=== PATIENT | female | born 2000 | race Caucasian/White ===

== ENCOUNTER 2019-09-17 02:17 | Emergency (ER) | payer MEDICAID, SELFPAY ==
[2019-09-17 02:18] VITALS: BP 135/78; PULSE 108; RESP 16; TEMP 37.2; O2SAT 100; BMI 28.0
[2019-09-17 02:23] VITALS: RESP 16
--- NOTE | 2019-09-17 02:37 | ED.DCSUM_ITS ---
History of Present Illness Chief Complaint: Other, Pain/Inj Narrative: Patient is a 18-year-old female who presents with pelvic pain. She has been having dyspareunia. She saw her prosthetist 2 days ago and was diagnosed with bacterial vaginosis and yeast vaginitis. She had prescriptions called in but has not yet started these. She was told that if her symptoms did not improve with this treatment and she continued to have dyspareunia they would get an outpatient pelvic ultrasound. Tonight during intercourse she had severe pelvic pain which is now improving but not resolved. She complains of pain all the way across the pelvis worse on the left side. She currently rates her pain as 5 out of 10. Past Medical History - Allergies and Home Meds Allergies/Adverse Reactions: Allergies No Known Allergies Allergy (Verified 09/17/19 02:24) Past Medical History: None Smoking Status: Current every day smoker Review of Systems All systems negative except as indicated General: Denies: Fever Gastrointestinal: Denies: Nausea, Vomiting Genitourinary: Reports: - - Pelvic pain, dyspareunia Physical Exam Vital Signs/Narrative: Vital Signs Temp Pulse Resp BP Pulse Ox 09/17/19 02:23 16 09/17/19 02:18 99 F 108 H 16 135/78 H 100 Inital Vital Signs reviewed: Yes General: Well nourished Head: Normocephalic Eyes: EOMI ENT: Moist mucous membranes Neck: Supple Cardiovascular: Regular rhythm, Tachycardia Respiratory: No distress, CTA bilaterally Abdomen: Soft, Nondistended, - - Suprapubic and pelvic abdominal tenderness worse on the left side no guarding or rebound Skin: Normal color Neurological: Alert Psychological: Normal affect Diagnostic/Tx/Re-eval - Medical Decision Making Urinalysis, , gonorrhea and chlamydia as well as a pelvic ultrasound were all ordered. 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 ED Disposition - Plan for ED Patient: Diagnosis: Pelvic pain
[2019-09-17] MEDS: Naproxen 500 MG Tablet PO (02:43)
--- NOTE | 2019-09-17 02:59 | ED.RN ---
nurse called into the room. 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 Nurse left to inform doctor and patient walked out the room. US made aware
== END 2019-09-17 03:00 | disposition home or self-care (01) ==
LOC: ED 02:49
PROVIDERS: Emergency Provider Emergency Medicine
DX: R10.2 Pelvic and perineal pain (principal); N94.10 Unspecified dyspareunia; Z53.29 Procedure and treatment not carried out because of patient's decision for other reasons; N76.0 Acute vaginitis; B37.3 Candidiasis of vulva and vagina; F17.200 Nicotine dependence, unspecified, uncomplicated
CPT/HCPCS: 99283; A4216

== ENCOUNTER 2021-08-21 17:35 | Emergency (ER) | payer MEDICAID, SELFPAY ==
[2021-08-21 17:37] VITALS: BP 114/70; PULSE 123; RESP 18; TEMP 37.2; O2SAT 100; BMI 25.6
--- NOTE | 2021-08-21 17:50 | ED.VIS.DENTA ---
HPI History of Present Illness Chief Complaint: Dental Narrative Narrative: 20-year-old female presenting with dental pain. She states that she had a root canal on the left maxillary teeth on as well as wisdom tooth removal. She has pain over the left wisdom tooth removal site. She states that there were sutures in there which she believes has ripped. She also has pain where her root canal was. She states that ibuprofen was controlling the pain but she only has 1 pill left of ibuprofen currently. She is already done a course of amoxicillin. She does admit to a foul taste coming from what she believes is upper aspect of her mouth. She does not have any facial swelling. No difficulty swallowing or breathing. No fevers. She did call her dentist and they said they could get her in on . PFSH PFS Medical History Smoker Home Medications NK 09/17/19 [History Last Taken Unknown] amoxicillin-pot clavulanate [Augmentin] 1 tab PO BID #20 tab 08/21/21 [Rx Last Taken Unknown] ibuprofen 600 mg PO Q6H PRN PRN #30 tablet 08/21/21 [Rx Last Taken Unknown] Allergy/AdvReac Type Severity Reaction Status Date / Time No Known Allergies Allergy Verified 08/21/21 17:36 Social History Smoking Status: Current every day smoker tobacco type: cigarettes ROS ROS ED Constitutional Constitutional ED: Denies chills or fever(s) Eyes Eyes: Denies blurry vision or change in vision ENT ENT ED: Reports other Details: Dental pain ; Denies rhinorrhea or sore throat Cardiovascular Cardiovascular: Denies chest pain or palpitations Respiratory/Chest Respiratory/Chest: Denies cough or dyspnea Gastrointestinal Gastrointestinal: Denies abdominal pain, nausea or vomiting Genitourinary Genitourinary ED: Denies dysuria or hematuria Musculoskeletal Musculoskeletal: Denies arthralgias or myalgias Integumentary Denies abscess or rash Neurologic Neurologic: Denies headache(s) or paresthesias EXAM Physical Exam Const Vital Signs: 08/21/21 17:37 Temperature 98.9 F Temperature Source Temporal Pulse Rate 123 H Respiratory Rate 18 Blood Pressure 114/70 Blood Pressure Mean 84 Pulse Ox 100 Oxygen Delivery Method Room Air Positive well nourished and well developed General Appearance ED: well developed and NAD HEENT HEENT Narrative: There is erythema and slight swelling at the lateral aspect of the upper maxillary. There is no focal areas of drainage or fluctuance. The left wisdom tooth has been removed and there appears to be sutures in place all wall 1 is loose. He does not actually broken. There is no drainage from this site. There is minimal tenderness to this area. No sublingual edema. Tongue is not swollen. Airway space without stridor. Patient tolerating her own secretions. Negative for trauma Eyes PERRL and EOMs intact bilaterally Neck no lymphadenopathy and supple Extremity normal to inspection Neuro oriented x3 Sensorium / Orientation: alert Psych mental status grossly normal MDM MDM MDM Narrative Medical decision making narrative: Patient has some inflammation and swelling at the left upper maxillary teeth at the site of her root canal. She is finished with her amoxicillin. I cannot determine what this looks like prior however given this swelling and pain which is increased over the course of the day as well as recent instrumentation I think it is reasonable to give her Augmentin. I will provide first dose of this in the ER. The site where the wisdom tooth was removed does have sutures in place although one appears to be loose. There is no drainage from this site. She has follow-up for both in 2 days. She states that if she had a refill for ibuprofen this would help her pain. She states this was controlling her symptoms. Patient will be provided this as well. Patient is stable for discharge at this time. Impression: 1. Dental pain status post root canal 2. Dental abscess Discharge Plan Triage Chief Complaint: Dental ED Provider: Efren Claudio Dx/Rx/DC Orders Instructions: ED Dental Pain Prescriptions: New ibuprofen 600 mg tablet 600 mg PO Q6H PRN PRN (Reason: pain) Qty: 30 RF: 0 amoxicillin-pot clavulanate [Augmentin] 875-125 mg tablet 1 tab PO BID Qty: 20 RF: 0 No Action NK RF: 0 Primary Care Provider: Care Physician,No Primary Referrals: Care Physician,No Primary [Primary Care Provider] - Disposition Disposition: Home, Self Care
[2021-08-21] MEDS: Ibuprofen 600 MG Tablet PO (17:54)
[2021-08-21] MEDS: Amox/Clavulanate 875 MG Tablet PO (17:55)
[2021-08-21 18:02] VITALS: PULSE 88; RESP 16; O2SAT 98
== END 2021-08-21 18:02 | disposition home or self-care (01) ==
LOC: ED 18:01
PROVIDERS: Emergency Provider Student in an Organized Health Care Education/Training Program
DX: T81.41XA Infection following a procedure, superficial incisional surgical site, initial encounter (principal); K04.7 Periapical abscess without sinus; F17.210 Nicotine dependence, cigarettes, uncomplicated
CPT/HCPCS: 99282

== ENCOUNTER 2022-05-01 13:44 | Emergency (ER) | payer MEDICAID, SELFPAY ==
[2022-05-01 13:45] VITALS: BP 137/82; PULSE 119; RESP 16; TEMP 36.6; O2SAT 100; BMI 25.8
== END 2022-05-01 15:45 | disposition left against medical advice (07) ==
LOC: ED 15:44
DX: Z53.21 Procedure and treatment not carried out due to patient leaving prior to being seen by health care provider (principal)

== ENCOUNTER → 2022-12-02 | Outpatient (CLI) | payer MEDICAID, SELFPAY ==
--- NOTE | 2022-12-02 10:34 | US_ITS ---
STUDY: ULTRASOUND BREAST - LEFT REASON FOR EXAM: Female, 21 years old. Left breast lump. TECHNIQUE: Axial and longitudinal images of the LEFT breast were performed with a high resolution ultrasound transducer. # OF IMAGES: 39 COMPARISON: None. FINDINGS: LEFT Breast: The inferior aspect of the breast was examined with ultrasound. No sonographic abnormality is seen. US/Breast Limited Unilateral IMPRESSION: No sonographic abnormality is seen. ASSESSMENT CATEGORY: BIRADS Category 1: Negative. A letter regarding these results will be sent to the patient by the facility within 30 days. Electronically Signed: Perfecto Malik MD at 13:52 EST ,
== END | disposition home or self-care (01) ==
LOC: OPBI 10:32
PROVIDERS: Visit Provider Obstetrics & Gynecology
DX: N63.20 Unspecified lump in the left breast, unspecified quadrant (principal)
CPT/HCPCS: 76642

== ENCOUNTER → 2023-04-08 | Outpatient (CLI) | payer MEDICAID, SELFPAY ==
[2023-04-08 12:37] LABS: Absolute Lymphocyte Count 1.34 X10^3/uL (0.83-4.51); Absolute Neutrophil Count 5.8 X10^3/uL (2.0-7.7); Basophil# 0.02 X10^3/uL; Basophil% 0.3 % (0-1); Eosinophil# 0.07 X10^3/uL; Eosinophils% 0.9 % (0-5); Hematocrit 39.5 % (37-47); Hemoglobin 13.4 g/dL (12.0-15.0); Lymphocyte # 1.34 X10^3/ul (0.83-4.51); Lymphocyte % 17.4 % (19-41); Mean Corp Hgb Conc 33.9 g/dL (32-36); Mean Corpuscular Hgb 30.5 pg (27.0-32.0); Mean Platelet Vol. 10.3 fl (6.2-12.0); Monocyte# 0.45 X10^3/uL; Monocyte% 5.9 % (0-10); NRBC Flagged by Analyzer 0 % (0-5); Neutrophil # 5.77 X10^3/uL (2.7-7.7); Neutrophil % 75.1 % (47-70); Platelet Count 189 K/mm3 (150-450); RBC Distribution Width CV 14.1 % (11.6-14.6); RBC Distribution Width SD 46.2 fl (35.1-43.9); Red Blood Count 4.39 M/mm3 (4.2-5.4); White Blood Count 7.7 K/mm3 (4.4-11.0)
[2023-04-08 13:48] LABS: HIV - WCH Non-Reactive (Nonreactive); Hepatitis B Surface Antigen Non-Reactive (Nonreactive); Hepatitis C Antibody Non-Reactive (Nonreactive); Rubella IgG Reactive (Nonreactive); Syphilis Antibodies Non-reactive
[2023-04-09 05:07] LABS: V-Zoster IgG (Immunity) 2388 index (Immune >165)
[2023-04-17 22:07] LABS: HPV APTIMA, High Risk Positive (Negative)
[2023-04-19 11:10] LABS: HPV Reflexed? YES, CHARGE PATIENT
== END | disposition home or self-care (01) ==
PROVIDERS: Visit Provider Obstetrics & Gynecology
DX: Z34.81 Encounter for supervision of other normal pregnancy, first trimester (principal); Z12.4 Encounter for screening for malignant neoplasm of cervix
CPT/HCPCS: 36415; 85025; 86703; 86762; 86780; 86787; 86803; 87086; 87088; 87340; 87624; 88175; G0145

== ENCOUNTER → 2023-07-25 | Outpatient (CLI) | payer MEDICAID, SELFPAY ==
[2023-07-25 11:03] LABS: Hematocrit 38.2 % (37-47); Hemoglobin 12.5 g/dL (12.0-15.0); Mean Corp Hgb Conc 32.7 g/dL (32-36); Mean Corpuscular Hgb 30.7 pg (27.0-32.0); Mean Corpuscular Volume 93.9 fL (81-99); Mean Platelet Vol. 9.7 fl (6.2-12.0); Platelet Count 166 K/mm3 (150-450); RBC Distribution Width CV 13.1 % (11.6-14.6); RBC Distribution Width SD 44.9 fl (35.1-43.9); Red Blood Count 4.07 M/mm3 (4.2-5.4); White Blood Count 9.7 K/mm3 (4.4-11.0)
[2023-07-25 11:33] LABS: Glucose Challenge Gest 1H 50g 88 mg/dL (70-140)
[2023-07-25 11:48] LABS: Syphilis Antibodies Non-reactive
== END | disposition home or self-care (01) ==
PROVIDERS: Referring Provider Obstetrics & Gynecology; Visit Provider Obstetrics & Gynecology
DX: Z01.89 Encounter for other specified special examinations (principal); Z13.1 Encounter for screening for diabetes mellitus; R76.8 Other specified abnormal immunological findings in serum
CPT/HCPCS: 36415; 82950; 85027; 86780

== ENCOUNTER 2023-11-05 17:30 | Inpatient (IN) | payer MEDICAID, SELFPAY ==
[2023-11-05] VITALS (55 sets, daily range): BP systolic 94–149; BP diastolic 46–83; PULSE 76–113; TEMP 36.3–37.1; O2SAT 93–100; BMI 33.0
--- NOTE | 2023-11-05 17:31 | PCM.HP.OB ---
HPI - General HPI Narrative GUERDA CARDONA, is a 22 F at 38.5 weeks gestation who presents in spontaneous labor. Started having contractions yesterday that have continued to increase in frequency and intensity. Denies any loss of fluid or vaginal bleeding. GBS positive. Maternal Data Information IAN Calculator Estimated Delivery Date Method Current WG Current Estimate 11/14/23 Manual 38w 5d PFSH PFSH Medical History Smoker Home Medications vit no.95-ferrous fumarate 28 mg-folic acid 800 mcg tablet () 1 tab PO DAILY 11/05/23 [History Last Taken 11/04/23 07:00 1 TAB] Allergy/AdvReac Type Severity Reaction Status Date / Time No Known Allergies Allergy Verified 11/05/23 15:17 Social History Smoking Status: Current every day smoker tobacco type: cigarettes ROS Eyes Eyes: Denies blurry vision, change in vision or spots in vision ENT HEENT: Denies dizziness or headache(s) Cardiovascular Cardiovascular: Denies abdominal pain, chest pain or dyspnea Respiratory/Chest Respiratory/Chest: Denies cough, dyspnea, shortness of breath at rest or shortness of breath with exertion Gastrointestinal Gastrointestinal: Denies abdominal pain, diarrhea or vomiting Genitourinary Genitourinary: Denies change in urinary stream, difficulty urinating or dysuria Musculoskeletal Musculoskeletal: Reports none Integumentary Integumentary: Denies rash Neurologic Neurologic: Denies dizziness, headache(s), memory loss or weakness Psychiatric Psychiatric: Reports none Vital Signs Vital Signs Vital Signs: 11/05/23 14:56 11/05/23 14:56 11/05/23 14:56 Temperature Temperature Source Temporal Pulse Rate 99 Blood Pressure 133/83 H BP Systolic 133 BP Diastolic 83 11/05/23 14:56 Temperature 97.8 F Temperature Source Pulse Rate Blood Pressure BP Systolic BP Diastolic Weight Weight: 217 lb 6.012 oz Body Mass Index (BMI) 33.0 Physical Exam Const alert, oriented x3 and no apparent distress General Appearance: cooperative Orientation / Consciousness: awake Exam Limitations: no limitations HEENT normocephalic Head and Scalp: normal to inspection Eyes General Eye: normal appearance of both eyes Neck full ROM and no lymphadenopathy Lymph Lymphatic: no lymphadenopathy noted Chest inspection of chest normal Resp normal respiratory effort, normal air movement and clear to auscultation bilaterally Effort and Inspection: able to speak in complete sentences and symmetric chest movement Cardio regular rate and regular rhythm GI normal to inspection, nondistended, normoactive bowel sounds Back/Spine normal ROM Extremity full ROM and no calf tenderness Skin no rashes or lesions noted General Skin Exam: no breakdown Neuro oriented x3 and CN's II-XII intact bilaterally Psych mental status grossly normal and thought process normal Labs Labs Labs: Blood Type O POSITIVE Hct 38.2 % (37-47) Hgb 12.5 g/dL (12.0-15.0) Syphilis Total Ab Non-reactive VZV IgG Antibody 2388 index (Immune >165) Rubella IgG Antibody Reactive (Nonreactive) Hep Bs Antigen Non-Reactive (Nonreactive) Hepatitis C Antibody Non-Reactive (Nonreactive) HIV 1&2 Antibody Non-Reactive (Nonreactive) Glucose 1 Hr 50 gm 88 mg/dL (70-140) GBS positive Assessment & Plan (1) 38 weeks gestation of : (2) Spontaneous onset of labor: (3) Positive GBS test: (4) History of asthma: (5) PTSD (post-traumatic stress disorder): (6) Genital herpes: (7) History of depression: (8) History of anxiety: PLAN: Plan CE /-1 bulging bag of water Admit to labor and delivery Routine labs Start IV and run fluids per orders GBS positive- Start PCN protocol Epidural when indicated Anticipate Dr. Gomez notified of above plan and admission and is collaborating physician
[2023-11-05] MEDS: Lactated Ringers 1,000 ML 50 ML IV (17:55)
[2023-11-05] MEDS: LACTATED RINGERS 500 ML 999 ML IV (18:00)
[2023-11-05 18:11] LABS: Absolute Lymphocyte Count 1.22 X10^3/uL (0.83-4.51); Absolute Neutrophil Count 11.9 X10^3/uL (2.0-7.7); Basophil# 0.04 X10^3/uL; Basophil% 0.3 % (0-1); Eosinophil# 0.02 X10^3/uL; Eosinophils% 0.1 % (0-5); Hematocrit 40.3 % (37-47); Lymphocyte # 1.22 X10^3/ul (0.83-4.51); Lymphocyte % 8.8 % (19-41); Mean Corp Hgb Conc 32.3 g/dL (32-36); Mean Corpuscular Hgb 29.1 pg (27.0-32.0); Mean Corpuscular Volume 90.2 fL (81-99); Mean Platelet Vol. 9.9 fl (6.2-12.0); Monocyte# 0.59 X10^3/uL; Monocyte% 4.3 % (0-10); NRBC Flagged by Analyzer 0 % (0-5); Neutrophil # 11.86 X10^3/uL (2.7-7.7); Neutrophil % 85.6 % (47-70); Platelet Count 151 K/mm3 (150-450); RBC Distribution Width CV 12.9 % (11.6-14.6); Red Blood Count 4.47 M/mm3 (4.2-5.4); White Blood Count 13.9 K/mm3 (4.4-11.0)
[2023-11-05] MEDS: Penicillin G Pot 5,000,000 UNITS in 0.9% Normal Saline (100mL MB+) 100 ML 150 UNITS IV (18:21)
[2023-11-05 18:49] LABS: Syphilis Antibodies Non-reactive
[2023-11-05] MEDS: fentaNYL-bupivacaine (epidural) 100 ML BAG EPIDURAL (19:24)
[2023-11-05] MEDS: Oxytocin 15 Units/NS 250ml 15 UNITS/250 ML IV.SOLN 83 UNITS IV (20:18)
[2023-11-05] MEDS: Oxytocin 10 UNITS/ML Vial IM (20:18)
[2023-11-05] MEDS: Methylergonovine 0.2 MG/ML Ampul 0.200000000000000011 MG IM (20:32)
--- NOTE | 2023-11-05 20:33 | EX.PCM.OBRPT ---
Assessment & Plan (1) History of anxiety: (2) (spontaneous vaginal delivery): (3) Positive GBS test: (4) History of depression: Maternal Data Information IAN Calculator Estimated Delivery Date Method Current WG Current Estimate 11/14/23 Manual 38w 5d Vaginal Delivery Maternal Presentation Maternal Presentation: 38.5 weeks gestation that presented in spontaneous onset of labor. Operative Information Date of Procedure: 11/05/23 Pre-Operative Diagnosis: Term gestation, Spontaneous onset of labor Post-Operative Diagnosis: , live male infant Surgery / Procedure Performed: Spontaneous Vaginal Delivery Type of Anesthesia: Epidural Estimated Blood Loss: 200 Time of Delivery: 20:14 Findings Description of Procedure: Patient quickly progressed in labor. Feeling rectal pressure. AROM for clear fluid and patient bearing down with contractions. With minimal maternal effort, head delivered over intact perineum followed immediately by anterior shoulder and remainder of infant body. Vigorous male placed on maternal abdomen and was attended to by nursing staff. Pitocin IM and IV started for active management of the third stage of labor. 3 vessel cord clamped and cut by FOB after delay. Cord blood collected and sent. Placenta delivered spontaneously and intact. Uterus initially boggy but firmed with massage. Fundus firm 2 below U. Vagina and perineum intact. EBL 200 cc. APGARS 8/9. Patient and bonding well at this time. Dr. Gomez notified of delivery. Presentation: Vertex Amniotic Membrane Rupture Type: Artificial Time of Membrane Rupture: 2003 Amniotic Fluid Description: Clear Placental Delivery Description: Spontaneous Placenta Disposition: [facility] Cord Vessel Description: 3 Vessels Cord Entanglement: None A Gender: Male (1 minute): 8 (5 minute): 9 Delayed Cord Clamping: Yes Post Vaginal Delivery Medications Given After Delivery: IV Pitocin and IM Pitocin Episiotomy Description: None Laceration: None Complication Complications: None
[2023-11-05] MEDS: 0.9% Saline Lock 10 ML Syringe IV (23:17)
[2023-11-06 02:45] VITALS: BP 112/66; PULSE 93; RESP 18; TEMP 36.1
--- NOTE | 2023-11-06 07:11 | PCM.PN.BLA ---
Progress Note Patient seen at bedside. Denies any pain. Ambulating and voiding without difficulty. Lochia decreasing. with support. Desires discharge home tomorrow. Physical Exam Const alert and no apparent distress General Appearance: cooperative and comfortable Exam Limitations: no limitations HEENT normocephalic Eyes General Eye: normal appearance of both eyes Neck full ROM General: normal visual inspection Chest Chest: symmetrical chest wall rise Resp normal respiratory effort and normal air movement Effort and Inspection: symmetric chest movement Auscultation: clear to auscultation bilaterally Cardio regular rate and regular rhythm GI normal to inspection, nondistended, normoactive bowel sounds Back/Spine normal ROM Extremity full ROM and no calf tenderness General Extremity: normal exam except as noted Skin no rashes or lesions noted Neuro CN's II-XII intact bilaterally Psych mental status grossly normal Assessment & Plan Assessment/Plan (1) (spontaneous vaginal delivery): (2) History of anxiety: (3) History of depression: (4) Positive GBS test: (5) Care and examination of lactating mother: PLAN: Plan GBS positive- not adequately treated due to quick progession- will need to stay 36 hours pp Routine care support Pain control Anticipate discharge home tomorrow
[2023-11-06 07:42] VITALS: BP 110/72; PULSE 81; RESP 16; TEMP 36.3
[2023-11-06] MEDS: Acetaminophen 500 MG Tablet 1000 MG PO ×2 (07:48→20:31)
[2023-11-06 13:04] VITALS: BP 106/63; PULSE 78; RESP 16; TEMP 36.3
[2023-11-06 17:19] VITALS: BP 115/67; PULSE 79; RESP 16; TEMP 35.9
[2023-11-06 20:00] VITALS: BP 110/61; PULSE 93; RESP 17; TEMP 36.6; O2SAT 99
[2023-11-07] MEDS: Acetaminophen 500 MG Tablet 1000 MG PO (03:18)
[2023-11-07 03:20] VITALS: BP 125/78; PULSE 110; RESP 15; TEMP 37.1; O2SAT 97
--- NOTE | 2023-11-07 07:25 | PCM.PN.OB ---
Subjective Subjective The patient is doing well and she offers no complaints. She is ambulating and voiding without difficulty. Tolerating regular diet without nausea or vomiting. She denies chest pain, shortness of breath, leg pain. Lochia is normal. She is breast-feeding. She desires to go home today. No pain. Objective Data Objective Data Vital Signs: Vital Signs Temp Pulse Resp BP Pulse Ox O2 Del Method 98.8 F 110 H 15 125/78 H 97 Room Air 11/07/23 03:20 11/07/23 03:20 11/07/23 03:20 11/07/23 03:20 11/07/23 03:20 11/07/23 03:20 Oxygen Delivery Method Room Air Weight: 217 lb 6.012 oz Body Mass Index (BMI) 33.0 Intake & Output: Intake and Output for Last 24 Hours 11/05/23 11/06/23 11/07/23 23:59 23:59 23:59 Intake Total 1019.84 / 1019.84 Output Total 1000 / 1000 1000 / 1000 Balance 19.84 / 19.84 -1000 / -1000 Lab / Micro Data 11/05/23 17:50 Physical Exam Const alert and no apparent distress Constitutional Narrative: Holding General Appearance: comfortable Assessment & Plan (1) (spontaneous vaginal delivery): PLAN: Patient is day 2 from a vaginal delivery. Desires discharge today and meeting milestones. Discharge instructions reviewed to follow-up in the office.
--- NOTE | 2023-11-07 08:22 | DCINST_ITS ---
Discharge Instructions Diet Discharge Diet: No restrictions Activity Discharge Activity: May Drive and May Shower May resume sexual activity in: 6 weeks (nothing in vagina and no soaking in water for 6 weeks) Weight Bearing Status: Weight bearing as tolerated Lifting Restrictions: nothing heavier than baby Dressing / Incision Call your doctor if you observe: Fever of 101 or Higher, Coldness, Increased Pain, Numbness or Tingling, Change in Color, Inability to urinate, Inability to have a bowel movement, Using more than 1 pad per hour, Shortness of breath, Dizziness, Fainting spells, Swelling in the ankles, Chest pain, Increased palpitations (irregular heartbeat), Calf discomfort and Uncontrolled pain Follow Up Care Please Follow Up With: Aislinn Bowman CNM When: 1-2 weeks early 6 week exam Test Results: Test results from this visit will be discussed in further detail at your follow- up appointment, if applicable. Discharge Plan Admission Admit Date/Time: 11/05/23 17:30 Primary Reason for Your Visit: delivery Attending Provider: Aislinn Bowman Primary Care Provider: Care Physician,Luz Marina Primary Instructions Patient Instructions: After a Vaginal Discharge Orders/Prescriptions Prescriptions: No Action PNV cmb#95-ferrous fumarate-FA [] 28 mg iron- 800 mcg tablet 1 tab PO DAILY Referrals / Follow Up: Care Physician,Luz Marina Primary [Primary Care Provider] - Disposition Disposition (needs filled in before D/C Order can be placed): Home, Self Care
[2023-11-07 08:58] VITALS: BP 102/52; PULSE 69; RESP 16; TEMP 36.4; O2SAT 97
[2023-11-07 11:33] VITALS: BP 102/52; PULSE 69; RESP 16; TEMP 36.4; O2SAT 97
--- NOTE | 2023-11-11 11:08 | NURSING ---
Follow up phone call performed. Pt. reports to be doing well. Denies any complications with vaginal bleeding, no s+s reported. Infant has been feeding well. Denies questions or concerns at this time.
== END 2023-11-07 11:55 | disposition home or self-care (01) | DRG 560 ==
LOC: WPOUT 17:32 → WP 17:32
PROVIDERS: Admitting Provider Advanced Practice Midwife; Referring Provider Advanced Practice Midwife; Visit Provider Advanced Practice Midwife
DX: O98.32 Other infections with a predominantly sexual mode of transmission complicating childbirth (principal); Z37.0 Single live birth; O99.344 Other mental disorders complicating childbirth; A60.09 Herpesviral infection of other urogenital tract; F17.210 Nicotine dependence, cigarettes, uncomplicated; F41.9 Anxiety disorder, unspecified; F43.10 Post-traumatic stress disorder, unspecified; O99.824 Streptococcus B carrier state complicating childbirth; O99.334 Smoking (tobacco) complicating childbirth; Z3A.38 38 weeks gestation of pregnancy; B95.1 Streptococcus, group B, as the cause of diseases classified elsewhere; Z87.09 Personal history of other diseases of the respiratory system
CPT/HCPCS: 59025; 59050; 85025; 86780; 86850; 86900; 86901; 99221; J7120; A4216; G0378

== ENCOUNTER 2025-05-11 10:17 | Inpatient (IN) | payer MEDICAID, SELFPAY ==
[2025-05-11] VITALS (31 sets, daily range): BP systolic 93–144; BP diastolic 55–80; PULSE 69–106; RESP 15–16; TEMP 36.4–36.9; O2SAT 97–99; BMI 30.8
[2025-05-11] MEDS: Lactated Ringers 1,000 ML 999 ML IV (10:36)
[2025-05-11 10:42] LABS: Hematocrit 39.2 % (37-47); Hemoglobin 13.1 g/dL (12.0-15.0); Immature Granulocytes Count 0.080 X10^3/uL (0.0-0.0); Mean Corp Hgb Conc 33.4 g/dL (32-36); Mean Corpuscular Volume 85.2 fL (81-99); Mean Platelet Vol. 9.3 fl (6.2-12.0); NRBC Flagged by Analyzer 0 % (0-5); Platelet Count 172 K/mm3 (150-450); RBC Distribution Width CV 14.0 % (11.6-14.6); RBC Distribution Width SD 43.3 fl (35.1-43.9); Red Blood Count 4.60 M/mm3 (4.2-5.4); White Blood Count 14.3 K/mm3 (4.4-11.0)
[2025-05-11] MEDS: fentaNYL-bupivacaine (epidural) 100 ML BAG EPIDURAL (11:06)
--- NOTE | 2025-05-11 11:15 | PCM.HP.OB ---
HPI - General General Date of Admission: 05/11/25 HPI Narrative GUERDA CARDONA, is a 24 F who presents in spotaneous labor. Maternal Data Information IAN Calculator Estimated Delivery Date Method Current WG Current Estimate 05/08/25 Manual 40w 3d PFSH PFSH Medical History Infected dental caries (spontaneous vaginal delivery) HPV (human papilloma virus) infection Asthma Depression Anxiety History of anxiety History of depression Genital herpes PTSD (post-traumatic stress disorder) History of asthma Smoker Home Medications ?Medication ?Instructions ?Recorded ?Last Taken ?Type methylprednisolone 4 mg tablets in See Rx Instructions PO PER PKG DIR 12/06/24 Unknown Rx a dose pack (Medrol (Kishor)) #21 tabs Allergy/AdvReac Type Severity Reaction Status Date / Time albuterol Allergy Mild Rash Verified 05/11/25 10:24 Surgical History History of surgery Social History Smoking Status: Former smoker History Elective abortions Hx Para 2 Spontaneous abortions Hx # Term Pregnancies Ectopic pregnancies Hx # Pregnancies Multiple births # of living children NST FHR Rate Baby A Baseline: 140 Variability:: Moderate Accelerations:: 15 x 15 Decelerations:: None NST Reactive:: Yes FHR Category:: Category I ROS Eyes Eyes: Denies blurry vision, change in vision or spots in vision ENT HEENT: Denies dizziness or headache(s) Cardiovascular Cardiovascular: Denies abdominal pain, chest pain or dyspnea Respiratory/Chest Respiratory/Chest: Denies cough, dyspnea, shortness of breath at rest or shortness of breath with exertion Gastrointestinal Gastrointestinal: Denies abdominal pain, diarrhea or vomiting Genitourinary Genitourinary: Denies change in urinary stream, difficulty urinating or dysuria Musculoskeletal Musculoskeletal: Reports none Integumentary Integumentary: Denies rash Neurologic Neurologic: Denies dizziness, headache(s), memory loss or weakness Psychiatric Psychiatric: Reports none Vital Signs Vital Signs Vital Signs: 05/11/25 09:07 05/11/25 09:07 05/11/25 09:15 Temperature 98.1 F Pulse Rate Respiratory Rate 16 Blood Pressure 118/77 BP Systolic 118 BP Diastolic 77 Pulse Ox 05/11/25 09:15 05/11/25 11:01 05/11/25 11:01 Temperature Pulse Rate 91 83 Respiratory Rate Blood Pressure BP Systolic BP Diastolic Pulse Ox 97 05/11/25 11:02 05/11/25 11:02 05/11/25 11:06 Temperature Pulse Rate 94 93 Respiratory Rate Blood Pressure 130/80 H BP Systolic 130 BP Diastolic 80 Pulse Ox 05/11/25 11:06 05/11/25 11:07 05/11/25 11:07 Temperature Pulse Rate 88 Respiratory Rate Blood Pressure 119/70 BP Systolic 119 BP Diastolic 70 Pulse Ox 98 05/11/25 11:13 05/11/25 11:13 Temperature Pulse Rate 81 Respiratory Rate Blood Pressure BP Systolic BP Diastolic Pulse Ox 99 Weight Weight: 202 lb 13.204 oz Body Mass Index (BMI) 30.8 Physical Exam Const alert, oriented x3 and no apparent distress General Appearance: cooperative Orientation / Consciousness: awake Exam Limitations: no limitations HEENT normocephalic Head and Scalp: normal to inspection Eyes General Eye: normal appearance of both eyes Neck full ROM and no lymphadenopathy Lymph Lymphatic: no lymphadenopathy noted Chest inspection of chest normal Resp normal respiratory effort, normal air movement and clear to auscultation bilaterally Effort and Inspection: able to speak in complete sentences and symmetric chest movement Cardio regular rate and regular rhythm GI normal to inspection, nondistended, normoactive bowel sounds Manual OB Exam: presentation cephalic Back/Spine normal ROM Extremity full ROM and no calf tenderness Skin no rashes or lesions noted General Skin Exam: no breakdown Neuro oriented x3 and CN's II-XII intact bilaterally Psych mental status grossly normal and thought process normal Labs Labs Labs: Blood Type O POSITIVE Antibody Screen NEGATIVE Hct 39.2 % (37-47) Hgb 13.1 g/dL (12.0-15.0) Syphilis Total Ab Non-reactive VZV IgG Antibody 2388 index (Immune >165) Rubella IgG Antibody Reactive (Nonreactive) Hep Bs Antigen Non-Reactive (Nonreactive) Hepatitis C Antibody Non-Reactive (Nonreactive) HIV 1&2 Antibody Non-Reactive (Nonreactive) Glucose 1 Hr 50 gm 88 mg/dL (70-140) Assessment & Plan (1) 40 weeks gestation of : (2) Gestational thrombocytopenia: (3) HSV-2 infection complicating : (4) Asthma: PLAN: Plan CE 5cm Spontaneous rupture of membranes while being admitted Start IV and routine labs GBS negative Epidural SANTO Anticipate Dr. Michelle notified and is collaborating physician
[2025-05-11 11:22] LABS: Syphilis Antibodies Nonreactive (Nonreactive)
[2025-05-11] MEDS: Lactated Ringers 1,000 ML 200 ML IV (12:15)
[2025-05-11] MEDS: Oxytocin 15 Units/NS 250ml 15 UNITS/250 ML IV.SOLN 83 UNITS IV (13:02)
--- NOTE | 2025-05-11 13:08 | EX.PCM.OBVAG ---
Assessment & Plan (1) History of depression: (2) History of asthma: (3) History of anxiety: (4) Spontaneous rupture of amniotic membranes: (5) (spontaneous vaginal delivery): (6) Asthma: Maternal Data Information IAN Calculator Estimated Delivery Date Method Current WG Current Estimate 05/08/25 Manual 40w 3d Doctor Who Attended Delivery: Aislinn Bowman Vaginal Delivery Maternal Presentation Maternal Presentation: Active Labor Maternal Presentation: that arrived in spontaneous labor. Vaginal Delivery Information Procedure Performed: Spontaneous Vaginal Delivery Date of Procedure: 05/11/25 Pre-Procedure Diagnosis: Term gestation, spontaneous onset of labor, spontaneous rupture of membranes Post-Procedure Diagnosis: , Live female infant Type of anesthesia: Epidural Estimated Blood Loss: 100 Findings Description of procedure: Patient quickly progressed to complete dilation. With good maternal effort, head delivered followed by anterior shoulder and remainder of infant body without any force, delay, or traction. Nuchal cord x2 loose and easily reduced. Vigorous female was delivered atraumatically and placed on maternal abdomen. Pitocin IV started for active management of the third stage of labor. 3 vessel cord clamped and cut after delay and placed immediately skin to skin with patient. Placenta delivered spontaneously and intact. After inspection, vagina and perineum are intact. Vaginal sweep performed. Fundus is firm 2 below U and bleeding is hemostatic. Sponge and sharps counts correct. Patient and infant bonding well at this time. Dr. Michelle notified of delivery. Routine post orders placed. 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
[2025-05-11 17:27] LABS: Barbiturate Urine NEGATIVE (< 200 ng/mL); Benzodiazepine Urine NEGATIVE (< 200 ng/mL); PCP Urine NEGATIVE (< 25 ng/mL); THC Urine PRESUMPTIVE POSITIVE (< 50 ng/mL)
--- OUTSIDE RECORDS SUMMARY | 2025-05-11 21:39 | XMS RPT_ITS | CCD ---
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 [facility] Care Team Providers [facility] Director Name Role Phone Reese Tellez MD Primary Care Provider Unavailable Primary Care Provider Unavailabl e Unavailable Primary Care Provider UnavailReese Degroot MD Primary Care Provider [phone] Marcelo France Attending Unavailable Care Physician, No Primary Referring Unava ilable Care Physician, No Primary Primary Care Unava ilable Care Physician, No Primary Primary Care Unava ilable Marcelo France Attending Unavailable Care Physician, No Primary Referring Unava ilable AISLINN BOWMAN Referring Unavailable AISLINN BOWMAN Attending Unavailable LARY HERNANDEZ Attending Unavailable LISETTE TEJEDA Attending Unavailable HUAN CAMPO Referring Unavailable LARY HERNANDEZ Attending Unavailable TRISTA MACKEY Attending Unavailable ESTEFANÍA CLARK Attending Unavailable SALLIE WISE Attending Unavail able HUAN CAMPO Attending Unavailable ESTEFANÍA CLARK Referring Unavailable TRISTA MACKEY Attending Unavailable TRISTA MACKEY Attending Unavailable HUAN CAMPO Referring Unavailable TRISTA MACKEY Attending Unavailable HUAN CAMPO Referring Unavailable HAURY, HUAN Referring Unavailable HAURY, HUAN Referring Unavailable DEO VELIZ Attending Unavailable AISLINN BOWMAN Attending Unavailable ESTEFANÍA CLARK Attending Unavailable Allergies Allergy Classification Reported Allergen(s) Allergy Type Date of Onset Reaction(s) Facility (20 sources) Albuterol; Translations: [ALBUTEROL SULFATE] Drug Allergy 09-26-2023 [facility] Work Phone: (1 source) Albuterol Drug Allergy 11-05-2023 [facility] (1 source) Albuterol Drug Allergy 12-06-2024 [facility] Repository Medications Current Medications Medication Drug Class(es) Dates Sig (Normalized) Sig (Original) Acetaminophen (20 sources) acetaminophen (T YLENOL ORAL) Take by mouth. Active acetaminophen (T YLENOL ORAL) Take by mouth. 0 Active Comment on above: Take by mouth. Crayne (Nk) (2 sources) Start: 9 Crayne (Nk) Active September 17, 2019 1:00am Pnv Cmb#95-Ferrous Fumarate-Fa () 28 mg iron- 800 mcg tablet (1 source) Start: 3 take 1 tablet by mouth once daily Pnv Cmb#95-Ferrous Fumarate-Fa () 28 mg iron- 800 mcg tablet Active 1 TABLET PO DAILY November 05, 2023 12:00am Evmfchju-Hc-Csl-Fe-FA tab (20 sources) Start: 4 take 1 tablet by mouth once daily Qgxchfhc-Su-Nbd-Fe-F A tab Take 1 tablet by mouth once daily. 30 tablet 12 10/29/2024 Active valACYclovir 500 mg oral tablet (12 sources) Herpesvirus Nucleoside Analog DNA Polymerase Inhibitor, Herpes Simplex Virus Nucleoside Analog DNA Polymerase Inhibitor, Herpes Zoster Virus Nucleoside Analog DNA Polymerase Inhibitor Start: 5 End: 5 take 1 tablet by mouth twice daily valACYclovir (VALTREX) 500 mg tablet Take 1 tablet by mouth two times a day. 60 tablet 2 04/05/2025 07/04/2025 Active Start: 07-13-2017 End: 12-25-2023 take 1 tablet by mouth twice daily valACYclovir (VALTREX) 500 mg tablet Take 1 tablet by mouth two times a day. 60 tablet 2 09/26/2023 12/25/2023 Active Comment on above: Take 1 tablet by julio césar th two times a day. Take 1 g by mouth. Completed/Discontinued Medications Medication Drug Class(es) Dates Sig (Normalized) Sig (Original) [id number] 200 actuat albuterol 0.09 mg/actuat metered dose inhaler (1 source) beta2-Adrenergic Agonist Start: 12-27-2014 End: 05-01-2022 albuterol sulfate HFA 108 (90 BASE) MCG/ACT inhaler Inhale 2 puffs into the lungs 0 12/27/2014 05/01/2022 Discontinued (LIST CLEANUP) amoxicillin 875 mg / clavulanate 125 mg oral tablet (3 sources) Penicillin-class Antibacterial Start: 08-21-2021 End: 11-05-2023 take 1 tablet by mouth twice daily Amoxicillin-Pot Clavulanate (Augmentin) 875-125 mg tablet Discontinued 1 TABLET PO TWICE A DAY August 20, 2021 11:00pm November 05, 2023 3:18pm aspirin 81 mg delayed release oral tablet (7 sources) Platelet Aggregation Inhibitor, Nonsteroidal Anti-inflammatory Drug Start: 09-13-2024 End: 11-23-2024 take 1 tablet by mouth once daily aspirin, enteric coated (ECOTRIN LOW STRENGTH) 81 mg EC tablet Indications: with uncertain dates in first trimester Take 1 tablet by mouth once daily. 90 tablet 3 09/13/2024 11/23/2024 Discontinued doxylamine succinate 25 mg oral tablet (5 sources) Start: 01-10-2025 End: 02-09-2025 take 1 tablet by mouth once daily at bedtime doxylamine 25 mg tab Take 1 tablet by mouth daily at bedtime. 30 tablet 4 01/10/2025 02/09/2025 120 actuat fluticasone propionate 0.11 mg/actuat metered dose inhaler (1 source) Corticosteroid Start: 12-27-2014 End: 05-01-2022 fluticasone (FLOVENT HFA) 110 MCG/ACT inhaler Inhale 1 puff into the lungs 0 12/27/2014 05/01/2022 Discontinued (LIST CLEANUP) ibuprofen 600 mg oral tablet (4 sources) Nonsteroidal Anti-inflammatory Drug Start: 03-18-2019 End: 11-05-2023 take 600 mg by mouth every six hours as needed Ibuprofen Discontinued 600 MG PO EVERY 6 HOURS NEEDED August 20, 2021 11:00pm November 05, 2023 3:18pm PNV no.95/ferrous fum/folic ac ( ORAL) (10 sources) End: 10-29-2024 PNV no.95/ferrous fum/folic ac ( ORAL) Take by mouth. 10/29/2024 Discontinued PNV no.95/ferrou s fum/folic ac ( ORAL) Take by mouth. Active PNV no.95/ferrou s fum/folic ac ( ORAL) Take by mouth. 0 Active Comment on above: Take by mouth. Vit-Fe Fumarate-FA ( VITAMIN) 27-0.8 MG TABS (1 source) Start: 07-11-2018 End: 05-01-2022 take 1 tablet by mouth once daily Vit-Fe Fumarate-FA ( VITAMIN) 27-0.8 MG TABS Take 1 tablet by mouth daily 30 tablet 0 07/11/2018 05/01/2022 Discontinued (LIST CLEANUP) Problems Active Problems Problem Classification Problem Date Documented Date Episodic/Chronic Abdominal pain (3 sources) Pain in pelvis; Translations: [Pelvic and perineal pain] 09-18-2019 Episodic Adjustment disorders (20 sources) Adjustment disorder with anxious mood; Translations: [Adjustment disorder with anxiety] Onset: 11-15-2008 09-26-2023 Chronic Anxiety disorders (20 sources) Posttraumatic stress disorder; Translations: [Post-traumatic stress disorder, unspecified] Onset: 11-15-2016 09-26-2023 Chronic Asthma (20 sources) Intermittent asthma; Translations: [Mild intermittent asthma, uncomplicated] Onset: 10-06-2012 09-26-2023 Chronic Coagulation and hemorrhagic disorders (2 sources) Thrombocytopenia, unspecified; Translations: [Benign gestational thrombocytopenia in third trimester (HCC)] Onset: 03-07-2025 Chronic Genitourinary symptoms and ill-defined conditions (2 sources) Foul smelling urine; Translations: [Unspecified abnormal findings in urine] Onset: 03-21-2025 03-21-2025 Episodic Immunizations and screening for infectious disease (3 sources) Vaccination needed; Translations: [Encounter for immunization] Onset: 03-07-2025 09-26-2023 Episodic Other complications of (19 sources) High risk ; Translations: [Supervision of high risk , unspecified, first trimester] Onset: 09-13-2024 09-13-2024 Episodic Other complications of (20 sources) Complication occurring during ; Translations: [Supervision of other high risk pregnancies, first trimester] Onset: 09-13-2024 09-13-2024 Episodic Other complications of (20 sources) Benign gestational thrombocytopenia; Translations: [Other diseases of the blood and blood-forming organs and certain disorders involving the immune mechanism complicating , third trimester] Onset: 02-10-2025 02-21-2025 Episodic Other complications of (1 source) Thrombocytopenic disorder; Translations: [Other diseases of the blood and blood-forming organs and certain disorders involving the immune mechanism complicating , unspecified trimester] 02-21-2025 Episodic Other complications of (2 sources) Herpes in ; Translations: [Other viral diseases complicating , third trimester] 04-05-2025 Episodic Other complications of (1 source) Supervision of high risk , unspecified, third trimester; Translations: [Supervision of high risk in third trimester (HCC)] Onset: 05-09-2025 Episodic Other complications of (1 source) Other viral diseases complicating , third trimester; Translations: [HSV-2 infection complicating , third trimester (HCC)] Onset: 04-05-2025 Episodic Other complications of (1 source) Other diseases of the blood and blood-forming organs and certain disorders involving the immune mechanism complicating , third trimester; Translations: [Benign gestational thrombocytopenia in third trimester (HCC)] Onset: 03-09-2025 Episodic Other complications of (1 source) Other diseases of the blood and blood-forming organs and certain disorders involving the immune mechanism complicating , unspecified trimester; Translations: [Thrombocytopenia affecting (HCC)] Onset: 03-07-2025 Episodic Other connective tissue disease (1 source) Pain of bilateral upper limbs; Translations: [Pain in right arm] Episodic Other infections; including parasitic (20 sources) History of sexually transmitted disease; Translations: [Personal history of other infectious and parasitic diseases] Onset: 09-13-2024 09-13-2024 Episodic Other lower respiratory disease (1 source) H/O: asthma; Translations: [Personal history of other diseases of the respiratory system] 11-05-2023 Episodic Other lower respiratory disease (1 source) Personal history of other diseases of the respiratory system; Translations: [Personal history of other diseases of respiratory system] 11-07-2023 Episodic Other upper respiratory disease (5 sources) Allergic rhinitis; Translations: [Allergic rhinitis, unspecified] Onset: 04-19-2009 09-26-2023 Chronic Residual codes; unclassified (7 sources) Gestation period, 33 weeks; Translations: [33 weeks gestation of ] Onset: 09-26-2023 3 Episodic Residual codes; unclassified (2 sources) Gestation period, 35 weeks; Translations: [35 weeks gestation of ] 10-13-2023 Episodic Residual codes; unclassified (2 sources) Gestation period, 38 weeks; Translations: [38 weeks gestation of ] 11-05-2023 Episodic Residual codes; unclassified (2 sources) 38 weeks gestation of ; Translations: [ state, incidental] Onset: 04-25-2025 11-07-2023 Episodic Residual codes; unclassified (1 source) Gestation period, 6 weeks; Translations: [Less than 8 weeks gestation of ] 09-13-2024 Episodic Residual codes; unclassified (1 source) Gestation period, 10 weeks; Translations: [10 weeks gestation of ] 10-12-2024 Episodic Residual codes; unclassified (2 sources) Gestation period, 12 weeks; Translations: [12 weeks gestation of ] 10-29-2024 Episodic Residual codes; unclassified (1 source) Gestation period, 16 weeks; Translations: [16 weeks gestation of ] 11-23-2024 Episodic Residual codes; unclassified (2 sources) Gestation period, 23 weeks; Translations: [23 weeks gestation of ] 01-10-2025 Episodic Residual codes; unclassified (1 source) Gestation period, 27 weeks; Translations: [27 weeks gestation of ] 02-07-2025 Episodic Residual codes; unclassified (1 source) Gestation period, 29 weeks; Translations: [29 weeks gestation of ] 02-21-2025 Episodic Residual codes; unclassified (1 source) Gestation period, 37 weeks; Translations: [37 weeks gestation of ] 04-18-2025 Episodic Residual codes; unclassified (1 source) Gestation period, 39 weeks; Translations: [39 weeks gestation of ] 05-02-2025 Episodic Residual codes; unclassified (1 source) 40 weeks gestation of ; Translations: [40 weeks gestation of (HCC)] Onset: 05-09-2025 Episodic Residual codes; unclassified (1 source) 39 weeks gestation of ; Translations: [39 weeks gestation of (HCC)] Onset: 05-02-2025 Episodic Residual codes; unclassified (1 source) 37 weeks gestation of ; Translations: [37 weeks gestation of (HCC)] Onset: 04-18-2025 Episodic Residual codes; unclassified (1 source) 35 weeks gestation of ; Translations: [35 weeks gestation of ([facility])] Onset: 04-05-2025 Episodic Residual codes; unclassified (1 source) 33 weeks gestation of ; Translations: [33 weeks gestation of ([facility])] Onset: 03-21-2025 Episodic Residual codes; unclassified (1 source) 30 weeks gestation of ; Translations: [30 weeks gestation of ([facility])] Onset: 03-07-2025 Episodic Residual codes; unclassified (1 source) Gestation period, 40 weeks; Translations: [40 weeks gestation of ] 05-09-2025 Episodic Screening and history of mental health and substance abuse codes (4 sources) H/O: anxiety state; Translations: [Personal history of other mental and behavioral disorders] 11-05-2023 Episodic Substance-related disorders (20 sources) Marijuana user; Translations: [Drug use complicating , unspecified trimester] Onset: 09-13-2024 09-13-2024 Episodic Superficial injury; contusion (1 source) Contusion of right foot; Translations: [Contusion of right foot, initial encounter] Episodic Unclassified (2 sources) Spontaneous onset of labor; Translations: [Spontaneous onset of labor] 11-05-2023 Unclassified (20 sources) [facility] Education - COMMON Onset: 09-13-2024 09-13-2024 Unclassified (20 sources) Education - [place] Onset: 09-13-2024 09-13-2024 Viral infection (2 sources) Genital herpes simplex; Translations: [Herpesviral infection of urogenital system, unspecified] 11-05-2023 Chronic Viral infection (1 source) Herpesviral infection, unspecified; Translations: [HSV-2 infection complicating , third trimester ([facility])] Onset: 04-05-2025 Episodic Past or Other Problems Problem Classification Problem Date Documented Da te Episodic/Chronic Bacterial infection; unspecified site (20 sources) Bacteria present; Translations: [Streptococcus, group B, as the cause of diseases classified elsewhere] Onset: 10-22-2023 Resolved: 09-13-2024 11-05-2023 Episodic Blindness and vision defects (20 sources) Diplopia; Translations: [Diplopia] Onset: 10-09-2017 Resolved: 09-13-2024 09-26-2023 Episodic Cancer of cervix (20 sources) Atypical squamous cells of undetermined significance on cervical Papanicolaou smear; Translations: [Atypical squamous cells of undetermined significance on cytologic smear of cervix (ASC-US)] Onset: 09-26-2023 09-26-2023 Episodic Disorders of teeth and jaw (20 sources) Infection of tooth; Translations: [Periapical abscess without sinus] Onset: 09-13-2024 09-13-2024 Episodic Nonmalignant breast conditions (20 sources) Lump in left breast; Translations: [Unspecified lump in the left breast, unspecified quadrant] Onset: 08-27-2023 Resolved: 09-13-2024 08-27-2023 Episodic Other complications of (6 sources) Herpes simplex type 2 infection; Translations: [Other viral diseases complicating , unspecified trimester] Onset: 09-26-2023 09-26-2023 Episodic Other complications of (20 sources) Vomiting of , unspecified; Translations: [Unspecified vomiting of , unspecified as to episode of care or not applicable] Onset: 09-13-2024 Resolved: 10-12-2024 09-13-2024 Episodic Other complications of (2 sources) Supervision of other high risk pregnancies, first trimester; Translations: [Short interval between pregnancies affecting in first trimester, antepartum (HCC)] Onset: 09-13-2024 Episodic Other complications of (1 source) Supervision of high risk , unspecified, second trimester; Translations: [Supervision of high risk in second trimester (HCC)] Onset: 02-07-2025 Episodic Other complications of (1 source) Supervision of high risk , unspecified, first trimester; Translations: [Encounter for supervision of high risk in first trimester, antepartum] Onset: 09-13-2024 Episodic Other eye disorders (20 sources) Alternating exotropia with V pattern; 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] Onset: 09-25-2016 Resolved: 09-13-2024 09-26-2023 Episodic Other eye disorders (20 sources) Consecutive esotropia; Translations: [Unspecified esotropia] Onset: 01-08-2017 Resolved: 09-13-2024 09-26-2023 Episodic Other infections; including parasitic (1 source) Personal history of other infectious and parasitic diseases; Translations: [History of herpes genitalis] Onset: 09-13-2024 Episodic Other and delivery including normal (20 sources) Term ; Translations: [Encounter for supervision of normal , unspecified, unspecified trimester] Onset: 03-15-2019 03-15-2019 Episodic Other screening for suspected conditions (not mental disorders or infectious disease) (6 sources) Patient encounter status; Translations: [Encounter for other specified screening] Onset: 02-07-2025 10-13-2023 Episodic Residual codes; unclassified (20 sources) Other specified health status; Translations: [Other specified conditions influencing health status] Onset: 09-26-2023 09-26-2023 Episodic Residual codes; unclassified (20 sources) Nicotine-filled electronic cigarette user; Translations: [Tobacco use] Onset: 09-13-2024 Resolved: 02-21-2025 09-13-2024 Episodic Residual codes; unclassified (1 source) Tobacco use; Translations: [Current every day nicotine vaping] Onset: 09-13-2024 Episodic Residual codes; unclassified (1 source) 23 weeks gestation of ; Translations: [23 weeks gestation of (HCC)] Onset: 02-07-2025 Episodic Residual codes; unclassified (1 source) Less than 8 weeks gestation of ; Translations: [6 weeks gestation of ] Onset: 10-29-2024 Episodic Residual codes; unclassified (1 source) 10 weeks gestation of ; Translations: [10 weeks gestation of ] Onset: 10-29-2024 Episodic Results Test Name Value Interpretation Reference Range Facil ity URINE OB DIP B/Oon 5 Glucose Ql (U) Negative Neg mg/dL [facility] Interpretation and review of laboratory results Normal [facility] Protein.monoclonal (U) [Mass/Vol] Negative Neg mg/dL [facility] URINE OB DIP B/Oon 5 Glucose Ql (U) Negative Neg mg/dL [facility] Interpretation and review of laboratory results Normal [facility] Protein.monoclonal (U) [Mass/Vol] Negative Neg mg/dL [facility] URINE OB DIP B/Oon 5 Glucose Ql (U) Negative Neg mg/dL [facility] Interpretation and review of laboratory results Normal [facility] Protein.monoclonal (U) [Mass/Vol] Negative Neg mg/dL [facility] CBC W Auto Differential pane l (Bld)on 04-18-2025 Basophils (Bld) [#/Vol] 10*3/uL Normal <0.[address] [facility] Comment on above: Order Comment: Speci men Type: BLOOD SPECIMEN Ordering Facility: [facility] Address: [address] [place] [address] Performed By: #### 7 3752-8 #### [facility] CLIA [id number] [address] [place] [address] [place] Basophils/100 WBC (Bld) 0.2 % Normal [facility] Comment on above: Order Comment: Speci men Type: BLOOD SPECIMEN Ordering Facility: [facility] Address: [address] [place] [address] Performed By: #### 7 3752-8 #### [facility] CLIA [id number] [address] [place] [address] [place] Differential cell count method Nom (Bld) Auto Normal [facility] Comment on above: Order Comment: Speci men Type: BLOOD SPECIMEN Ordering Facility: [facility] Address: [address] [place] [address] Performed By: #### 7 3752-8 #### [facility] CLIA [id number] [address] [place] [address] [place] Eosinophils (Bld) [#/Vol] 0.10 10*3/uL Normal <0.[address] [facility] Comment on above: Order Comment: Speci men Type: BLOOD SPECIMEN Ordering Facility: [facility] Address: [address] [place] [address] Performed By: #### 7 3752-8 #### [facility] CLIA [id number] [address] [place] [address] [place] Eosinophils/100 WBC (Bld) 0.8 % Normal [facility] Comment on above: Order Comment: Speci men Type: BLOOD SPECIMEN Ordering Facility: [facility] Address: [address] [place] [address] Performed By: #### 7 3752-8 #### [facility] CLIA [id number] [address] [place] [address] [place] Erythrocyte distribution width (RBC) [Ratio] 13.4 % Normal 11.5-15.[address] [facility] Comment on above: Order Comment: Speci men Type: BLOOD SPECIMEN Ordering Facility: [facility] Address: [address] [place] [address] Performed By: #### 7 3752-8 #### [facility] CLIA [id number] [address] [place] [address] [place] Hematocrit (Bld) [Volume fraction] 35.8 % Low 36.0-46.[address] [facility] Comment on above: Order Comment: Speci men Type: BLOOD SPECIMEN Ordering Facility: [facility] Address: [address] [place] [address] Performed By: #### 7 3752-8 #### [facility] CLIA [id number] [address] [place] [address] [place] Hemoglobin (Bld) [Mass/Vol] 11.9 g/dL Normal 11.5-15.[address] [facility] Comment on above: Order Comment: Speci men Type: BLOOD SPECIMEN Ordering Facility: [facility] Address: [address] [place] [address] Performed By: #### 7 3752-8 #### [facility] CLIA [id number] [address] [place] [address] [place] Immature granulocytes (Bld) [#/Vol] 0.11 10*3/uL High <0.[address] [facility] Comment on above: Order Comment: Speci men Type: BLOOD SPECIMEN Ordering Facility: [facility] Address: [address] [place] [address] Performed By: #### 7 3752-8 #### [facility] CLIA [id number] [address] [place] [address] [place] Immature granulocytes/100 WBC (Bld) 0.9 % Normal [facility] Comment on above: Order Comment: Speci men Type: BLOOD SPECIMEN Ordering Facility: [facility] Address: [address] [place] [address] Performed By: #### 7 3752-8 #### [facility] CLIA [id number] [address] [place] [address] [place] Lymphocytes (Bld) [#/Vol] 1.98 10*3/uL Normal 1.00-4.[address] [facility] Comment on above: Order Comment: Speci men Type: BLOOD SPECIMEN Ordering Facility: [facility] Address: [address] [place] [address] Performed By: #### 7 3752-8 #### [facility] CLIA [id number] [address] [place] [address] [place] Lymphocytes/100 WBC (Bld) 15.5 % Normal [facility] Comment on above: Order Comment: Speci men Type: BLOOD SPECIMEN Ordering Facility: [facility] Address: [address] [place] [address] Performed By: #### 7 3752-8 #### [facility] CLIA [id number] [address] [place] [address] [place] MCH (RBC) [Entitic mass] 29.0 pg Normal 26.0-34.[address] [facility] Comment on above: Order Comment: Speci men Type: BLOOD SPECIMEN Ordering Facility: [facility] Address: [address] [place] [address] Performed By: #### 7 3752-8 #### [facility] CLIA [id number] [address] [id number] [address] [place] MCHC (RBC) [Mass/Vol] 33.2 g/dL Normal 30.5-36.0 [facility] Comment on above: Order Comment: Speci men Type: BLOOD SPECIMEN Ordering Facility: [facility] Address: [address] [place] [address] Performed By: #### 7 3752-8 #### [facility] CLIA [id number] [address] [place] [address] [place] MCV (RBC) [Entitic vol] 87.1 fL Normal 80.0-100.[address] [facility] Comment on above: Order Comment: Speci men Type: BLOOD SPECIMEN Ordering Facility: [facility] Address: [address] [place] [address] Performed By: #### 7 3752-8 #### [facility] CLIA [id number] [address] [place] [address] [place] Monocytes (Bld) [#/Vol] 0.76 10*3/uL Normal <0.[address] [facility] Comment on above: Order Comment: Speci men Type: BLOOD SPECIMEN Ordering Facility: [facility] Address: [address] [place] [address] Performed By: #### 7 3752-8 #### [facility] CLIA [id number] [address] [place] [address] [place] Monocytes/100 WBC (Bld) 6.0 % Normal [facility] Comment on above: Order Comment: Speci men Type: BLOOD SPECIMEN Ordering Facility: [facility] Address: [address] [place] [address] Performed By: #### 7 3752-8 #### [facility] CLIA [id number] [address] [place] [address] [place] Neutrophils (Bld) [#/Vol] 9.78 10*3/uL High 1.45-7.[address] [facility] Comment on above: Order Comment: Speci men Type: BLOOD SPECIMEN Ordering Facility: [facility] Address: [address] [place] [address] Performed By: #### 7 3752-8 #### [facility] CLIA [id number] [address] [place] [address] [place] Neutrophils/100 WBC (Bld) 76.6 % Normal [facility] Comment on above: Order Comment: Speci men Type: BLOOD SPECIMEN Ordering Facility: [facility] Address: [address] [place] [address] Performed By: #### 7 3752-8 #### [facility] CLIA [id number] [address] [place] [address] [place] Nucleated RBC (Bld) [#/Vol] 10*3/uL Normal <0.[address] [facility] Comment on above: Order Comment: Speci men Type: BLOOD SPECIMEN Ordering Facility: [facility] Address: [address] [place] [address] Performed By: #### 7 3752-8 #### [facility] CLIA [id number] [address] [place] [address] [place] Nucleated RBC/100 WBC (Bld) [Ratio] 0.0 /[address] [facility] Comment on above: Order Comment: Speci men Type: BLOOD SPECIMEN Ordering Facility: [facility] Address: [address] [place] [address] Performed By: #### 7 3752-8 #### [facility] CLIA [id number] [address] [place] [address] [place] Platelet mean volume (Bld) [Entitic vol] 9.2 fL Normal 9.0-12.[address] [facility] Comment on above: Order Comment: Speci men Type: BLOOD SPECIMEN Ordering Facility: [facility] Address: [address] [place] [address] Performed By: #### 7 3752-8 #### [facility] CLIA [id number] [address] [place] [address] [place] Platelets (Bld) [#/Vol] 181 10*3/uL Normal 150-[address] [facility] Comment on above: Order Comment: Speci men Type: BLOOD SPECIMEN Ordering Facility: [facility] Address: [address] [place] [address] Performed By: #### 7 3752-8 #### [facility] CLIA [id number] [address] [place] [address] [place] RBC (Bld) [#/Vol] 4.11 10*6/uL Normal 3.90-5.20 [facility] Comment on above: Order Comment: Speci men Type: BLOOD SPECIMEN Ordering Facility: [facility] Address: [address] [place] [address] Performed By: #### 7 3752-8 #### [facility] CLIA [id number] [address] [place] [address] [place] WBC (Bld) [#/Vol] 12.75 10*3/uL High 3.70-11.00 [facility] Comment on above: Order Comment: Speci men Type: BLOOD SPECIMEN Ordering Facility: [facility] Address: [address] [place] [address] Performed By: #### 7 3752-8 #### [facility] CLIA [id number] [address] [place] [address] [place] ROUTINE, GROUP B ST REPTOCOCCUS BY PCRon 04-18-2025 ROUTINE, GROUP B STREPTOCOCCUS BY PCR Not detected Normal [facility] Comment on above: Performed By: #### 3 6902-5, TRVAMP #### [facility] CLIA [id number] [address] [place] [address] [place] URINE OB DIP B/Oon Glucose Ql (U) Negative Neg mg/dL [facility] Protein.monoclonal (U) [Mass/Vol] Negative Neg mg/dL [facility] URINE OB DIP B/Oon Glucose Ql (U) Negative Neg mg/dL [facility] Protein.monoclonal (U) [Mass/Vol] Negative Neg mg/dL [facility] UA DIP, URINE (POC)on 2024 BILIRUBIN UA (POCT) Negative Negative [facility] CLARITY UA (POCT) Clear [facility] COLOR UA (POCT) Other [facility] GLUCOSE UA (POCT) Negative Negative mg/dL [facility] Hemoglobin Ql (U) Negative Negative [facility] KETONE UA (POCT) Negative Negative mg/dL [facility] LEUKOCYTES UA (POCT) Negative Negative [facility] NITRITE UA (POCT) Negative Negative [facility] PH UA (POCT) 6.5 4.5 - 8.0 [facility] Protein Ql (U) Negative Negative mg/dL [facility] SPECIFIC GRAVITY UA (POCT) >=1.030 1.005 - 1.030 [facility] UROBILINOGEN UA (POCT) 0.2 Normal E.U./dL [facility] Location:[facility], [address] [place], [address] [facility] POINT OF CARE [facility] CBC panel Auto (Bld)on 03-07 Erythrocyte distribution width (RBC) [Ratio] 13.2 % Normal 11.5-15.[address] [facility] Comment on above: Order Comment: Speci men Type: SWAB Ordering Facility: [facility] Address: [address] [place] [address] Performed By: #### 3 6902-5, TRVAMP #### [facility] CLIA [id number] [address] [place] [address] [place] Hematocrit (Bld) [Volume fraction] 35.1 % Low 36.0-46.[address] [facility] Comment on above: Order Comment: Speci men Type: SWAB Ordering Facility: [facility] Address: [address] [place] [address] Performed By: #### 3 6902-5, TRVAMP #### [facility] CLIA [id number] [address] [place] [address] [place] Hemoglobin (Bld) [Mass/Vol] 11.8 g/dL Normal 11.5-15.[address] [facility] Comment on above: Order Comment: Speci men Type: SWAB Ordering Facility: [facility] Address: [address] [place] [address] Performed By: #### 3 6902-5, TRVAMP #### [facility] CLIA [id number] [address] [place] [address] [place] MCH (RBC) [Entitic mass] 29.7 pg Normal 26.0-34.[address] [facility] Comment on above: Order Comment: Speci men Type: SWAB Ordering Facility: [facility] Address: [address] [place] [address] Performed By: #### 3 6902-5, TRVAMP #### [facility] CLIA [id number] [address] [place] [address] [place] MCHC (RBC) [Mass/Vol] 33.6 g/dL Normal 30.5-36.0 [facility] Comment on above: Order Comment: Speci men Type: SWAB Ordering Facility: [facility] Address: [address] [place] [address] Performed By: #### 3 6902-5, TRVAMP #### [facility] CLIA [id number] [address] [place] [address] [place] MCV (RBC) [Entitic vol] 88.4 fL Normal 80.0-100.[address] [facility] Comment on above: Order Comment: Speci men Type: SWAB Ordering Facility: [facility] Address: [address] [place] [address] Performed By: #### 3 6902-5, TRVAMP #### [facility] CLIA [id number] [address] [place] [address] [place] Nucleated RBC (Bld) [#/Vol] 10*3/uL Normal <0.[address] [facility] Comment on above: Order Comment: Speci men Type: SWAB Ordering Facility: [facility] Address: [address] [place] [address] Performed By: #### 3 6902-5, TRVAMP #### [facility] CLIA [id number] [address] [place] [address] [place] Platelet mean volume (Bld) [Entitic vol] 9.1 fL Normal 9.0-12.[address] [facility] Comment on above: Order Comment: Speci men Type: SWAB Ordering Facility: [facility] Address: [address] [place] [address] Performed By: #### 3 6902-5, TRVAMP #### [facility] CLIA [id number] [address] [place] [address] [place] Platelets (Bld) [#/Vol] 150 10*3/uL Normal 150-[address] [facility] Comment on above: Order Comment: Speci men Type: SWAB Ordering Facility: [facility] Address: [address] [place] [address] Performed By: #### 3 6902-5, TRVAMP #### [facility] CLIA [id number] [address] [place] [address] [place] RBC (Bld) [#/Vol] 3.97 10*6/uL Normal 3.90-5.20 [facility] Comment on above: Order Comment: Speci men Type: SWAB Ordering Facility: [facility] Address: [address] [place] [address] Performed By: #### 3 6902-5, TRVAMP #### [facility] CLIA [id number] [address] [place] [address] [place] WBC (Bld) [#/Vol] 10.64 10*3/uL Normal 3.70-11.00 [facility] Comment on above: Order Comment: Speci men Type: SWAB Ordering Facility: [facility] Address: [address] [place] [address] Performed By: #### 3 6902-5, DOMENICA #### [facility] CLIA [id number] [address] [place] [address] [id number] OF [facility] Laura 02-22-2025 CNPN Telephone ([id number]) GUERDA CARDONA ([id number]) 89 F Date Time Provider Department 02/22/25 ESTEFANÍA BRADSHAW [id number] During your visit today, we recorded the following information about you: Estefanía Bradshaw RN 02/22/2025 9:31 AM Signed 3rd risk assessment form submitted 02/22/2025. 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 - acetaminophen (TYLENOL ORAL) Take by mouth. 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 09/13/2024 Diagnosed: 09/26/2023 Diplopia [H53.2] 10/09/2017 09/13/2024 Diagnosed: 09/26/2023 Posttraumatic stress disorder [F43.10] 11/15/2016 Diagnosed: 09/26/2023 Atypical squamous cells of undetermined signifi*09/26/2023 History of homeless [Z78.9] 09/26/2023 Group beta Strep positive [B95.1] 10/22/2023 09/13/2024 History of herpes genitalis [Z86.19] 09/13/2024 Current every day nicotine vaping [Z72.0] 09/13/2024 02/21/2025 Short interval between pregnancies affecting pr*09/13/2024 Marijuana use during [O99.320, F12.90]09/13/2024 Nausea and vomiting during [O21.9] 09/13/2024 10/12/2024 Unplanned [Z34.90] 09/13/2024 Tooth infection [K04.7] 09/13/2024 Gestational thrombocytopenia (HCC) [O99.119, D6*02/10/2025 Encounter Status:Closed by ESTEFANÍA BRADSHAW on 02/22/[address] [facility] CBC W Auto Differential pane l (Bld)on 02-07-2025 Basophils (Bld) [#/Vol] 10*3/uL Normal <0.[address] [facility] Comment on above: Order Comment: Speci men Type: BLOOD SPECIMEN Ordering Facility: [facility] Address: [address] [place] [address] Performed By: #### 5 7021-8 #### [facility] CLIA [id number] [address] [place] [address] [place] Basophils/100 WBC (Bld) 0.2 % Normal [facility] Comment on above: Order Comment: Speci men Type: BLOOD SPECIMEN Ordering Facility: [facility] Address: [address] [place] [address] Performed By: #### 5 7021-8 #### [facility] CLIA [id number] [address] [place] [address] [place] Differential cell count method Nom (Bld) Auto Normal [facility] Comment on above: Order Comment: Speci men Type: BLOOD SPECIMEN Ordering Facility: [facility] Address: [address] [place] [address] Performed By: #### 5 7021-8 #### [facility] CLIA [id number] [address] [place] [address] [place] Eosinophils (Bld) [#/Vol] 0.12 10*3/uL Normal <0.[address] [facility] Comment on above: Order Comment: Speci men Type: BLOOD SPECIMEN Ordering Facility: [facility] Address: [address] [place] [address] Performed By: #### 5 7021-8 #### [facility] CLIA [id number] [address] [place] [address] [place] Eosinophils/100 WBC (Bld) 1.4 % Normal [facility] Comment on above: Order Comment: Speci men Type: BLOOD SPECIMEN Ordering Facility: [facility] Address: [address] [place] [address] Performed By: #### 5 7021-8 #### [facility] CLIA [id number] [address] [place] [address] [place] Erythrocyte distribution width (RBC) [Ratio] 13.2 % Normal 11.5-15.[address] [facility] Comment on above: Order Comment: Speci men Type: BLOOD SPECIMEN Ordering Facility: [facility] Address: [address] [place] [address] Performed By: #### 5 7021-8 #### [facility] CLIA [id number] [address] [place] [address] [place] Hematocrit (Bld) [Volume fraction] 34.6 % Low 36.0-46.[address] [facility] Comment on above: Order Comment: Speci men Type: BLOOD SPECIMEN Ordering Facility: [facility] Address: [address] [place] [address] Performed By: #### 5 7021-8 #### [facility] CLIA [id number] [address] [place] [address] [place] Hemoglobin (Bld) [Mass/Vol] 11.6 g/dL Normal 11.5-15.[address] [facility] Comment on above: Order Comment: Speci men Type: BLOOD SPECIMEN Ordering Facility: [facility] Address: [address] [place] [address] Performed By: #### 5 7021-8 #### [id number] [address] [place] [address] [place] Immature granulocytes (Bld) [#/Vol] 0.04 10*3/uL Normal <0.[address] [facility] Comment on above: Order Comment: Speci men Type: BLOOD SPECIMEN Ordering Facility: [facility] Address: [address] [place] [address] Performed By: #### 5 7021-8 #### [facility] CLIA [id number] [address] [place] [address] [place] Immature granulocytes/100 WBC (Bld) 0.5 % Normal [facility] Comment on above: Order Comment: Speci men Type: BLOOD SPECIMEN Ordering Facility: [facility] Address: [address] [place] [address] Performed By: #### 5 7021-8 #### [facility] CLIA [id number] [address] [place] [address] [place] Lymphocytes (Bld) [#/Vol] 1.50 10*3/uL Normal 1.00-4.[address] [facility] Comment on above: Order Comment: Speci men Type: BLOOD SPECIMEN Ordering Facility: [facility] Address: [address] [place] [address] Performed By: #### 5 7021-8 #### [facility] CLIA [id number] [address] [place] [address] STATES [facility] Lymphocytes/100 WBC (Bld) 17.2 % Normal [facility] Comment on above: Order Comment: Speci men Type: BLOOD SPECIMEN Ordering Facility: [facility] Address: [address] [place] [address] Performed By: #### 5 7021-8 #### [facility] CLIA [id number] [address] [place] [address] [place] MCH (RBC) [Entitic mass] 29.8 pg Normal 26.0-34.[address] [facility] Comment on above: Order Comment: Speci men Type: BLOOD SPECIMEN Ordering Facility: [facility] Address: [address] [place] [address] Performed By: #### 5 7021-8 #### [facility] CLIA [id number] [address] [place] [address] [place] MCHC (RBC) [Mass/Vol] 33.5 g/dL Normal 30.5-36.0 [facility] Comment on above: Order Comment: Speci men Type: BLOOD SPECIMEN Ordering Facility: [facility] Address: [address] [place] [address] Performed By: #### 5 7021-8 #### [facility] CLIA [id number] [address] [place] [address] [place] MCV (RBC) [Entitic vol] 88.9 fL Normal 80.0-100.[address] [facility] Comment on above: Order Comment: Speci men Type: BLOOD SPECIMEN Ordering Facility: [facility] Address: [address] [place] [address] Performed By: #### 5 7021-8 #### [facility] CLIA [id number] [address] [place] [address] [place] Monocytes (Bld) [#/Vol] 0.46 10*3/uL Normal <0.[address] [facility] Comment on above: Order Comment: Speci men Type: BLOOD SPECIMEN Ordering Facility: [facility] Address: [address] [place] [address] Performed By: #### 5 7021-8 #### [facility] CLIA [id number] [address] [place] [address] [place] Monocytes/100 WBC (Bld) 5.3 % Normal [facility] Comment on above: Order Comment: Speci men Type: BLOOD SPECIMEN Ordering Facility: [facility] Address: [address] [place] [address] Performed By: #### 5 7021-8 #### [facility] CLIA [id number] [address] [place] [address] [place] Neutrophils (Bld) [#/Vol] 6.59 10*3/uL Normal 1.45-7.[address] [facility] Comment on above: Order Comment: Speci men Type: BLOOD SPECIMEN Ordering Facility: [facility] Address: [address] [place] [address] Performed By: #### 5 7021-8 #### [facility] CLIA [id number] [address] [place] [address] [place] Neutrophils/100 WBC (Bld) 75.4 % Normal [facility] Comment on above: Order Comment: Speci men Type: BLOOD SPECIMEN Ordering Facility: [facility] Address: [address] [place] [address] Performed By: #### 5 7021-8 #### [facility] CLIA [id number] [address] [place] [address] [place] Nucleated RBC (Bld) [#/Vol] 10*3/uL Normal <0.[address] [facility] Comment on above: Order Comment: Speci men Type: BLOOD SPECIMEN Ordering Facility: [facility] Address: [address] [place] [address] Performed By: #### 5 7021-8 #### [facility] CLIA [id number] [address] [place] [address] [place] Nucleated RBC/100 WBC (Bld) [Ratio] 0.0 /[address] [facility] Comment on above: Order Comment: Speci men Type: BLOOD SPECIMEN Ordering Facility: [facility] Address: [address] [place], [place] [address] Performed By: #### 5 7021-8 #### [facility] CLIA [id number] [address] [place] [address] [place] Platelet mean volume (Bld) [Entitic vol] 8.7 fL Low 9.0-12.[address] [facility] Comment on above: Order Comment: Speci men Type: BLOOD SPECIMEN Ordering Facility: [facility] Address: [address] [place], [place] [address] Performed By: #### 5 7021-8 #### [facility] CLIA [id number] [address] [place] [address] [place] Platelets (Bld) [#/Vol] 138 10*3/uL Low 150-[address] [facility] Comment on above: Order Comment: Speci men Type: BLOOD SPECIMEN Ordering Facility: [facility] Address: [address] [place] [address] Performed By: #### 5 7021-8 #### [facility] CLIA [id number] [address] [place] [address] [place] RBC (Bld) [#/Vol] 3.89 10*6/uL Low 3.90-5.20 [facility] Comment on above: Order Comment: Speci men Type: BLOOD SPECIMEN Ordering Facility: [facility] Address: [address] [place] [address] Performed By: #### 5 7021-8 #### [facility] CLIA [id number] [address] [place] [address] [place] WBC (Bld) [#/Vol] 8.73 10*3/uL Normal 3.70-11.00 [facility] Comment on above: Order Comment: Speci men Type: BLOOD SPECIMEN Ordering Facility: [facility] Address: [address] [place] [address] Performed By: #### 5 7021-8 #### [facility] CLIA [id number] [address] [place] [address] [place] GESTATIONAL GLUCOSE SCREEN, 1-HOUR, 50 GRAM, NON-FASTINGon 02-07-2025 Glucose [Mass/Vol] 108 mg/dL Normal 74-134 [facility] Comment on above: Order Comment: Speci men Type: BLOOD SPECIMEN Ordering Facility: [facility] Address: [address] [place] [address] Result Comment: [facility] Congress of Obstetricians and Gynecologists (Damaris/Nory) guidelines state a gestational diabetes mellitus positive screen is made, in women not previously diagnosed with overt diabetes, when the 1 hr plasma glucose level is equal to or above 140 mg/dL. [facility] recommends a 135 mg/dL cutoff. Performed By: #### 7 3752-8 #### [facility] CLIA [id number] [address] [place], [place] [address] [place] [address] [place] Reagin and Treponema pallidu m IgG and IgM [Interp]on 02-07-2025 T. pallidum IgG+IgM IA Ql (S) Non-Reactive Normal Nonreactive [facility] Comment on above: Order Comment: Speci men Type: BLOOD SPECIMEN Ordering Facility: [facility] Address: [address] [place] [address] Performed By: #### 7 3752-8 #### [facility] CLIA [id number] [address] [place], [place] [address]K [id number] [place] [address] OF [facility] Reagin+T pallidum IgG+IgM Se rPl-Impon 02-07-2025 Reagin and Treponema pallidum IgG and IgM [Interp] Cannot exclude recent Treponemal infection if specimen collected within 7-10 days after appearance of suspect lesions or 2-3 weeks after an exposure. Clinical correlation is required. Normal [facility] Comment on above: Order Comment: Speci men Type: BLOOD SPECIMEN Ordering Facility: [facility] Address: [address] [place] [address] Performed By: #### 7 3752-8 #### [facility] CLIA [id number] [address] [place] [address] OF [facility] CNPHetal 01-14-2025 CNPN Telephone ([id number]) GUERDA CARDONA ([id number]) 89 F Date Time Provider Department 01/14/25 ESTEFANÍA BRADSHAW [id number] During your visit today, we recorded the following information about you: Estefanía Bradshaw RN 01/14/2025 11:26 AM Signed 2nd risk assessment form submitted 01/14/2025. Estefanía Bradshaw RN Allergies As of Date: 01/14/2025 Noted Allergy Reaction ALBUTEROL SULFATE 09/26/2023 2 - Rash Comments: Liquid form---rash over all of body Date Reviewed: 01/10/2025 Reviewed by: Carlos Womack MA - Fully Assessed Reason for Visit: Second Worker - Other [[id number]] Cmt: PRAF Prescriptions as of 01/14/2025 - doxylamine 25 mg tab Take 1 tablet by mouth daily at bedtime. - Njxonpob-Jp-Mzk-Fe-F A tab Take 1 tablet by mouth once daily. - acetaminophen (TYLENOL ORAL) Take by mouth. 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] 01/08/2017 09/13/2024 Diagnosed: 09/26/2023 Diplopia [H53.2] 10/09/2017 09/13/2024 Diagnosed: 09/26/2023 Posttraumatic stress disorder [F43.10] 11/15/2016 Diagnosed: 09/26/2023 Atypical squamous cells of undetermined signifi*09/26/2023 History of homeless [Z78.9] 09/26/2023 Group beta Strep positive [B95.1] 10/22/2023 09/13/2024 History of herpes genitalis [Z86.19] 09/13/2024 Current every day nicotine vaping [Z72.0] 09/13/2024 Short interval between pregnancies affecting pr*09/13/2024 Marijuana use during [O99.320, F12.90]09/13/2024 Nausea and vomiting during [O21.9] 09/13/2024 10/12/2024 Unplanned [Z34.90] 09/13/2024 Tooth infection [K04.7] 09/13/2024 Encounter Status:Closed by ESTEFANÍA BRADSHAW on 01/14/[address] [facility] Examination level ultrasound on 01-10-2025 Indication Standard anatomic survey Impression REMOTE READ The patient is referred for a standard anatomic survey. - Single, live, intrauterine . - biometry is consistent with the established gestational age. - No malformations were visualized on a complete standard anatomic survey. - The amniotic fluid volume is normal amount. - The placenta is anterior, fundal. - The Transabdominal cervical length measures 36.8 mm with no evidence of funneling or other dynamic changes. - Not all structural malformations can be detected by ultrasound examination. Recommendations Additional follow-up as clinically indicated. Maternal Assessment Height 173 cm Height (ft) 5 ft Height (in) 8 in Physical Exam Initial weight (lb) 170 lb Initial BMI 25.85 kg/m Maternal assessment other: 3 Para 2 Method Transabdominal ultrasound examination. View: Adequate visualization Pike . Number of fetuses: 1 Dating LMP on: 08/01/2024 GA by LMP 23 w + 1 d IAN by LMP: 05/08/2025 GA by prior assessment 23 w + 1 d IAN by prior assessment: 05/08/2025 Ultrasound examination on: 01/10/2025 GA by U/S based upon: AC, BPD, Femur, HC GA by U/S 23 w + 6 d IAN by U/S: 05/03/2025 Assigned: based on stated IAN, selected on 01/10/2025 Assigned GA 23 w + 1 d Assigned IAN: 05/08/2025 General Evaluation Cardiac activity present. FHR 150 bpm. movements: present. Presentation: transverse head left Placenta: Placental site: anterior, fundal Umbilical cord: Cord vessels: 3 vessel cord Amniotic fluid: Amount of AF: normal amount. MVP 6.3 cm Growth Overview Exam date GA BPD (mm) HC (mm) AC (mm) FL (mm) HL (mm) EFW (g) 01/10/2025 23w 1d 56.6 51% 212.7 53% 194.8 74% 43.7 93% 41.9 93% 660 84% Biometry Standard BPD 56.6 mm 23w 2d 51% Hadlock OFD 76.5 mm 23w 3d 78% Nicolaides HC 212.7 mm 23w 2d 53% Adarsh Cerebellum tr 25.8 mm 23w 2d 83% Hill Nuchal fold 3.7 mm AC 194.8 mm 24w 1d 74% Hadlock Femur 43.7 mm 24w 4d 93% Adarsh Humerus 41.9 mm 25w 2d 93% Adarsh EFW 660 g 23w 6d 84% Hadlock EFW (lb) 1 lb EFW (oz) 7 oz EFW by: Hadlock (HC-AC-FL) Extended Tour Sales Representative 5.5 mm CM 3.7 mm 4% Nicolaides Extremities / Bony Struc FL / HC 0.21 Other Structures FHR 150 bpm Anatomy Cranium: normal Lateral ventricles: normal Choroid plexus: normal Midline falx: normal Cavum septi pellucidi: normal Cerebellum: normal Cisterna magna: normal Head / Neck Vermis: Normal but not required for a standard anatomy exam Neck: Normal but not required for a standard anatomy exam Nuchal fold: Normal but not required for a standard anatomy exam Lips: normal Profile: Normal but not required for a standard anatomy exam Nose: Normal but not required for a standard anatomy exam Face Maxilla: Normal but not required for a standard anatomy exam Mandible: Normal but not required for a standard anatomy exam Orbits: Normal but not required for a standard anatomy exam Lens: Normal but not required for a standard anatomy exam 4-chamber view: normal RVOT view: normal LVOT view: normal 3-vessel view: normal 9-[id number]-[id number] view: normal Heart / Thorax Situs: situs solitus (normal) Aortic arch view: Normal but not required for a standard anatomy exam SVC: Normal but not required for a standard anatomy exam IVC: Normal but not required for a standard anatomy exam Cardiac axis: normal Rt lung: Normal but not required for a standard anatomy exam Lt lung: Normal but not required for a standard anatomy exam Diaphragm: Normal but not required for a standard anatomy exam Cord insertion: normal Stomach: normal Kidneys: normal Bladder: normal Genitals: normal Abdomen Abdom. wall: normal Cervical spine: normal Thoracic spine: normal Lumbar spine: normal Sacral spine: normal Arms: normal Legs: normal Rt upper arm: normal Rt forearm: normal Rt hand: normal Rt fingers: normal Lt upper arm: normal Lt forearm: normal Lt hand: normal Lt fingers: normal Rt upper leg: normal Rt lower leg: normal Rt foot: normal Lt upper leg: normal Lt lower leg: normal Lt foot: normal sex: female Wants to know sex: yes Maternal Structures Uterus / Cervix Uterus: Visualized Cervix: Visualized Approach: Transabdominal Cervical length 36.8 mm Other: Patient declined transvaginal ultrasound for cervical length. Ovaries / Tubes / Adnexa Rt ovary: Visualized Lt ovary: Visualized Performed By: Jamaica Rodriguez RDMS, RVT Read By: Claudia Gonzales M.D. MATERNAL MEDICINE [facility] Radiology Study observation (narrative) [facility]gent [facility] Visit Reporton 0 12-06-2024 Urgent Care Visit Report [facility] [address] , [address] [place] [id number] OFFICE VISIT Date of Service: 12/06/24 MR#: [id number] Acct: [id number] Name: GUERDA CARDONA Rep #: [id number] : 2000 Provider: JAVIER Aviles Age/Sex: 23/F Location: [facility] Status: Signed Intake Vital Signs 08/03/24 10:19 12/06/24 12:16 Height 5 ft 8 in 5 ft 8 in Weight: 168 lb 6 oz 184 lb BMI 25.6 27.9 BP 162/88 H 124/80 H Blood Pressure Location Lt brachial Position Sitting Sitting Respiration 16 Pulse 121 H 112 H Pulse Source Monitor Temp 98.6 F 98.5 F Temp Source Temporal Oral Pulse Oximetry (%) 98 99 Oxygen Delivery Method room air room air Intake Visit Reasons: RUNNY NOSE Accompanied by: Other Family Allergies albuterol Adverse Reaction (Mild, Verified 12/06/24 12:16) Rash Medications ???Medication ???Instructions ???Recorded ???Confirmed ???Type methylprednisolone 4 mg tablets in See Rx Instructions PO PER PKG DIR 12/06/24 12/06/24 Rx a dose pack (Medrol (Kishor)) #21 tabs Nurse's Note: Patient has a runny nose. Patient son is covid positive. PFSH Medical History Infected dental caries (spontaneous vaginal delivery) HPV (human papilloma virus) infection Asthma Depression Anxiety History of anxiety History of depression Genital herpes PTSD (post-traumatic stress disorder) History of asthma Smoker Surgical History History of surgery Social History Smoking Status: Former smoker HPI HPI Details: GUERDA CARDONA, is a 23 F who presents to the office today for initial evaluation in the [facility] for approximately 1 day history of persistent congestion/ runny nose. Patient notes no complaints of chest pain or shortness of breath or dyspnea on exertion. Several close contacts recently dx???d w/ similar URI complaints, including her son who recently had a positive home COVID-19 test. No ailt-dgv-utasfvf product taken to assist. Non-smoker. No other associated symptoms and no other alleviating/aggravat ing factors. ROS Const Constitutional: No other (As above) Exam Const General: cooperative, healthy appearing and no acute distress Orientation: alert, awake and oriented x3 HENOR Head: normal to inspection Ears: hearing grossly normal bilaterally, external ears normal, TM's normal bilaterally and EAC's normal Nose: external nose normal, nares normal, septum normal and clear nasal discharge Face and sinus: normal facial exam, sinuses nontender and face symmetric Mouth: oral mucosae normal, lip normal, tongue normal and oropharynx normal Throat: posterior oropharynx normal, tonsils normal, uvula midline and no postnasal drainage Eyes General: appearance normal, both eyes and all related structures Neck Neck: normal visual inspection, full ROM, no lymphadenopathy, no meningeal signs and supple Neck mass: No Thyroid: thyroid normal Lymphatic: no lymphadenopathy noted Chest Chest palpation inspection: normal inspection of the chest Resp Effort Inspection: normal respiratory effort, able to speak in complete sentences and cough Quality of cough: wet (nonproductive in office today) Auscultation: Bilateral: Clear to Auscultation Cardio Palpation: normal PMI Rate: tachycardic Rhythm: regular rhythm Heart Sounds: S1 normal, S2 normal, no gallops, no murmurs and no rubs Pulses: radial pulses present Skin General: no rashes or lesions noted Neuro General: patient alert, patient awake and patient oriented x3 Cognition: normal cognition Speech: speech normal Psych Appearance: grossly normal Mental Status: mental status grossly normal Mood: congruent mood Affect: normal affect Speech and Movement: speech and movement normal Attitude: cooperative Diagnoses Contact with or exposure to other viral diseases Z20.828 URI (upper respiratory infection) J06.9 Assessment and Plan Assessment and Plan (1) Contact with or exposure to other viral diseases: Status: Acute (2) URI (upper respiratory infection): Status: Acute Plan: See POC results. Medrol as prescribed today. Supportive measures as instructed today. Follow-up with PCP in 5 to 7 days should symptoms not improve, ED sooner should symptoms worsen or any other concerns develop. Pt states acknowledging understanding all the above Results POC ROSEY Covid FluAB PCR POC Rosey Covid PCR Not Detected Last Edit by Chely Smyth MA on 12/06/24 12:33 POC ROSEY FLU NOT DETECTED FLU A B Last Edit by Chely Smyth MA on 12/06/24 12:33 Coding Level of Care Code Off vis,est,level 3 Assessment and Plan Assessment and Plan Orders: Orders POC Rosey Laura CARVAJAL Today (more content not included)... Normal [facility] nuchal translucency me asured by on 10-30-2024 Indication First trimester anatomic survey Impression REMOTE READ The patient is referred for a first trimester anatomy scan including nuchal translucency measurement as clinically indicated. - Single, live, intrauterine . - [place] rump length measurement is consistent with the established gestational age. - A qualitative screen of the nuchal translucency and other anatomic structures was unremarkable on a complete first trimester anatomic assessment. - Not all structural malformations can be detected by ultrasound examination. Maternal Structures: Right Ovary: Size 26 mm x 29 mm x 16 mm Left Ovary: Size 19 mm x 15 mm x 15 mm Recommendations Return for anatomy ultrasound Maternal Assessment Height 173 cm Height (ft) 5 ft Height (in) 8 in Physical Exam Initial weight (lb) 170 lb Initial BMI 25.85 kg/m Maternal assessment other: 3 Para 2 Method Transabdominal ultrasound examination Pike . Number of fetuses: 1 Dating LMP on: 08/01/2024 GA by LMP 12 w + 5 d IAN by LMP: 05/08/2025 GA by prior assessment 12 w + 5 d IAN by prior assessment: 05/08/2025 Ultrasound examination on: 10/29/2024 GA by U/S based upon: CRL GA by U/S 13 w + 0 d IAN by U/S: 05/06/2025 Assigned: based on stated IAN, selected on 10/29/2024 Assigned GA 12 w + 5 d Assigned IAN: 05/08/2025 General Evaluation Cardiac activity present Placenta: anterior Cord vessels: 3 vessel cord Amniotic fluid: normal amount Biometry Standard FHR 164 bpm CRL 67.5 mm 13w 0d 65% Hadlock First Trimester Anatomy Calvarium: normal Falx cerebri: normal Choroid plexus: normal Profile: normal Nasal bone: normal Retronasal triangle: normal Maxilla: normal Mandible: normal Nuchal translucency: Unremarkable Situs: normal Cardiac position: normal Cardiac axis: normal 4-chamber view: visualized 4-chamber view with color: visualized 1-[id number]-vlzulfi view: visualized Abdominal cord insertion: normal Stomach: normal Kidneys: normal Bladder: normal Color doppler of perivesical umbilical arteries: normal Vertebral alignment: normal Arms: normal Hands: normal Legs: normal Feet: normal Maternal Structures Uterus / Cervix Uterus: Visualized Uterus length 127 mm Uterus width 114 mm Uterus height 88 mm Uterus Vol 666.4 cm Ovaries / Tubes / Adnexa Rt ovary: Visualized Rt ovary D1 26 mm Rt ovary D2 29 mm Rt ovary D3 16 mm Rt ovary Vol 6.2 cm Lt ovary: Visualized Lt ovary D1 19 mm Lt ovary D2 15 mm Lt ovary D3 15 mm Lt ovary Vol 2.2 cm Performed By: Jamaica Rodriguez, AUGUST, RVT Read By: Claudia Gonzales M.D. MATERNAL MEDICINE [facility] CBC W Auto Differential pane l (Bld)on 10-29-2024 Basophils (Bld) [#/Vol] 10*3/uL Normal <0.[address] [facility] Comment on above: Order Comment: Speci men Type: SWAB Ordering Facility: [facility] Address: [address] [place] [address] Performed By: #### 3 6902-5, TRVAMP #### [facility] CLIA [id number] [address] [place] [address] [place] Basophils/100 WBC (Bld) 0.3 % Normal [facility] Comment on above: Order Comment: Speci men Type: SWAB Ordering Facility: [facility] Address: [address] [place] [address] Performed By: #### 3 6902-5, TRVAMP #### [facility] CLIA [id number] [address] [place] [address] [place] Differential cell count method Nom (Bld) Auto Normal [facility] Comment on above: Order Comment: Speci men Type: SWAB Ordering Facility: [facility] Address: [address] [place] [address] Performed By: #### 3 6902-5, TRVAMP #### [facility] CLIA [id number] [address] [place] [address] [place] Eosinophils (Bld) [#/Vol] 0.10 10*3/uL Normal <0.[address] [facility] Comment on above: Order Comment: Speci men Type: SWAB Ordering Facility: [facility] Address: [address] [place] [address] Performed By: #### 3 6902-5, TRVAMP #### [facility] CLIA [id number] [address] [place] [address] [place] Eosinophils/100 WBC (Bld) 1.4 % Normal [facility] Comment on above: Order Comment: Speci men Type: SWAB Ordering Facility: [facility] Address: [address] [place] [address] Performed By: #### 3 6902-5, TRVAMP #### [facility] CLIA [id number] [address] [place] [address] [place] Erythrocyte distribution width (RBC) [Ratio] 13.2 % Normal 11.5-15.[address] [facility] Comment on above: Order Comment: Speci men Type: SWAB Ordering Facility: [facility] Address: [address] [place] [address] Performed By: #### 3 6902-5, TRVAMP #### [facility] CLIA [id number] [address] [place] [address] [place] Hematocrit (Bld) [Volume fraction] 39.7 % Normal 36.0-46.[address] [facility] Comment on above: Order Comment: Speci men Type: SWAB Ordering Facility: [facility] Address: [address] [place] [address] Performed By: #### 3 6902-5, TRVAMP #### [facility] CLIA [id number] [address] [place] [address] [place] Hemoglobin (Bld) [Mass/Vol] 13.7 g/dL Normal 11.5-15.[address] [facility] Comment on above: Order Comment: Speci men Type: SWAB Ordering Facility: [facility] Address: [address] [place] [address] Performed By: #### 3 6902-5, TRVAMP #### [facility] CLIA [id number] [address] [place] [address] [place] Immature granulocytes (Bld) [#/Vol] 10*3/uL Normal <0.[address] [facility] Comment on above: Order Comment: Speci men Type: SWAB Ordering Facility: [facility] Address: [address] [place] [address] Performed By: #### 3 6902-5, TRVAMP #### [facility] CLIA [id number] [address] [place] [address] [place] Immature granulocytes/100 WBC (Bld) 0.1 % Normal [facility] Comment on above: Order Comment: Speci men Type: SWAB Ordering Facility: [facility] Address: [address] [place] [address] Performed By: #### 3 6902-5, TRVAMP #### [facility] CLIA [id number] [address] [place] [address] [place] Lymphocytes (Bld) [#/Vol] 1.31 10*3/uL Normal 1.00-4.[address] [facility] Comment on above: Order Comment: Speci men Type: SWAB Ordering Facility: [facility] Address: [address] [place] [address] Performed By: #### 3 6902-5, TRVAMP #### [facility] CLIA [id number] [address] [place] [address] [place] Lymphocytes/100 WBC (Bld) 18.1 % Normal [facility] Comment on above: Order Comment: Speci men Type: SWAB Ordering Facility: [facility] Address: [address] [place] [address] Performed By: #### 3 6902-5, TRVAMP #### [facility] CLIA [id number] [address] [place] [address] [place] MCH (RBC) [Entitic mass] 30.1 pg Normal 26.0-34.[address] [facility] Comment on above: Order Comment: Speci men Type: SWAB Ordering Facility: [facility] Address: [address] [place] [address] Performed By: #### 3 6902-5, TRVAMP #### [facility] CLIA [id number] [address] [place] [address] [place] MCHC (RBC) [Mass/Vol] 34.5 g/dL Normal 30.5-36.0 [facility] Comment on above: Order Comment: Speci men Type: SWAB Ordering Facility: [facility] Address: [address] [place] [address] Performed By: #### 3 6902-5, TRVAANNETTE #### [facility] CLIA [id number] [address] [place] [address] [place] MCV (RBC) [Entitic vol] 87.3 fL Normal 80.0-100.[address] [facility] Comment on above: Order Comment: Speci men Type: SWAB Ordering Facility: [facility] Address: [address] [place] [address] Performed By: #### 3 6902-5, TRVAMP #### [facility] CLIA [id number] [address] [place] [address] [place] Monocytes (Bld) [#/Vol] 0.30 10*3/uL Normal <0.[address] [facility] Comment on above: Order Comment: Speci men Type: SWAB Ordering Facility: [facility] Address: [address] [place] [address] Performed By: #### 3 6902-5, TRVAMP #### [facility] CLIA [id number] [address] [place] [address] [place] Monocytes/100 WBC (Bld) 4.2 % Normal [facility] Comment on above: Order Comment: Speci men Type: SWAB Ordering Facility: [facility] Address: [address] [place] [address] Performed By: #### 3 6902-5, TRVAMP #### [facility] CLIA [id number] [address] [place] [address] [place] Neutrophils (Bld) [#/Vol] 5.48 10*3/uL Normal 1.45-7.[address] [facility] Comment on above: Order Comment: Speci men Type: SWAB Ordering Facility: [facility] Address: [address] [place] [address] Performed By: #### 3 6902-5, TRVAMP #### [facility] CLIA [id number] [address] [place] [address] [place] Neutrophils/100 WBC (Bld) 75.9 % Normal [facility] Comment on above: Order Comment: Speci men Type: SWAB Ordering Facility: [facility] Address: [address] [place] [address] Performed By: #### 3 6902-5, TRVAMP #### [facility] CLIA [id number] [address] [place] [address] [place] Nucleated RBC (Bld) [#/Vol] 10*3/uL Normal <0.[address] [facility] Comment on above: Order Comment: Speci men Type: SWAB Ordering Facility: [facility] Address: [address] [place] [address] Performed By: #### 3 6902-5, TRVAMP #### [facility] CLIA [id number] [address] [place] [address] [place] Nucleated RBC/100 WBC (Bld) [Ratio] 0.0 /[address] [facility] Comment on above: Order Comment: Speci men Type: SWAB Ordering Facility: [facility] Address: [address] [place] [address] Performed By: #### 3 6902-5, TRVAMP #### [facility] CLIA [id number] [address] [place] [address] [place] Platelet mean volume (Bld) [Entitic vol] 9.2 fL Normal 9.0-12.[address] [facility] Comment on above: Order Comment: Speci men Type: SWAB Ordering Facility: [facility] Address: [address] [place] [address] Performed By: #### 3 6902-5, TRVAMP #### [facility] CLIA [id number] [address] [place] [address] [place] Platelets (Bld) [#/Vol] 168 10*3/uL Normal 150-[address] [facility] Comment on above: Order Comment: Speci men Type: SWAB Ordering Facility: [facility] Address: [address] [place] [address] Performed By: #### 3 6902-5, TRVAMP #### [facility] CLIA [id number] [address] [place] [address] [place] RBC (Bld) [#/Vol] 4.55 10*6/uL Normal 3.90-5.20 [facility] Comment on above: Order Comment: Speci men Type: SWAB Ordering Facility: [facility] Address: [address] [place] [address] Performed By: #### 3 6902-5, TRVAMP #### [facility] CLIA [id number] [address] [place] [address] [place] WBC (Bld) [#/Vol] 7.22 10*3/uL Normal 3.70-11.00 [facility] Comment on above: Order Comment: Speci men Type: SWAB Ordering Facility: [facility] Address: [address] [place] [address] Performed By: #### 3 6902-5, DOMENICA #### [facility] CLIA [id number] [address] [place] [address] [place] nuchal translucency me asured by USon 10-29-2024 Radiology Study observation (narrative) [facility] HBV surface Ag Ser Qlon 10-11 HBV surface Ag Ql (S) Negative Normal Negative [facility] Comment on above: Order Comment: Speci men Type: SWAB Ordering Facility: [facility] Address: [address] [place] [address] Performed By: #### 3 6902-5, DOMENICA #### [facility] CLIA [id number] [address] [place] [address] [place] HCV Ab Ser Qlon 10-29-2024 HCV Ab Ql (S) Negative Normal Negative [facility] Comment on above: Order Comment: Speci men Type: BLOOD SPECIMEN Ordering Facility: [facility] Address: [address] [place] [address] Result Comment: The result suggests no evidence of active infection with Hepatitis C virus. Should recent infection be suspected, repeat testing may be considered 4-6 weeks after this draw. Performed By: #### 7 3752-8 #### [facility] CLIA [id number] [address] [place] [address] [place] HGB ELECTROPHORESIS FOR EVAL (LAB ORDER)on 10-29-2024 Hemoglobin A (Bld) [Mass fraction] 97.2 % Normal 96.2-98.[address] [facility] Comment on above: Order Comment: Lucreciai peter Type: BLOOD SPECIMEN Ordering Facility: [facility] Address: [address] [place] [address] Performed By: #### 7 3752-8 #### [facility] CLIA [id number] [address] [place] [address] [place] Hemoglobin A2 (Bld) [Mass fraction] 2.8 % Normal 2.0-3.[address] [facility] Comment on above: Order Comment: Speci men Type: BLOOD SPECIMEN Ordering Facility: [facility] Address: [address] [place] [address] Performed By: #### 7 3752-8 #### [facility] CLIA [id number] [address] [place] [address] [place] Hemoglobin Unsp Elph (Bld) [Mass fraction] No abnormal hemoglobin identified. Normal No abnormal hemoglobin identified. [facility] Comment on above: Order Comment: Speci men Type: BLOOD SPECIMEN Ordering Facility: [facility] Address: [address] [place] [address] Performed By: #### 7 3752-8 #### [facility] CLIA [id number] [address] [place] [address] [place] HGB EVALUATION CASCADE INTER Dmitriy 10-29-2024 Hemoglobin pattern (Bld) [Interp] Reviewed by Nat Burkett MD, PhD Normal [facility] Comment on above: Order Comment: Speci men Type: BLOOD SPECIMEN Ordering Facility: [facility] Address: [address] [place] [address] Performed By: #### 7 3752-8 #### [facility] CLIA [id number] [address] [place] [address] [place] INTERPRETATION (HGB EVAL) Normal [facility] Comment on above: Order Comment: Speci men Type: BLOOD SPECIMEN Ordering Facility: [facility] Address: [address] [place] [address] Result Comment: Hemo globins were analyzed by capillary electrophoresis and CBC red cell parameters were reviewed. No abnormal hemoglobin is identified. There is a normal hemoglobin capillary electrophoresis pattern. Performed By: #### 7 3752-8 #### [facility] CLIA [id number] [address] [place] [address] [place] HIV 1+2 Ab IA Qlon 4 HIV 1 and 2 Ab IA.rapid Nom (S/P/Bld) Normal [facility] Comment on above: Order Comment: Speci men Type: BLOOD SPECIMEN Ordering Facility: [facility] Address: [address] [place] [address] Result Comment: Test not indicated. Performed By: #### 7 3752-8 #### [facility] CLIA [id number] [address] [place] [address] [place] HIV 1+2 Ab+HIV1 p24 Ag IA Ql Non-Reactive Normal Nonreactive [facility] Comment on above: Order Comment: Speci men Type: BLOOD SPECIMEN Ordering Facility: [facility] Address: [address] [place] [address] Performed By: #### 7 3752-8 #### [facility] CLIA [id number] [address] [place] [address] [place] HIV immunoassay testing algorithm interpretation (S/P/Bld) [Interp] Normal [facility] Comment on above: Order Comment: Speci men Type: BLOOD SPECIMEN Ordering Facility: [facility] Address: [address] [place] [address] Result Comment: No e vidence of HIV-1 or HIV-2 infection. Should recent infection be suspected, repeat testing may be considered 2-3 weeks after this draw. [place] Rev. Code 3701.243(E): This information has been disclosed to you from confidential records protected from disclosure by state law. ???You shall make no further disclosure of this information without the specific, written, and informed release of the individual to whom it pertains or as otherwise permitted by state law. A general authorization for the release of medical or other information is not sufficient for the purpose of the release of HIV test results or diagnoses. Performed By: #### 7 3752-8 #### [facility] CLIA [id number] [address] [place] [address] [place] HbA1c (Bld)on 10-29-2024 Average glucose Estimated from glycated hemoglobin (Bld) [Mass/Vol] 77 mg/dL Normal [facility] Comment on above: Order Comment: Speci men Type: BLOOD SPECIMEN Ordering Facility: [facility] Address: [address] [place] [address] Result Comment: eAG: (Estimated average glucose) is a calculated value from HgbA1c and is account development representative of the average blood glucose level in the last 2-3 month period. Performed By: #### 5 5454-3 #### [facility] CLIA [id number] [address] [place] [address] [place] HbA1c (Bld) [Mass fraction] 4.3 % Normal 4.3-5.[address] [facility] Comment on above: Order Comment: Speci men Type: BLOOD SPECIMEN Ordering Facility: [facility] Address: [address] [place] [address] Result Comment: Amer [place] Diabetes Association guidelines indicate that patients with HgbA1c in the range 5.7-6.4% are at increased risk for development of diabetes, and intervention by lifestyle modification may be beneficial. HgbA1c greater or equal to 6.5% is considered diagnostic of diabetes. Performed By: #### 5 5454-3 #### [facility] CLIA [id number] [address] [place] [address] [place] [id number] PLUSon 10-29-2024 Cell-free DNA./Cell-free DNA.total Dosage of chromosome-specific cfDNA (cfDNA) [Molar fraction] 29% Normal [facility] Comment on above: Order Comment: Speci men Type: SWAB Ordering Facility: [facility] Address: [address] [place] [address] Performed By: #### 3 6902-5, TRVAMP #### [facility] CLIA [id number] [address] [place] [address] [place] Chr 13+18+21+X+Y aneuploidy Dosage of chromosome-specific cfDNA Ql (cfDNA) Negative Normal [facility] Comment on above: Order Comment: Speci men Type: SWAB Ordering Facility: [facility] Address: [address] [place] [address] Performed By: #### 3 6902-5, TRVAMP #### [facility] CLIA [id number] [address] [place] [address] [place] Chr 21 trisomy Dosage of chromosome-specific cfDNA Ql (cfDNA) Negative Normal [facility] Comment on above: Order Comment: Speci men Type: SWAB Ordering Facility: [facility] Address: [address] [place] [address] Performed By: #### 3 6902-5, TRVAMP #### [facility] CLIA [id number] [address] [place] [address] [place] Chr X and Y aneuploidy risk Sequencing Ql (cfDNA) [Interp] Not detected Normal [facility] Comment on above: Order Comment: Speci men Type: SWAB Ordering Facility: [facility] Address: [address] [place] [address] Result Comment: Not Detected Not Detected Performed By: #### 3 6902-5, TRVAMP #### [facility] CLIA [id number] [address] [place] [address] [place] Citation Uche (Reference lab test) Comment Normal [facility] Comment on above: Order Comment: Speci men Type: SWAB Ordering Facility: [facility] Address: [address] [place] [address] Result Comment: 1. P juan carlos FARR, et al. Cris Med. 2012;14(3):296-305. 2. Pebbles DAHL, et al. Prenat Diag. 2013;33(6):591-597. 3. Kishor C, et al. Clin Chem. 2015 Apr;61(4):608-616. 4. Stella FARR, et al. Cris Med. 2011;13(11):913-920. 5. ACOG/SMFM Practice Bulletin No. 226, Aug 2020. Performed By: #### 3 6902-5, TRVAMP #### [facility] CLIA [id number] [address] [place] [address] [place] Gestational age Estimated from conception date Pike Normal [facility] Comment on above: Order Comment: Speci men Type: SWAB Ordering Facility: [facility] Address: [address] [place] [address] Performed By: #### 3 6902-5, DOMENICA #### [facility] CLIA [id number] [address] [place] [address] [place] GESTATIONALAGE AGE > OR = 9W Yes Normal [facility] Comment on above: Order Comment: Speci men Type: SWAB Ordering Facility: [facility] Address: [address] [place] [address] Performed By: #### 3 6902-5, SHELBIEVAANNETTE #### [facility] CLIA [id number] [address] [place] [address] [place] Laboratory comment Uche (Report) Comment Normal [facility] Comment on above: Order Comment: Speci men Type: SWAB Ordering Facility: [facility] Address: [address] [place] [address] Result Comment: The MaterniT(R) 21 PLUS laboratory-developed test (LDT) analyzes circulating cell-free DNA from a maternal blood sample. This test is used for screening purposes and not diagnostic. Clinical correlation is recommended. Validation data on twin pregnancies is limited and the ability of this test to detect aneuploidy in higher multiple gestations has not yet been validated. Performed By: #### 3 6902-5, DOMENICA #### [facility] CLIA [id number] [address] [place] [address] OF [facility] hospice director name Nom (Provider) Comment Normal [facility] Comment on above: Order Comment: Speci men Type: SWAB Ordering Facility: [facility] Address: [address] [place] [address] Result Comment: This specimen showed an expected representation of chromosome 21, 18 and 13 material. Clinical correlation is suggested. Comment Brian Michaud MD, PhD, Director, [employer] Performed By: #### 3 6902-5, DOMENICA #### [facility] CLIA [id number] [address] [place] [id number] [place] LIMITATIONS OF THE TEST Comment Normal [facility] Comment on above: Order Comment: Speci men Type: SWAB Ordering Facility: [facility] Address: [address] [place] [address] [place] [address] Result Comment: Tresa zhao the results of these tests are highly reliable, discordant results, including inaccurate sex prediction, may occur due to placental, maternal, or mosaicism or neoplasm; vanishing twin; prior maternal organ transplant; or other causes. These tests are screening tests and not diagnostic; they do not replace the accuracy and precision of diagnosis with CVS or amniocentesis. A patient with a positive test result should be referred for genetic counseling and offered invasive diagnosis for confirmation of test results.[5] The results of this testing, including the benefits and limitations, should be discussed with a qualified healthcare provider. management decisions, including termination of the , should not be based on the results of these tests alone. The healthcare provider is responsible for the use of this information in the management of their patient. Sex chromosomal aneuploidies are not reportable for known multiple gestations. A negative result does not ensure an unaffected nor does it exclude the possibility of other chromosomal abnormalities or defects which are not a part of these tests. An uninformative result may be reported, the causes of which may include, but are not limited to, insufficient sequencing coverage, noise or artifacts in the region, amplification or sequencing bias, or insufficient fraction. These tests are not intended to identify pregnancies at risk for neural tube defects or ventral wall defects. Testing for whole chromosome abnormalities (including sex chromosomes) and for subchromosomal abnormalities could lead to the potential discovery of both and maternal genomic abnormalities that could have major, minor, or no, clinical significance. Evaluating the significance of a positive or a non-reportable result may involve both invasive testing and additional studies on the mother. Such investigations may lead to a diagnosis of maternal chromosomal or subchromosomal abnormalities, which on occasion may be associated with benign or malignant maternal neoplasms. These tests may not accurately identify triploidy, balanced rearrangements, or the precise location of subchromosomal duplications or deletions; these may be detected by diagnosis with CVS or amniocentesis. The ability to report results may be impacted by maternal BMI, maternal weight, maternal systemic lupus erythematosus (SLE) and/or by certain pharmaceutical agents such as low molecular weight heparin (for example: Lovenox(R), Xaparin(R), Clexane(R) and Fragmin(R)). Performed By: #### 3 6902-5, DOMENICA #### [facility] CLIA [id number] [address] [place] [address] OF [facility] Monosomy X risk Dosage of chromosome-specific cfDNA Ql (Plasma cell-free+WBC DNA) [Interp] Not detected Normal [facility] Comment on above: Order Comment: Speci men Type: SWAB Ordering Facility: [facility] Address: [address] [place] [address] Performed By: #### 3 6902-5, DOMENICA #### [facility] CLIA [id number] [address] [place] [address] NEGATIVE PREDICTIVE VALUE Note Normal [facility] Comment on above: Order Comment: Speci men Type: SWAB Ordering Facility: [facility] Address: [address] [place] [address] Result Comment: The Negative Predictive Value (NPV) for trisomy 21, 18, and 13 is greater than 99%. The NPV for SCA and ESS cannot be calculated as SCA and ESS are only reported when an abnormality is detected. Performed By: #### 3 6902-5, DOMENICA #### [facility] CLIA [id number] [address] [place] [address] [place] NOTE Comment Normal [facility] Comment on above: Order Comment: Speci men Type: SWAB Ordering Facility: [facility] Address: [address] [place] [address] Result Comment: See Notes [employer] is a subsidiary of [employer], using the brand [employer]. This test was developed and its performance characteristics determined by [employer]. It has not been cleared or approved by the Food and Drug Administration. This laboratory is certified under the Clinical Laboratory Improvement Amendments (CLIA) as qualified to perform high complexity clinical laboratory testing and accredited by the [employer] (CAP). If there is future clinical need for adding MaterniT GENOME testing, this specimen will be available until term. [facility] samples will not be retained beyond 60 days. [facility] patients will have to send a new sample for re-sequencing ([facility] Test Code: [id number]). Performed By: #### 3 6902-5, DOMENICA #### [facility] CLIA [id number] [address] [place] [address] PERFORMANCE CHARACTERISTICS Note Normal [facility] Comment on above: Order Comment: Lucreciai peter Type: SWAB Ordering Facility: [facility] Address: [address] [place] [address] Result Comment: ! Sex ! Accuracy: 99.4% ! ! ! ! Region (associated syndrome) ! Est. Sens# ! Est. Spec ! ! ! ! Trisomy 21 (Down Syndrome) ! 99.1% ! 99.9% ! ! ! ! Trisomy 18 (Angelo Syndrome) ! >99.9% ! 99.6% ! ! ! ! Trisomy 13 (Patau Syndrome) ! 91.7% ! 99.7% ! ! ! ! Sex Chromosome Aneuploidies## ! 96.2% ! 99.7% ! ! ! * As reported in [facility] database nstd37 [https://www.ncbi.nlm.nih.gov/dbvar/studies/nstd37/ ] # Estimated Sensitivity. Sensitivity estimated across the observed size distribution of each syndrome [per [facility] database nstd37] and across the range of fractions observed in routine clinical NIPT. Actual sensitivity can also be influenced by other factors such as the size of the event, total sequence counts, amplification bias, or sequence bias. ## Pike gestation only. Performed By: #### 3 6902-5, DOMENICA #### [facility] CLIA [id number] [address] [place] [address] [place] POSITIVE PREDICTIVE VALUE N/A Normal [facility] Comment on above: Order Comment: Speci men Type: SWAB Ordering Facility: [facility] Address: [address] [place] [address] Performed By: #### 3 6902-5, DOMENICA #### [facility] CLIA [id number] [address] [place] [address] [place] Reference Lab Test Method Comment Normal [facility] Comment on above: Order Comment: Speci men Type: SWAB Ordering Facility: [facility] Address: [address], [place] [address] Result Comment: See Notes Circulating cell-free DNA was purified from the plasma component of maternal blood. The extracted DNA was then converted into a genomic DNA library for aneuploidy analysis of chromosomes 21, 18, and 13 via next generation sequencing.[1] Optional findings based on the test order include sex chromosome aneuploidy (SCA)[2], and enhanced sequencing series (ESS)[3], which will only be reported on as an additional finding when an abnormality is detected. SCA testing includes information on X and Y representation, while ESS testing includes deletions in selected regions (22q, 15q, 11q, 8q, 5p, 4p, 1p) and trisomy of chromosomes 16 and 22. Performed By: #### 3 6902-5, TREVERT #### [facility] CLIA [id number] [address] [place] [address] STATES OF [facility] Sex Dosage of chromosome-specific cfDNA Nom (cfDNA) Comment Normal [facility] Comment on above: Order Comment: Speci men Type: SWAB Ordering Facility: [facility] Address: [address] [place] [address] Result Comment: Cons istent with Female Performed By: #### 3 6902-5, TRVAMP #### [facility] CLIA [id number] [address] [place] [address] [place] [facility] Test performance information Uche (Unsp spec) Comment Normal [facility] Comment on above: Order Comment: Speci men Type: SWAB Ordering Facility: [facility] Address: [address] [place] [address] Result Comment: The performance characteristics of the MaterniT(R) 21 PLUS laboratory-developed test (LDT) have been determined in a clinical validation study with women at increased risk for chromosomal aneuploidy.[1-4] Performed By: #### 3 6902-5, TRVAANNETTE #### [facility] CLIA [id number] [address] [place] [address] [place] Trisomy 13 risk Dosage of chromosome-specific cfDNA Ql (cfDNA) [Interp] Negative Normal [facility] Comment on above: Order Comment: Speci men Type: SWAB Ordering Facility: [facility] Address: [address] [place] [address] Performed By: #### 3 6902-5, TRVAANNETTE #### [facility] CLIA [id number] [address] [place] [address] [place] Trisomy 18 risk Dosage of chromosome-specific cfDNA Ql (Plasma cell-free+WBC DNA) [Interp] Negative Normal [facility] Comment on above: Order Comment: Speci men Type: SWAB Ordering Facility: [facility] Address: [address] [place] [address] Performed By: #### 3 6902-5, SHELBIEVAANNETTE #### [facility] CLIA [id number] [address] [place] [address] [place] RBC PARAMETERS FOR HB IDon 1 12-30-2023 Erythrocyte distribution width (RBC) [Ratio] 13.1 % Normal 11.5-15.[address] [facility] Comment on above: Order Comment: Speci men Type: BLOOD SPECIMEN Ordering Facility: [facility] Address: [address] [place] [address] Performed By: #### 7 3752-8 #### [facility] CLIA [id number] [address] [place] [address] [place] Hematocrit (Bld) [Volume fraction] 41.2 % Normal 36.0-46.[address] [facility] Comment on above: Order Comment: Speci men Type: BLOOD SPECIMEN Ordering Facility: [facility] Address: [address] [place] [address] Performed By: #### 7 3752-8 #### [facility] CLIA [id number] [address] [place] [address] [place] Hemoglobin (Bld) [Mass/Vol] 13.8 g/dL Normal 11.5-15.[address] [facility] Comment on above: Order Comment: Speci men Type: BLOOD SPECIMEN Ordering Facility: [facility] Address: [address] [place] [address] Performed By: #### 7 3752-8 #### [facility] CLIA [id number] [address] [place] [address] [place] MCH (RBC) [Entitic mass] 30.2 pg Normal 26.0-34.[address] [facility] Comment on above: Order Comment: Speci men Type: BLOOD SPECIMEN Ordering Facility: [facility] Address: [address] [place] [address] Performed By: #### 7 3752-8 #### [facility] CLIA [id number] [address] [place] [address] [place] MCHC (RBC) [Mass/Vol] 33.5 g/dL Normal 30.5-36.0 [facility] Comment on above: Order Comment: Speci men Type: BLOOD SPECIMEN Ordering Facility: [facility] Address: [address] [place] [address] Performed By: #### 7 3752-8 #### [facility] CLIA [id number] [address] [place] [address] [place] MCV (RBC) [Entitic vol] 90.2 fL Normal 80.0-100.[address] [facility] Comment on above: Order Comment: Speci men Type: BLOOD SPECIMEN Ordering Facility: [facility] Address: [address] [place] [address] Performed By: #### 7 3752-8 #### [facility] CLIA [id number] [address] [place] [address] [place] RBC (Bld) [#/Vol] 4.57 10*6/uL Normal 3.90-5.20 [facility] Comment on above: Order Comment: Speci men Type: BLOOD SPECIMEN Ordering Facility: [facility] Address: [address] [place] [address] Performed By: #### 7 3752-8 #### [facility] CLIA [id number] [address] [place] [address] [place] RUBELLA IGG ANTIBODYon 10-29 RUBELLA IGG AB, QUAL Positive Normal Positive [facility] Comment on above: Order Comment: Liborio green Type: SWAB Ordering Facility: [facility] Address: [address] [place] [address] Result Comment: The result suggests recent or past exposure to Rubella virus or history of Rubella vaccination. Positive result may also be seen due to presence of passively-transferred antibodies. Please correlate with patient's history. Performed By: #### 3 6902-5, TRVAMP #### [facility] CLIA [id number] [address] [place] [address] [place] Reagin and Treponema pallidu m IgG and IgM [Interp]on 10-29-2024 T. pallidum IgG+IgM IA Ql (S) Non-Reactive Normal Nonreactive [facility] Comment on above: Order Comment: Speci men Type: BLOOD SPECIMEN Ordering Facility: [facility] Address: [address] [place] [address] Performed By: #### 7 3752-8 #### [facility] CLIA [id number] [address] [place] [address] [place] Reagin+T pallidum IgG+IgM Se rPl-Impon 10-29-2024 Reagin and Treponema pallidum IgG and IgM [Interp] Cannot exclude recent Treponemal infection if specimen collected within 7-10 days after appearance of suspect lesions or 2-3 weeks after an exposure. Clinical correlation is required. Normal [facility] Comment on above: Order Comment: Lucreciai peter Type: BLOOD SPECIMEN Ordering Facility: [facility] Address: [address] [place] [address] Performed By: #### 7 3752-8 #### [facility] CLIA [id number] [address] [place] [address] [place] TYPE + SCREEN PRENATALon ABO O Normal [facility] Comment on above: Order Comment: Speci men Type: BLOOD SPECIMEN Ordering Facility: [facility] Address: [address] [place] [address] Performed By: #### T SPN #### [facility] CLIA [id number] [address] [place] [address] [place] Rh Nom (Bld) Positive Normal [facility] Comment on above: Order Comment: Speci men Type: BLOOD SPECIMEN Ordering Facility: [facility] Address: [address] [place] [address] Performed By: #### T SPN #### [facility] CLIA [id number] [address] [place] [address] OF [place] TYPE AND SCREEN EXPIRATION 11/01/2024 23:[address] [facility] Comment on above: Order Comment: Speci men Type: BLOOD SPECIMEN Ordering Facility: [facility] Address: [address] [place] [address] Performed By: #### T SPN #### [facility] CLIA [id number] [address] [place] [address] OF [place] CNPHetal 09-16-2024 CNPN Telephone (OBGYBD) GUERDA CARDONA ([id number]) 89 F Date Time Provider Department 09/16/24 ESTEFANÍA BRADSHAW During your visit today, we recorded the following information about you: Estefanía Bradshaw RN 09/16/2024 9:14 AM Signed 1st risk assessment form submitted 09/16/2024. 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 - acetaminophen (TYLENOL ORAL) Take by mouth. - PNV no.95/ferrous fum/folic ac ( ORAL) Take by mouth. 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] 01/08/2017 09/13/2024 Diagnosed: 09/26/2023 Diplopia [H53.2] 10/09/2017 09/13/2024 Diagnosed: 09/26/2023 Posttraumatic stress disorder [F43.10] 11/15/2016 Diagnosed: 09/26/2023 Atypical squamous cells of undetermined signifi*09/26/2023 History of homeless [Z78.9] 09/26/2023 Group beta Strep positive [B95.1] 10/22/2023 09/13/2024 History of herpes genitalis [Z86.19] 09/13/2024 Current every day nicotine vaping [Z72.0] 09/13/2024 Short interval between pregnancies affecting pr*09/13/2024 Encounter for supervision of high risk pregnanc*09/13/2024 Marijuana use during [O99.320, F12.90]09/13/2024 Nausea and vomiting during [O21.9] 09/13/2024 Unplanned [Z34.90] 09/13/2024 Tooth infection [K04.7] 09/13/2024 Encounter Status:Closed by ESTEFANÍA BRADSHAW on 09/16/[address] [facility] Bacteria Ur Culton Bacteria identified Cx Nom (U) ORGANISM ID: 1 10,000 -<50,000 CFU/ml Normal urogenital prisca Normal [facility] Comment on above: Performed By: #### 3 6902-5, TRVAMP #### [facility] CLIA [id number] [address] [place] [address] [place] C. trachomatis+N. gonorrhoea e DNA BRIDGER+probe Ql (Unsp spec)on 09-13-2024 C. trachomatis rRNA BRIDGER+probe Ql (Unsp spec) Negative Normal Negative for Chlamydia trachomatis by amplificaton [facility] Comment on above: Order Comment: Speci men Type: SWAB Ordering Facility: [facility] Address: [address] [place] [address] Performed By: #### 3 6902-5, TRVAMP #### [facility] CLIA [id number] [address] [place] [address] [place] N. gonorrhoeae rRNA BRIDGER+probe Ql (Unsp spec) Negative Normal Negative for Neisseria gonorrhoeae by amplification [facility] Comment on above: Order Comment: Speci men Type: SWAB Ordering Facility: [facility] Address: [address] [place] [address] Performed By: #### 3 6902-5, TRVAMP #### 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 View: Adequate visualization Pike . Number of embryos: 1 Dating LMP on: 08/01/2024 GA by LMP 6 w + 1 d IAN by LMP: 05/08/2025 Ultrasound examination on: 09/13/2024 GA by U/S based upon: CRL GA by U/S 6 w + 1 d IAN by U/S: 05/08/2025 Assigned: based on the LMP, selected on 09/13/2024 Assigned GA 6 w + 1 d Assigned IAN: 05/08/2025 Biometry Standard FHR 130 bpm CRL 4.0 mm 6w 1d 2% Hadlock Assessment Gestational sac: visualized Location: intrauterine Yolk sac: visualized Embryo: visualized CRL 4.0 mm 6w 1d 2% Hadlock Cardiac activity: present FHR 130 bpm General Evaluation Cardiac activity present. FHR 130 bpm Performed By: Huan Campo NP Read By: Huan Campo NP MATERNAL MEDICINE [facility] Radiology Study observation (narrative) [facility] TRICHOMONAS VAGINALIS NAATon 09-13-2024 T. vaginalis DNA BRIDGER+probe Ql (Unsp spec) Negative Normal Negative for Trichomonas vaginalis by amplification [facility] Comment on above: Order Comment: Speci men Type: SWAB Ordering Facility: [facility] Address: [address] [place] [address] Performed By: #### 3 6902-5, TRVAANNETTE #### [facility] CLIA [id number] [address] [place] [address] [place] Larua 09-01-2024 BELKISN Telephone (OBGYWM) GUERDA CARDONA ([id number]) 89 F Date Time Provider Department 09/01/24 AISLINN BOWMAN During your visit today, we recorded the following information about you: Miriam Lombardi RN 09/01/2024 9:44 AM Signed Left message for patient to return phone call to complete nurse intake questions for her upcoming appointment. Patient has an appointment with Aislinn Bowman for NOB appointment next week. Please schedule her for intake questions 09/02 with me or transfer to Estefanía Olivares RN 09/01/2024 9:47 AM Signed 11:30 on 09/02. Estefanía Benitez RN Allergies As of Date: 09/01/2024 Noted Allergy Reaction ALBUTEROL SULFATE 09/26/2023 2 - Rash Comments: Liquid form---rash over all of body Date Reviewed: 12/25/2023 Reviewed by: Carlos Womack MA - Fully Assessed Reason for Visit: Appointment [186] Prescriptions as of 09/01/2024 - acetaminophen (TYLENOL ORAL) Take by mouth. - PNV no.95/ferrous fum/folic ac ( ORAL) Take by mouth. 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] 01/08/2017 Diagnosed: 09/26/2023 Diplopia [H53.2] 10/09/2017 Diagnosed: 09/26/2023 Posttraumatic stress disorder [F43.10] 11/15/2016 Diagnosed: 09/26/2023 with care elsewhere [Z34.90] 09/26/2023 Atypical squamous cells of undetermined signifi*09/26/2023 33 weeks gestation of [Z3A.33] 09/26/2023 History of homeless [Z78.9] 09/26/2023 Herpes simplex type 2 (HSV-2) infection affecti*09/26/2023 Group beta Strep positive [B95.1] 10/22/2023 Encounter Status:Closed by ESTEFANÍA BENITEZ on 09/01/[address] [facility] Urgent Care Visit Reporton 0 08-03-2024 Urgent Care Visit Report [facility] [address] , [address] [place] [id number] OFFICE VISIT Date of Service: 08/03/24 MR#: [id number] Acct: [id number] Name: GUERDA CARDONA Rep #: [id number] : 2000 Provider: JAVIER Aviles Age/Sex: 23/F Location: [facility] Status: Signed Intake Vital Signs 11/13/23 11:54 08/03/24 10:19 Height 5 ft 8 in 5 ft 8 in Weight: 168 lb 6 oz BMI 25.6 BP 162/88 H Blood Pressure Location Lt brachial Position Sitting Respiration 16 Pulse 121 H Pulse Source Monitor Temp 98.6 F Temp Source Temporal Pulse Oximetry (%) 98 Oxygen Delivery Method room air Intake Visit Reasons: TOOTH PAIN Chief 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 Pt stated it was her upper LT side back tooth. Pt states the tooth is breaking off in pieces sometimes when she eats. PFSH Medical History Infected dental caries (spontaneous vaginal delivery) HPV (human papilloma virus) infection Asthma Depression Anxiety History of anxiety History of depression Genital herpes PTSD (post-traumatic stress disorder) History of asthma Smoker Surgical History History of surgery Social History Smoking Status: Former smoker HPI HPI Chief Complaint: TOOTH PAIN Details: GUERDA CARDONA, is a 23 F who presents to the office today for initial evaluation dental carry pain to left upper molar as well as right upper molar, with patient taking deer-ocm-zcwyvwa ibuprofen and acetaminophen without relief of symptoms. No complaints of fever, chills, sweats though admits the pain is remarkable and would like to have them excised as soon as possible. The soonest dental appointment she could find is approximately a month and a half from now would like to have her symptoms treated at this time. No other complaints appreciated. ROS Const Constitutional: No other (As above) Exam Const General: cooperative, healthy appearing and no acute distress Orientation: alert and awake [facility] Head: normal to inspection Ears: hearing grossly normal bilaterally and external ears normal Nose: external nose normal Face and sinus: normal facial exam and face symmetric Mouth: oral mucosae normal, lip normal, tongue normal and oropharynx normal Teeth and gingiva: abnormal tooth or associated gingiva (L upper molar R upper molar dental caries w/ circumf. gingival erythema) Throat: posterior oropharynx normal and no postnasal drainage Neck Neck: normal visual inspection, no lymphadenopathy, no meningeal signs and supple Resp Effort Inspection: normal respiratory effort and able to speak in complete sentences Cardio Rate: regular rate Pulses: radial pulses present Skin General: no rashes or lesions noted Neuro General: patient alert, patient awake and patient oriented x3 Cognition: normal cognition Speech: speech normal Psych Appearance: grossly normal Mental Status: mental status grossly normal Mood: congruent mood Affect: normal affect Speech and Movement: speech and movement normal Attitude: cooperative Coding Level of Care Code Off vis,new,level 3 Diagnoses Infected dental caries K02.9; K04.7 Assessment and Plan Assessment and Plan (1) Infected dental caries: Status: Acute Plan: Amoxicillin as prescribed today. Supportive measures as instructed today. Patient contacted [facility] in office today and was able to get an appointment for evaluation within the next couple of weeks. Follow-up with the [facility] on an as-needed basis only. Patient states acknowledging understanding all the above. This note was generated with [employer] dictation software. It may contain incorrect words, spelling, and punctuation that were not noted in checking the note before signing. Medications: New amoxicillin 500 mg PO TID 30 tabs 0RF 08/03/24 1232 Date Marcelo HERRERA Cosigner Signature: Date (if applicable) CC: Normal [facility] GINA/TRICHOMONAS NAATon 0 - C. glabrata RNA BRIDGER+probe Ql (Vag fld) Negative Negative for Gina glabrata [facility] Gina sp DNA BRIDGER+probe Ql (Vag fld) Positive Abnormal Negative for Gina species [facility] T. vaginalis DNA BRIDGER+probe Ql (Unsp spec) Negative Negative for Trichomonas vaginalis by amplification [facility] Absolute lymphocyte countOrd ered By: Aislinn Bowman on 11-05-2023 Lymphocytes Auto (Unsp spec) [#/Vol] 1.22 10*3/uL 0.83-4.51 [facility] Basophil percentageOrdered B y: Aislinn Bowman on 11-05-2023 Basophils/100 WBC (Bld) 0.3 % 0-1 [facility] Eosinophils/100 WBC (Bld) 0.1 % 0-5 [facility] Neutrophils (Bld) [#/Vol] 11.9 10*3/uL 2.0-7.7 [facility] Neutrophils/100 WBC (Bld) 85.6 % 47-70 [facility] WBC (Bld) [#/Vol] 13.9 10*3/uL 4.4-11.0 [facility] Blood erythrocytes count (nu mber/volume)Ordered By: Aislinn Bowman on 11-05-2023 RBC (Bld) [#/Vol] 4.47 10*6/uL 4.2-5.4 [facility] Blood hemoglobin measurement (mass/volume)Ordered By: Aislinn Bowman on 11-05-2023 Hemoglobin (Bld) [Mass/Vol] 13.0 g/dL 12.0-15.0 [facility] Blood lymphocytes/100 leukoc ytesOrdered By: Aislinn Bowman on 11-05-2023 Lymphocytes/100 WBC (Bld) 8.8 % 19-41 [facility] Blood monocytes/100 leukocyt esOrdered By: Aislinn Bowman on 11-05-2023 Monocytes/100 WBC (Bld) 4.3 % 0-10 [facility] Blood platelet mean volumeOr dered By: Aislinn Bowman on 11-05-2023 Platelet mean volume (Bld) [Entitic vol] 9.9 fL 6.2-12.0 [facility] Determination of erythrocyte mean corpuscular volume (MCV)Ordered By: Aislinn Bowman on 11-05-2023 MCV (RBC) [Entitic vol] 90.2 fL 81-99 [facility] Hematocrit Auto (Bld) [Volum e fraction]Ordered By: Aislinn Bowman on 11-05-2023 Hematocrit (Bld) [Volume fraction] 40.3 % 37-47 [facility] Laboratory - Hematology and Cell countsOrdered By: Aislinn Bowman on 11-05-2023 Erythrocyte distribution width (RBC) [Entitic vol] 42.0 fL 35.1-43.9 [facility] Erythrocyte distribution width (RBC) [Ratio] 12.9 % 11.6-14.6 [facility] Immature granulocytes/100 WBC (Bld) 0.900 % 0.0-0.9 [facility] Comment on above: IG% - Immature Granu locytes (promyelocytes, myelocytes and metamyelocytes) > 1% indicates that a LEFT SHIFT is Present. MCH (RBC) [Entitic mass] 29.1 pg 27.0-32.0 [facility] Nucleated RBC/100 WBC (Bld) [Ratio] 0 % 0-5 [facility] MCHC Auto (RBC) [Mass/Vol]Or dered By: Aislinn Bowman on 11-05-2023 MCHC (RBC) [Mass/Vol] 32.3 g/dL 32-36 [facility] Platelets bldOrdered By: Lupe Bowman on 11-05-2023 Platelets (Bld) [#/Vol] 151 10*3/uL 150-450 [facility] Serum Treponema species anti body detectionOrdered By: Aislinn Bowman on 11-05-2023 Treponema sp Ab Ql (S) Non-Reactive [facility] OBSTETRIC ULTRASOUND WHIon 1 12-14-2022 [facility] Basophil percentageOrdered B y: Sal Hathaway on 07-25-2023 WBC (Bld) [#/Vol] 9.7 10*3/uL 4.4-11.0 [facility] Blood erythrocytes count (nu mber/volume)Ordered By: Sal Hathaway on 07-25-2023 RBC (Bld) [#/Vol] 4.07 10*6/uL 4.2-5.4 [facility] Blood hemoglobin measurement (mass/volume)Ordered By: Sal Hathaway on 07-25-2023 Hemoglobin (Bld) [Mass/Vol] 12.5 g/dL 12.0-15.0 [facility] Blood platelet mean volumeOr dered By: Sal Hathaway on 07-25-2023 Platelet mean volume (Bld) [Entitic vol] 9.7 fL 6.2-12.0 [facility] Determination of erythrocyte mean corpuscular volume (MCV)Ordered By: Sal Hathaway on 07-25-2023 MCV (RBC) [Entitic vol] 93.9 fL 81-99 [facility] Gestational diabetes screen 1-hour screen with 50g oral glucose loadOrdered By: Sal Hathaway on 07-25-2023 Glucose 1 Hr post 50 g glucose PO [Mass/Vol] 88 mg/dL 70-140 [facility] Hematocrit Auto (Bld) [Volum e fraction]Ordered By: Sal Hathaway on 07-25-2023 Hematocrit (Bld) [Volume fraction] 38.2 % 37-47 [facility] Laboratory - Hematology and Cell countsOrdered By: Sal Hathaway on 07-25-2023 Erythrocyte distribution width (RBC) [Entitic vol] 44.9 fL 35.1-43.9 [facility] Erythrocyte distribution width (RBC) [Ratio] 13.1 % 11.6-14.6 [facility] MCH (RBC) [Entitic mass] 30.7 pg 27.0-32.0 [facility] MCHC Auto (RBC) [Mass/Vol]Or dered By: Sal Hathaway on 07-25-2023 MCHC (RBC) [Mass/Vol] 32.7 g/dL 32-36 [facility] Platelets bldOrdered By: Leo Hathaway on 07-25-2023 Platelets (Bld) [#/Vol] 166 10*3/uL 150-450 [facility] Serum Treponema species anti body detectionOrdered By: Sal Hathaway on 07-25-2023 Treponema sp Ab Ql (S) Non-Reactive [facility] Culture, urineOrdered By: Dr Denise Hathaway on 04-10-2023 Bacteria identified Cx Nom (U) Positive [facility] Absolute lymphocyte countOrd ered By: Dr. Hathaway on 04-08-2023 Lymphocytes Auto (Unsp spec) [#/Vol] 1.34 10*3/uL 0.83-4.51 [facility] Basophil percentageOrdered B y: Dr. Hathaway on 04-08-2023 Basophils/100 WBC (Bld) 0.3 % 0-1 [facility] Eosinophils/100 WBC (Bld) 0.9 % 0-5 [facility] Neutrophils (Bld) [#/Vol] 5.8 10*3/uL 2.0-7.7 [facility] Neutrophils/100 WBC (Bld) 75.1 % 47-70 [facility] WBC (Bld) [#/Vol] 7.7 10*3/uL 4.4-11.0 [facility] Blood erythrocytes count (nu mber/volume)Ordered By: Dr. Hathaway on 04-08-2023 RBC (Bld) [#/Vol] 4.39 10*6/uL 4.2-5.4 [facility] Blood hemoglobin measurement (mass/volume)Ordered By: Dr. Hathaway on 04-08-2023 Hemoglobin (Bld) [Mass/Vol] 13.4 g/dL 12.0-15.0 [facility] Blood lymphocytes/100 leukoc ytesOrdered By: Dr. Hathaway on 04-08-2023 Lymphocytes/100 WBC (Bld) 17.4 % 19-41 [facility] Blood monocytes/100 leukocyt esOrdered By: Dr. Hathaway on 04-08-2023 Monocytes/100 WBC (Bld) 5.9 % 0-10 [facility] Blood platelet mean volumeOr dered By: Dr. Hathaway on 04-08-2023 Platelet mean volume (Bld) [Entitic vol] 10.3 fL 6.2-12.0 [facility] Cervical or vagninal specime n microscopic examination by cytology stain (reported asOrdered By: Sal Hathaway on 04-08-2023 Cytology report Cyto stain Doc (Cvx/Vag) Comment . [facility] Comment on above: The Pap smear is a s creening test designed to aid in thedetection of premalignant and malignant conditions of theuterine cervix. It is not a diagnostic procedure andshould not be used as the sole means of detecting cervicalcancer. Both false-positive and false-negative reports dooccur. Culture, urineOrdered By: Angelito Hathaway on 04-08-2023 Bacteria identified Cx Nom (U) Positive [facility] Determination of erythrocyte mean corpuscular volume (MCV)Ordered By: Dr. Hathaawy on 04-08-2023 MCV (RBC) [Entitic vol] 90.0 fL 81-99 [facility] HIV 1 and HIV-2 antibody ass ay with HIV-1 p24 antigen detectionOrdered By: Dr. Hathaway on 04-08-2023 HIV 1+2 Ab+HIV1 p24 Ag IA Ql Non-Reactive Nonreactive [facility] Hematocrit Auto (Bld) [Volum e fraction]Ordered By: Dr. Hathaway on 04-08-2023 Hematocrit (Bld) [Volume fraction] 39.5 % 37-47 [facility] Laboratory - CytologyOrdered By: Sal Hathaway on 04-08-2023 Receptionist Clerk Cyto stain Nom (Cvx/Vag) [ID] Comment . [facility] Comment on above: Martina Ellington, [employer] hnologist (ASCP) Pathologist Cyto stain Nom (Cvx/Vag) [ID] Comment . [facility] Comment on above: Quin Magana MD, [place] thologist Recommended follow-up Cyto stain Nom (Cvx/Vag) Comment . [facility] Comment on above: Suggest follow up as clinically appropriate. Laboratory - Hematology and Cell countsOrdered By: Dr. Hathaway on 04-08-2023 Erythrocyte distribution width (RBC) [Entitic vol] 46.2 fL 35.1-43.9 [facility] Erythrocyte distribution width (RBC) [Ratio] 14.1 % 11.6-14.6 [facility] Immature granulocytes/100 WBC (Bld) 0.400 % 0.0-0.9 [facility] Comment on above: IG% - Immature Granu locytes (promyelocytes, myelocytes and metamyelocytes) > 1% indicates that a LEFT SHIFT is Present. MCH (RBC) [Entitic mass] 30.5 pg 27.0-32.0 [facility] Nucleated RBC/100 WBC (Bld) [Ratio] 0 % 0-5 [facility] Laboratory - Miscellaneous t estsOrdered By: Sal Hathaway on 04-08-2023 Service comment (Unsp spec) [Interp] Comment . [facility] Comment on above: This liquid based Th inPrep(R) pap test was screened withthe use of an image guided system. Service comment (Unsp spec) [Interp] . . [facility] Auto (RBC) [Mass/Vol]Or dered By: Dr. Hathaway on 04-08-2023 MCHC (RBC) [Mass/Vol] 33.9 g/dL 32-36 [facility] No Panel InformationOrdered By: Dr. Hathaway on 04-08-2023 Hepatitis B Surface Antigen Non-Reactive Nonreactive [facility] Hepatitis C Antibody Non-Reactive Nonreactive [facility] Comment on above: Non Reactive: < 0.8 Equivocal: >/= 0.8 to < 1.0 Reactive: >/= 1.0The CDC recommends that a reactive/equivocal HCV antibody result be followed up by the HCV Nucleic Acid Amplificationtest (011160) Rubella IgG Antibody Reactive Nonreactive [facility] Comment on above: Antibody Results Int erpretation of Immune Status Non Reactive Presumed Non-Immune Equivocal Equivocal Reactive Presumed Immune No Panel InformationOrdered By: Sal Hathaway on 04-08-2023 Human Papillomavirus Screen Comment . [facility] Comment on above: See below for HPV te sting results. Pathology report final diagnosis Narrative Comment . [facility] Comment on above: EPITHELIAL CELL ABNO RMALITY.ATYPICAL SQUAMOUS CELLS OF UNDETERMINED SIGNIFICANCE (ASC-US). R87.610 Platelets bldOrdered By: Dr. Hathaway on 04-08-2023 Platelets (Bld) [#/Vol] 189 10*3/uL 150-450 [facility] Serum Treponema species anti body detectionOrdered By: Dr. Hathaway on 04-08-2023 Treponema sp Ab Ql (S) Non-Reactive [facility] Serum Varicella zoster virus IgG antibody assay by immunoassay (units/volume)Ordered By: Dr. Hathaway on 04-08-2023 VZV IgG IA Qn (S) 2388 index Immune >165 [facility] Comment on above: Negative <135 Equivo luna 135 - 165 Positive >165A positive result generally indicates exposure to thepathogen or administration of specific immunoglobulins,but it is not indication of active infection or stageof disease.Performed at: [facility] [place], [place] [id number] Director: Nima Cornejo PhD, Phone: [phone] 36on 10-09-2022 36 Form sent online to be seen for cavities. Left vm with dental clinic phone number to call to schedule. Normal [facility] CR Foot Complete 3+ Views Ri charly 05-01-2022 CR Foot Complete 3+ Views Right Patient Name: GUERDA CARDONA Diagnostic Radiology ACCESSION EXAM DATE/TIME PROCEDURE ORDERING PROVIDER [id number] 05/01/2022 16:30 EDT CR Foot Complete 3+ MD LLAMAS VIJAY Views Right CPT code 19312 Reason For Exam (CR Foot Complete 3+ Views Right) injury Report CLINICAL INFORMATION: Right foot pain after trauma. AP, oblique, and lateral views of the right foot are provided. There are no comparison studies. FINDINGS: The joint spaces of the right foot are well-maintained. There is no fracture or dislocation. The bone mineralization is within normal limits. IMPRESSION: 1. No acute findings. Report Dictated on Final Dictating Physician: MD HENRIQUEZ JEFFREY Signed Date and Time: 05/01/2022 4:58 pm Signed by: MD HENRIQUEZ JEFFREY Transcribed Date and Time: 05/01/2022 4:59 Normal [facility] EKG 12 Lead - Chest Painon 0 05-01-2022 [facility] Test Date: 2022-05-01 Pat Name: GUERDA CARDONA Department: 2BED Room: 03 Gender: F Roguer: AARON : 2000 Requested By: GIUSEPPE LLAMAS Order Number: [id number] Reading MD: Giuseppe Llamas Measurements Intervals [place] Rate: 106 P: 62 MT: 144 QRS: 76 QRSD: 92 T: 9 QT: 324 QTc: 431 Interpretive Statements SINUS TACHYCARDIA rate 106 normal axis PROBABLE LEFT ATRIAL ABNORMALITY RSR' IN V1 OR V2, RIGHT VCD OR RVH No previous ECG available for comparison Electronically Signed On 05-01-2022 17:34:05 EDT by [facility]lamas [facility] Giuseppe Llamas MD - 05/01/2022 [facility] Test Date: 2022-05-01 Pat Name: GUERDA CARDONA Department: 2BED Room: 03 Gender: F Roguer: AARON : 2000 Requested By: GIUSEPPE LLAMAS Order Number: [id number] Reading MD: Giuseppe Llamas Measurements Intervals [place] Rate: 106 P: 62 MT: 144 QRS: 76 QRSD: 92 T: 9 QT: 324 QTc: 431 Interpretive Statements SINUS TACHYCARDIA rate 106 normal axis PROBABLE LEFT ATRIAL ABNORMALITY RSR' IN V1 OR V2, RIGHT VCD OR RVH No previous ECG available for comparison Electronically Signed On 05-01-2022 17:34:05 EDT by Giuseppe LINARES Work Phone: [facility] Work Phone: XR FOOT RIGHT (MIN 3 VIEWS)o n 05-01-2022 Patient Name: GUERDA CARDONA Diagnostic Radiology ACCESSION EXAM DATE/TIME PROCEDURE ORDERING PROVIDER [id number] 05/01/2022 16:30 EDT CR Foot Complete 3+ MD LLAMAS VIJAY Views Right CPT code 18097 Reason For Exam (CR Foot Complete 3+ Views Right) injury Report CLINICAL INFORMATION: Right foot pain after trauma. AP, oblique, and lateral views of the right foot are provided. There are no comparison studies. FINDINGS: The joint spaces of the right foot are well-maintained. There is no fracture or dislocation. The bone mineralization is within normal limits. IMPRESSION: 1. No acute findings. Report Dictated on --- Final --- Dictating Physician: MD HENRIQUEZ JEFFREY Signed Date and Time: 05/01/2022 4:58 pm Signed by: MD HENRIQUEZ JEFFREY Transcribed Date and Time: 05/01/2022 4:59 [facility] Sam Henriquez MD - 05/01/2022 Patient Name: GUERDA CARDONA Diagnostic Radiology ACCESSION EXAM DATE/TIME PROCEDURE ORDERING PROVIDER [id number] 05/01/2022 16:30 EDT CR Foot Complete 3+ MD FARHAD, GIUSEPPE Views Right CPT code 91890 Reason For Exam (CR Foot Complete 3+ Views Right) injury Report CLINICAL INFORMATION: Right foot pain after trauma. AP, oblique, and lateral views of the right foot are provided. There are no comparison studies. FINDINGS: The joint spaces of the right foot are well-maintained. There is no fracture or dislocation. The bone mineralization is within normal limits. IMPRESSION: 1. No acute findings. Report Dictated on --- Final --- Dictating Physician: MD HENRIQUEZ JEFFREY Signed Date and Time: 05/01/2022 4:58 pm Signed by: MD HENRIQUEZ JEFFREY Transcribed Date and Time: 05/01/2022 4:59 [employer] Work Phone: Radiology Study observation (narrative) [employer] Work Phone: XR FOOT RIGHT (MIN 3 VIEWS)O rdered By: Sam Henriquez on 05-01-2022 [employer] Work Phone: Progress Noteon 12-12-2020 [employer] Authentication Interface Message Text Chief Complaint Patient presents with Diplopia History of Presenting Problem: HPI Diplopia In left gaze. Disease is chronic. Characterized as horizontal. Occurring intermittently. Occurring at random times. Since onset it is stable. Associated symptoms include Negative for eye pain, blurred vision and headaches. Treatments tried: EOM sx. Response to treatment was significant improvement. Comments 10/30/17 Left superior oblique tenectomy and a left lateral rectus recession of 9.0 mm, reoperation of left lateral rectus. Patient states she doesn't notice eye turn. Mostly diplopia in left gaze and with chin down eyes up Last edited by Janelle Gill COA on 12/12/2020 8:59 AM. (History) Ocular History: Ocular History Glasses No Refractive Error No Strabismus Yes Past Medical History: Past Medical History: Diagnosis Date Anxiety Depression Headache(898.0) Uncomplicated asthma Past Surgical History: Procedure Laterality Date EYE MUSCLE SURGERY Left 01/16/2017 EYE RECESSION - UNILATERAL - INITIAL performed by Lance Ramirez MD at [facility] [place] OR EYE MUSCLE SURGERY Left 10/30/2017 left eye superior oblique tenectomy, lateral rectus recess performed by Lance Ramirez MD at [facility] [place] OR EYE SURGERY EYE SURGERY Bilateral 10/07/2016 Bilateral inferior oblique myectomies and left medial rectus resection performed by Snehal Massey MD at [facility] [place] OR STRABISMUS SURGERY 02/2014 Right medial rectus resection, 4 mm. STRABISMUS SURGERY at age [address] Serrano. Bilateral rectus recession STRABISMUS SURGERY Left 01/16/2017 recession Review of Systems: ROS A complete ROS was performed. Pertinent positives have been documented above or are in the HPI. All other systems were negative. Allergies: Allergies Allergen Reactions Albuterol Sulfate Liquid form---rash over all of body Medications: Current Outpatient Medications Medication Sig Dispense Refill albuterol 108 (90 Base) MCG/ACT inhaler Inhale 2 Puffs into the lungs every 4 hours as needed for Wheezing, Shortness of Breath or Cough Use with spacer. (Patient not taking: Reported on 12/12/2020) 1 Inhaler 0 Zwgknrbr-Vwg-Gd-FA (PRE-QUIQUE PO) Take by mouth valACYclovir (VALTREX) 500 MG tablet Take 1 g by mouth daily No current facility-administere d medications for this visit. Family Medical History: Family History Problem Relation Age of Onset Other Father history unknown Alcohol Use Father Drug Use Father Glasses BF 6 Y/O Mother Depression Mother Anxiety Disorder Mother Alcohol Use Mother Drug Use Mother Suicide Attempts Mother Glasses BF 6 Y/O Brother Glasses BF 6 Y/O Other Suicide Completion Other Depression Maternal Uncle Anxiety Disorder Maternal Uncle Depression Maternal Grandmother Anxiety Disorder Maternal Grandmother Drug Use Maternal Grandmother Alcohol Use Maternal Grandfather Irritable Bowel Syndrome Maternal Grandfather Anxiety Disorder Paternal Grandmother Anesth Problems Neg Hx Bleeding Prob Neg Hx Blindness Neg Hx ChildHD Cataract Neg Hx ChildHD Glaucoma Neg Hx Social History: Social History Social History Socioeconomic History Marital status: Single Spouse name: None Number of children: None Years of education: None Highest education level: None Occupational History None Tobacco Use Smoking status: Current Every Day Smoker Packs/day: 0.50 Years: 1.00 Pack years: 0.50 Types: Cigarettes Smokeless tobacco: Never Used Substance and Sexual Activity Alcohol use: Yes Alcohol/week: 1.0 standard drinks Types: 1 Cans of beer per week Comment: Pt states she has approx. 1 beer a month Drug use: Yes Types: Marijuana Comment: patient admits to smoking marijuana 10/22/17 in the evening Sexual activity: Yes Partners: Male control/protection: Condom Other Topics Concern None Social History Narrative None Social Determinants of Health Social determinant risk not applicable to this patient. Exam: Physical Exam Base Eye Exam Visual Acuity (HOTV - Blocked) Right Left Dist sc 20/20 20/20 Near sc J1+ J1+ Pupils Pupils APD Right PERRL None Left PERRL None Visual Naqvi (Counting fingers) Right Left Full Full Additional Tests Stereo Fly: + Animals: 3/3 Circles: 9 Strabismus Exam Method: Alternate cover Correction: cc Distance Near Near +3DS N Bifocals Ortho ' 0 0 0 0 0 0 XT 14 -1 0 Ortho -2 -2 ET 16 0 0 0 0 0 0 R Tilt L Tilt Nystagmus: none AHP: none Slit Lamp and Fundus Exam External Exam Right Left External Normal Normal Slit Lamp Exam Right Left Lids/Lashes Normal Normal Conjunctiva/Sclera White and quiet White and quiet Cornea Clear Clear Anterior Chamber Deep and quiet Deep and quiet Iris Round and reactive Round and reactive Lens Clear Clear Vitreous Normal, good RR Normal, good RR Fundus Exam Right Left Disc Normal Normal C/D Ratio 0.3 0.3 Macula Normal Normal Vessels Normal Normal Refraction Wearing Rx Age: NONE Impression/Plan/Quinten mmendations: The patient was oriented to time, place, and person as appropriate for age and comorbidities. 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 Headache disorder 5. Anomalous head position 6. Conjunctival cyst of left eye 7. Diplopia 8. Exotropia of right eye 9. Alternating exotropia with V pattern 10. Adjustment disorder with anxiety 11. Depressive disorder 12. Generalized anxiety disorder 13. Persistent depressive disorder 14. Posttraumatic stress disorder Mechanical Strabismus Well Rx good field of SBV No new Rx FU 1 year or PRN Normal [facility] Vital Signs Date Time Vital Sign Value Performing Clinician Facility 05-09-2025 10:12-0400 Body mass index (BMI) [Ratio] 31.02 kg/m2 Lary David FISHING INSTRUCTOR.CNM Work Phone: [facility] 05-09-2025 10:12-0400 Body weight 92.53 kg Lary David FISHING INSTRUCTOR.CNM Work Phone: [facility] 05-09-2025 10:12-0400 Diastolic blood pressure 70 mm[Hg] Lary David FISHING INSTRUCTOR.CNM Work Phone: [facility] 05-09-2025 10:12-0400 Systolic blood pressure 122 mm[Hg] Larytisha Hernandez FISHING INSTRUCTOR.CNM Work Phone: [facility] 05-02-2025 10:21-0400 Body mass index (BMI) [Ratio] 30.56 kg/m2 Trista Mackey MD Work Phone: [facility] 05-02-2025 10:21-0400 Body weight 91.17 kg Trista Mackey MD Work Phone: [facility] 05-02-2025 10:21-0400 Diastolic blood pressure 78 mm[Hg] Trista Mackey MD Work Phone: [facility] 05-02-2025 10:21-0400 Systolic blood pressure 122 mm[Hg] Trista Mackey MD Work Phone: [facility] 04-25-2025 10:01-0400 Body mass index (BMI) [Ratio] 30.81 kg/m2 Trista Mackey MD Work Phone: [facility] 04-25-2025 10:01-0400 Body weight 91.9 kg Trista Mackey MD Work Phone: [facility] 04-25-2025 10:01-0400 Diastolic blood pressure 70 mm[Hg] Trista Mackey MD Work Phone: [facility] 04-25-2025 10:01-0400 Systolic blood pressure 120 mm[Hg] Trista Mackey MD Work Phone: [facility] 04-18-2025 09:56-0400 Body mass index (BMI) [Ratio] 30.26 kg/m2 Sallie Gomez MD Work Phone: [facility] 04-18-2025 09:56-0400 Body weight 90.27 kg Sallie Gomez MD Work Phone: [facility] 04-18-2025 09:56-0400 Diastolic blood pressure 62 mm[Hg] Sallie Gomez MD Work Phone: [facility] 04-18-2025 09:56-0400 Systolic blood pressure 108 mm[Hg] Sallie Gomez MD Work Phone: [facility] 04-05-2025 10:01-0400 Body mass index (BMI) [Ratio] 29.8 kg/m2 Estefanía Clark MD Work Phone: [facility] 04-05-2025 10:01-0400 Body weight 88.91 kg Estefanía Clark MD Work Phone: [facility] 04-05-2025 10:01-0400 Diastolic blood pressure 60 mm[Hg] Estefanía Clark MD Work Phone: [facility] 04-05-2025 10:01-0400 Systolic blood pressure 110 mm[Hg] Estefanía Clark MD Work Phone: [facility] 03-21-2025 10:32-0400 Body mass index (BMI) [Ratio] 29.95 kg/m2 Aislinn Bowman FISHING INSTRUCTOR.CNM Work Phone: [facility] 03-21-2025 10:32-0400 Body weight 89.36 kg Aislinn Bowman FISHING INSTRUCTOR.CNM Work Phone: [facility] 03-21-2025 10:32-0400 Diastolic blood pressure 72 mm[Hg] Aislinn Bowman FISHING INSTRUCTOR.CNM Work Phone: [facility] 03-21-2025 10:32-0400 Systolic blood pressure 118 mm[Hg] Aislinn Bowman FISHING INSTRUCTOR.CNM Work Phone: [facility] 02-21-2025 10:28-0400 Body mass index (BMI) [Ratio] 28.89 kg/m2 Aislinn Plotts FISHING INSTRUCTOR.CNM Work Phone: [facility] 02-21-2025 10:28-0400 Body weight 86.18 kg Aislinn Huitronts FISHING INSTRUCTOR.CNM Work Phone: [facility] 02-21-2025 10:28-0400 Diastolic blood pressure 70 mm[Hg] Aislinn Plotts FISHING INSTRUCTOR.CNM Work Phone: [facility] 02-21-2025 10:28-0400 Systolic blood pressure 126 mm[Hg] Aislinn Plotjustin FISHING INSTRUCTOR.CNM Work Phone: [facility] 02-07-2025 09:14-0400 Body mass index (BMI) [Ratio] 29.28 kg/m2 Deo Veliz MD Work Phone: [facility] 02-07-2025 09:14-0400 Body weight 87.36 kg Deo Veliz MD Work Phone: [facility] 02-07-2025 09:14-0400 Diastolic blood pressure 64 mm[Hg] Deo Veliz MD Work Phone: [facility] 02-07-2025 09:14-0400 Systolic blood pressure 102 mm[Hg] Deo Veliz MD Work Phone: [facility] 01-10-2025 11:11-0500 Body mass index (BMI) [Ratio] 28.13 kg/m2 Lary Hernandez APRN.CNM Work Phone: [facility] 01-10-2025 11:11-0500 Body weight 83.92 kg Lary Hernandez APRN.CNM Work Phone: [facility] 01-10-2025 11:11-0500 Diastolic blood pressure 62 mm[Hg] Lary Hernandez FISHING INSTRUCTOR.CNM Work Phone: [facility] 01-10-2025 11:11-0500 Systolic blood pressure 112 mm[Hg] Lary Hernandez APRN.CNM Work Phone: [facility] 11-23-2024 09:46-0500 Body mass index (BMI) [Ratio] 26.82 kg/m2 Trista Mackey MD Work Phone: [facility] 11-23-2024 09:46-0500 Body weight 80.02 kg Trista Mackey MD Work Phone: [facility] 11-23-2024 09:46-0500 Diastolic blood pressure 64 mm[Hg] Trista Mackey MD Work Phone: [facility] 11-23-2024 09:46-0500 Systolic blood pressure 118 mm[Hg] Trista Mackey MD Work Phone: [facility] 10-29-2024 11:21-0500 Body mass index (BMI) [Ratio] 26.46 kg/m2 Trista Mackey MD Work Phone: [facility] 10-29-2024 11:21-0500 Body weight 78.93 kg Trista Mackey MD Work Phone: [facility] 10-29-2024 11:21-0500 Diastolic blood pressure 60 mm[Hg] Trista Mackey MD Work Phone: [facility] 10-29-2024 11:21-0500 Systolic blood pressure 118 mm[Hg] Trista Mackey MD Work Phone: [facility] 10-12-2024 10:41-0500 Body mass index (BMI) [Ratio] 26.61 kg/m2 Trista Mackey MD Work Phone: [facility] 10-12-2024 10:41-0500 Body weight 79.38 kg Trista Mackey MD Work Phone: [facility] 10-12-2024 10:41-0500 Diastolic blood pressure 62 mm[Hg] Trista Mackey MD Work Phone: [facility] 10-12-2024 10:41-0500 Systolic blood pressure 110 mm[Hg] Trista Mackey MD Work Phone: [facility] 09-13-2024 10:57-0500 Body height 172.7 cm Huanlandy Rubinciera FISHING INSTRUCTOR.INJECTION MOULDING MACHINE OPERATOR Work Phone: [facility] 09-13-2024 10:57-0500 Body mass index (BMI) [Ratio] 25.76 kg/m2 Huan Alber FISHING INSTRUCTOR.INJECTION MOULDING MACHINE OPERATOR Work Phone: [facility] 09-13-2024 10:57-0500 Body weight 76.84 kg Huan Rubinciera FISHING INSTRUCTOR.INJECTION MOULDING MACHINE OPERATOR Work Phone: [facility] 09-13-2024 10:57-0500 Diastolic blood pressure 60 mm[Hg] Huanlandy Rubinciera FISHING INSTRUCTOR.INJECTION MOULDING MACHINE OPERATOR Work Phone: [facility] 09-13-2024 10:57-0500 Systolic blood pressure 110 mm[Hg] Huan Alber FISHING INSTRUCTOR.INJECTION MOULDING MACHINE OPERATOR Work Phone: [facility] 12-25-2023 10:46-0500 Body weight 90.17 kg Aislinn Gracie FISHING INSTRUCTOR.CNM Work Phone: [facility] 12-25-2023 10:46-0500 Diastolic blood pressure 70 mm[Hg] Aislinn Plotts FISHING INSTRUCTOR.CNM Work Phone: [facility] 12-25-2023 10:46-0500 Systolic blood pressure 106 mm[Hg] Aislinn Plotts FISHING INSTRUCTOR.CNM Work Phone: [facility] 11-07-2023 11:33-0500 Body temperature 97.5 [degF] [facility] 11-07-2023 11:33-0500 Diastolic blood pressure 52 mm[Hg] [facility] 11-07-2023 11:33-0500 Heart rate 69 /min [facility] 11-07-2023 11:33-0500 Respiratory rate 16 /min [facility] 11-07-2023 11:33-0500 SaO2% (BldA) [Mass fraction] 97 % [facility] 11-07-2023 11:33-0500 Systolic blood pressure 102 mm[Hg] [facility] 11-05-2023 14:57-0500 Body height 172.72 cm [facility] 11-05-2023 14:57-0500 Body mass index (BMI) [Ratio] 33 kg/m2 [facility] 11-05-2023 14:57-0500 Body weight 98.6 kg [facility] 09-26-2023 10:06-0500 Body height 172.7 cm Huan Campo APRN.INJECTION MOULDING MACHINE OPERATOR Work Phone: [facility] 09-26-2023 10:06-0500 Body weight 91.44 kg Huan Rubinciera DELATORREN.INJECTION MOULDING MACHINE OPERATOR Work Phone: [facility] 09-26-2023 10:06-0500 Diastolic blood pressure 60 mm[Hg] Huan Scottieciera FISHING INSTRUCTOR.INJECTION MOULDING MACHINE OPERATOR Work Phone: [facility] 09-26-2023 10:06-0500 Systolic blood pressure 108 mm[Hg] Huan Campo APRN.INJECTION MOULDING MACHINE OPERATOR Work Phone: [facility] 05-01-2022 17:32-0400 Diastolic blood pressure 92 mm[Hg] Giuseppe Llamas MD Work Phone: [facility] 05-01-2022 17:32-0400 Heart rate 108 /min Giuseppe Llamas MD Work Phone: [facility] 05-01-2022 17:32-0400 Respiratory rate 16 /min Giuseppe Llamas MD Work Phone: [facility] 05-01-2022 17:32-0400 SaO2% (BldA) [Mass fraction] 100 % Giuseppe Llamas MD Work Phone: [facility] 05-01-2022 17:32-0400 Systolic blood pressure 142 mm[Hg] Giuseppe Llamas MD Work Phone: [facility] 05-01-2022 15:35-0400 Body height 172.7 cm Giuseppe Llamas MD Work Phone: [facility] 05-01-2022 15:35-0400 Body mass index (BMI) [Ratio] 25.09 kg/m2 Giuseppe Llamas MD Work Phone: [facility] 05-01-2022 15:35-0400 Body temperature 98.29 [degF] Giuseppe Llamas MD Work Phone: [facility] 05-01-2022 15:35-0400 Body weight 74.84 kg Giuseppe Llamas MD Work Phone: [facility] Encounters Encounter Date Encounter Type Care Provider Facility Start: 05-09-2025 End: 05-09-2025 ambulatory LARY HERNANDEZ Facility:[facility] Start: 05-09-2025 End: 05-09-2025 Patient encounter procedure Lary Hernandez APRN.CNM Work Phone: OB/Gynecology Comment on above: Supervision of high risk in third trimester (HCC) (Primary Dx); 40 weeks gestation of (HCC); Benign gestational thrombocytopenia in third trimester (HCC); History of herpes genitalis; Marijuana use during ([facility]); Short interval between pregnancies affecting in first trimester, antepartum (HCC) Start: 05-02-2025 End: 05-02-2025 Patient encounter procedure Trista Mackey MD Work Phone: OB/Gynecology Comment on above: Supervision of high risk in third trimester (HCC) (Primary Dx); Benign gestational thrombocytopenia in third trimester (HCC); 39 weeks gestation of (HCC) Start: 05-02-2025 End: 05-02-2025 ambulatory TRISTA MACKEY Facility:[facility] Start: 04-25-2025 End: 04-25-2025 Patient encounter procedure Trista Mackey MD Work Phone: OB/Gynecology Comment on above: 38 weeks gestation o f (HCC) (Primary Dx); Supervision of high risk in third trimester (HCC); Benign gestational thrombocytopenia in third trimester (HCC) Start: 04-25-2025 End: 04-25-2025 ambulatory TRISTA MACKEY Facility:[facility] Start: 04-18-2025 End: 04-18-2025 Patient encounter procedure Sallie Gomez MD Work Phone: OB/Gynecology Comment on above: Supervision of high risk in third trimester (HCC) (Primary Dx); Benign gestational thrombocytopenia in third trimester (HCC); HSV-2 infection complicating , third trimester (HCC); 37 weeks gestation of (HCC) Start: 04-18-2025 End: 04-18-2025 ambulatory Sallie Gomez MD Work Phone: OB/Gynecology Comment on above: Valtrex Start: 04-05-2025 End: 04-05-2025 Office outpatient visit 15 minutes Estefanía Clark MD Work Phone: OB/Gynecology Comment on above: Benign gestational t hrombocytopenia in third trimester (HCC) (Primary Dx); HSV-2 infection complicating , third trimester (HCC); 35 weeks gestation of (HCC); Supervision of high risk in third trimester (HCC) Start: 04-05-2025 End: 04-05-2025 ambulatory ESTEFANÍA CLARK Facility:[facility] Start: 03-21-2025 End: 03-21-2025 Patient encounter procedure Aislinn Bowman APRN.CNM Work Phone: OB/Gynecology Comment on above: Benign gestational t hrombocytopenia in third trimester (HCC) (Primary Dx); 33 weeks gestation of (HCC); Bad odor of urine Start: 03-21-2025 End: 03-21-2025 ambulatory AISLINN BOWMAN Facility:[facility] Start: 03-09-2025 End: 05-09-2025 Follow-up encounter Aislinn Bowman FISHING INSTRUCTORDeniseCNM Work Phone: OB/Gynecology Start: 03-07-2025 End: 03-07-2025 ambulatory AISLINN BOWMAN Facility:[facility] Start: 02-22-2025 End: 02-22-2025 Telephone encounter Estefanía Bradshaw RN Maternal Medicine Comment on above: Second Worker - O ther (PRAF) Start: 02-21-2025 End: 02-21-2025 ambulatory AISLINN BOWMAN Facility:[facility] Start: 02-21-2025 End: 02-21-2025 Patient encounter procedure Aislinn Bowman APRN.CNM Work Phone: OB/Gynecology Comment on above: 29 weeks gestation o f (HCC) (Primary Dx); Benign gestational thrombocytopenia in third trimester (HCC); Supervision of high risk in second trimester (HCC); Adjustment disorder with anxiety; Thrombocytopenia affecting (HCC) Start: 02-10-2025 End: 04-12-2025 Follow-up encounter Huan Campo APRN.INJECTION MOULDING MACHINE OPERATOR Work Phone: OB/Gynecology Start: 02-08-2025 End: 02-08-2025 ambulatory Aislinn Bowman APRN.CNM Work Phone: OB/Gynecology Comment on above: Fall Start: 02-07-2025 End: 02-07-2025 Patient encounter procedure Deo Veliz MD Work Phone: OB/Gynecology Comment on above: Supervision of high risk in second trimester (Primary Dx); Current every day nicotine vaping; 27 weeks gestation of ; Need for vaccination Start: 02-07-2025 End: 02-07-2025 ambulatory DEO VELIZ Facility:[facility] Start: 01-14-2025 End: 01-14-2025 Telephone encounter Estefanía Bradshaw RN Maternal Medicine Comment on above: Second Worker - O ther (PRAF) Start: 01-10-2025 End: 03-12-2025 Follow-up encounter Trista Mackey MD Work Phone: OB/Gynecology Start: 01-10-2025 End: 01-10-2025 ambulatory HUAN CAMPO Facility:[facility] Start: 01-10-2025 End: 01-10-2025 Patient encounter procedure Lary Hernandez APRN.CNDavid Work Phone: OB/Gynecology Comment on above: Supervision of high risk in second trimester (Primary Dx); 23 weeks gestation of ; Current every day nicotine vaping; Marijuana use during ; Adjustment disorder with anxiety; Posttraumatic stress disorder; Screening for diabetes mellitus Encounter for anatomic survey (Primary Dx); 23 weeks gestation of Start: 12-06-2024 End: 12-06-2024 ambulatory No Primary Care Physician Facility:[facility] Start: 11-23-2024 End: 11-23-2024 ambulatory LISETTE TEJEDA Facility:[facility] Start: 11-23-2024 End: 11-23-2024 Patient encounter procedure Trista Mackey MD Work Phone: OB/Gynecology Comment on above: 16 weeks gestation o f (Primary Dx); Encounter for supervision of high risk in first trimester, antepartum; Short interval between pregnancies affecting in first trimester, antepartum Start: 10-29-2024 End: 10-29-2024 ambulatory TRISTA MACKEY Facility:[facility] Start: 10-29-2024 End: 10-29-2024 Patient encounter procedure Trista Mackey MD Work Phone: OB/Gynecology Comment on above: Short interval betwe en pregnancies affecting in first trimester, antepartum (Primary Dx); Encounter for supervision of high risk in first trimester, antepartum; 12 weeks gestation of Start: 10-29-2024 End: 10-29-2024 ambulatory HUAN CAMPO Facility:[facility] Start: 10-29-2024 End: 10-29-2024 ambulatory HUAN [facility] Facility:[facility] Start: 10-29-2024 End: 10-29-2024 Patient encounter procedure 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 Comment on above: Encounter for antena arpit screening for malformation using ultrasound (Primary Dx); 12 weeks gestation of Start: 10-12-2024 End: 10-12-2024 ambulatory Trista Mackey MD Work Phone: OB/Gynecology Comment on above: verificati on Start: 10-12-2024 End: 10-12-2024 Patient encounter procedure Trista Mackey MD Work Phone: OB/Gynecology Comment on above: Short interval betwe en pregnancies affecting in first trimester, antepartum (Primary Dx); Encounter for supervision of high risk in first trimester, antepartum; 10 weeks gestation of ; Marijuana use during ; Current every day nicotine vaping Start: 09-16-2024 End: 09-16-2024 Telephone encounter Estefanía Bradshaw RN OB/Gynecology Comment on above: Second Worker - O ther (PRAF) Start: 09-13-2024 End: 09-13-2024 ambulatory HUANLANDY CAMPO Facility:[facility] Start: 09-13-2024 End: 09-13-2024 Patient encounter procedure Huan Campo INJECTION MOULDING MACHINE OPERATOR Work Phone: OB/Gynecology Comment on above: Encounter for superv ision of high risk in first trimester, antepartum (Primary Dx); 6 weeks gestation of ; with uncertain dates in first trimester; Short interval between pregnancies affecting in first trimester, antepartum; History of herpes genitalis; Current every day nicotine vaping; Posttraumatic stress disorder; Marijuana use during ; Nausea and vomiting during ; Unplanned ; Tooth infection; Atypical squamous cells of undetermined significance (ASCUS) on Papanicolaou smear of cervix; Adjustment disorder with anxiety; History of homeless Start: 09-01-2024 End: 09-01-2024 Telephone encounter Aislinn Bowman APRN.CNM Work Phone: OB/Gynecology Comment on above: Appointment Start: 08-03-2024 End: 08-03-2024 ambulatory Marcelo HERRERA Facility[facility] Start: 12-25-2023 End: 12-25-2023 Patient encounter procedure Aislinn Bowman APRN.CNDavid Work Phone: OB/Gynecology Comment on above: care and examination (Primary Dx); Atypical squamous cells of undetermined significance (ASCUS) on Papanicolaou smear of cervix Start: 11-05-2023 End: 11-07-2023 [facility] Work [facility]: Start: 10-13-2023 End: 10-13-2023 Patient encounter procedure 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[place] [facility] Work Phone: OB/Gynecology Comment on above: Encounter for ultras ound to check growth (Primary Dx); with care elsewhere, antepartum; 35 weeks gestation of ; Encounter for anatomic survey Start: 09-30-2023 Telephone encounter Second Worker [facility] Maternal Medicine Comment on above: Second Worker - O ther (PRAF) Start: 09-26-2023 End: 09-26-2023 Patient encounter procedure Huan Campo INJECTION MOULDING MACHINE OPERATOR Work Phone: OB/Gynecology Comment on above: 33 weeks gestation o f (Primary Dx); Need for vaccination; with care elsewhere, antepartum; Atypical squamous cells of undetermined significance (ASCUS) on Papanicolaou smear of cervix; Alternating exotropia with V pattern; Adjustment disorder with anxiety; Posttraumatic stress disorder; History of homeless; Herpes simplex type 2 (HSV-2) infection affecting , antepartum, unspecified trimester Start: 09-10-2023 Telephone encounter Clementine zhao APRN.CNP Work Phone: OB/Gynecology Comment on above: breast pump Start: 08-01-2023 Telephone encounter Clementine zhao APRN.INJECTION MOULDING MACHINE OPERATOR Work Phone: OB/Gynecology Comment on above: Received Outside [facility] Records Start: 07-25-2023 End: 07-25-2023 ambulatory [facility] Work Phone: Start: 07-25-2023 End: 07-25-2023 Patient encounter procedure [facility] Work Phone: Start: 04-08-2023 End: 04-08-2023 ambulatory [facility] Work Phone: Start: 04-08-2023 End: 04-08-2023 Patient encounter procedure [facility], [place]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 Start: 10-09-2022 Telephone encounter Tremayne hernandez DDS Work Phone: [facility] Clinical Communication Comment on above: Appointment Request Start: 05-01-2022 End: 05-01-2022 Emergency department patient visit Giuseppe Llamas MD Work Phone: [facility] ED Comment on above: Contusion of right f oot, initial encounter (Primary Dx); Bilateral arm pain Procedures Date Procedure Procedure Detail Performing Clinician Start: 05-09-2025 Urnls dip stick/tabl et rgnt non-auto w/o micrscp Lary Hernandez APRN.CNM Work Phone: Start: 05-02-2025 Urnls dip stick/tabl et rgnt non-auto w/o micrscp Trista Mackey MD Work Phone: Start: 04-25-2025 Urnls dip stick/tabl et rgnt non-auto w/o micrscp Deo Veliz MD Work Phone: Start: 04-18-2025 Urnls dip stick/tabl et rgnt non-auto w/o micrscp Sallie Gomez MD Work Phone: Start: 04-05-2025 Urnls dip stick/tabl et rgnt non-auto w/o micrscp Estefanía Clark MD Work Phone: Start: 03-21-2025 Urnls dip stick/tabl et rgnt auto w/o microscopy Aislinn Bowman APRN.CNM Work Phone: Start: 01-10-2025 Us preg uterus after 1st trimest / gestation Huan Campo APRN.INJECTION MOULDING MACHINE OPERATOR Work Phone: Start: 10-29-2024 Antibody screen VINCE BOWMAN Comment on above: Order Comment: Speci men Type: BLOOD SPECIMEN Ordering Facility: [facility] Address: [address] [place] [address] Performed By: #### T SPN #### CC MAIN BLOOD BANK [facility] [id number] [address] [place] [address] [place] Start: 10-29-2024 Us nuchal translucency 1st gestation Huan Campo APRN.INJECTION MOULDING MACHINE OPERATOR Work Phone: Start: 09-13-2024 Us uterus l imited 1/> fetuses Huan Campo APRN.INJECTION MOULDING MACHINE OPERATOR Work Phone: Start: 09-13-2024 Adult depression scr eening assessment Trista Mackey MD Work Phone: Start: 12-25-2023 Iadna trichomonas vaginalis amplified probe tech Aislinn Bowman APRN.CNM Work Phone: Start: 10-13-2023 Us preg uterus after 1st trimest 11/10 gestation Huan Campo LEONID.INJECTION MOULDING MACHINE OPERATOR Work Phone: Start: 09-26-2023 Adult depression scr eening assessment Estefanía Bradshaw RN Start: 04-08-2023 Urine culture Start: 05-01-2022 Radex foot complete minimum 3 views Giuseppe Llamas MD Work Phone: Start: 05-01-2022 Ecg routine ecg w/le ast 12 lds w/i&r Giuseppe Llamas MD Work Phone: Urine culture Plan of Treatment Date Care Activity Detail Author Start: 2049 Zoster Vaccines (1 of 2) Zoster Vacc nerissa (1 of 2) [facility] Start: 02-07-2035 Urine microalbumin profile DTaP,Tdap,Td Vaccine (10 - Td or Tdap) [facility] Start: 10-10-2033 Urine microalbumin profile DTaP,Tdap,Td Vaccine (9 - Td or Tdap) [facility] Start: 09-26-2033 Urine microalbumin profile DTaP,Tdap,Td Vaccine (8 - Td or Tdap) [facility] Start: 01-07-2029 DTaP/Tdap/Td vaccine (8 - Td or Tdap) DTaP/Tdap/Td vaccine (8 - Td or Tdap) [facility] Start: 12-25-2026 Screening for malign ant neoplasm of cervix Cervical Cancer Screening [facility] Start: 10-12-2025 Covid-19 Vaccine ( season) Covid-19 Vaccine ( season) [facility] Comment on above: Postponed from 07/11 (Declined at this time) Start: 09-13-2025 Depression Screening Depression Scre ening [facility] Start: 07-11-2025 Influenza vaccination [facility] Start: 05-09-2025 Influenza vaccination Influenza Vacc ine (#1) [facility] Comment on above: Postponed from 07/11 (Declined at this time) Start: 05-09-2025 End: 05-09-2025 Patient encounter procedure 05/09/2025 10:00 AM EDT Routine Office Visit OB/Gynecology [address] [place] [address] Lary Hernandez APRN.CN [address] [place] [address] OB OB/Gynecology Comment on above: OB Start: 05-02-2025 End: 05-02-2025 Patient encounter procedure 05/02/2025 10:10 AM EDT Routine Office Visit OB/Gynecology [address] [place] [address] Trista Mackey MD [address] [place] [address] OB OB/Gynecology Comment on above: OB Start: 04-25-2025 End: 04-25-2025 Patient encounter procedure 04/25/2025 10:00 AM EDT Routine Office Visit OB/Gynecology [address] [place] [address] Deo Veliz MD [address] [place] [address] OB OB/Gynecology Comment on above: OB Start: 04-19-2025 End: 07-19-2025 CBC W Auto Differential panel - Blood COMPLETE BLOOD COUNT AND DIFFERENTIAL Lab Routine Benign gestational thrombocytopenia in third trimester (HCC) Expected: 04/19/2025, Expires: 07/19/2025 [facility] Work Phone: Comment on above: Expected: 04/19/2025 , Expires: 07/19/2025 Start: 04-19-2025 End: 04-19-2025 ambulatory 04/19/2025 10:00 AM EDT Results Only [facility] [address] [place] [address] [facility] Start: 04-18-2025 End: 04-18-2025 Patient encounter procedure 04/18/2025 10:00 AM EDT Routine Office Visit OB/Gynecology [address] [place] [address] Sallie Wise MD [address] [place] [address] OB OB/Gynecology Comment on above: OB Start: 04-05-2025 End: 04-05-2025 Patient encounter procedure 04/05/2025 10:00 AM EDT Routine Office Visit OB/Gynecology [address] [place] [address] Estefanía Clark MD [address] [place] [address] OB OB/Gynecology Comment on above: OB Start: 03-21-2025 End: 03-21-2025 Patient encounter procedure 03/21/2025 10:30 AM EDT Routine Office Visit OB/Gynecology [address] [place] [address] Aislinn Bowman APRN.[facility] [address] [place] [address] OB OB/Gynecology Comment on above: OB Start: 03-07-2025 End: 03-07-2025 ambulatory 03/07/2025 10:45 AM EDT Results Only [facility] [facility] [address] [place] [address] [facility] Start: 03-07-2025 End: 03-07-2025 Patient encounter procedure 03/07/2025 10:00 AM EDT Routine Office Visit OB/Gynecology [address] [place] [address] Estefanía Clark MD [address] [place] [address] OB OB/Gynecology Comment on above: OB Start: 02-21-2025 End: 05-23-2025 CBC panel - Blood by Automated count COMPLETE BLOOD COUNT Lab Routine Thrombocytopenia affecting (HCC) Expected: 02/21/2025, Expires: 05/23/2025 [facility] Work Phone: Comment on above: Expected: 02/21/2025 , Expires: 05/23/2025 Start: 02-21-2025 End: 02-21-2025 Patient encounter procedure 02/21/2025 10:30 AM EDT Routine Office Visit OB/Gynecology [address] [place] [address] Aislinn Bowman APRN.CN [address] [place] [address] OB OB/Gynecology Comment on above: OB Start: 02-07-2025 End: 02-07-2025 Patient encounter procedure 02/07/2025 9:10 AM EDT Routine Office Visit OB/Gynecology [address] [place] [address] Deo Veliz MD [address] [place] [address] OB OB/Gynecology Comment on above: OB Start: 02-07-2025 End: 02-07-2025 ambulatory 02/07/2025 9:00 AM EDT Results Only [facility] [address] [place] [address] Glucose Test [facility] Comment on above: Glucose Test Start: 01-10-2025 End: 04-11-2025 ANEMIA REFLEX PANEL ANEMIA REFLEX PANEL Lab Routine Marijuana use during Adjustment disorder with anxiety Posttraumatic stress disorder Current every day nicotine vaping Supervision of high risk in second trimester 23 weeks gestation of Expected: 01/10/2025, Expires: 04/11/2025 [facility] Comment on above: Expected: 01/10/2025 , Expires: 04/11/2025 Start: 01-10-2025 End: 01-10-2026 GESTATIONAL GLUCOSE SCREEN, 1-HOUR, 50 GRAM, NON-FASTING GESTATIONAL GLUCOSE SCREEN, 1-HOUR, 50 GRAM, NON-FASTING Lab Routine Screening for diabetes mellitus Marijuana use during Adjustment disorder with anxiety Posttraumatic stress disorder Current every day nicotine vaping Supervision of high risk in second trimester 23 weeks gestation of Expected: 01/10/2025, Expires: 01/10/2026 [facility] Work Phone: Comment on above: Expected: 01/10/2025 , Expires: 01/10/2026 Start: 01-10-2025 End: 01-10-2026 SYPHILIS TREPONEMAL W/REFLEX SYPHILIS TREPONEMAL W/REFLEX Lab Routine Marijuana use during Adjustment disorder with anxiety Posttraumatic stress disorder Current every day nicotine vaping Supervision of high risk in second trimester 23 weeks gestation of Expected: 01/10/2025, Expires: 01/10/2026 [facility] Comment on above: Expected: 01/10/2025 , Expires: 01/10/2026 Start: 12-27-2024 End: 12-27-2024 Patient encounter procedure 12/27/2024 10:45 AM EST Office Visit OB/Gynecology [address] [place] [address] Aislinn Bowman APRN.[facility] [address] [place] [address] annual OB/Gynecology Comment on above: annual Start: 12-21-2024 End: 12-21-2024 Patient encounter procedure Maternal Medicine Comment on above: Anatomy Scan OB Routine Start: 11-23-2024 End: 11-23-2024 Patient encounter procedure 11/23/2024 9:40 AM EST Routine Office Visit OB/Gynecology [address] [place] [address] Lisette Tejeda MD [address] [place] [address] OB Routine OB/Gynecology Comment on above: OB Routine Start: 10-29-2024 End: 10-29-2024 Patient encounter procedure 10/29/2024 1:30 PM EST Routine Office Visit OB/Gynecology [address] [place] [address] Trista Mackey MD [address] [place] [address] OB Routine OB/Gynecology Comment on above: OB Routine Start: 10-29-2024 End: 10-29-2024 Patient encounter procedure 10/29/2024 10:30 AM EST Routine Office Visit Maternal Medicine [address] [place] [address] [facility] Comment on above: [facility] Start: 10-12-2024 End: 01-11-2025 Chromosome 21 trisomy [Presence] in Blood or Tissue by Cytogenetics [id number] PLUS Lab Routine Short interval between pregnancies affecting in first trimester, antepartum Encounter for supervision of high risk in first trimester, antepartum 10 weeks gestation of Expected: 10/12/2024, Expires: 01/11/2025 [facility] Work Phone: Comment on above: Expected: 10/12/2024 , Expires: 01/11/2025 Start: 10-12-2024 End: 10-12-2024 Patient encounter procedure 10/12/2024 10:20 AM EST Routine Office Visit OB/Gynecology [address] [place] [address] Trista Mackey MD [address] [place] [address] 2nd OB OB/Gynecology Comment on above: 2nd OB Start: 09-26-2024 Depression Screening Depression Scre ening [facility] Start: 09-13-2024 End: 12-13-2024 ANEMIA REFLEX PANEL ANEMIA REFLEX PANEL Lab Routine with uncertain dates in first trimester Expected: 09/13/2024, Expires: 12/13/2024 [facility] Work Phone: Comment on above: Expected: 09/13/2024 , Expires: 12/13/2024 Start: 09-13-2024 End: 12-13-2024 Hemoglobin A1c in Blood HEMOGLOBIN A1C Lab Routine with uncertain dates in first trimester Expected: 09/13/2024, Expires: 12/13/2024 [facility] Comment on above: Expected: 09/13/2024 , Expires: 12/13/2024 Start: 09-13-2024 End: 12-13-2024 HEMOGLOBIN EVALUATION CASCADE HEMOGLOBIN EVALUATION CASCADE Lab Routine Encounter for supervision of high risk in first trimester, antepartum 6 weeks gestation of Expected: 09/13/2024, Expires: 12/13/2024 [facility] Comment on above: Expected: 09/13/2024 , Expires: 12/13/2024 Start: 09-13-2024 End: 12-13-2024 Hepatitis B virus surface Ag [Presence] in Serum HEPATITIS B SURFACE ANTIGEN Lab Routine with uncertain dates in first trimester Expected: 09/13/2024, Expires: 12/13/2024 [facility] Comment on above: Expected: 09/13/2024 , Expires: 12/13/2024 Start: 09-13-2024 End: 12-13-2024 Hepatitis C virus Ab [Presence] in Serum HEPATITIS C ANTIBODY IA WITH CONFIRMATION Lab Routine with uncertain dates in first trimester Expected: 09/13/2024, Expires: 12/13/2024 [facility] Comment on above: Expected: 09/13/2024 , Expires: 12/13/2024 Start: 09-13-2024 End: 12-13-2024 HIV 1+2 Ab [Presence] in Serum or Plasma by Immunoassay HIV 1/2 COMBO WITH REFLEX TO DIFFERENTIATION Lab Routine with uncertain dates in first trimester Expected: 09/13/2024, Expires: 12/13/2024 [facility] Comment on above: Expected: 09/13/2024 , Expires: 12/13/2024 Start: 09-13-2024 End: 09-13-2025 NUCHAL TRANSLUCENCY WHI NUCHAL TRANSLUCENCY WHI Anc Imaging Routine with uncertain dates in first trimester Expected: 09/13/2024, Expires: 09/13/2025 [facility] Comment on above: Expected: 09/13/2024 , Expires: 09/13/2025 Start: 09-13-2024 End: 09-13-2025 OBSTETRIC ULTRASOUND WHI OBSTETRIC ULTRASOUND WHI Anc Imaging Routine with uncertain dates in first trimester Expected: 09/13/2024, Expires: 09/13/2025 [facility] Comment on above: Expected: 09/13/2024 , Expires: 09/13/2025 Start: 09-13-2024 End: 12-13-2024 RUBELLA IGG ANTIBODY RUBELLA IGG ANTIBODY Lab Routine with uncertain dates in first trimester Expected: 09/13/2024, Expires: 12/13/2024 [facility] Comment on above: Expected: 09/13/2024 , Expires: 12/13/2024 Start: 09-13-2024 End: 12-13-2024 SYPHILIS TREPONEMAL W/REFLEX SYPHILIS TREPONEMAL W/REFLEX Lab Routine with uncertain dates in first trimester Expected: 09/13/2024, Expires: 12/13/2024 [facility] Comment on above: Expected: 09/13/2024 , Expires: 12/13/2024 Start: 09-13-2024 End: 12-13-2024 TYPE + SCREEN TYPE + SCREEN Blood Bank Routine with uncertain dates in first trimester Expected: 09/13/2024, Expires: 12/13/2024 [facility] Comment on above: Expected: 09/13/2024 , Expires: 12/13/2024 Start: 09-07-2024 End: 09-07-2024 Patient encounter procedure 09/07/2024 8:45 AM EDT Initial Office Visit OB/Gynecology [address] [place], [place] [id number] Aislinn Bowman APRN.[facility] [address] [place] [address] 1st OB OB/Gynecology Comment on above: 1st OB Start: 07-11-2024 Covid-19 Vaccine ( season) Covid-19 Vaccine ( season) [facility] Start: 07-11-2024 Influenza vaccination Influenza Vacc ine (#1) [facility] Start: 04-08-2024 Chlamydia Screening (18-24) Chlamydia Screening (18-24) [facility] Start: 05-30-2024 GC (Gonorrhea) Scree laurel (18-24) GC (Gonorrhea) Screening (18-) [facility] Start: 04-08-2024 Screening for Chlamy jayro trachomatis Chlamydia Screening () [facility] Start: 11-10-2023 [facility] Start: 11-07-2023 Patient discharge [facility] Start: 11-05-2023 Administration of medication [facility] Start: 11-05-2023 Application of ice collar, cap or bag [facility] Start: 11-05-2023 Catheterization of vein [facility] Start: 11-05-2023 Introduction of urin sumeet catheter [facility] Start: 11-05-2023 Measuring intake and output [facility] Start: 11-05-2023 Notification of physician [facility] Start: 11-05-2023 Procedure discontinued [facility] Start: 11-05-2023 Provision of activit y privileges [facility] Start: 11-05-2023 Vital signs measurements [facility] Start: 11-05-2023 [facility] Start: 11-05-2023 Admission procedure [facility] Start: 11-05-2023 Consultation [facility] Start: 09-26-2023 End: 09-26-2024 OBSTETRIC ULTRASOUND WHI OBSTETRIC ULTRASOUND I Anc Imaging Routine 33 weeks gestation of Expected: 09/26/2023, Expires: 09/26/2024 [facility] Work Phone: Comment on above: Expected: 09/26/2023 , Expires: 09/26/2024 Start: 07-11-2023 Covid-19 Vaccine ( season) Covid-19 Vaccine ( season) [facility] Start: 07-11-2023 Influenza vaccination Influenza Vacc ine (#1) [facility] Start: 11-10-2022 Depression Assessment Depression Ass essment [facility] Start: 07-11-2022 Influenza vaccination [facility] Start: 04-25-2021 Urine microalbumin profile DTaP,Tdap,Td Vaccine (7 - Td or Tdap) [facility] Start: 2020 Pap Testing Pap Testing [facility] Start: 2020 Screening for malign ant neoplasm of cervix [facility] Start: 07-11-2019 Screening for Chlamy jayro trachomatis Chlamydia screen [facility] Start: 2018 DTaP/Tdap/Td Vaccine s (1 - Tdap) DTaP/Tdap/Td Vaccines (1 - Tdap) [facility] Start: 2018 Urine microalbumin profile DTaP,Tdap,Td Vaccine (1 - Tdap) [facility] Start: 2017 Annual PCP Team Bus Aide alejandro Disease Visit Annual PCP Team Chronic Disease Visit [facility] Start: 2017 Chlamydia Screening (18-24) Chlamydia Screening (18-24) [facility] Start: 2017 Depression Screening Depression Scre ening [facility] Start: 2017 GC (Gonorrhea) Scree laurel (18-24) GC (Gonorrhea) Screening (18-24) [facility] Start: 2017 Hepatitis C screening [facility] Start: 2017 Hepatitis C Screening Hepatitis C Sc reening [facility] Start: 2017 HIV Screening HIV Screening [facility] Start: 2017 Spirometry Spirometry [facility] Start: 2015 Meningococcal B Vacc ine: Consider Based On Risk (1 of 2 - Patient Seeks Protection) Meningococcal B Vaccine: Consider Based On Risk (1 of 2 - Patient Seeks Protection) [facility] Start: 2014 HIV screening HIV screen [facility] Start: 2013 Peds To Adult Transi tion Annual Assessment Peds To Adult Transition Annual Assessment [facility] Start: 2011 Depression Screen Depression Screen [facility] Start: 2011 Peds To Adult Transi tion Initial Discussion Peds To Adult Transition Initial Discussion [facility] Start: 2010 HPV Vaccines (1 - 2- dose series) HPV Vaccines (1 - 2-dose series) [facility] Start: 2008 HPV Vaccine (1 - 2-d ose series) HPV Vaccine (1 - 2-dose series) [facility] Start: 2005 Pneumococcal vaccination Pneum ococcal Vaccine (1 - PCV) [facility] Start: 2005 Pneumococcal Vaccine : Pediatrics (0 to 5 Years) and At-Risk Patients (6 to 64 Years) (1 - PCV) Pneumococcal Vaccine: Pediatrics (0 to 5 Years) and At-Risk Patients (6 to 64 Years) (1 - PCV) [facility] Start: 2004 COVID-19 Vaccine (1) COVID-19 Vaccin e (1) [facility] Start: 2000 MMR Vaccines (1 of 1 - Standard series) MMR Vaccines (1 of 1 - Standard series) [facility] Start: 2000 Varicella vaccination Varicell a Vaccines (1 of 2 - 2-dose childhood series) [facility] Start: 06-15-2000 Covid-19 Vaccine (#1) Covid-19 Vacci ne (#1) [facility] Start: 05-09-2000 Hepatitis B vaccine (2 of 3 - 3-dose primary series) Hepatitis B vaccine (2 of 3 - 3-dose primary series) [facility] Start: 1999 Hepatitis B Vaccine (1 of 3 - 3-dose series) Hepatitis B Vaccine (1 of 3 - 3-dose series) [facility] Start: 1999 Hepatitis B Vaccines (1 of 3 - 3-dose series) Hepatitis B Vaccines (1 of 3 - 3-dose series) [facility] Start: 1999 HIV screening HIV Screening [facility] Start: 1999 Lipid panel Lipid Panel [facility] Bacteria identified in Urine by Culture URINE CULTURE Microbiology Routine with uncertain dates in first trimester 09/13/2024 11:34 AM [facility] BACTERIAL VAGINOSIS NAAT BACTERI AL VAGINOSIS NAAT Lab Routine care and examination 12/25/2023 11:11 AM [facility] Work Phone: Chlamydia trachomatis+Neisseria gonorrhoeae DNA [Presence] in Unspecified specimen by BRIDGER with probe detection GONORRHEA/CHLAMYDIA NAAT Lab Routine care and examination 12/25/2023 11:11 AM [facility] Work Phone: Chlamydia trachomatis+Neisseria gonorrhoeae DNA [Presence] in Unspecified specimen by BRIDGER with probe detection GONORRHEA/CHLAMYDIA NAAT Lab Routine with uncertain dates in first trimester 09/13/2024 11:34 AM [facility] PAP TEST PAP TEST Lab [facility] care and examination 12/25/2023 11:11 AM [facility] Work Phone: Path report.final Dx Spec [facility] Patient Education After a Vaginal W [facility] Work Phone: Patient referral [facility] Work Phone: ROUTINE, GR OUP B STREPTOCOCCUS BY PCR ROUTINE, GROUP B STREPTOCOCCUS BY PCR Microbiology Routine Supervision of high risk in third trimester (HCC) 37 weeks gestation of (HCC) 04/18/2025 10:09 AM EDT [facility] Work Phone: TRICHOMONAS VAGINALI S NAAT TRICHOMONAS VAGINALIS NAAT Lab Routine Encounter for supervision of high risk in first trimester, antepartum 09/13/2024 11:34 AM EST [facility] URINE OB DIP B/O URINE OB DIP B/ O Lab Routine 33 weeks gestation of Ordered: 09/26/2023 [facility] Work Phone: Comment on above: Ordered: 09/26/2023 [facility] Immunizations Immunization Date Immunization Notes Care Provider [facility] 02-07-2025 tetanus toxoid, redu sedrick diphtheria toxoid, and acellular pertussis vaccine, adsorbed Deo Veliz MD Work Phone: [facility] 10-13-2023 respiratory syncytia l virus (RSV) vaccine, bivalent (ABRYSVO) [facility] Work Phone: [facility] 10-10-2023 tetanus toxoid, redu sedrick diphtheria toxoid, and acellular pertussis vaccine, adsorbed [facility] 09-26-2023 tetanus toxoid, redu sedrick diphtheria toxoid, and acellular pertussis vaccine, adsorbed Huan Campo APRN.INJECTION MOULDING MACHINE OPERATOR Work Phone: [facility] 10-23-2021 COVID-19 original vaccine, age 12+ yr, monovalent (PFIZER-BIONTECH - PURPLE TOP) Trista Mackey MD Work Phone: [facility] 10-02-2021 COVID-19 original vaccine, age 12+ yr, monovalent (PFIZER-BIONTECH - PURPLE TOP) Trista Mackey MD Work Phone: [facility] 06-27-2017 hepatitis A vaccine, pediatric/adolescent dosage, 2 dose schedule Huan Haury FISHING INSTRUCTOR.INJECTION MOULDING MACHINE OPERATOR Work Phone: [facility] 06-27-2017 meningococcal polysaccharide (groups A, C, Y and W-135) diphtheria toxoid conjugate vaccine (MCV4P) Trista Mackey MD Work Phone: [facility] 01-11-2015 hepatitis A vaccine, pediatric/adolescent dosage, 2 dose schedule Huan Haury FISHING INSTRUCTOR.INJECTION MOULDING MACHINE OPERATOR Work Phone: [facility] 01-11-2015 human papilloma viru s vaccine, quadrivalent Huan Haury FISHING INSTRUCTOR.INJECTION MOULDING MACHINE OPERATOR Work Phone: [facility] 08-21-2012 human papilloma viru s vaccine, quadrivalent Huan Haury FISHING INSTRUCTOR.INJECTION MOULDING MACHINE OPERATOR Work Phone: [facility] 06-01-2012 human papilloma viru s vaccine, quadrivalent Huan Haury FISHING INSTRUCTOR.INJECTION MOULDING MACHINE OPERATOR Work Phone: [facility] 04-25-2011 meningococcal polysaccharide (groups A, C, Y and W-135) diphtheria toxoid conjugate vaccine (MCV4P) Trista Mackey MD Work Phone: [facility] 04-25-2011 tetanus toxoid, redu sedrick diphtheria toxoid, and acellular pertussis vaccine, adsorbed Huan Haury FISHING INSTRUCTOR.INJECTION MOULDING MACHINE OPERATOR Work Phone: [facility] 04-25-2011 varicella virus vaccine Cooper y Haury FISHING INSTRUCTOR.INJECTION MOULDING MACHINE OPERATOR Work Phone: [facility] 07-18-2004 diphtheria, tetanus toxoids and acellular pertussis vaccine, unspecified formulation Huan Haury FISHING INSTRUCTOR.INJECTION MOULDING MACHINE OPERATOR Work Phone: [facility] 07-18-2004 measles, mumps and rubella virus vaccine Huan Haury FISHING INSTRUCTOR.INJECTION MOULDING MACHINE OPERATOR Work Phone: [facility] 07-18-2004 poliovirus vaccine, inactivated Huan Haury FISHING INSTRUCTOR.INJECTION MOULDING MACHINE OPERATOR Work Phone: [facility] 09-20-2003 influenza, seasonal, injectable Huan Haury FISHING INSTRUCTOR.INJECTION MOULDING MACHINE OPERATOR Work Phone: [facility] 09-20-2003 influenza virus vaccine, unspecified formulation Huan Haury FISHING INSTRUCTOR.INJECTION MOULDING MACHINE OPERATOR Work Phone: [facility] 10-14-2002 influenza virus vaccine, whole virus Huan Haury FISHING INSTRUCTOR.INJECTION MOULDING MACHINE OPERATOR Work Phone: [facility] 09-14-2002 influenza virus vaccine, whole virus Huan Haciera FISHING INSTRUCTOR.INJECTION MOULDING MACHINE OPERATOR Work Phone: [facility] 07-03-2001 pneumococcal conjuga te vaccine, 7 valent Huan Haury FISHING INSTRUCTOR.INJECTION MOULDING MACHINE OPERATOR Work Phone: [facility] 04-15-2001 diphtheria, tetanus toxoids and acellular pertussis vaccine, unspecified formulation Huan Haury FISHING INSTRUCTOR.INJECTION MOULDING MACHINE OPERATOR Work Phone: [facility] 04-15-2001 haemophilus influenz ae type b vaccine, PRP-T conjugate Huan Haciera FISHING INSTRUCTOR.INJECTION MOULDING MACHINE OPERATOR Work Phone: [facility] 04-15-2001 pneumococcal conjuga te vaccine, 7 valent Huan Haury FISHING INSTRUCTOR.INJECTION MOULDING MACHINE OPERATOR Work Phone: [facility] 01-02-2001 measles, mumps and rubella virus vaccine Huan Haury FISHING INSTRUCTOR.INJECTION MOULDING MACHINE OPERATOR Work Phone: [facility] 01-02-2001 varicella virus vaccine Cooper y Alber FISHING INSTRUCTOR.INJECTION MOULDING MACHINE OPERATOR Work Phone: [facility] 12-18-2000 hepatitis B vaccine, pediatric or pediatric/adolescent dosage Huan Haciera FISHING INSTRUCTOR.INJECTION MOULDING MACHINE OPERATOR Work Phone: [facility] 07-07-2000 poliovirus vaccine, inactivated Huan Haciera FISHING INSTRUCTOR.INJECTION MOULDING MACHINE OPERATOR Work Phone: [facility] 06-09-2000 diphtheria, tetanus toxoids and acellular pertussis vaccine, unspecified formulation Huan Haury FISHING INSTRUCTOR.INJECTION MOULDING MACHINE OPERATOR Work Phone: [facility] 06-09-2000 haemophilus influenz ae type b vaccine, PRP-T conjugate Huan Haciera FISHING INSTRUCTOR.INJECTION MOULDING MACHINE OPERATOR Work Phone: [facility] 04-11-2000 diphtheria, tetanus toxoids and acellular pertussis vaccine, unspecified formulation Huan Haury FISHING INSTRUCTOR.INJECTION MOULDING MACHINE OPERATOR Work Phone: [facility] 04-11-2000 haemophilus influenz ae type b conjugate and Hepatitis B vaccine Huan Rubinury FISHING INSTRUCTOR.INJECTION MOULDING MACHINE OPERATOR Work Phone: [facility] 04-11-2000 poliovirus vaccine, inactivated Huanlandy Rubinury FISHING INSTRUCTOR.INJECTION MOULDING MACHINE OPERATOR Work Phone: [facility] 03-11-2000 hepatitis B vaccine, pediatric or pediatric/adolescent dosage Huan Haury FISHING INSTRUCTOR.INJECTION MOULDING MACHINE OPERATOR Work Phone: [facility] 02-08-2000 diphtheria, tetanus toxoids and acellular pertussis vaccine, unspecified formulation Huanlandy Rubinury FISHING INSTRUCTOR.INJECTION MOULDING MACHINE OPERATOR Work Phone: [facility] 02-08-2000 haemophilus influenz ae type b vaccine, PRP-T conjugate Huan Rubinury FISHING INSTRUCTOR.INJECTION MOULDING MACHINE OPERATOR Work Phone: [facility] 02-08-2000 poliovirus vaccine, inactivated Huanlandy Rubinury FISHING INSTRUCTOR.INJECTION MOULDING MACHINE OPERATOR Work Phone: [facility] NEGATED: Highlighted row has not occurred!03-18-2019 tetanus toxoid, reduced diphtheria toxoid, and acellular pertussis vaccine, adsorbed Giuseppe Llamas MD Work Phone: [facility] Comment on above: Deferred: - pt state s she already recieved on 01/07/2019 Payers Date Payer Category Payer Self-pay [id number] 2022 Medicaid [id number] 2022 Unknown [id number] 2015 Unknown [id number] Unknown [facility] D *DO NOT USE* [id number] Unknown [id number] Unknown [id number] Social History Date Type Detail Facility Start: 05-01-2022 End: 07-11-2018 Tobacco smoking status NHIS Occasional tobacco smoker [facility] End: 07-11-2018 History of tobacco use Cigarette Smoker [employer] Work Phone: Start: 05-01-2022 End: 09-13-2024 Tobacco use and exposure Smokeless tobacco non-user [employer] Work Phone: Start: 05-01-2022 Alcohol intake 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) [employer] Work Phone: Start: 05-01-2022 End: 12-25-2023 Alcohol intake [employer] Work Phone: Start: 2000 Sex Assigned At Not on file [facility] [employer] Work Phone: Start: 04-21-2022 End: 05-01-2022 Exposure to SARS-CoV-2 (event) Not sure [employer] Phone: Start: 08-21-2021 End: 11-06-2023 Tobacco smoking status FLIS Unknown if ever smoked [facility] Start: 2000 Sex Assigned At Female W [facility] Start: 11-23-2020 End: 12-25-2023 Area Deprivation Index [facility] National Score (1-10 0), lower number is lower risk Not on file [facility] Start: 09-26-2023 End: 09-13-2024 Tobacco smoking status NHIS Never smoked tobacco [facility] Start: 09-26-2023 End: 12-25-2023 Alcohol intake Lifetime non-drinker (finding) [facility] Start: 02-21-2023 [facility] Start: 09-13-2024 End: 05-09-2025 Alcoholic beverage intake Ex-drinker (finding) [facility] Start: 09-02-2024 Education 14 [facility] Start: 09-02-2024 Alcohol Comment occasionally [facility] Goals Date Patient Goal Desired Activity /State Personal health goal Personal health goal Clinical Notes 05-01-2022 to 05-09-2025 Quick Notes - Lary Hernandez APRN.CNM - 05/09/2025 10:13 AM EDTPrenatal Quick Notes - Lary Hernandez APRN.CNM - 05/09/2025 10:13 AM EDTPatient InstructionsPatient Instructions Note Date & Type Note Facility 05-09-2025 Progress note Formatting of t his note might be different from the original. MCKENZIE-S: Guerda Cardona is a 24 year old female who presents at 40w1d with IAN:05/08/2025, by Last Menstrual Period for a routine visit. Denies headache, visual changes, chest pain, shortness of breath, vaginal bleeding, leakage of fluid, or dysuria. Feeling well, no complaints. O: See flow sheet Gen: No apparent distress Abd: Gravid, nontender ASSESSMENT/PLAN: 1. Supervision of high risk in second trimester - Continue PNV -IOL scheduled 05/12/35 at 0700. R/b/a discussed, consent signed 2. 40 weeks gestation of 3. Current every day nicotine vaping 4. Marijuana use during -Reviewed risks to self and baby, advise cessation. 5. Adjustment disorder with anxiety -coping, no medication at this time. 6. Posttraumatic stress disorder -coping, no medication at this time. 7. Benign gestational thrombocytopenia in third trimester 4. History of herpes genitalis 5. Marijuana use during -Smoking at HS to help with sleep. Reviewed risks to baby and recommend cessation. Discussed no use during and follow up with SW at hospital. Discussed Unisom to assist with sleep, prescription sent. 6. Short interval between pregnancies affecting in first trimester, antepartum RTO for 6 wk PP Labor instructions reviewed Lary Hernandez APRN.CNM [facility] 05-09-2025 Miscellaneous Notes MCKENZIE-S: Guerda Cardona is a 24 year old female who presents at 40w1d with IAN:05/08/2025, by Last Menstrual Period for a routine visit. Denies headache, visual changes, chest pain, shortness of breath, vaginal bleeding, leakage of fluid, or dysuria. Feeling well, no complaints. O: See flow sheet Gen: No apparent distress Abd: Gravid, nontender ASSESSMENT/PLAN: 1. Supervision of high risk in second trimester - Continue PNV -IOL scheduled 05/12/35 at 0700. R/b/a discussed, consent signed 2. 40 weeks gestation of 3. Current every day nicotine vaping 4. Marijuana use during -Reviewed risks to self and baby, advise cessation. 5. Adjustment disorder with anxiety -coping, no medication at this time. 6. Posttraumatic stress disorder -coping, no medication at this time. 7. Benign gestational thrombocytopenia in third trimester 4. History of herpes genitalis 5. Marijuana use during -Smoking at HS to help with sleep. Reviewed risks to baby and recommend cessation. Discussed no use during and follow up with SW at hospital. Discussed Unisom to assist with sleep, prescription sent. 6. Short interval between pregnancies affecting in first trimester, antepartum RTO for 6 wk PP Labor instructions reviewed Lary Hernandez APRN.CNM documented in this encounter [facility] 05-09-2025 Instructions Carlos Womack MA - 05/09/2025 10:08 AM EDT SEQUENTIAL SCREENINGS The [facility] offers sequential screenings for women who are interested in screenings for chromosomal abnormalities and certain defects during a . The sequential screen combines ultrasound and blood tests to determine the risk of chromosomal abnormalities, including Down's Syndrome (Trisomy 21) and Trisomy 18, as well as open neural tube defects including spina bifida. Ultrasound examination is performed between 11 weeks and 13 weeks gestational age. Blood tests are drawn after the ultrasound and again later in the between 15 and 21 weeks gestational age. Please let your physician know if you are interested in this testing. It will require an appointment with our nursing technician. This is not an ultrasound performed by a physician in our office during a routine visit. SIGNS AND SYMPTOMS OF LABOR 1. Contractions every 10 minutes or more often 2. Clear, pink, or brownish fluid (water) leaking from vagina 3. Feeling that baby is pushing down, pressure 4. Low, dull backache 5. Cramps that feel like a period 6. Cramps with or without diarrhea If you notice any of the above symptoms, contact our office at [phone] and ask to speak with a nurse. After hours, you can call doctors registry at [phone] OR call [facility] at [phone] and ask to have the doctor button buttonhole marker paged. If you consider this an emergency, dial 9--0 or go to your nearest emergency department. NEED HELP? Are you dealing with a violent or abusive relationship? Are you a victim of rape or sexual assult? Call [facility] ([place]) 24 hour Crisis Hotline: 393.434.8983 or 226-460-4583. MANUAL Your Guide to a Healthy manual is now on-line. Visit [email or web address] [email or web address] to download your free copy documented in this encounter [facility] 05-02-2025 Progress note Formatting of t his note might be different from the original. RR- VB No. LOF No. CTXS some BH past 5 days. Movement: present. Other c/o: some pressure Medication list reviewed. SENSITIVE EXAM: The sensitive examination was discussed with the Patient or Patient's Authorized Die Trouble Shooter. As applicable, any other physician, advance practice provider, medical student, or other health professional student that will be observing or involved in the sensitive examination for educational or training purposes was discussed with the Patient or Authorized Die Trouble Shooter. The Patient or Authorized Die Trouble Shooter has agreed to proceed with the sensitive examination. (Sensitive examination includes inspection and/or palpation of the breasts, pelvis, prostate and anorectal regions). Physical Exam See Flow Sheet Abd: soft, nontender, gravid Ext: edema: Trace A/P 39w1d Estimated Date of Delivery: 05/08/25 Assessment & Plan Supervision of high risk in third trimester (HCC) Orders: URINE OB DIP B/O Benign gestational thrombocytopenia in third trimester (HCC) platelets normal last check Orders: URINE OB DIP B/O 39 weeks gestation of (HCC) Orders: URINE OB DIP B/O kick counts declines induction f/u 1 week or prn Trista Mackey M.D. [facility] 05-02-2025 Miscellaneous Notes RR- VB No. LOF No. CTXS some BH past 5 days. Movement: present. Other c/o: some pressure Medication list reviewed. SENSITIVE EXAM: The sensitive examination was discussed with the Patient or Patient's Authorized Die Trouble Shooter. As applicable, any other physician, advance practice provider, medical student, or other health professional student that will be observing or involved in the sensitive examination for educational or training purposes was discussed with the Patient or Authorized Die Trouble Shooter. The Patient or Authorized Die Trouble Shooter has agreed to proceed with the sensitive examination. (Sensitive examination includes inspection and/or palpation of the breasts, pelvis, prostate and anorectal regions). Physical Exam See Flow Sheet Abd: soft, nontender, gravid Ext: edema: Trace A/P 39w1d Estimated Date of Delivery: 05/08/25 Assessment & Plan Supervision of high risk in third trimester (HCC) Orders: URINE OB DIP B/O Benign gestational thrombocytopenia in third trimester (HCC) platelets normal last check Orders: URINE OB DIP B/O 39 weeks gestation of (HCC) Orders: URINE OB DIP B/O kick counts declines induction f/u 1 week or prn Trista Mackey M.D. documented in this encounter [facility] 05-02-2025 Instructions Loretta Odom MA - 05/02/2025 10:24 AM EDT SEQUENTIAL SCREENINGS The [facility] offers sequential screenings for women who are interested in screenings for chromosomal abnormalities and certain defects during a . The sequential screen combines ultrasound and blood tests to determine the risk of chromosomal abnormalities, including Down's Syndrome (Trisomy 21) and Trisomy 18, as well as open neural tube defects including spina bifida. Ultrasound examination is performed between 11 weeks and 13 weeks gestational age. Blood tests are drawn after the ultrasound and again later in the between 15 and 21 weeks gestational age. Please let your physician know if you are interested in this testing. It will require an appointment with our nursing technician. This is not an ultrasound performed by a physician in our office during a routine visit. SIGNS AND SYMPTOMS OF LABOR 1. Contractions every 10 minutes or more often 2. Clear, pink, or brownish fluid (water) leaking from vagina 3. Feeling that baby is pushing down, pressure 4. Low, dull backache 5. Cramps that feel like a period 6. Cramps with or without diarrhea If you notice any of the above symptoms, contact our office at [phone] and ask to speak with a nurse. After hours, you can call doctors registry at [phone] OR call [facility] at [phone] and ask to have the doctor button buttonhole marker paged. If you consider this an emergency, dial 4-0-9 or go to your nearest emergency department. NEED HELP? Are you dealing with a violent or abusive relationship? Are you a victim of rape or sexual assult? Call [facility] ([place]) 24 hour Crisis Hotline: 147.195.5963 or 550-705-8976. MANUAL Your Guide to a Healthy manual is now on-line. Visit [email or web address] ncyGuide to download your free copy documented in this encounter [facility] 04-25-2025 Progress note Formatting of t his note might be different from the original. RR- VB No. LOF No. CTXS few BH. Movement: present. Other c/o: denies RUBIN or visual changes, some pelvic pressure Medication list reviewed. SENSITIVE EXAM: The sensitive examination was discussed with the Patient or Patient's Authorized Die Trouble Shooter. As applicable, any other physician, advance practice provider, medical student, or other health professional student that will be observing or involved in the sensitive examination for educational or training purposes was discussed with the Patient or Authorized Die Trouble Shooter. The Patient or Authorized Die Trouble Shooter has agreed to proceed with the sensitive examination. (Sensitive examination includes inspection and/or palpation of the breasts, pelvis, prostate and anorectal regions). Physical Exam See Flow Sheet Abd: soft, nontender, gravid Ext: edema: Trace A/P 38w1d Estimated Date of Delivery: 05/08/25 Assessment & Plan 38 weeks gestation of (HCC) Orders: URINE OB DIP B/O Supervision of high risk in third trimester (HCC) f/u in 1 week or prn Orders: URINE OB DIP B/O Benign gestational thrombocytopenia in third trimester (HCC) plt normal last visit Orders: URINE OB DIP B/O cervical exam at her request today kick counts labor precautions This SmartSection cannot be displayed as plain text. Trista Mackey M.D. [facility] 04-25-2025 Miscellaneous Notes RR- VB No. LOF No. CTXS few BH. Movement: present. Other c/o: denies RUBIN or visual changes, some pelvic pressure Medication list reviewed. SENSITIVE EXAM: The sensitive examination was discussed with the Patient or Patient's Authorized Die Trouble Shooter. As applicable, any other physician, advance practice provider, medical student, or other health professional student that will be observing or involved in the sensitive examination for educational or training purposes was discussed with the Patient or Authorized Die Trouble Shooter. The Patient or Authorized Die Trouble Shooter has agreed to proceed with the sensitive examination. (Sensitive examination includes inspection and/or palpation of the breasts, pelvis, prostate and anorectal regions). Physical Exam See Flow Sheet Abd: soft, nontender, gravid Ext: edema: Trace A/P 38w1d Estimated Date of Delivery: 05/08/25 Assessment & Plan 38 weeks gestation of (HCC) Orders: URINE OB DIP B/O Supervision of high risk in third trimester (HCC) f/u in 1 week or prn Orders: URINE OB DIP B/O Benign gestational thrombocytopenia in third trimester (HCC) plt normal last visit Orders: URINE OB DIP B/O cervical exam at her request today kick counts labor precautions This SmartSection cannot be displayed as plain text. Trista Mackey M.D. documented in this encounter [facility] 04-25-2025 Instructions Neha Leiva MA - 04/25/2025 9:55 AM EDT SEQUENTIAL SCREENINGS The [facility] offers sequential screenings for women who are interested in screenings for chromosomal abnormalities and certain defects during a . The sequential screen combines ultrasound and blood tests to determine the risk of chromosomal abnormalities, including Down's Syndrome (Trisomy 21) and Trisomy 18, as well as open neural tube defects including spina bifida. Ultrasound examination is performed between 11 weeks and 13 weeks gestational age. Blood tests are drawn after the ultrasound and again later in the between 15 and 21 weeks gestational age. Please let your physician know if you are interested in this testing. It will require an appointment with our nursing technician. This is not an ultrasound performed by a physician in our office during a routine visit. SIGNS AND SYMPTOMS OF LABOR 1. Contractions every 10 minutes or more often 2. Clear, pink, or brownish fluid (water) leaking from vagina 3. Feeling that baby is pushing down, pressure 4. Low, dull backache 5. Cramps that feel like a period 6. Cramps with or without diarrhea If you notice any of the above symptoms, contact our office at [phone] and ask to speak with a nurse. After hours, you can call doctors registry at [phone] OR call [facility] at [phone] and ask to have the doctor button buttonhole marker paged. If you consider this an emergency, dial 8-3-4 or go to your nearest emergency department. NEED HELP? Are you dealing with a violent or abusive relationship? Are you a victim of rape or sexual assult? Call [facility] ([place]) 24 hour Crisis Hotline: 197.447.9392 or 346-115-8336. MANUAL Your Guide to a Healthy manual is now on-line. Visit [email or web address] ncyGuide to download your free copy documented in this encounter [facility] 04-18-2025 Progress note Formatting of t his note might be different from the original. DM-Pt doing well. Denies vaginal Bleeding, Leaking fluid, or regular Contractions. Pt reports good movement Physical Exam: Gen: female in no apparent distress Abd: soft, Gravid. Non tender to palpation. See flow sheet Participation of a fellow, resident, medical student, or advanced practice provider student in performing the sensitive examination was discussed with the patient or authorized account development representative. The patient or authorized account development representative has agreed to proceed with the sensitive examination. @ 37.1 weeks Assessment & Plan Supervision of high risk in third trimester (HCC) Orders: URINE OB DIP B/O ROUTINE, GROUP B STREPTOCOCCUS BY PCR Benign gestational thrombocytopenia in third trimester (HCC) Last plts 138-->150 repeat cbc today Orders: URINE OB DIP B/O HSV-2 infection complicating , third trimester ([facility]) Currently taking valtrex Orders: URINE OB DIP B/O 37 weeks gestation of ([facility]) Kick counts and labor reviewed Rto weekly Vertex confirmed on bedside us Orders: URINE OB DIP B/O ROUTINE, GROUP B STREPTOCOCCUS BY PCR Sallie Chou MD [facility] 04-18-2025 Miscellaneous Notes DM-Pt doing well. Denies vaginal Bleeding, Leaking fluid, or regular Contractions. Pt reports good movement Physical Exam: Gen: female in no apparent distress Abd: soft, Gravid. Non tender to palpation. See flow sheet Participation of a fellow, resident, medical student, or advanced practice provider student in performing the sensitive examination was discussed with the patient or authorized account development representative. The patient or authorized account development representative has agreed to proceed with the sensitive examination. @ 37.1 weeks Assessment & Plan Supervision of high risk in third trimester (HCC) Orders: URINE OB DIP B/O ROUTINE, GROUP B STREPTOCOCCUS BY PCR Benign gestational thrombocytopenia in third trimester ([facility]) Last plts 138-->150 repeat cbc today Orders: URINE OB DIP B/O HSV-2 infection complicating , third trimester ([facility]) Currently taking valtrex Orders: URINE OB DIP B/O 37 weeks gestation of ([facility]) Kick counts and labor reviewed Rto weekly Vertex confirmed on bedside us Orders: URINE OB DIP B/O ROUTINE, GROUP B STREPTOCOCCUS BY PCR Sallie Chou MD documented in this encounter [facility] 04-18-2025 Instructions Edita Dinero MA - 04/18/2025 9:49 AM EDT SEQUENTIAL SCREENINGS The [facility] offers sequential screenings for women who are interested in screenings for chromosomal abnormalities and certain defects during a . The sequential screen combines ultrasound and blood tests to determine the risk of chromosomal abnormalities, including Down's Syndrome (Trisomy 21) and Trisomy 18, as well as open neural tube defects including spina bifida. Ultrasound examination is performed between 11 weeks and 13 weeks gestational age. Blood tests are drawn after the ultrasound and again later in the between 15 and 21 weeks gestational age. Please let your physician know if you are interested in this testing. It will require an appointment with our nursing technician. This is not an ultrasound performed by a physician in our office during a routine visit. SIGNS AND SYMPTOMS OF LABOR 1. Contractions every 10 minutes or more often 2. Clear, pink, or brownish fluid (water) leaking from vagina 3. Feeling that baby is pushing down, pressure 4. Low, dull backache 5. Cramps that feel like a period 6. Cramps with or without diarrhea If you notice any of the above symptoms, contact our office at [phone] and ask to speak with a nurse. After hours, you can call doctors registry at [phone] OR call [facility] at [phone] and ask to have the doctor button buttonhole marker paged. If you consider this an emergency, dial 9-1-1 or go to your nearest emergency department. NEED HELP? Are you dealing with a violent or abusive relationship? Are you a victim of rape or sexual assult? Call [facility] ([place]) 24 hour Crisis Hotline: 303.911.5562 or 613-505-6430. MANUAL Your Guide to a Healthy manual is now on-line. Visit [email or web address] to download your free copy documented in this encounter [facility] 04-05-2025 Progress note Formatting of t his note might be different from the original. S: Guerda Cardona is a 24 year old female who presents at 05/08/2025, by Last Menstrual Period for a routine visit. Denies headache, visual changes, chest pain, shortness of breath, vaginal bleeding, leakage of fluid, or dysuria. Feeling well, no complaints. Good movement, No contractions O: See flow sheet Gen: No apparent distress Abd: Gravid, nontender ASSESSMENT/PLAN: 1. Benign gestational thrombocytopenia in third trimester ([facility]) - ICD9: 649.33, 287.5, ICD10: O99.113, D69.6 (primary diagnosis) Repeat CBC next visit - COMPLETE BLOOD COUNT AND DIFFERENTIAL - URINE OB DIP B/O 2. HSV-2 infection complicating , third trimester ([facility]) - ICD9: 647.63, 054.9, ICD10: O98.513, B00.9 Valtrex sent 3. 35 weeks gestation of ([facility]) - ICD9: V22.2, ICD10: Z3A.35 PTL precautions 4. Supervision of high risk in third trimester ([facility]) - ICD9: V23.9, ICD10: O09.93 Estefanía Clark MD T [facility] 04-05-2025 Miscellaneous Notes S: Guerda Cardona is a 24 year old female who presents at 05/08/2025, by Last Menstrual Period for a routine visit. Denies headache, visual changes, chest pain, shortness of breath, vaginal bleeding, leakage of fluid, or dysuria. Feeling well, no complaints. Good movement, No contractions O: See flow sheet Gen: No apparent distress Abd: Gravid, nontender ASSESSMENT/PLAN: 1. Benign gestational thrombocytopenia in third trimester ([facility]) - ICD9: 649.33, 287.5, ICD10: O99.113, D69.6 (primary diagnosis) Repeat CBC next visit - COMPLETE BLOOD COUNT AND DIFFERENTIAL - URINE OB DIP B/O 2. HSV-2 infection complicating , third trimester ([facility]) - ICD9: 647.63, 054.9, ICD10: O98.513, B00.9 Valtrex sent 3. 35 weeks gestation of ([facility]) - ICD9: V22.2, ICD10: Z3A.35 PTL precautions 4. Supervision of high risk in third trimester ([facility]) - ICD9: V23.9, ICD10: O09.93 Estefanía Clark MD documented in this encounter [facility] 03-21-2025 Progress note Formatting of t his note might be different from the original. S: Guerda Cardona is a 24 year old female who presents at 33 weeks gestation for a routine visit. Positive movements. Urine has a strong odor. Denies any dysuria or hematuria. Denies headache, visual changes, chest pain, shortness of breath, vaginal bleeding, leakage of fluid, or dysuria. O: See flow sheet Gen: No apparent distress Abd: Gravid, nontender S=D ASSESSMENT/PLAN: 1. Benign gestational thrombocytopenia in third trimester 2. 33 weeks gestation of 3. Bad odor of urine - UA DIP, URINE (POC)- NEG - Platelets at 150 up from 138 - Continue vitamin - Patient opted out of ASA - PTL precautions reviewed - RTO 2 weeks Aislinn Bowman APRN.CNM [facility] 03-21-2025 Miscellaneous Notes S: Guerda Cardona is a 24 year old female who presents at 33 weeks gestation for a routine visit. Positive movements. Urine has a strong odor. Denies any dysuria or hematuria. Denies headache, visual changes, chest pain, shortness of breath, vaginal bleeding, leakage of fluid, or dysuria. O: See flow sheet Gen: No apparent distress Abd: Gravid, nontender S=D ASSESSMENT/PLAN: 1. Benign gestational thrombocytopenia in third trimester 2. 33 weeks gestation of 3. Bad odor of urine - UA DIP, URINE (POC)- NEG - Platelets at 150 up from 138 - Continue vitamin - Patient opted out of ASA - PTL precautions reviewed - RTO 2 weeks Aislinn Bowman APRN.CNM documented in this encounter [facility] 03-21-2025 Instructions Blas Sol MA - 03/21/2025 10:31 AM EDT SEQUENTIAL SCREENINGS The [facility] offers sequential screenings for women who are interested in screenings for chromosomal abnormalities and certain defects during a . The sequential screen combines ultrasound and blood tests to determine the risk of chromosomal abnormalities, including Down's Syndrome (Trisomy 21) and Trisomy 18, as well as open neural tube defects including spina bifida. Ultrasound examination is performed between 11 weeks and 13 weeks gestational age. Blood tests are drawn after the ultrasound and again later in the between 15 and 21 weeks gestational age. Please let your physician know if you are interested in this testing. It will require an appointment with our nursing technician. This is not an ultrasound performed by a physician in our office during a routine visit. SIGNS AND SYMPTOMS OF LABOR 1. Contractions every 10 minutes or more often 2. Clear, pink, or brownish fluid (water) leaking from vagina 3. Feeling that baby is pushing down, pressure 4. Low, dull backache 5. Cramps that feel like a period 6. Cramps with or without diarrhea If you notice any of the above symptoms, contact our office at [phone] and ask to speak with a nurse. After hours, you can call doctors registry at [phone] OR call [facility] at [phone] and ask to have the doctor button buttonhole marker paged. If you consider this an emergency, dial 9-3-8 or go to your nearest emergency department. NEED HELP? Are you dealing with a violent or abusive relationship? Are you a victim of rape or sexual assult? Call [facility] ([place]) 24 hour Crisis Hotline: 602.567.5549 or 760-454-6731. MANUAL Your Guide to a Healthy manual is now on-line. Visit [email or web address] to download your free copy documented in this encounter [facility] 02-22-2025 Telephone encounter Note 3rd risk assessment form submitted 02/22/2025. Estefanía Bradshaw RN [facility] 02-22-2025 Miscellaneous Notes 3rd risk assessment form submitted 02/22/2025. Estefanía Bradshaw RN documented in this encounter [facility] 02-21-2025 Progress note Formatting of t his note might be different from the original. S: Guerda Cardona is a 24 year old female who presents at 29 weeks gestation for a routine visit. Positive movements. Denies headache, visual changes, chest pain, shortness of breath, vaginal bleeding, leakage of fluid, or dysuria. Feeling well, no complaints. Reviewed labs from last visit and questions answered.. O: See flow sheet Gen: No apparent distress Abd: Gravid, nontender ASSESSMENT/PLAN: 1. 29 weeks gestation of 2. Benign gestational thrombocytopenia in third trimester 3. Supervision of high risk in second trimester - Platelets 138 - Discussed thrombocytopenia and questions answered - COMPLETE BLOOD COUNT - repeat platelet level - Not vaping! - PTL precautions and kick counts reviewed - RTO 2 weeks Aislinn Bowman APRN.CNM [facility] 02-21-2025 Miscellaneous Notes S: Guerda Cardona is a 24 year old female who presents at 29 weeks gestation for a routine visit. Positive movements. Denies headache, visual changes, chest pain, shortness of breath, vaginal bleeding, leakage of fluid, or dysuria. Feeling well, no complaints. Reviewed labs from last visit and questions answered.. O: See flow sheet Gen: No apparent distress Abd: Gravid, nontender ASSESSMENT/PLAN: 1. 29 weeks gestation of 2. Benign gestational thrombocytopenia in third trimester 3. Supervision of high risk in second trimester - Platelets 138 - Discussed thrombocytopenia and questions answered - COMPLETE BLOOD COUNT - repeat platelet level - Not vaping! - PTL precautions and kick counts reviewed - RTO 2 weeks Aislinn Bowman APRN.CNM documented in this encounter [facility] 02-21-2025 Instructions Tisha Colin MA - 02/21/2025 10:25 AM EDT SEQUENTIAL SCREENINGS The [facility] offers sequential screenings for women who are interested in screenings for chromosomal abnormalities and certain defects during a . The sequential screen combines ultrasound and blood tests to determine the risk of chromosomal abnormalities, including Down's Syndrome (Trisomy 21) and Trisomy 18, as well as open neural tube defects including spina bifida. Ultrasound examination is performed between 11 weeks and 13 weeks gestational age. Blood tests are drawn after the ultrasound and again later in the between 15 and 21 weeks gestational age. Please let your physician know if you are interested in this testing. It will require an appointment with our nursing technician. This is not an ultrasound performed by a physician in our office during a routine visit. SIGNS AND SYMPTOMS OF LABOR 1. Contractions every 10 minutes or more often 2. Clear, pink, or brownish fluid (water) leaking from vagina 3. Feeling that baby is pushing down, pressure 4. Low, dull backache 5. Cramps that feel like a period 6. Cramps with or without diarrhea If you notice any of the above symptoms, contact our office at [phone] and ask to speak with a nurse. After hours, you can call doctors registry at [phone] OR call [facility] at [phone] and ask to have the doctor button buttonhole marker paged. If you consider this an emergency, dial 9-1-6 or go to your nearest emergency department. NEED HELP? Are you dealing with a violent or abusive relationship? Are you a victim of rape or sexual assult? Call [facility] ([facility] 24 hour Crisis Hotline: 335.502.5780 or 494-751-4786. MANUAL Your Guide to a Healthy manual is now on-line. Visit [email or web address] [email or web address] to download your free copy documented in this encounter [facility] 02-08-2025 Telephone encounter Note Patient 27w2d, seen in office yesterday and fell last night. Do you want patient brought into office today? Jamaica Murcia RN [facility] 02-08-2025 Miscellaneous Notes Patient 27w2d, seen in office yesterday and fell last night. Do you want patient brought into office today? Jamaica Murcia RN documented in this encounter [facility] 02-07-2025 Progress note Formatting of t his note might be different from the original. SW- Pt doing well. No pain, vb, lof. Good FM PE: Gen- NAD, well appearing Abd- A/p 27 wk gestation - Tdap today - LARC signed - Marijuana use and nicotine vaping: Quit! - plan sheet given - Reviewed upcoming expectations - 28 wk labs today - RTO 2 wks Deo Veliz DO [facility] Work Phone: 02-07-2025 Miscellaneous Notes SW- Pt doing well. No pain, vb, lof. Good FM PE: Gen- NAD, well appearing Abd- A/p 27 wk gestation - Tdap today - LARC signed - Marijuana use and nicotine vaping: Quit! - plan sheet given - Reviewed upcoming expectations - 28 wk labs today - RTO 2 wks Deo Veliz DO documented in this encounter [facility] 02-07-2025 Note HNO ID: [id number] Author: NEHA LEIVA MA Service: ? Author Type: Assistant Pastry Chef Type: Progress Notes Filed: 02/07/2025 12:15 Note Text: Patient identified by name and date of . Guerda Cardona presents today for a vaccination of Tdap. Patient denies an allergy to latex: yes Patient denies a severe (life-threatening) allergy to a previous dose of Tdap, DTP, DTaP, DT or Td vaccine. Yes Patient denies history of epilepsy or neurological problems: Yes Patient is afebrile and denies being moderately or severely ill: Yes Patient denies history of Guillain-Gaston Syndrome (a severe paralytic illness): Yes Tdap Adacel injection was given without incident. See immunizations for details of immunizations administered today. VIS sheet provided: Yes Provider Deo Veliz DO was present in office at time of injection. Neha Leiva MA [facility] 02-07-2025 History of Present illness Narrative Patient identified by name and date of . Guerda Cardona presents today for a vaccination of Tdap. Patient denies an allergy to latex: yes Patient denies a severe (life-threatening) allergy to a previous dose of Tdap, DTP, DTaP, DT or Td vaccine. Yes Patient denies history of epilepsy or neurological problems: Yes Patient is afebrile and denies being moderately or severely ill: Yes Patient denies history of Guillain-Gaston Syndrome (a severe paralytic illness): Yes Tdap Adacel injection was given without incident. See immunizations for details of immunizations administered today. VIS sheet provided: Yes Provider Deo Veliz DO was present in office at time of injection. Neha Leiva MA documented in this encounter [facility] 02-07-2025 Instructions Neha Leiva MA - 02/07/2025 9:09 AM EDT SEQUENTIAL SCREENINGS The [facility] offers sequential screenings for women who are interested in screenings for chromosomal abnormalities and certain defects during a . The sequential screen combines ultrasound and blood tests to determine the risk of chromosomal abnormalities, including Down's Syndrome (Trisomy 21) and Trisomy 18, as well as open neural tube defects including spina bifida. Ultrasound examination is performed between 11 weeks and 13 weeks gestational age. Blood tests are drawn after the ultrasound and again later in the between 15 and 21 weeks gestational age. Please let your physician know if you are interested in this testing. It will require an appointment with our nursing technician. This is not an ultrasound performed by a physician in our office during a routine visit. SIGNS AND SYMPTOMS OF LABOR 1. Contractions every 10 minutes or more often 2. Clear, pink, or brownish fluid (water) leaking from vagina 3. Feeling that baby is pushing down, pressure 4. Low, dull backache 5. Cramps that feel like a period 6. Cramps with or without diarrhea If you notice any of the above symptoms, contact our office at [phone] and ask to speak with a nurse. After hours, you can call doctors registry at [phone] OR call [facility] at [phone] and ask to have the doctor button buttonhole marker paged. If you consider this an emergency, dial 9-1-4 or go to your nearest emergency department. NEED HELP? Are you dealing with a violent or abusive relationship? Are you a victim of rape or sexual assult? Call [facility] ([place]) 24 hour Crisis Hotline: 483.835.5186 or 692-443-1970. MANUAL Your Guide to a Healthy manual is now on-line. Visit [email or web address] [email or web address] to download your free copy documented in this encounter [facility] 01-14-2025 Telephone encounter Note 2nd risk assessment form submitted 01/14/2025. Estefanía Bradshaw RN [facility] 01-14-2025 Miscellaneous Notes 2nd risk assessment form submitted 01/14/2025. Estefanía Bradshaw RN documented in this encounter [facility] 01-10-2025 Progress note Formatting of t his note might be different from the original. Anatomy ultrasound reviewed. No abnormalities identified. Follow up as clinically indicated. Please place copy in ob chart. Trista Mackey MD [facility] 01-10-2025 Miscellaneous Notes Anatomy ultrasound reviewed. No abnormalities identified. Follow up as clinically indicated. Please place copy in ob chart. Trista Mackey MD documented in this encounter [facility] 01-10-2025 Progress note Formatting of t his note might be different from the original. MCKENZIE-S: Guerda Cardona is a 24 year old female who presents at 23w1d with IAN:05/08/2025, by Last Menstrual Period for a routine visit. Denies headache, visual changes, chest pain, shortness of breath, vaginal bleeding, leakage of fluid, or dysuria. Feeling well, no complaints. Anatomy US today. Continues to smoke marijuana at HS to help with sleep. No further tobacco use. O: See flow sheet Gen: No apparent distress Abd: Gravid, nontender ASSESSMENT/PLAN: 1. Supervision of high risk in second trimester - Continue PNV - Labs next visit - GESTATIONAL GLUCOSE SCREEN, 1-HOUR, 50 GRAM, NON-FASTING - SYPHILIS TREPONEMAL W/REFLEX - ANEMIA REFLEX PANEL 2. 23 weeks gestation of 3. Current every day nicotine vaping -Smoking at HS to help with sleep. Reviewed risks to baby and recommend cessation. Discussed no use during and follow up with SW at hospital. Discussed Unisom to assist with sleep, prescription sent. 4. Marijuana use during -Reviewed risks to self and baby, advise cessation. 5. Adjustment disorder with anxiety -coping, no medication at this time. 6. Posttraumatic stress disorder -coping, no medication at this time. PTL precautions reviewed and when to call RTO in 4 weeks Lary Hernandez APRN.CNM [facility] 01-10-2025 Miscellaneous Notes MCKENZIE-S: Guerda Cardona is a 24 year old female who presents at 23w1d with IAN:05/08/2025, by Last Menstrual Period for a routine visit. Denies headache, visual changes, chest pain, shortness of breath, vaginal bleeding, leakage of fluid, or dysuria. Feeling well, no complaints. Anatomy US today. Continues to smoke marijuana at HS to help with sleep. No further tobacco use. O: See flow sheet Gen: No apparent distress Abd: Gravid, nontender ASSESSMENT/PLAN: 1. Supervision of high risk in second trimester - Continue PNV - Labs next visit - GESTATIONAL GLUCOSE SCREEN, 1-HOUR, 50 GRAM, NON-FASTING - SYPHILIS TREPONEMAL W/REFLEX - ANEMIA REFLEX PANEL 2. 23 weeks gestation of 3. Current every day nicotine vaping -Smoking at HS to help with sleep. Reviewed risks to baby and recommend cessation. Discussed no use during and follow up with SW at hospital. Discussed Unisom to assist with sleep, prescription sent. 4. Marijuana use during -Reviewed risks to self and baby, advise cessation. 5. Adjustment disorder with anxiety -coping, no medication at this time. 6. Posttraumatic stress disorder -coping, no medication at this time. PTL precautions reviewed and when to call RTO in 4 weeks Lary Hernandez APRN.CNM documented in this encounter [facility] 01-10-2025 Instructions Lary Hernandez APRN.CNM - 01/10/2025 10:30 AM EST Unisom Sleep (doxylamine) SIGNS AND SYMPTOMS OF LABOR 1. Contractions every 10 minutes or more often 2. Clear, pink, or brownish fluid (water) leaking from vagina 3. Feeling that baby is pushing down, pressure 4. Low, dull backache 5. Cramps that feel like a period 6. Cramps with or without diarrhea If you notice any of the above symptoms, contact our office at [phone] and ask to speak with a nurse. After hours, you can call doctors registry at [phone] OR call [facility] at [phone] and ask to have the doctor button buttonhole marker paged. If you consider this an emergency, dial 9-1-4 or go to your nearest emergency department. NEED HELP? Are you dealing with a violent or abusive relationship? Are you a victim of rape or sexual assult? Call [facility] ([place]) 24 hour Crisis Hotline: 649.460.9581 or 785-814-4878. MANUAL Your Guide to a Healthy manual is now on-line. Visit [email or web address] [email or web address] to download your free copy documented in this encounter [facility] 11-23-2024 Progress note Formatting of t his note might be different from the original. RR- VB No. LOF No. CTXS No. Movement: present. Other c/o: No. Medication list reviewed. SENSITIVE EXAM: Sensitive exam not performed. Physical Exam See Flow Sheet Abd: soft, nontender, gravid A/P 16w2d Estimated Date of Delivery: 05/08/25 16 weeks gestation of Encounter for supervision of high risk in first trimester, antepartum anatomy US scheduled cont. pNV declines asa, no h/o gest HTN disorders f/u in 4 weeks or prn Trista Mackey M.D. [facility] 11-23-2024 Miscellaneous Notes RR- VB No. LOF No. CTXS No. Movement: present. Other c/o: No. Medication list reviewed. SENSITIVE EXAM: Sensitive exam not performed. Physical Exam See Flow Sheet Abd: soft, nontender, gravid A/P 16w2d Estimated Date of Delivery: 05/08/25 16 weeks gestation of Encounter for supervision of high risk in first trimester, antepartum anatomy US scheduled cont. pNV declines asa, no h/o gest HTN disorders f/u in 4 weeks or prn Trista Mackey M.D. documented in this encounter [facility] 11-23-2024 Instructions Neha Leiva MA - 11/23/2024 9:43 AM EST SEQUENTIAL SCREENINGS The [facility] offers sequential screenings for women who are interested in screenings for chromosomal abnormalities and certain defects during a . The sequential screen combines ultrasound and blood tests to determine the risk of chromosomal abnormalities, including Down's Syndrome (Trisomy 21) and Trisomy 18, as well as open neural tube defects including spina bifida. Ultrasound examination is performed between 11 weeks and 13 weeks gestational age. Blood tests are drawn after the ultrasound and again later in the between 15 and 21 weeks gestational age. Please let your physician know if you are interested in this testing. It will require an appointment with our nursing technician. This is not an ultrasound performed by a physician in our office during a routine visit. SIGNS AND SYMPTOMS OF LABOR 1. Contractions every 10 minutes or more often 2. Clear, pink, or brownish fluid (water) leaking from vagina 3. Feeling that baby is pushing down, pressure 4. Low, dull backache 5. Cramps that feel like a period 6. Cramps with or without diarrhea If you notice any of the above symptoms, contact our office at [phone] and ask to speak with a nurse. After hours, you can call doctors registry at [phone] OR call [facility] at [phone] and ask to have the doctor button buttonhole marker paged. If you consider this an emergency, dial 9-1-5 or go to your nearest emergency department. NEED HELP? Are you dealing with a violent or abusive relationship? Are you a victim of rape or sexual assult? Call [facility] ([place]) 24 hour Crisis Hotline: 880.154.1394 or 889-077-7052. MANUAL Your Guide to a Healthy manual is now on-line. Visit [email or web address] ncyGuide to download your free copy documented in this encounter [facility] 10-29-2024 Progress note Formatting of t his note might be different from the original. RR- VB No. LOF No. CTXS No. Movement: absent. Other c/o: nausea at times Medication list reviewed. Physical Exam See Flow Sheet Gen: no accute distress, well appearing A/P 12w5d Estimated Date of Delivery: 05/08/25 labs nipt reviewed and desires anatomy US scheduled cont. PNV d/w her dental hygiene and recommend dental check up not using tob products/nicotine THC once a day f/u in 4 weeks or prn declines flu vaccine Trista Mackey M.D. [facility] 10-29-2024 Miscellaneous Notes RR- VB No. LOF No. CTXS No. Movement: absent. Other c/o: nausea at times Medication list reviewed. Physical Exam See Flow Sheet Gen: no accute distress, well appearing A/P 12w5d Estimated Date of Delivery: 05/08/25 labs nipt reviewed and desires anatomy US scheduled cont. PNV d/w her dental hygiene and recommend dental check up not using tob products/nicotine THC once a day f/u in 4 weeks or prn declines flu vaccine Trista Mackey M.D. documented in this encounter [facility] 10-12-2024 Progress note Formatting of t his note might be different from the original. RR- VB No. LOF No. CTXS No. Movement: absent. Other c/o: nausea improved Medication list reviewed. Physical Exam See Flow Sheet Gen: no accute distress, well appearing A/P 10w2d Estimated Date of Delivery: 05/08/25 Assessment & Plan Short interval between pregnancies affecting in first trimester, antepartum d/w her asa and pnv, did not have preeclampsia last prengancies Orders: [id number] PLUS; Future Encounter for supervision of high risk in first trimester, antepartum Orders: [id number] PLUS; Future 10 weeks gestation of d/w her aneuoploidy screening, accept Orders: [id number] PLUS; Future Marijuana use during once a day, encouraged cessation Current every day nicotine vaping quit-encouragement given counseled on flu and covid vaccines, declines today. schedule anatomy and first trimester US Trista Mackey M.D. [facility] 10-12-2024 Miscellaneous Notes RR- VB No. LOF No. CTXS No. Movement: absent. Other c/o: nausea improved Medication list reviewed. Physical Exam See Flow Sheet Gen: no accute distress, well appearing A/P 10w2d Estimated Date of Delivery: 05/08/25 Assessment & Plan Short interval between pregnancies affecting in first trimester, antepartum d/w her asa and pnv, did not have preeclampsia last prengancies Orders: [id number] PLUS; Future Encounter for supervision of high risk in first trimester, antepartum Orders: [id number] PLUS; Future 10 weeks gestation of d/w her aneuoploidy screening, accept Orders: [id number] PLUS; Future Marijuana use during once a day, encouraged cessation Current every day nicotine vaping quit-encouragement given counseled on flu and covid vaccines, declines today. schedule anatomy and first trimester US Trista Mackey M.D. documented in this encounter [facility] 10-12-2024 Instructions Loretta Odom MA - 10/12/2024 10:29 AM EST SEQUENTIAL SCREENINGS The [facility] offers sequential screenings for women who are interested in screenings for chromosomal abnormalities and certain defects during a . The sequential screen combines ultrasound and blood tests to determine the risk of chromosomal abnormalities, including Down's Syndrome (Trisomy 21) and Trisomy 18, as well as open neural tube defects including spina bifida. Ultrasound examination is performed between 11 weeks and 13 weeks gestational age. Blood tests are drawn after the ultrasound and again later in the between 15 and 21 weeks gestational age. Please let your physician know if you are interested in this testing. It will require an appointment with our nursing technician. This is not an ultrasound performed by a physician in our office during a routine visit. SIGNS AND SYMPTOMS OF LABOR 1. Contractions every 10 minutes or more often 2. Clear, pink, or brownish fluid (water) leaking from vagina 3. Feeling that baby is pushing down, pressure 4. Low, dull backache 5. Cramps that feel like a period 6. Cramps with or without diarrhea If you notice any of the above symptoms, contact our office at [phone] and ask to speak with a nurse. After hours, you can call doctors registry at [phone] OR call [facility] at [phone] and ask to have the doctor button buttonhole marker paged. If you consider this an emergency, dial 9-- or go to your nearest emergency department. NEED HELP? Are you dealing with a violent or abusive relationship? Are you a victim of rape or sexual assult? Call [facility] ([place]) 24 hour Crisis Hotline: 431.500.3014 or 075-958-6128. MANUAL Your Guide to a Healthy manual is now on-line. Visit [email or web address] [email or web address] to download your free copy documented in this encounter [facility] 09-16-2024 Telephone encounter Note 1st risk assessment form submitted 09/16/2024. Estefanía Bradshaw RN [facility] 09-16-2024 Miscellaneous Notes 1st risk assessment form submitted 09/16/2024. Estefanía Bradshaw RN documented in this encounter [facility] 09-13-2024 Instructions Huan Campo APRN.INJECTION MOULDING MACHINE OPERATOR - 09/13/2024 10:44 AM EST Images from the original note were not included. Please select the following link to access the [facility] Your Guide to a Healthy . [email or web address] MORNING SICKNESS IN by Jeimy Bridges M.D. for [employer] As you may already know, morning sickness can often be more appropriately called evening sickness or gvncb-vnyhtb-jx-the-day sickness. While there are the khai few, most women (50-90%) experience some degree of nausea, some have vomiting, and a few develop a severe form of vomiting during called hyperemesis gravidarum. What causes the nausea and vomiting of ? We can't explain why some people feel fine and others are green for months. Even the same woman may feel vastly different in each . There is some relationship between nausea and the level of the hormone hCG. In twin pregnancies, and in other situations where the hCG is greater than expected, nausea and vomiting tend to be worse. In a destined for miscarriage, hCG levels tend to be low, and nausea is often less severe. This being said, a lack of nausea doesn't guarantee that the is destined for miscarriage. The fact that nausea and vomiting are often signs of a healthy can offer a silver lining in the dark cloud of miserable nausea. How long will the nausea last? Fortunately, for most women, nausea and vomiting are a first trimester event, peaking at week 9-10 and waning by week 14-16. When you are feeling bad the weeks can go by slowly but most moms do feel tremendously better by the middle of the . Whether morning sickness is a brief experience or lasts through most of the , there are treatments that can make the weeks or months more tolerable. What can you do about it? Diet: See what works for you. Try eating bland dry foods, and avoid fatty or spicy foods. It is okay to eat a less than perfectly balanced diet in the first trimester. Have your liquids separately from dry foods. Try sports drinks, water, clear juices, Bryn-aid, or non-caffeinated tea. Avoid carbonated beverages that fill up your stomach. Try eating lots of little meals. If you tend to feel sick when you first wake up, leave crackers next to the bed for a quick snack before rising. Keeping healthy snacks with you all day to nibble when you feel queasy can sometimes even prevent nausea from starting. vitamins and nausea: Pre- vitamins can sometimes worsen nausea in . While folate is necessary, especially early in the , it comes as a smaller pill that many people find more tolerable than the complete vitamin pill. Ask your practitioner if it is okay to temporarily replace vitamins and iron with just a folate pill if you find a significant worsening in the level of your nausea from the vitamins. Alternative therapies: Acupressure may be used to treat nausea in , and is not known to have any risks for the fetus. Wristbands (marketed for seasickness) that put pressure on an acupressure point at the wrist are often available at drugstores or travel stores. Yuni root is used for nausea in many traditional cultures. Some women take fresh grated yuni or yuni tablets. It is possible that the pill form contains other ingredients or contaminants, so you may want to try fresh yuni first. Medications: Emetrol is the only nausea medication approved for use in . It is available over the counter and is soothing to the stomach. A prescription medication called Bendectin was available in the 1970s-1979's and was shown to be safe in , but the company stopped marketing it in the [place] due to the costs of liability coverage. Bendectin contained 10 milligrams of vitamin B6 and 10 milligrams of Doxylamine. Two tablets were given at bedtime and a total of up to 4 tablets could be used in a 24-hour period. Interestingly, Unisom , which contains a higher dose (25 mg.) of the same medication, Doxylamine, is currently marketed as an pcac-sts-jujsdah sleeping pill. Ask your practitioner if creating a vitamin B6/Doxylamine combination with eeph-pkh-gzvupbs medications would be safe for you. Prescription medications like Compazine and Phenergan can be used if the benefits outweigh possible risks, but these have not been clearly shown to be safe in . Zofran , an expensive anti-nausea medication often used to treat nausea from chemotherapy, can also be used. Can I throw up so much it harms the baby? The act of vomiting cannot hurt your fetus, which is protected inside the uterus. If you get dehydrated or develop a metabolic imbalance, this can be unhealthy. As long as you can keep down liquids, you and your baby will generally do all right. Eat when you feel able. If you are unable to keep anything down, or if you notice potential signs of dehydration such as lightheadedness, or concentrated and/or infrequent urination, call your practitioner. Some women need brief hospital admission for intravenous fluids and anti-nausea medications if their condition becomes severe. This severe form of nausea and vomiting is called Hyperemesis Gravidarum. As with many symptoms of , remind yourself that this, too, shall pass, and you'll have a wonderful baby to show for it! TREATMENT OPTIONS, SHORT VERSION: Frequent small meals Hydrate throughout day [employer] wrist pressure point applicators Yuni root (powdered, in capsules) 250mg four times a day Vitamin B6 25 mg tablet three times a day Also may be taken with half a tablet of Unisom three times a day (Doxylamine 12.5 mg) If severe (weight loss, dehydration), call us and come in for IV hydration and possible medication in the form of injections. Prescription medications such as Phenergan, Compazine, Reglan From [facility]'s Tobacco Cessation website: Our comprehensive smoking cessation program contains three main modules. These modules include the following: One-on-one weekly 30-minute counseling sessions with a respiratory therapist. Education about the various nicotine replacement therapies and medications and alternative methods used for cessation. Guidance and support; plus, we will contact your physician to obtain any required prescriptions for medications related to cessation. Insurance is accepted for this six-week program. Please check with your provider about whether your plan covers tobacco cessation programs. In the event your insurance provider does not cover your six-week smoking cessation program, we encourage you to contact us at your earliest convenience by calling . One of our friendly team members will be happy to help you with your financial plan. Contact [phone] for more information. [place] Tobacco [facility] Visit [email or web address] or call 6-888-KWVW-NOW How SMOKING Affects Your and Your Baby During Smoking during affects you and your baby's health before, during and after your baby is born. The nicotine (the addictive substance in cigarettes), carbon monoxide and numerous other poisons you inhale from a cigarette are carried through your bloodstream and go directly to your baby. Smoking while will: Lower the amount of oxygen available to you and your growing baby Increase your baby's heart rate Increase the chances of miscarriage and stillbirth Increase the risk that your baby is born prematurely and/or born with low weight Increase your baby's risk of developing respiratory problems The more cigarettes you smoke per day, the greater your baby's chances of developing these and other health problems. There is no safe level of smoking for your baby's health. How does secondhand smoke affect me and my baby? Second-hand smoke (also called passive smoke or environmental tobacco smoke) is the combination of smoke from a burning cigarette and smoke exhaled by a smoker. The smoke that cooper off the end of a cigarette or cigar contains more harmful substances ( tar, carbon monoxide, nicotine and others) than the smoke inhaled by the smoker. If you are regularly exposed to second-hand smoke, you increase your and your baby's risk of developing lung cancer, heart disease, emphysema, allergies, asthma and other health problems. Babies exposed to second-hand smoke may also develop reduced lung capacity and are at higher risk for sudden syndrome (SIDS). What happens if I keep smoking after my baby is born? If you continue to smoke after your baby is born, you increase his or her chance of developing certain illnesses and problems, such as: Frequent colds Bronchitis and pneumonia Asthma Chronic coughs Ear infections High blood pressure Learning and behavior problems later in childhood Why should I quit smoking? Smoking is the leading cause of preventable in the [place] By quitting you can: Prolong your life Lower your risk of heart disease Lower your risk of developing lung, throat, mouth, pancreatic and bladder cancer Lower your risk of developing breathing problems such as chronic obstructive pulmonary disease (COPD), asthma and emphysema Lower your risk of developing allergies Raise your energy level Improve your appearance; your skin will wrinkle less and look better, and your fingers and teeth will not be yellow Improve your sense of smell and taste Feel healthier overall, with improved self-esteem Save a lot of money (the average smoker spends $740 a year for cigarettes!) How can I quit smoking? There is no one way to quit smoking that works for everyone, since each person has different smoking habits. Here are some tips: Hide your matches, lighters, and ashtrays. Take a deep breath and hold it for five to ten seconds whenever you get the urge to smoke. Designate your home a non-smoking area. Ask people who smoke not to smoke around you. Drink less caffeinated beverages; caffeine may stimulate your urge to smoke. Also avoid alcohol, as it also may increase your urge to smoke and can be harmful to your baby. Change your habits connected with smoking. If you smoked while driving or when feeling stressed, try other activities to replace smoking. Keep mints or gum (preferably sugarless) on hand for those times when you get the urge to smoke. Stay active to keep your mind off smoking and help relieve tension: take a walk, exercise, read a book or try a new a hobby. Look for support from others. Join a support group or smoking cessation program, such as the [facility] Smoking Cessation Program. For more information, please call . Do not go places where many people are smoking such as bars or clubs, and smoking sections of restaurants. Should I use a nicotine replacement to help me quit? Nicotine gum and patches release nicotine into the bloodstream of the smoker who is trying to quit. Although these products can reduce withdrawal symptoms and decrease cravings in smokers who are trying to quit, nicotine is quite toxic and potentially harmful to the fetus (as well as to the who is ). Therefore, these and any other products containing nicotine are not always ecommended for the woman who is trying to quit smoking. They may be prescribed in indivdual cases. How will I feel when I quit? The benefits of not smoking start within days of quitting. After you quit, you and your baby's heart beat will return to normal, and your baby will be less likely to develop breathing problems. You may have symptoms of withdrawal because your body is used to nicotine, the addictive substance in cigarettes. You may crave cigarettes, be irritable, feel very hungry, cough often, get headaches or have difficulty concentrating. The withdrawal symptoms are only temporary. They are strongest when you first quit but will go away within 10 to 14 days. When withdrawal symptoms occur, stay in control. Think about your reasons for quitting. Remind yourself that these are signs that your body is healing and getting used to being without cigarettes. Remember that withdrawal symptoms are easier to treat than the major diseases that smoking can cause. Even after the withdrawal is over, expect periodic urges to smoke. However, these cravings are generally short-lived and will go away whether you smoke or not. Don't Smoke! If you smoke again (called a relapse) do not lose hope. Seventy-five percent of those who quit relapse. Most smokers quit three times before they are successful. If you relapse, don't give up! Plan ahead and think about what you will do next time you get the urge to smoke. (This information is provided by the [facility] and is not intended to replace the medical advice of your doctor or health care provider. Please consult your health care provider for advice about a specific medical condition. For additional written health information, please call the Cancer Answer Line at [facility] Friday - Friday 8-4:30 for assistance: [phone]. Or visit [email or web address]/) Marijuana (Cannabis) September 10, 2019 This sheet talks about exposure to marijuana in and while . This information should not take the place of medical care and advice from your health care provider. What is marijuana? Marijuana, also called pot, weed, or cannabis, is a drug that comes from a plant called cannabis. Marijuana can either be smoked (inhaled) or eaten (edibles). Marijuana is an illegal substance in parts of the [place]. However, some states allow marijuana use by prescription for medical purposes, and some states allow the sale of marijuana for recreational use. The main active chemical in marijuana is juowl-7-tmkosqtkwwoatdlbxzhk (THC), which is what causes you to feel high. Another major component of marijuana is cannabidiol (CBD). The [place]. Food and Drug Administration (FDA) advises against the use of CBD, THC, and marijuana in any form during a or while . What do we know about cannabidiol (CBD)? CBD use is becoming popular in [place] society and can be found in many products ranging from coffee and chocolate, to supplements and tinctures, cosmetics, lotions, suppositories, and bath salts. Studies on THC free products find that many actually contain a measurable amount of THC. Unfortunately there are no studies looking at the use of CBD during or while at this time. How much is known about the effects of marijuana on a ? It is difficult to study marijuana use during . Marijuana contains about 400 different chemicals, and some marijuana preparations can be contaminated with other drugs, pesticides, and/or fungi. Most of the older studies focus on women who inhale marijuana, not ingest (eat) it. Taking edibles might lead to higher levels of marijuana in the body. We also know that the THC in marijuana has become more potent (stronger) over the years. Therefore, studies done years ago on marijuana with lower THC levels may not accurately reflect the possible risks for current marijuana users. Some women who use marijuana during may have other risk factors such as use of alcohol, tobacco, or other drugs, medical conditions, and/or lack of care. Finally, information on the amount used and how much is used can be difficult for researchers to accurately collect. All of these factors explain why studies looking at marijuana use during sometimes find different results. I am using marijuana, but I would like to stop before becoming . How long could it stay in my body? People eliminate drugs at different rates. This is particularly true for marijuana and its metabolites (breakdown products). The way you use marijuana (inhale, ingest, topical) and how often you use it and how much you take can affect how long its metabolites can stay in your body. For some people, it might take up to 30 days for the THC metabolite to be gone from the body. I use marijuana. Can it make it harder for me to become ? Long-term use of marijuana might affect the menstrual cycle, which could make it more difficult to get . The effects on fertility appear to go away when marijuana use is stopped, or once a woman develops tolerance to the drug. Does using marijuana increase the risk for miscarriage? Miscarriage can occur in any . One study found that women who used marijuana were at an increased risk of having a miscarriage. Other studies have not confirmed this finding. Does using marijuana in the first trimester increase the chance of defects? In every , a woman starts with a 3-5% chance of having a baby with a defect. This is called her background risk. Most studies have not found an increase in the chance for defects among babies prenatally exposed to occasional marijuana use. A few studies have suggested a small increase in the chance for gastroschisis (a rare defect in which the infants intestines stick out of an opening in the abdominal wall). However, it can be difficult to draw conclusions from these studies because of the limitations outlined above. While most studies are reassuring regarding defects, without good studies among heavy marijuana users, the fact that marijuana is thought to be more potent now, and because of other potential complications it is best to avoid marijuana during . Could using marijuana in the second or third trimester cause other complications? Possibly. Similar to what is seen with cigarette smoking, smoking marijuana may increase carbon monoxide levels in the blood, which can decrease the amount of oxygen the baby receives. Some studies have suggested that among women who smoke marijuana regularly, there is an increased chance for complications such as premature , low weight, small length, small head size, and stillbirth. Babies that are born prematurely or with low weight can have higher rates of learning problems or other disabilities. In some studies, a dose-response relationship was seen, meaning the more a woman smoked, the higher her risk for these complications to occur. More research is needed to confirm if these complications are caused by the marijuana use itself, or if the women in these studies may have had other risk factors (such as smoking cigarettes). Both THC and CBD might affect how the placenta works. The placenta is the organ that grows during a and controls what can pass from mother to baby and baby to mother. Studies have also shown that THC can cross the placenta during and reach the baby s system. If I smoke marijuana in the third trimester, can it cause my baby to go through withdrawal after ? Some newborns exposed to marijuana have been reported to have temporary withdrawal-like symptoms, such as increased tremors, changes in sleeping patterns, and crying. These symptoms usually go away within 30 days. Does using marijuana in cause long-term problems in behavior or learning for the baby? Possibly. Three studies have followed children prenatally exposed to marijuana, and found that they are at higher risk for problems such as impaired executive functioning (the ability to plan, focus, remember, and multi task), impulsivity, hyperactivity, aggression, depression, and anxiety. These children were also more likely to have problems with attention (ability to pay attention), memory, and academic achievement. When these children reached adulthood, some studies suggest that they are more likely to misuse substances themselves. The problems noted here have been seen more often in children whose mothers were heavy marijuana users (smoked one or more marijuana cigarettes per day). The evidence is not conclusive and some studies report conflicting results. What happens if I use marijuana when I m ? THC has been detected in breast milk. In one recent study, researchers found that breastfed babies ingest approximately 2.5% of the mother s THC dose. The amount of time THC remains in the milk ranges from 6 days to 6 weeks. Available research has not demonstrated clear health concerns except for a possible delay in motor development (learning to crawl and walk on time) when a woman reports smoking marijuana on a daily basis. Because the baby s brain continues to develop during the time that they are being breastfed, experts are worried about the possible effects this drug may have on a nursing infant when a mother uses it during . Other factors to consider are possible legal implications if a breastfed baby tests positive for marijuana, the fact that there may be other contaminants (mentioned above) in the marijuana, thereby exposing the breastfed baby to other substances, and the possibility that the baby will be directly exposed to second hand smoke. Most professional organizations such as the [place] Academy [employer] Pediatrics, the Academy of Medicine, and the [place] College of Obstetricians and Gynecologists advise that mothers avoid using marijuana. Be sure to talk to your healthcare provider about all your questions. Because marijuana can affect prolactin (a hormone that tells your body to make milk), there is a concern that frequent marijuana users may see a negative effect on the quality and quantity of milk they produce. If a man uses marijuana could it affect his fertility (ability to get partner ) or increase the chance for defects? In men, marijuana use may decrease sperm count (the number of sperm), and motility (the ability for those sperm to reach the egg). These factors could make it more difficult for a man to get his partner . These effects are thought to be temporary, and sperm function is expected to return to normal once a man stops using marijuana. In general, exposures that fathers have are unlikely to increase risks to a . For more information, please see the MotherUnboundID fact sheet Paternal Exposures and at https://mothertobaby.org/fact-she ets/kwhebftc-xlnbqhllt-rqduxrmfp/ pdf/. Psychotherapy Services at [facility] Call [facility] Access Line at [phone] to schedule Individual psychotherapy In-person or virtual Wait time for first evaluation may be 12 or more weeks. Wait list spots may be available. Due to the high volume of patients this option is recommended if you are looking for short term acute symptom coping strategies. 0-645-4-YNKI2IIRQ - [place] Maternal Mental Health Hotline If you are in suicidal crisis, please call or text 6-594-682-TALK ( ) or visit the National Suicide Prevention Lifeline website. mchb.[facility].gov If you are in crisis, call 911 or go to your nearest Emergency Department Here are some links for wonderful Providers here in the community and surrounding areas. Do not hesitate to contact their offices, many are offering virtual visits during this time. Psychotherapy Services outside of [facility] Support International Online Provider Directory https://Relay Network.Global Value Commerce/ - can assist in finding providers in your area that might be more extensive then the list below. [facility] - [place], [place] [address] [place] [address] [facility] [address] [place] [address] [facility] [address] [place] [address] [facility] [address] [place] [address] Sean Masters MD [address] [place] [address] [facility] [address] [facility], [address] [place] [address] [facility] [address] [place] [address] [facility] [place] / [place] [phone]/ [phone] Snehal Downey [address] [facility] [address] [facility] [phone] [facility] Counseling and Mediation Jenelle / Stephany [phone] [facility] [address] [place] [address]/ [facility] [phone] ERIC Campos, CLC [facility] Therapy Workshops, telehealth and at home visits. [phone] [facility] 20 locations [place], [place], [place], [place], [place], [place], [place], [facility], [place], [place], [place], [place], [place], [place], [facility], [place], [place] ,[facility] [place], [place], [place],[facility], [facility] [place], [place], [facility], [place], [place] www.[facility].co [phone] Psychotherapy resources outside of [facility] are listed below [facility] GELI Psychotherapy Web: https://www.BatesHook/ Support International Online Provider Directory https://CTS Media/ [facility] https://ESCAPESwithYOU/ The Old Reader for Behavioral Health and Wellness Web: https://Nordex Online/ Thumb for Effective Living Web: https://TopBliplivingTime Solutions/ LifeStance Web: https://Thumb.Global Value Commerce/location/s rodriguez/[place]/ [facility] Web: https://www.[facility].or / [facility] Web: https://ReadWave.org/ Recovery Resources Mental health and substance abuse help Web: https://www.Acousticeyes.Picolight & RESOURCES Support International Direct peer support and connection to professional resources Non-Emergency Helpline Phone: / Text: [phone] Web: https://www..net/ Online Provider Directory: https://CTS Media/ Online Support Meetings: https://www..net/get-he lp/bkv-uehzex-ydfuoqc-meetings/ RD Baby and Panama Hat Hydraulic Press Operator Services Web: https://www.t-Art/ MotherToBaby Expert information on medication use during and Text: [phone] Web: https://Sokrati/ NATIONAL REGISTRY FOR PSYCHIATRIC MEDICATIONS Currently studying the safety of antidepressants, ADHD medications and atypical antipsychotics taken during TO PARTICIPATE CALL TOLL-FREE: Web: https://[facility].org/re search/pregnancyregistry/ Support Groups: [facility]- Follow on facebook Baby Bistro support group led by [facility] department Resilient Mamas - Support Group [facility].org The POEM support group [phone] Www.poemonline.org Follow on facebook - LARISA valadez Online support meetings PSI https://www..net/get-he lp/wmx-kvgfai-chqajmp-meetings/ [facility] mommy and me virtual support group 11:30-1pm Support for mothers and new babies and toddlers [place] childbirth education: Childbirth @cc.org or call [phone] CRISIS: CRISIS HOTLINE [phone], 911 or go to the nearest . [facility] [phone] / [facility] [phone] https://www.[facility].org Crisis text line text the word HOME to [address] [facility] Counseling [address] [place] [address] [facility] [address] www.SimpleReach Melva Dumont clinical counseling [address] [address] www.Nanoledge [phone] Holding space psychotherapy Doreen Dugan COLLEGE RECRUITER STARCH CRAB-S [address] [facility] www.OpenHomes [phone]/ Meg [phone] They all offer virtual. All work with trauma Support groups Online support meetings PSI https://www..net/get-he lp/kwt-koavkh-mextzfk-meetings/ Here are the support groups they offer: Support of parents of 1 to 4 years old children POEM ( Outreach and Encouragement for Moms) offers free support for mothers experiencing depression, anxiety, and other mood and anxiety disorders. Masks are recommended but not required. No pre-registration required. Babies in arms welcome. meetings now take place on the and Friday of each month Location: [facility] [address] [place] [address] Room 122 (library room) 7-8:00 p.m. When you enter the [facility]aritan parking lot off of [address] the entrance door closest to our meeting room is on the front of the building toward the right. For those who are more comfortable with a virtual platform, POEM offers online support group options several days of the week. To register for an online group or to find out more about PO, website at: https://Zwittlea[place].org/get-help/gowanda state hospitalkews-orkmnn-nyrqzp/posamantha-services/ offer a confidential helpline: private Facebook group is called LARISA Valadez Here are the groups they offer: Traumatic childbirth resources: Http://pattch.org/ https://www.GrafflewagnerLOG607lucianaPhyzios.Global Value Commerce/ Name Location (s) Phone # (s) Services Website [facility] [address] [place], [place] - [phone]; [address] [phone] In-Person GROUPS INDIVIDUAL THERAPY MATERNAL-INFANT MENTAL HEALTH MEDICATION MANAGEMENT PLAY AND ART THERAPY TELETHERAPY https://www.BatesHook/s ervices/ Susan of Becca PERES? [address] [place], [place] [address] ? [address] [place], [place] [address] ? [address] [address]? Grief Support Groups Individual Grief Counseling Spiritual Care Memorial Events https://shreyas.[facility].org/grief-services [facility] [address] [place], [place] [address]; ; Email: lidia@Agencyport Software Women's Mental Health; Couples Counseling; Trauma (EMDR); Stress Management; Mood and Anxiety Related Disorders- and much more https://www.XOJET/ LifeStance Numerous as they have contract providers: access website to find specific providers near you Counseling including CBT and EMDR as well as many more modalities; Medication Management; Telehealth and In-Person https://Corium International/ [facility] [address] [place] [address]; [phone] Personal, Family and Group Therapy; Psychological Testing and Diagnosis; Medication Management; Life and Career Coaching; Psychoanalysis; Literacy Testing; Yoga and Meditation https://Nordex Online/ Helios Digital Learning [facility] [address] [facility] [address], [place] [address] [address] ; [address] [facility] [address] [place] [address]; Office # for both sites: Individual and Couples Counseling https://www.Fair Winds Brewing/ paymentinsurance.html OCD & Anxiety [facility] [address] [facility], [address], [place] [address]; Specialize in Cognitive-Behavioral Therapy (CBT) for the treatment of anxiety disorders across the lifespan. TELEHEALTH ONLY. https://ocdandanxietycenteroDATANG MOBILE COMMUNICATIONS EQUIPMENTv Qulsar/faqs [facility] [address] [facility] [address]th [place], [address] [place] [address] [facility] [place], [address] [place] [address] [facility] [place], [address] [place] [address] [address] [place]. [place], [place], [address] [address], [id number] [place] [address] [facility] [place], [address] [place] [address] [place], [address] Transportation Services To minimize patient barriers, [facility] provides transportation services to patients who qualify. If you are unable to get to your appointment at any of our facilities, please let us know. Need help now? Stop by one of our walk-in clinics to establish behavioral health care. Counseling Indvidual, Group, Couples and Family Counseling and EMDR. Medication Management Case Management benefits applications housing assistance Substance abuse treatment Medication assisted treatment https://www.[facility].or g/mental-health/ [facility] OFFICE AT [facility] [address] [place] [address] [facility] OFFICE [address] [place] [address] [facility] OFFICE [address] [place] [address] TO OFFICE (at [facility]) [address] [place] [address] [facility] SYRINGE EXCHANGE PROGRAM & HIV SCREENING [address] [place] [address] V[place] EXCHANGE PROGRAM [address] [place] [address] Behavioral Health Urgent Care: [facility] Sites Counseling Indvidual and Group Medication Management Case Management benefits applications housing assistance Substance abuse treatment Medication assisted treatment Employment Services/ Job Training https://theEverything Club.org/ Recovery Resources [address] [place], [place] [address]: P: [phone] [address] [facility], [address], [place], [place] [address] P: [phone] Our services include: Addiction Mental Health Treatment Assessment Psychiatry Medical Care Employment Housing Drug and Alcohol Prevention HIV/AIDS Prevention https://www.recres.org/ [facility] [place] [address] [place] [address] [place] [address] [place] [place], [place] [address] [place] [address] [place] [address] [place] [address] [facility] [address] [place] [address] [place] [address] [address] [address] TMS Therapy/ Counseling Psychocological Testing for ADHD Medication Management In-Person/ Telemedicine https://www.arcproviders.com/suha ents-depression Memory & Psychological services [address] [place] [address], [place] [address] Neuropsychological Testing For ADHD https://www.memoryandpsych.com/ [facility] - Main Office [address] [place] [address] [address] Providing fwel-fq-rnhw and telehealth services. Adult Case Management Community Education and Prevention Employment Outpatient Treatment - Counseling & Psychotherapy Psychiatric Services http://www.[facility].org/ [facility] [place] [address] [place] [address] [facility] [place] [address] [place] [address] Virtual Appointments! Now offering safe and convenient virtual client appointments to anyone in [place]! Individual Therapy Couples/Relationship Therapy Trauma/EMDR Therapy Art Therapy Play Therapy Assembler Faucets Support: Parenting Skills, Parent Child Interaction Therapy, Parent Infant Interaction Therapy Meditation Dietitian/Roof Service Technician Services Group Therapy Yoga https://www.dineout. Global Value Commerce/ Leyla Ospina [phone] Private Practice: Telehealth Only Specializes in EMDR for Trauma None documented in this encounter [facility] 09-13-2024 Note HNO ID: [id number] Author: HUAN CAMPO APRN.CNP Service: ? Author Type: Nurse Practitioner Type: Progress Notes Filed: 09/13/2024 11:40 Note Text: Acid Washer Operator offered: Patient declines. INITIAL OB ASSESSMENT HPI: Guerda is a 23 year old White here to establish Obstetrical Care. Patient's last menstrual period was 08/01/2024 (exact date). from OB Dating Form. was unplanned but accepted Complaints: No OB History T2 L2 SAB0 IAB0 Ectopic0 Multiple0 Live Births2 Previous history: Prior : never History of 4th degree laceration: No History of shoulder dystocia: No History of Hypertensive disorders including pre-eclampsia or gestational hypertension: No History of gestational diabetes: No Patient's Risk Screening for delivery: Have you had a prior pike between 20w and 36w6d? No How many pregnancies have you had before? 2 Did you have a previous baby with a GBS Infection? No Please select all that apply for any prior : N/A MEDICAL/PSYCHOSOCIAL HISTORY: History of hemorrhage or bleeding concerns: No Thyroid Disease: No History of chronic hypertension: No History of pre-existing diabetes: No No results found for: ABORHD BMI 25.76 kg/(m2) Last Pap: 01/06/2024 History of abnormal pap: Yes Prior treatment for cervical dysplasia: none. Last HPV: History of STDs: None Partner History of STDs: unknown Did you have a partner with Herpes? (!) Yes Tobacco use: Yes E-Cigarette/Vaping Use: Yes Caffeine use: Yes, 1-2 servings per day Drug use: Yes, marijuana Alcohol use: No Multivitamin with Folic acid: Yes Would refuse blood transfusion if medically necessary: No Social Needs: How often does this describe you? I don't have enough money to pay my bills: Never Within the past 12 months, have you worried that your food would run out before you had money to buy more? Never In the past 12 months, has lack of reliable transportation kept you from going to medical appointments or work, or from getting things needed for daily living? Never In the past 12 months, have you had any concerns about having a place to live, or about the condition or quality of your housing? Never Would you like more information on any of the following (please check all that apply)? Not interested Social History: Do you have any history of depression, anxiety, PTSD, or other mood problems? Yes Do you have a history of abuse or trauma that may impact your experience? No Are you currently employed? No Depression/Anxiety Screening: denies symptoms of depression. OB Depression and Anxiety Screening- This Encounter (since 09/12/2024) Over the past 2 weeks have you felt down, depressed, or hopeless? Negative Over the past two weeks, have you felt little interest or pleasure in doing things?? Negative Feeling nervous, anxious or on edge 0-Not at all Not being able to stop or control worrying 0-Not al all Anxiety Pre-Screening Total (If >/= 3 additional questions will be reviewed) 0 Genetic Screening: Partner present: Yes Patient verbalized knowledge of partner family health history: No Do you or your partner have any personal or family history of defects not previously discussed: No Do you have history of a complicated by anomaly, genetic condition, or demise: No Preeclampsia Risk Screening: Screening for prevention of preeclampsia: High risk factors: None Moderate risk ractors: None OB Risk Screening: Completed, positive findings include: Patient answered 'Yes' to Partner with Herpes Marital Status:Partnering Partner: Name: Jairo Age: 35 Occupation: [employer] Gender: Male PAST MEDICAL HISTORY Diagnosis Date Abnormal Pap smear of cervix Anxiety Asthma breast lump left Depression Herpes simplex disciform keratitis PTSD (post-traumatic stress disorder) PAST SURGICAL HISTORY Procedure Laterality Date PAST SURGICAL HISTORY OF Bilateral Eye surgery, for muscles in the eyes x6 Current Outpatient Medications Medication Sig Dispense Refill acetaminophen (TYLENOL ORAL) Take by mouth. PNV no.95/ferrous fum/folic ac ( ORAL) Take by mouth. No current facility-administered medications for this visit. Allergies As of Date: 09/13/2024 Allergen Noted Reaction ALBUTEROL SULFATE 09/26/2023 Rash Fully Assessed 09/13/2024 Does patient have penicillin allergy: No REVIEW OF SYSTEMS: GENERAL: Negative for: Fever or Chills HEENT: Negative for: Headache, Impaired Vision, Ringing in Ears, Nosebleeds NECK: Negative for: Swelling, Pain, Stiffness RESPIRATORY: Negative for: Cough, Shortness of breath, Wheezing GASTROINTESTINAL: Negative for: Heartburn, Constipation, Diarrhea, Blood in stool + nausea MUSCULOSKELETAL: Negative for: Muscle or joint pain, stiffness, Joint swelling NEUROLOGIC/PSYCHIATRIC: Nega (more content not included)... [facility] 09-13-2024 History of Present illness Narrative Images from the original note were not included. Acid Washer Operator offered: Patient declines. INITIAL OB ASSESSMENT HPI: Guerda is a 23 year old White here to establish Obstetrical Care. Patient's last menstrual period was 08/01/2024 (exact date). from OB Dating Form. was unplanned but accepted Complaints: No OB History T2 L2 SAB0 IAB0 Ectopic0 Multiple0 Live Births2 Previous history: Prior : never History of 4th degree laceration: No History of shoulder dystocia: No History of Hypertensive disorders including pre-eclampsia or gestational hypertension: No History of gestational diabetes: No Patient's Risk Screening for delivery: Have you had a prior pike between 20w and 36w6d? No How many pregnancies have you had before? 2 Did you have a previous baby with a GBS Infection? No Please select all that apply for any prior : N/A MEDICAL/PSYCHOSOCIAL HISTORY: History of hemorrhage or bleeding concerns: No Thyroid Disease: No History of chronic hypertension: No History of pre-existing diabetes: No No results found for: ABORHD BMI 25.76 kg/(m^2) Last Pap: 01/06/2024 History of abnormal pap: Yes Prior treatment for cervical dysplasia: none. Last HPV: History of STDs: None Partner History of STDs: unknown Did you have a partner with Herpes? (!) Yes Tobacco use: Yes E-Cigarette/Vaping Use: Yes Caffeine use: Yes, 1-2 servings per day Drug use: Yes, marijuana Alcohol use: No Multivitamin with Folic acid: Yes Would refuse blood transfusion if medically necessary: No Social Needs: How often does this describe you? I don't have enough money to pay my bills: Never Within the past 12 months, have you worried that your food would run out before you had money to buy more? Never In the past 12 months, has lack of reliable transportation kept you from going to medical appointments or work, or from getting things needed for daily living? Never In the past 12 months, have you had any concerns about having a place to live, or about the condition or quality of your housing? Never Would you like more information on any of the following (please check all that apply)? Not interested Social History: Do you have any history of depression, anxiety, PTSD, or other mood problems? Yes Do you have a history of abuse or trauma that may impact your experience? No Are you currently employed? No Depression/Anxiety Screening: denies symptoms of depression. OB Depression and Anxiety Screening- This Encounter (since 09/12/2024) Over the past 2 weeks have you felt down, depressed, or hopeless? Negative Over the past two weeks, have you felt little interest or pleasure in doing things? Negative Feeling nervous, anxious or on edge 0-Not at all Not being able to stop or control worrying 0-Not al all Anxiety Pre-Screening Total (If >/= 3 additional questions will be reviewed) 0 Genetic Screening: Partner present: Yes Patient verbalized knowledge of partner family health history: No Do you or your partner have any personal or family history of defects not previously discussed: No Do you have history of a complicated by anomaly, genetic condition, or demise: No Preeclampsia Risk Screening: Screening for prevention of preeclampsia: High risk factors: None Moderate risk ractors: None OB Risk Screening: Completed, positive findings include: Patient answered 'Yes' to Partner with Herpes Marital Status:Partnering Partner: Name: Jairo Age: 35 Occupation: [employer] Gender: Male PAST MEDICAL HISTORY Diagnosis Date Abnormal Pap smear of cervix Anxiety Asthma breast lump left Depression Herpes simplex disciform keratitis PTSD (post-traumatic stress disorder) PAST SURGICAL HISTORY Procedure Laterality Date PAST SURGICAL HISTORY OF Bilateral Eye surgery, for muscles in the eyes x6 Current Outpatient Medications Medication Sig Dispense Refill acetaminophen (TYLENOL ORAL) Take by mouth. PNV no.95/ferrous fum/folic ac ( ORAL) Take by mouth. No current facility-administered medications for this visit. Allergies As of Date: 09/13/2024 Allergen Noted Reaction ALBUTEROL SULFATE 09/26/2023 Rash Fully Assessed 09/13/2024 Does patient have penicillin allergy: No REVIEW OF SYSTEMS: GENERAL: Negative for: Fever or Chills HEENT: Negative for: Headache, Impaired Vision, Ringing in Ears, Nosebleeds NECK: Negative for: Swelling, Pain, Stiffness RESPIRATORY: Negative for: Cough, Shortness of breath, Wheezing GASTROINTESTINAL: Negative for: Heartburn, Constipation, Diarrhea, Blood in stool + nausea MUSCULOSKELETAL: Negative for: Muscle or joint pain, stiffness, Joint swelling NEUROLOGIC/PSYCHIATRIC: Negative for: Weakness, Paralysis, Numbness, Tingling, Tremor, Anxiety, Depression, Memory loss SKIN: Negative for: Rash, Itching GENITOURINARY: Negative for: vaginal itching, vaginal discharge, hematuria or dysuria SENSITIVE EXAM: The sensitive examination was discussed with the Patient or Patient's Authorized Die Trouble Shooter. As applicable, any other physician, advance practice provider, medical student, or other health professional student that will be observing or involved in the sensitive examination for educational or training purposes was discussed with the Patient or Authorized Die Trouble Shooter. The Patient or Authorized Die Trouble Shooter has agreed to proceed with the sensitive examination. (Sensitive examination includes inspection and/or palpation of the breasts, pelvis, prostate and anorectal regions). PHYSICAL EXAM: BP 110/60 Ht 5' 8 (1.73m) Wt 169 lb 6.4 oz (76.8kg) LMP 08/01/2024 BMI 25.76 kg/(m^2). GENERAL: pleasant in no apparent distress DERMATOLOGY: Normal, without lesions, non-icteric, and non-hirsute NECK: Supple, full range of motion, no adenopathy, and thyroid normal CHEST: Normal inspiratory effort BREAST: soft, non-tender, symmetric, no dominant mass, normal nipple-areolar complex, no lymphadenopathy, and no nipple discharge ABDOMEN: soft, non-tender, and no masses NEURO: alert and oriented x3,exam grossly non-focal PELVIS: External genitalia normal without lesions. Perineal body intact. No vaginal or cervical lesions. Cervix closed. Uterus <8 week size. No adnexal masses or tenderness. Clinical Pelvimetry: Pelvimetry clinically assessed as adequate Limited OB ultrasound exam: single intrauterine and positive cardiac activity SBIRT Guerda Cardona was given the 4P's screening tool. Guerda answered as follows: OB Opioid Screening - Last Recorded (since 12/18/2023) Did any of your parents have a problem with alcohol or other drug use? Yes mother-ETOH and Drugs Does your partner have a problem with alcohol or other drug use? No In the past, have you had difficulties in your life because of alcohol or other drugs, including prescription medications? No In the past month have you drunk any alcohol or used other drugs? Yes marijuana Are you taking medication for pain during the either prescribed or not? No Based on the screen and further questions, she is considered at moderate risk due to: Continued low level of use. Patient offered brief intervention. In discussing this issue my medical advice was that Guerda Cardona abstain. Her readiness to change(0 lowest - 10 highest) was 10. We discussed her motivation to change based upon this response. Patient agreed that she would: abstain. Patient will return for OB appointments regularly scheduled to discuss her progress with this plan. In total, 3 minutes of personal time was spent administering and interpreting the screen, plus performing a brief intervention. Huan Campo APRN.INJECTION MOULDING MACHINE OPERATOR ASSESSMENT: 23 year old at 6w1d wks gestational age PLAN: 1) Patient oriented to practice. Patient given new OB orientation folder. Discussed nutrition, folic acid supplementation, dietary guidelines, exercise, smoking, alcohol, caffeine, and drug use. Discussed gestational weight gain guidelines. Discussed routine OB labs including STD/HIV. Discussed how to access Your guide to a health and the Accounting Advisory Services Manager. Discussed hemoglobin electrophoresis. Patient: Accepts Reviewed midwifery and chain puller services that are available. 2) Screening: Hemoglobin A1C: ordered Baby Aspirin: The patient has been counseled about the potential benefits of low dose aspirin in and our recommendation that this be offered to all patients, regardless of whether they meet the high risk criteria specified above. She Accepts Aneuploidy Screening: Discussed aneuploidy screening, nuchal translucency/first trimester early anatomy ultrasound and NIPT. The risks/benefits and limitations of NIPT/aneuploidy screening were reviewed including the potential for false negative and false positive results. The availability of genetic counseling was reviewed. Information on aneuploidy screening was provided. The patient chooses to proceed with First trimester early anatomy ultrasound (12-13w6d) Myriad Carrier Screening: Discussed myriad carrier screening. We discussed the availability of professional-society guided carrier screening and reviewed the conditions screened and limitations of screening. The availability of genetic counseling was reviewed. Information on carrier screening was provided. The patient Declines 3) Patient offered option of Virtual Visits. Patient unsure. May consider in future. ACTIVE PROBLEM LIST Encounter for Supervision of High Risk in First Trimester, Antepartum - 09/13/2024 Comment: Care Checklist Vaccines: [] Flu vaccine [] declined [] RSV vaccine 32 0/7 - 36 6/7 (Jul - Dec) [] declined [] COVID vaccine [] declined [] TDaP 27-36 [] declined First trimester: [x] Dating US [] 1st tri labs [x] Pap smear UTD needs [] Carrier screening [x] declined [] NIPT screening [x] declined [x] First trimester anatomy scan [] declined [x] universal ASA ordered (start 12w-16w) [] declined [] M Power Consult [] not indicated [] declined Second trimester: [] AFP [] declined [] Anatomy scan [] Mode of Delivery - [] Feeding - [] Pump ordered [] Diabetes screen [] CBC, RPR Third trimester (28-30 weeks): [] Consent [] Contraception - [] Science Specialist Third trimester (36-40 weeks): [] GBS [] Presentation - [] Scheduled [] yes - Hibiclens, pre-op instructions, CBC, T&S ordered [] no [] H&P History of Herpes Genitalis - 09/13/2024 Comment: September 13, 2024 Reports no outbreaks recently and to update should this occur. Plan for suppression therapy at 36 weeks. Huan Campo APRN.CNP Short Interval Between Pregnancies Affecting in First Trimester, Antepartum - 09/13/2024 Unplanned - 09/13/2024 Comment: September 13, 2024 Delivered vaginally October 2023. Huan Campo APRN.CNP Marijuana Use During - 09/13/2024 Comment: September 13, 2024 Risks reviewed. Trying to decrease. Recommend cessation. Written info provided. Huan Campo APRN.CNP Current Every Day Nicotine Vaping - 09/13/2024 Comment: September 13, 2024 Risks reviewed. Trying to decrease. Recommend cessation. Written info provided. Huan Campo APRN.CNP Nausea and Vomiting During - 09/13/2024 Comment: 09/13/24 Vitamin B6 and Unisom doses reviewed. To notify if prescription is needed. Huan Campo APRN.CNP Tooth Infection - 09/13/2024 Comment: September 13, 2024 Was prescribed Amoxicillin by dentist - has not taken yet due to concern for . Discussed recommendation of taking. Huan Campo APRN.CNP Atypical Squamous Cells of Undetermined Significance (Ascus) On Papanicolaou Smear of Cervix - 09/26/2023 Comment: 12/25/23 NILM. Will need pap 2024 . If negative, can go back to routine screening. Huan Campo APRN.INJECTION MOULDING MACHINE OPERATOR ASCUS and HPV + 2022 Needs pap Asthma, Intermittent - 10/06/2012 Comment: No hemabate during delivery. Reports last exacerbation 2017. Adjustment Disorder With Anxiety - 11/15/2008 Comment: September 13, 2024 Coping well at this time. PHQ2 negative. Mental health resources provided. Update throughout . Huan Campo APRN.CNP Coping well at this time No medications To update throughout Posttraumatic Stress Disorder - 11/15/2016 Comment: September 13, 2024 Coping well at this time. PHQ2 negative. Mental health resources provided. Update throughout . Huan Campo APRN.INJECTION MOULDING MACHINE OPERATOR Follow up in 4 weeks or sooner prn. Plan for NT scan between 12w0d and 13w6d gestation. Huan Campo APRN.INJECTION MOULDING MACHINE OPERATOR documented in this encounter [facility] 09-02-2024 Note HNO ID: [id number] Author: MIRIAM LOMBARDI RN Service: ? Author Type: Registered Nurse Type: Progress Notes Filed: 09/20/2024 15:52 Note Text: *short interval between pregnancies. Delivered previous child 11/05/2023 Hx of anxiety/depression/PTSD. Patient states she was diagnosed in 2015, Off meds x 10 years-states she only took medication for a short time. Discussed increased risks of depression during and and importance of reporting the development or worsening of symptoms should they occur. Patient states she was inpatient [facility] for 3 days at age 15 for suicidal ideation. Denies any suicidal thoughts since then. Denies any pp depression. Patient states she is using marijuana in . Denies any other drug use. States she is trying to quit. Discussed risks of using marijuana during Patient currently vaping nicotine-discussed risks of nicotine use, Advised patient to quit. Alternating exotropia Hx of herpes Declines aneuploidy screening INITIAL OB ASSESSMENT HPI: Guerda is a 23 year old White here to establish Obstetrical Care. Patient's last menstrual period was 08/01/2024 (exact date). from OB Dating Form. was unplanned but accepted Complaints: No OB History T2 L2 SAB0 IAB0 Ectopic0 Multiple0 Live Births2 # 1 - Date: 03/16/19, Sex: Male, Weight: 3.487 kg (7 lb 11 oz), GA: 39w5d, Type: Vaginal, Spontaneous, Apgar1: None, Apgar5: None, Living: Living, Comments: None # 2 - Date: 11/05/23, Sex: Male, Weight: 3.402 kg (7 lb 8 oz), GA: 38w5d, Type: Vaginal, Spontaneous, Apgar1: None, Apgar5: None, Living: Living, Comments: Spontaneous labor, EBL 200 ML, 8/9 # 3 - Date: None, Sex: None, Weight: None, GA: None, Type: None, Apgar1: None, Apgar5: None, Living: None, Comments: None Previous history: Prior : never History of 4th degree laceration: No History of shoulder dystocia: No History of Hypertensive disorders including pre-eclampsia or gestational hypertension: No History of gestational diabetes: No Patient's Risk Screening for delivery: Have you had a prior pike between 20w and 36w6d? No How many pregnancies have you had before? 2 Did you have a previous baby with a GBS Infection? No Please select all that apply for any prior : N/A MEDICAL/PSYCHOSOCIAL HISTORY: History of hemorrhage or bleeding concerns: No Thyroid Disease: No History of chronic hypertension: No History of pre-existing diabetes: No No results found for: ABORHD No weight on file for this encounter. Last Pap: 01/06/2024 History of abnormal pap: Yes Prior treatment for cervical dysplasia: none. Last HPV: History of STDs: HSV Partner History of STDs: None Did you have a partner with Herpes? (!) Yes Tobacco use: No E-Cigarette/Vaping Use: Yes Caffeine use: Yes 1 cup of coffee or soda a day Drug use: Yes marijuana Alcohol use: No Multivitamin with Folic acid: Yes Would refuse blood transfusion if medically necessary: No Social Needs: How often does this describe you? I don't have enough money to pay my bills: Sometimes Within the past 12 months, have you worried that your food would run out before you had money to buy more? Never In the past 12 months, has lack of reliable transportation kept you from going to medical appointments or work, or from getting things needed for daily living? Never In the past 12 months, have you had any concerns about having a place to live, or about the condition or quality of your housing? Never Would you like more information on any of the following (please check all that apply)? Not interested Social History: Do you have any history of depression, anxiety, PTSD, or other mood problems? Yes Do you have a history of abuse or trauma that may impact your experience? No Are you currently employed? No Depression/Anxiety Screening: denies symptoms of depression. OB Depression and Anxiety Screening- This Encounter (since 09/01/2024) Over the past 2 weeks have you felt down, depressed, or hopeless? Negative Over the past two weeks, have you felt little interest or pleasure in doing things?? Negative Feeling nervous, anxious or on edge 0-Not at all Not being able to stop or control worrying 0-Not al all Anxiety Pre-Screening Total (If >/= 3 additional questions will be reviewed) 0 Genetic Screening: Partner present: No Patient verbalized knowledge of partner family health history: No Do you or your partner have any personal or family history of defects not previously discussed: No Do you have history of a complicated by anomaly, genetic condition, or demise: No Low Dose ASA Screening: Screening for low dose aspirin use for the prevention of pre-eclampsia: High risk factors: None Moderate risk ractors: None OB Risk Screenin (more content not included)... [facility] 09-01-2024 Telephone encounter Note 11:30 on 09/02. Estefanía Benitez RN [facility] 09-01-2024 Miscellaneous Notes 11:30 on 09/02. Estefanía Benitez RN Left message for patient to return phone call to complete nurse intake questions for her upcoming appointment. Patient has an appointment with Aislinn Bowman for NOB appointment next week. Please schedule her for intake questions 09/02 with me or transfer to Melva Brownlee documented in this encounter [facility] 09-01-2024 Telephone encounter Note Left message for patient to return phone call to complete nurse intake questions for her upcoming appointment. Patient has an appointment with Aislinn Bowman for NOB appointment next week. Please schedule her for intake questions 09/02 with me or transfer to Melva Kem [facility] 12-25-2023 History of Present illness Narrative VISIT Guerda Cardona is a 23 year old year old here for visit. Delivery Summary: on 11/05/2023 by LEN ROS/ Recovery: Feeding: Bottle feeding- Breast fed for 4 weeks problems: None Menses since delivery: None Menstrual pattern prior to : Regular periods [place] since delivery: Resumed Depression: denies symptoms of depression. OB Depression and Anxiety Screening- This Encounter (since 12/24/2023) Over the past 2 weeks have you felt down, depressed, or hopeless? Negative Over the past two weeks, have you felt little interest or pleasure in doing things? Negative Feeling nervous, anxious or on edge 0-Not at all Not being able to stop or control worrying 0-Not al all Anxiety Pre-Screening Total (If >/= 3 additional questions will be reviewed) 0 Emotional support: Yes Bowel symptoms: Negative for abdominal discomfort, blood in stools or black stools Abdomen: N/A Bladder symptoms: No dysuria, gross hematuria, urinary frequency, urinary urgency, or incontinence Other issues: None Last Pap: N/A HPV: N/A PAST MEDICAL HISTORY Diagnosis Date Anxiety Asthma Depression Herpes simplex disciform keratitis PTSD (post-traumatic stress disorder) PAST SURGICAL HISTORY Procedure Laterality Date PAST SURGICAL HISTORY OF Bilateral Eye surgery, for muscles in the eyes FAMILY HISTORY Problem Relation Age of Onset other (rheumatoid arthritis) Mother Hepatitis C Mother No Known Problems Brother Heart Maternal Grandmother Diabetes Maternal Grandmother No Known Problems Maternal Grandfather Social History Tobacco Use Smoking status: Never Smokeless tobacco: Never Vaping Use Vaping Use: Former Substance Use Topics Alcohol use: Never Drug use: Never PHYSICAL EXAMINATION: BP 106/70 Wt 198 lb 12.8 oz (90.2kg) LMP 02/07/2023 GENERAL: pleasant, female in no apparent distress HEENT: Normocephalic and atraumatic NECK: Supple, full range of motion, no adenopathy, and thyroid normal DERMATOLOGY: Normal and without lesions BREAST: soft, non-tender, symmetric, no dominant mass, normal nipple-areolar complex, no lymphadenopathy, and no nipple discharge CHEST: Normal inspiratory effort ABDOMEN: soft, non-tender, and no masses. INCISION: N/A PELVIC: external genitalia normal, normal Bartholin's glands, urethra, [place]'s glands, no vulvar lesions, no cervical lesions, good vaginal support, physiologic discharge present, normal appearing perineal body and perianal region BIMANUAL: uterus normal size, shape and consistency, no adnexal masses, non-tender, and no cervical motion tenderness NEURO: alert and oriented x3 and alert and oriented x3,exam grossly non-focal EXTREMITIES: normal ASSESSMENT AND PLAN: 23 year old status post with normal course. PAP- stated history of abnormal and needed repeated today ASCUS & HPV + 2022 Verbally consented to STD screening Contraception plan: condoms - Had Nexplanon in past- may get again? Follow up: RTC for annual exams and PRN Aislinn Bowman APRN.CNM documented in this encounter [facility] 11-07-2023 Discharge summary Note Date/Time November 07, 2023 8:23am [facility] Medical Records Department [address] [place] [address] Instructions for Home/Discharge Instructions 11/07/23 0822 MR#: [id number] Acct: [id number] Name: GUERDA CARDONA Rep #:[id number] : 2000 22 From: Deo Veliz DO PCP: Care Physician,No Primary Status :ADM IN Discharge Instructions Diet Discharge Diet: No restrictions Activity Discharge Activity: May Drive and May Shower May resume sexual activity in: 6 weeks (nothing in vagina and no soaking in water for 6 weeks) Weight Bearing Status: Weight bearing as tolerated Lifting Restrictions: nothing heavier than baby Dressing / Incision Call your doctor if you observe: Fever of 101 or Higher, Coldness, Increased Pain, Numbness or Tingling, Change in Color, Inability to urinate, Inability to have a bowel movement, Using more than 1 pad per hour, Shortness of breath, Dizziness, Fainting spells, Swelling in the ankles, Chest pain, Increased palpitations (irregular heartbeat), Calf discomfort and Uncontrolled pain Follow Up Care Please Follow Up With: Aislinn Bowman CNM When: 1-2 weeks early 6 week exam Test Results: Test results from this visit will be discussed in further detail at your follow-up appointment, if applicable. Discharge Plan Admission Admit Date/Time: 11/05/23 17:30 Primary Reason for Your Visit: delivery Attending Provider: Aislinn Bowman Primary Care Provider: Care Physician,No Primary Instructions Patient Instructions: After a Vaginal Discharge Orders/Prescriptions Prescriptions: No Action PNV cmb#95-ferrous fumarate-FA [] 28 mg iron- 800 mcg tablet 1 tab PO DAILY Referrals / Follow Up: Care Physician,No Primary [Primary Care Provider] - Disposition Disposition (needs filled in before D/C Order can be placed): Home, Self Care 11/07/23821<Electronically signed by Deo Veliz DO>Deo Veliz DO CC: No Primary Care Physician ~ Signed [facility] Work Phone: 1([phone]) 351-867612-29-2023 Progress note Author Deo Veliz [facility] November 07, 2023 7:26am Note Date/Time November 07, 2023 7:26am [facility] Medical Records Department [address] [place] [id number] Progress Note - OBGYN 11/07/23 0725 MR#: [id number] Acct: [id number] Name: GUERDA CARDONA Rep #:[id number] : 2000 22 From: Deo Veliz DO PCP: Care Physician,No Primary Status :ADM IN Location: [place] [address] Subjective Subjective The patient is doing well and she offers no complaints. She is ambulating and voiding without difficulty. Tolerating regular diet without nausea or vomiting. She denies chest pain, shortness of breath, leg pain. Lochia is normal. She is breast- feeding. She desires to go home today. No pain. Objective Data Objective Data Vital Signs: Vital Signs Temp Pulse Resp BP Pulse Ox O2 Del Method 98.8 F 110 H 15 125/78 H 97 Room Air 11/07/23 03:20 11/07/23 03:20 11/07/23 03:20 11/07/23 03:20 11/07/23 03:20 11/07/23 03:20 Oxygen Delivery Method Room Air Weight: 217 lb 6.012 oz Body Mass Index (BMI) 33.0 Intake & Output: Intake and Output for Last 24 Hours 11/05/23 11/06/23 11/07/23 23:59 23:59 23:59 Intake Total 1019.84 / 1019.84 Output Total 1000 / 1000 1000 / 1000 Balance 19.84 / 19.84 -1000 / -1000 Lab / Micro Data 11/05/23 17:50 Physical Exam Const alert and no apparent distress Constitutional Narrative: Holding infant General Appearance: comfortable Assessment & Plan (1) (spontaneous vaginal delivery): PLAN: Patient is day 2 from a vaginal delivery. Desires discharge today and meeting milestones. Discharge instructions reviewed to follow-up in the office. 11/07/23725 <Electronically signed by Deo Veliz DO> Cosigner Signature (if applicable): CC: ~ Signed [facility] Work Phone: 1(922) 903-673412-28-2023 Progress note Author Aislinn Bowman [facility] November 06, 2023 7:15am Note Date/Time November 06, 2023 7:15am [facility] Medical Records Department [address] [place] [address] Progress Note 11/06/23710 MR#: [id number] Acct: [id number] Name: GUERDA CARDONA Rep #:[id number] : 2000 22 From: Aislinn Bowman [facility] PCP: Care Physician,No Primary Status :ADM IN Location: [place] [address] Progress Note Patient seen at bedside. Denies any pain. Ambulating and voiding without difficulty. Lochia decreasing. with support. Desires discharge home tomorrow. Physical Exam Const alert and no apparent distress General Appearance: cooperative and comfortable Exam Limitations: no limitations HEENT normocephalic Eyes General Eye: normal appearance of both eyes Neck full ROM General: normal visual inspection Chest Chest: symmetrical chest wall rise Resp normal respiratory effort and normal air movement Effort and Inspection: symmetric chest movement Auscultation: clear to auscultation bilaterally Cardio regular rate and regular rhythm GI normal to inspection, nondistended, normoactive bowel sounds Back/Spine normal ROM Extremity full ROM and no calf tenderness General Extremity: normal exam except as noted Skin no rashes or lesions noted Neuro CN's II-XII intact bilaterally Psych mental status grossly normal Assessment & Plan Assessment/Plan (1) (spontaneous vaginal delivery): (2) History of anxiety: (3) History of depression: (4) Positive GBS test: (5) Care and examination of lactating mother: PLAN: Plan GBS positive- not adequately treated due to quick progession- will need to stay 36 hours pp Routine care support Pain control Anticipate discharge home tomorrow 11/06/23 0715 <Electronically signed by Aislinn Bowman CNM> Aislinn Bowman CNM Cosigner Signature (if applicable): CC: ~ Signed [facility] Work Phone: 1(207) 466-832712-27-2023 Procedure [facility] 11-05-2023 History and physical note Author Aislinn Bowman [facility] November 05, 2023 5:50pm Note Date/Time November 05, 2023 5:44pm [facility] Medical Records Department [address] [place] [id number] H&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 Started having contractions yesterday that have continued to increase in frequency and intensity. Denies any loss of fluid or vaginal bleeding. GBS positive. Maternal Data Information IAN Calculator Estimated Delivery Date Method Current WG Current Estimate 11/14/23 Manual 38w 5d PFSH PFSH Medical History Smoker Home Medications vit no.95-ferrous fumarate 28 mg-folic acid 800 mcg tablet () 1tab PO DAILY 11/05/23 [History Last Taken 11/04/23 07:00 1 TAB] Allergy/AdvReac Type Severity Reaction Status Date / Time No Known Allergies Allergy Verified 11/05/23 15:17 Social History Smoking Status: Current every day smoker tobacco type: cigarettes ROS Eyes Eyes: Denies blurry vision, change in vision or spots in vision ENT HEENT: Denies dizziness or headache(s) Cardiovascular Cardiovascular: Denies abdominal pain, chest pain or dyspnea Respiratory/Chest Respiratory/Chest: Denies cough, dyspnea, shortness of breath at rest or shortness of breath with exertion Gastrointestinal Gastrointestinal: Denies abdominal pain, diarrhea or vomiting Genitourinary Genitourinary: Denies change in urinary stream, difficulty urinating or dysuria Musculoskeletal Musculoskeletal: Reports none Integumentary Integumentary: Denies rash Neurologic Neurologic: Denies dizziness, headache(s), memory loss or weakness Psychiatric Psychiatric: Reports none Vital Signs Vital Signs Vital Signs: 11/05/23 14:56 11/05/23 14:56 11/05/23 14:56 Temperature Temperature Source Temporal Pulse Rate 99 Blood Pressure 133/83 H BP Systolic 133 BP Diastolic 83 11/05/23 14:56 Temperature 97.8 F Temperature Source Pulse Rate Blood Pressure BP Systolic BP Diastolic Weight Weight: 217 lb 6.012 oz Body Mass Index (BMI) 33.0 Physical Exam Const alert, oriented x3 and no apparent distress General Appearance: cooperative Orientation / Consciousness: awake Exam Limitations: no limitations HEENT normocephalic Head and Scalp: normal to inspection Eyes General Eye: normal appearance of both eyes Neck full ROM and no lymphadenopathy Lymph Lymphatic: no lymphadenopathy noted Chest inspection of chest normal Resp normal respiratory effort, normal air movement and clear to auscultation bilaterally Effort and Inspection: able to speak in complete sentences and symmetric chest movement Cardio regular rate and regular rhythm GI normal to inspection, nondistended, normoactive bowel sounds Back/Spine normal ROM Extremity full ROM and no calf tenderness Skin no rashes or lesions noted General Skin Exam: no breakdown Neuro oriented x3 and CN's II-XII intact bilaterally Psych mental status grossly normal and thought process normal Labs Labs Labs: Blood Type O POSITIVE Hct 38.2 % (37-47) Hgb 12.5 g/dL (12.0-15.0) Syphilis Total Ab Non-reactive VZV IgG Antibody 2388 index (Immune >165) Rubella IgG Antibody Reactive (Nonreactive) Hep Bs Antigen Non-Reactive (Nonreactive) Hepatitis C Antibody Non-Reactive (Nonreactive) HIV 1&2 Antibody Non-Reactive (Nonreactive) Glucose 1 Hr 50 gm 88 mg/dL (70-140) GBS positive Assessment & Plan (1) 38 weeks gestation of : (2) Spontaneous onset of labor: (3) Positive GBS test: (4) History of asthma: (5) PTSD (post-traumatic stress disorder): (6) Genital herpes: (7) History of depression: (8) History of anxiety: PLAN: Plan CE /-1 bulging bag of water Admit to labor and delivery Routine labs Start IV and run fluids per orders GBS positive- Start PCN protocol Epidural when indicated Anticipate Dr. Gomez notified of above plan and admission and is collaborating physician 11/05/23 174 <Electronically signed by Aislinn Bowman CNM> Cosigner Signature (if applicable): CC: CAROL Bowman; No Primary Care Physician~ Signed ADDENDUM by CAROL Bowman on 11/05/23 at 1750 Addendum No vaginal lesions noted with cervical exam. 11/05/23 1750<Electronically signed by Aislinn Bowman CNM> Cosigner Signature (if applicable): cc: CAROL Bowman; No Primary Care Physician ~* Signed [facility] Work Phone: 1(119) 442-231811-21-2023 Miscellaneous Notes* Telephone Encounter - Estefanía Bradshaw RN - 09/30/2023 11:21 AM EST 1st risk assessment form submitted 09/30/2023. Estefanía Bradshaw RN documented [facility] History of Present illness Narrative* Huan Campo APRN.INJECTION MOULDING MACHINE OPERATOR - 09/26/2023 10:07 AM EST Images from the original note were not included. INITIAL OB ASSESSMENT OB Provider: Dr. Mackey HPI: Guerda is a 22 year old White here to establish Obstetrical Care. Patient's last menstrual period was 02/07/2023. from OB Dating Form. Cycles regular was planned Complaints: None OB History T1 L1 SAB0 IAB0 Ectopic0 Multiple0 Live Births1 Previous history: Prior : never History of 4th degree laceration: No History of shoulder dystocia: No History of Hypertensive disorders including pre-eclampsia, chronic hypertension or gestational hypertension: No History of gestational diabetes: No Patient's Risk Screening for delivery: Have you had a prior pike between 20w and 36w6d?: No MEDICAL/PSYCHOSOCIAL HISTORY: History of hemorrhage or bleeding concerns: No Thyroid Disease: No History of chronic hypertension: No History of pre-existing diabetes: No No results found for: ABORHD BMI 30.65 kg/(m^2) History of abnormal pap: Yes Prior treatment for cervical dysplasia: none. History of STDs: None and HSV Tobacco use: No Caffeine use: Yes 12oz 5 days a week Drug use: No Alcohol use: No Multivitamin with Folic acid: Yes Faith or heritage: No Would refuse blood transfusion if medically necessary: No Are you currently employed? No Do you have any history of depression, anxiety, PTSD, eating disorders or other mood problems: Yes,depression, anxiety and PTSD Do you have any safety concerns or history of traumatic events that you would like to discuss with your provider: No SDOH Screening: How often does this describe you? I don't have enough money to pay my bills: Never Within the past 12 months, have you worried that your food would run out before you had money to buy more: Never In the past 12 months, has lack of reliable transportation kept you from going to medical appointments or work, or from keeping things needed for daily living: Never In the past 12 months, have you had any concerns about having a place to live, or about the condition or quality of your housing: Never Are there any cultural or spiritual needs we should be aware of: Yes , boyfriend would like circumcision done on day 8 after . Depression/Anxiety Screening: denies symptoms of depression. OB Depression and Anxiety Screening- This Encounter (since 09/25/2023) Over the past 2 weeks have you felt down, depressed, or hopeless? Negative Over the past two weeks, have you felt little interest or pleasure in doing things? Negative Feeling nervous, anxious or on edge 0-Not at all Not being able to stop or control worrying 0-Not al all Anxiety Pre-Screening Total (If >/= 3 additional questions will be reviewed) 0 Genetic Screening: Partner present: No Patient verbalized knowledge of partner family health history: Yes Do you or your partner have any personal or family history of defects not previously discussed: No Do you have history of a complicated by anomaly, genetic condition, or demise: No ACOG Recommended Screening Screening for early gestational diabetes testing: Criteria for early testing requires elevated BMI plus one other risk factor: BMI 30.65 kg/(m^2) (risk factor if > than 25 or 23 in Americans) Additional risk factors: None She does not meet ACOG criteria for early gestational DM screening. 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 No pertinent past medical history. PAST SURGICAL HISTORY Procedure Laterality Date PAST SURGICAL HISTORY OF Bilateral Eye surgery, for muscles in the eyes Current Outpatient Medications Medication Sig Dispense Refill acetaminophen (TYLENOL ORAL) Take by mouth. PNV no.95/ferrous fum/folic ac ( ORAL) Take by mouth. No current facility-administered medications for this visit. Allergies As of Date: 09/26/2023 (No Known Allergies) Fully Assessed 09/26/2023 Does patient have penicillin allergy: No REVIEW OF SYSTEMS: GENERAL: Negative for: Fever or Chills HEENT: Negative for: Headache, Impaired Vision, Ringing in Ears, Nosebleeds NECK: Negative for: Swelling, Pain, Stiffness RESPIRATORY: Negative for: Cough, Wheezing, Shortness of Breath GASTROINTESTINAL: Negative for: Heartburn, Constipation, Diarrhea, Blood in stool, Vomiting MUSCULOSKELETAL: Negative for: Muscle or joint pain, stiffness, Joint swelling NEUROLOGIC/PSYCHIATRIC: Negative for: Weakness, Paralysis, Numbness, Tingling, Tremor, Anxiety, Depression, Memory loss SKIN: Negative for: Rash, Itching GENITOURINARY: Negative for: vaginal itching, vaginal discharge, hematuria or dysuria PHYSICAL EXAM: BP 108/60 Ht 5' 8 (1.73m) Wt 201 lb 9.6 oz (91.4kg) LMP 02/07/2023 BMI 30.66 kg/(m^2). GENERAL: pleasant in no apparent distress DERMATOLOGY: Normal, without lesions, non-icteric, and non-hirsute NECK: Supple, full range of motion, no adenopathy, and thyroid normal CHEST: Normal inspiratory effort BREAST: deferred ABDOMEN: soft, non-tender, and no masses NEURO: alert and oriented x3,exam grossly non-focal PELVIS: deferred Limited OB ultrasound exam: not performed OB Risk Screening: Completed, positive findings include: Patient answered 'Yes' to Partner with Herpes SBIRT Guerda Cardona was given the 4P's screening tool. Guerda answered as follows: OB Opioid Screening - Last Recorded (since 12/30/2022) Did any of your parents have a problem with alcohol or other drug use? Yes Does your partner have a problem with alcohol or other drug use? No In the past, have you had difficulties in your life because of alcohol or other drugs, including prescription medications? No In the past month have you drunk any alcohol or used other drugs? No Are you taking medication for pain during the either prescribed or not? No Based on the screen and further questions, she is considered at Low risk due to:No past or current use. Positive reinforcement of current behavior. Plan to rescreen early third trimester. ASSESSMENT: 22 year old at 33w0d wks gestational age PLAN: 1) Patient oriented to practice. Patient given new OB orientation folder. Discussed nutrition, folic acid supplementation, dietary guidelines, exercise, smoking, alcohol, caffeine, and drug use. Discussed gestational weight gain guidelines. Discussed routine OB labs including STD/HIV. Discussed how to access Your guide to a health and the Accounting Advisory Services Manager. Discussed aneuploidy and carrier screening. Regarding aneuploidy screening, nuchal translucency/first trimester early anatomy ultrasound and NIPT were discussed. Regarding carrier screening, the myriad screen was discussed. The risks/benefits and limitations of NIPT/aneuploidy screening were reviewed including the potential for false negative and false positive results. We discussed the availability of professional-society guided carrier screening and reviewed the conditions screened and limitations of screening. The availability of genetic counseling was reviewed. Information on aneuploidy/carrier screening was provided. The patient chooses: Aneuploidy screening: declines screening Discussed hemoglobin electrophoresis. Patient: Declines Patient offered option of Virtual Visits. Patient unsure. May consider in future. Reviewed midwifery and chain puller services that are available. Assessment/Plan 28-30 weeks gestation - 1 hour GCT, CBC, and RPR WNL prior (transfer of care) - Rh positive - TDAP today - LARC form reviewed and signed. Patient declines - Depression screen negative - Opioid screen negative - plan form discussed and given to patient. Patient desires laboring in tub. - PTL precautions and kick counts reviewed - RTO- 2 weeks or sooner if needed. Plan for growth ultrasound. Follow up in 2 weeks or sooner prn. Huan Campo APRN.CNP Patient identified by name and date of . Guerda Cardona presents today for a vaccination of Tdap. Patient denies an allergy to latex: yes Patient denies a severe (life-threatening) allergy to a previous dose of Tdap, DTP, DTaP, DT or Td vaccine. Yes Patient denies history of epilepsy or neurological problems: Yes Patient is afebrile and denies being moderately or severely ill: Yes Patient denies history of Guillain-Gaston Syndrome (a severe paralytic illness): Yes Tdap Adacel injection was given without incident. See immunizations for details of immunizations administered today. VIS sheet provided: Yes Provider Huan Campo CNP was present in office at time of injection. Neha Leiva MA Medical Decision Making: Problems: Moderate: 2+ stable chronic illnesses Data: Unique source(s) for external note(s) reviewed: 1 Unique test result(s) reviewed: 3+ Unique test(s) ordered: 1 Risk: Low: Low risk from testing/treatment Moderate: Drug management Medical Decision Making Level: 4 - Moderate documented in this [facility]Gen[facility]11-17-2023 Instructions* Patient Instructions* Neha Leiva MA - 09/26/2023 10:07 AM EST Please select the following link to access the [facility] Your Guide to a Healthy . [email or web address] documented in this encounterGen[facility] Hospital11-01-2023 Miscellaneous Notes* Telephone Encounter - Jeannine Chacon RN - 09/10/2023 9:44 AM EDT Order signed and faxed. Jeannine Chacon RN * Telephone Encounter - Karon Mendez RN - 09/10/2023 8:10 AM EDT [facility] and placed in AG box to sign. Karon Mendez RN documented in this encounterGen[facility] Hospital09-22-2023 Miscellaneous Notes* Telephone Encounter - Ruth Cleary LPN - 08/01/2023 10:23 AM EDT Medical records received from [place]. Patient scheduled for new ob on 08/27/2023. Record at [facility] with chart prep documented in this encounterGenesis Hospital05-30-2023 NotePap Smear Specimen AdequacyMay 2022 10:49amComment.Satisfactory for evaluation. Endocervical and/or squamous metaplasticcells (endocervical component)are present.[facility] INTERFACED A#[id number] Community HospitalComment on above:Satisfactory for evaluation. Endocervical and/or squamous metaplasticcells (endocervical component)are present.10-09-2022 Telephone encounter Note* Telephone Encounter - Amanuel Gamez - 10/09/2022 8:55 AM EST Form sent online to be seen for cavities. Left with dental clinic phone number to call to schedule. [id number] Miscellaneous Notes* Telephone Encounter - Amanuel Gamez - 10/09/2022 8:55 AM EST Form sent online to be seen for cavities. Left with dental clinic phone number to call to schedule. documented in this [facility]06-22-2022 Hospital Discharge instructions* Instructions* Giuseppe Llamas MD - 05/01/2022 Rest and ice affected areas * Attachments The following attachments cannot be sent through Care Everywhere. * Bruises (Monegasque) * Arm Pain (Monegasque) documented in this [facility] Work Phone: Evaluation note* Diagnosis Contusion of right foot, initial encounter- Primary Bilateral arm pain Pain in limb documented in this encounter [facility] Work Phone: Evaluation noteNo assessment information available [facility] Work Phone: Evaluation note* Diagnosis 33 weeks gestation of - Primary state, incidental Need for vaccination Need for prophylactic vaccination and inoculation against unspecified single disease with care elsewhere, antepartum Atypical squamous cells of undetermined significance (ASCUS) on Papanicolaou smear of cervix Alternating exotropia with V pattern Adjustment disorder with anxiety Posttraumatic stress disorder History of homeless Herpes simplex type 2 (HSV-2) infection affecting , antepartum, unspecified trimester documented in this encounter [facility]* Diagnosis Encounter for ultrasound to check growth- Primary Encounter for routine screening for malformation using ultrasonics with care elsewhere, antepartum 35 weeks gestation of state, incidental Encounter for anatomic survey documented [facility] this [facility]* Diagnosis Onset Date Resolution Status 38 weeks gestation of acute Care and examination of lactating mother acute Genital herpes acute History of anxiety acute History of asthma acute History of depression acute Positive GBS test acute PTSD (post-traumatic stress disorder) acute Spontaneous onset of labor a cute (spontaneous vaginal delivery) acute [facility] Work Phone: Evaluation note* Diagnosis care and examination- Primary Routine follow-up Atypical squamous cells of undetermined significance (ASCUS) on Papanicolaou smear of cervix documented in this encounter [facility]* Diagnosis Encounter for supervision of high risk in first trimester, antepartum- Primary 6 weeks gestation of state, incidental with uncertain dates in first trimester Short interval between pregnancies affecting in first trimester, antepartum History of herpes genitalis Personal history of other infectious and parasitic disease Current every day nicotine vaping Posttraumatic stress disorder Marijuana use during Nausea and vomiting during Unplanned state, incidental Tooth infection Acute apical periodontitis of pulpal origin Atypical squamous cells of undetermined significance (ASCUS) on Papanicolaou smear of cervix Adjustment disorder with anxiety History of homeless documented in this encounter [facility] note* Diagnosis Short interval between pregnancies affecting in first trimester, antepartum- Primary Encounter for supervision of high risk in first trimester, antepartum 10 weeks gestation of state, incidental Marijuana use during Current every day nicotine vaping * Assessment & Plan Note - Trista Mackey MD - 10/12/2024 11:03 AM EST Associated Problem(s): Short interval between pregnancies affecting in first trimester, antepartum d/w her asa and pnv, did not have preeclampsia last prengancies Orders: [id number] PLUS; Future * Assessment & Plan Note - Trista Mackey MD - 10/12/2024 11:03 AM EST Associated Problem(s): Encounter for supervision of high risk in first trimester, antepartum Orders: [id number] PLUS; Future * Assessment & Plan Note - Trista Mackey MD - 10/12/2024 11:03 AM EST Associated Problem(s): Marijuana use during once a day, encouraged cessation * Assessment & Plan Note - Trista Mackey MD - 10/12/2024 11:03 AM EST Associated Problem(s): Current every day nicotine vaping quit-encouragement given documented in this encounter [facility] note* Diagnosis Short interval between pregnancies affecting in first trimester, antepartum- Primary Encounter for supervision of high risk in first trimester, antepartum 10 weeks gestation of state, incidental Marijuana use during Current every day nicotine vaping Short interval between pregnancies affecting in first trimester, antepartum- Primary Encounter for supervision of high risk in first trimester, antepartum 12 weeks gestation of state, incidental documented in this encounter [facility] note* Diagnosis Short interval between pregnancies affecting in first trimester, antepartum- Primary Encounter for supervision of high risk in first trimester, antepartum 10 weeks gestation of state, incidental Marijuana use during Current every day nicotine vaping Encounter for screening for malformation using ultrasound- Primary 12 weeks gestation of state, incidental documented in this encounter [facility] note* Diagnosis Short interval between pregnancies affecting in first trimester, antepartum- Primary Encounter for supervision of high risk in first trimester, antepartum 10 weeks gestation of state, incidental Marijuana use during Current every day nicotine vaping 16 weeks gestation of - Primary state, incidental Encounter for supervision of high risk in first trimester, antepartum Short interval between pregnancies affecting in first trimester, antepartum * Assessment & Plan Note - Trista Mackey MD - 11/23/2024 10:06 AM EST Associated Problem(s): Encounter for supervision of high risk in first trimester, antepartum anatomy US scheduled cont. pNV declines asa, no h/o gest HTN disorders f/u in 4 weeks or prn documented in this encounter [facility] note* Diagnosis Short interval between pregnancies affecting in first trimester, antepartum- Primary Encounter for supervision of high risk in first trimester, antepartum 10 weeks gestation of state, incidental Marijuana use during Current every day nicotine vaping Supervision of high risk in second trimester- Primary Unspecified high-risk 23 weeks gestation of state, incidental Current every day nicotine vaping Marijuana use during Adjustment disorder with anxiety Posttraumatic stress disorder Screening for diabetes mellitus documented in this encounter [facility] note* Diagnosis Short interval between pregnancies affecting in first trimester, antepartum- Primary Encounter for supervision of high risk in first trimester, antepartum 10 weeks gestation of state, incidental Marijuana use during Current every day nicotine vaping Encounter for anatomic survey- Primary 23 weeks gestation of state, incidental documented in this [facility]* Diagnosis Short interval between pregnancies affecting in first trimester, antepartum ([facility])- Primary Encounter for supervision of high risk in first trimester, antepartum ([facility]) 10 weeks gestation of ([facility]) state, incidental Marijuana use during ([facility]) Current every day nicotine vaping Supervision of high risk in second trimester ([facility])- Primary Unspecified high-risk Current every day nicotine vaping 27 weeks gestation of ([facility]) state, incidental Need for vaccination Need for prophylactic vaccination and inoculation against unspecified single disease documented in this encounter [facility]* Diagnosis Short interval between pregnancies affecting in first trimester, antepartum ([facility])- Primary Encounter for supervision of high risk in first trimester, antepartum ([facility]) 10 weeks gestation of ([facility]) state, incidental Marijuana use during ([facility]) Current every day nicotine vaping 29 weeks gestation of ([facility])- Primary state, incidental Benign gestational thrombocytopenia in third trimester ([facility]) Supervision of high risk in second trimester ([facility]) Unspecified high-risk Adjustment disorder with anxiety Thrombocytopenia affecting ([facility]) documented in this encounter [facility]* Diagnosis Short interval between pregnancies affecting in first trimester, antepartum ([facility])- Primary Encounter for supervision of high risk in first trimester, antepartum ([facility]) 10 weeks gestation of ([facility]) state, incidental Marijuana use during ([facility]) Current every day nicotine vaping Benign gestational thrombocytopenia in third trimester ([facility])- Primary 33 weeks gestation of ([facility]) state, incidental Bad odor of urine Other nonspecific finding on examination of urine documented in this encounter [facility]* Diagnosis Short interval between pregnancies affecting in first trimester, antepartum ([facility])- Primary Encounter for supervision of high risk in first trimester, antepartum (H[facility]) 10 weeks gestation of ([facility]) state, incidental Marijuana use during ([facility]) Current every day nicotine vaping Benign gestational thrombocytopenia in third trimester ([facility])- Primary HSV-2 infection complicating , third trimester ([facility]) 35 weeks gestation of (H[facility]) state, incidental Supervision of high risk in third trimester (HCC) Unspecified high-risk documented in this encounter [facility] note* Diagnosis Short interval between pregnancies affecting in first trimester, antepartum (HCC)- Primary Encounter for supervision of high risk in first trimester, antepartum (HCC) 10 weeks gestation of (HCC) state, incidental Marijuana use during (HCC) Current every day nicotine vaping Benign gestational thrombocytopenia in third trimester (HCC)- Primary documented in this encounter [facility] note* Diagnosis Short interval between pregnancies affecting in first trimester, antepartum (HCC)- Primary Encounter for supervision of high risk in first trimester, antepartum (HCC) 10 weeks gestation of (HCC) state, incidental Marijuana use during (HCC) Current every day nicotine vaping Supervision of high risk in third trimester (HCC)- Primary Unspecified high-risk Benign gestational thrombocytopenia in third trimester (HCC) HSV-2 infection complicating , third trimester (HCC) 37 weeks gestation of (HCC) state, incidental * Assessment & Plan Note - Sallie Wise MD - 04/18/2025 10:13 AM EDTAssociated Problem(s): Gestational thrombocytopenia (HCC) Last plts 138-->150 repeat cbc today Orders: URINE OB DIP B/O documented in this encounter [facility] note* Diagnosis Short interval between pregnancies affecting in first trimester, antepartum (HCC)- Primary Encounter for supervision of high risk in first trimester, antepartum (HCC) 10 weeks gestation of (HCC) state, incidental Marijuana use during (HCC) Current every day nicotine vaping Supervision of high risk in third trimester (HCC)- Primary Unspecified high-risk Benign gestational thrombocytopenia in third trimester (HCC) HSV-2 infection complicating , third trimester (HCC) 37 weeks gestation of (HCC) state, incidental 38 weeks gestation of (HCC)- Primary state, incidental Supervision of high risk in third trimester (HCC) Unspecified high-risk Benign gestational thrombocytopenia in third trimester (HCC) * Assessment & Plan Note - Trista Mackey MD - 04/25/2025 10:08 AM EDT Associated Problem(s): Gestational thrombocytopenia (HCC) plt normal last visit Orders: URINE OB DIP B/O documented in this encounter [facility] note* Diagnosis Short interval between pregnancies affecting in first trimester, antepartum (HCC)- Primary Encounter for supervision of high risk in first trimester, antepartum (HCC) 10 weeks gestation of (HCC) state, incidental Marijuana use during (HCC) Current every day nicotine vaping Supervision of high risk in third trimester (HCC)- Primary Unspecified high-risk Benign gestational thrombocytopenia in third trimester (HCC) HSV-2 infection complicating , third trimester (HCC) 37 weeks gestation of (HCC) state, incidental 38 weeks gestation of (HCC)- Primary state, incidental Supervision of high risk in third trimester (HCC) Unspecified high-risk Benign gestational thrombocytopenia in third trimester (HCC) Supervision of high risk in third trimester (HCC)- Primary Unspecified high-risk Benign gestational thrombocytopenia in third trimester (HCC) 39 weeks gestation of (HCC) state, incidental * Assessment & Plan Note - Trista Mackey MD - 05/02/2025 10:46 AM EDT Associated Problem(s): Gestational thrombocytopenia (HCC) platelets normal last check Orders: URINE OB DIP B/O documented in this encounter [facility] note* Diagnosis Short interval between pregnancies affecting in first trimester, antepartum (HCC)- Primary Encounter for supervision of high risk in first trimester, antepartum (HCC) 10 weeks gestation of (HCC) state, incidental Marijuana use during (HCC) Current every day nicotine vaping Benign gestational thrombocytopenia in third trimester (HCC)- Primary Supervision of high risk in third trimester (HCC)- Primary Unspecified high-risk Benign gestational thrombocytopenia in third trimester (HCC) HSV-2 infection complicating , third trimester (HCC) 37 weeks gestation of (HCC) state, incidental 38 weeks gestation of (HCC)- Primary state, incidental Supervision of high risk in third trimester (HCC) Unspecified high-risk Benign gestational thrombocytopenia in third trimester (HCC) Supervision of high risk in third trimester (HCC)- Primary Unspecified high-risk Benign gestational thrombocytopenia in third trimester (HCC) 39 weeks gestation of (HCC) state, incidental [facility] Diagnosis Short interval between pregnancies affecting in first trimester, antepartum ([facility])- Primary Encounter for supervision of high risk in first trimester, antepartum ([facility]) 10 weeks gestation of ([facility]) state, incidental Marijuana use during ([facility]) Current every day nicotine vaping Supervision of high risk in third trimester ([facility])- Primary Unspecified high-risk Benign gestational thrombocytopenia in third trimester ([facility]) HSV-2 infection complicating , third trimester ([facility]) 37 weeks gestation of ([facility]) state, incidental 38 weeks gestation of ([facility])- Primary state, incidental Supervision of high risk in third trimester (HCC) Unspecified high-risk Benign gestational thrombocytopenia in third trimester (HCC) Supervision of high risk in third trimester (HCC)- Primary Unspecified high-risk Benign gestational thrombocytopenia in third trimester (HCC) 39 weeks gestation of ([facility]) state, incidental Supervision of high risk in third trimester ([facility])- Primary Unspecified high-risk 40 weeks gestation of ([facility]) state, incidental Benign gestational thrombocytopenia in third trimester ([facility]) History of herpes genitalis Personal history of other infectious and parasitic disease Marijuana use during ([facility]) Short interval between pregnancies affecting in first trimester, antepartum ([facility]) 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 [address] [address] [place] [address] Referral ID Status Reason Start Date Expiration Date Visits Requested Visits Authorized [id number] Authorized Auto-Generat ed Referral 09/25/2024 1 1 [facility] Diagnostic Procedure Only (Routine) - Closed Specialty Diagnoses / Procedures Referred By Contac t Referred To Contact [facility] Diagnoses with uncertain dates in first trimester Procedures NUCHAL TRANSLUCENCY WHI US NUCHAL TRANSLUCENCY 1ST GESTATION Huan Campo APRN.CNP [address] [place] [address] [address] [place] [address] Referral ID Status Reason Start Date Expiration Date V isits Requested Visits Authorized [id number] Closed Auto-Generate d Referral 09/13/2024 11/09/2024 1 1 * Diagnostic Procedure Only (Routine) - New Request Specialty Diagnoses / Procedures Referred By Contac t Referred To Contact [facility] Diagnoses with uncertain dates in first trimester Procedures OBSTETRIC ULTRASOUND WHI US PREG UTERUS AFTER 1ST TRIMEST 1/ GESTATION Huan Campo APRN.CNP [address] 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 Expl anation ACP-Advance Directive ACP-Power of Cold Rolling Supervisor Latest Code Status on File Code Status Date Activated Date Inactivated Comments Full Code 03/16/2019 8:21 AM 03/18/2019 2:17 PM Full Code 03/15/2019 9:21 PM 03/16/2019 8:21 AM Advance Directive Response Recorded Date/ Time Living Will No August 21 5:50pm Power of Cold Rolling Supervisor No August 21, 2021 5:50pm Advance Directive Response Recorded Date/ Time Living Will No November 05 023 9:04pm Power of Cold Rolling Supervisor No November 05, 2023 9:04pm Chief Complaint and Reason for Visit Chief Complaint DRAW AT 9:40AM 1 LEEANN R Chief Complaint DRAW AT 9:40AM 1 LEEANN R VAGINAL DELIVERY Reason for Visit 38 weeks gestation o f Care and examination of lactating mother Genital herpes History of anxiety History of asthma History of depression Positive GBS test PTSD (post-traumatic stress disorder) Spontaneous onset of labor (spontaneous vaginal delivery) Health Concerns Problem Noted Date Diagnosed Date [facility] - [facility] 09/26/2023 [place] - [place] 09/26/2023 Problem Noted Date Diagnosed Date [facility] - [facility] 09/26/2023 Education - [place] 09/26/2023 Problem Noted Date Diagnosed Date [facility] - [facility] 09/26/2023 Education - [place] 09/26/2023 Problem Noted Date Diagnosed Date [facility] - [facility] 09/26/2023 Education - [place] 09/26/2023 Additional Source Comments INFORMATION SOURCE (unrecogn ized section and content) DATE CREATED AUTHOR 12/12/2020 [facility] DATE CREATED AUTHOR AUTHOR'S ORGANIZ ATION 05/02/2022 [facility] DATE CREATED AUTHOR AUTHOR'S ORGANIZ ATION 10/09/2022 [facility] DATE CREATED AUTHOR AUTHOR'S ORGANIZ ATION 12/07/2024 [facility] DATE CREATED AUTHOR AUTHOR'S ORGANIZ ATION 05/09/[address] [facility] Reason for Visit (unrecogniz ed section and content) Reason Comments Arm Pain Foot Pain Reason Comments Received Outside Medical Records Reason Comments breast pump Reason Comments Initial OB Visit Transfer from [facility] Reason Comments 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 [address] [address] Referral ID Status Reason Start Date Expiration Date V isits Requested Visits Authorized [id number] Closed Auto-Generate d Referral 09/26/2023 09/25/2024 1 1 Reason Comments Routine Reason Comments Appointment Reason Comments Initial OB Visit Specialty Diagnoses / Procedures Referred By Contac t Referred To Contact [facility] Diagnoses with uncertain dates in first trimester Procedures NUCHAL TRANSLUCENCY WHI US NUCHAL TRANSLUCENCY 1ST GESTATION Huan Campo APRN.BELKIS [address] [place] [address] [address] Referral ID Status Reason Start Date Expiration Date V isits Requested Visits Authorized [id number] Closed Auto-Generate d Referral 09/13/2024 11/09/2024 1 1 Reason Onset Date Comments Care 10/12/2024 Reason Onset Date Comments Appointment Request 10/09/2022 Specialty Diagnoses / Procedures Referred By Contac t Referred To Contact [facility] Diagnoses with uncertain dates in first trimester Procedures NUCHAL TRANSLUCENCY WHI US NUCHAL TRANSLUCENCY 1ST GESTATION Huan Campo APRN.CNP [address] [place] [address] [address] Reason Onset Date Comments Care 11/23/2024 Reason Onset Date Comments Care 01/10/2025 Specialty Diagnoses / Procedures Referred By Contac t Referred To Contact [facility] Diagnoses with uncertain dates in first trimester Procedures OBSTETRIC ULTRASOUND WHI US PREG UTERUS AFTER 1ST TRIMEST GESTATION Huan Campo APRN.CNP [address] [place] [address] Phone: tel: fax: [facility] [address] [place] [address] Referral ID Status Reason Start Date Expiration Date V isits Requested Visits Authorized [id number] Closed Auto-Generate d Referral 09/13/2024 09/13/2025 1 1 Reason Onset Date Comments Care 02/07/2025 Reason Onset Date Comments Care 02/21/2025 Reason Onset Date Comments Care 03/21/2025 Reason Onset Date Comments Care 04/18/2025 Reason Onset Date Comments Care 04/25/2025 Reason Onset Date Comments Care 05/02/2025 Reason Onset Date Comments Care 05/09/2025 Scheduled Active and Recently Administ ered Medications (unrecognized section and content) Medication Order 04/29/2022 04/30/2022 05/01/2022 ibuprofen (ADVIL;MOTRIN) tablet 300 mg 300 mg, Oral, ONCE, 1 dose, On Fri05/01/22 at 1727, Do not crush or chew. 172 (Due) ibuprofen (ADVIL;MOTRIN) tablet 400 mg 400 mg, Oral, ONCE, 1 dose, On Fri05/01/22 at 1720, Do not crush or chew. 1723 (Not Given - Pr ovider: Emily Lujan RN - Reason: Medication not available) Care Teams (unrecognized sec tion and content) [facility] Director Relationship Specialty Start Date End Date Reese Tellez MD [address] [place] [address] PCP - General 11/18/16 Team Status: Active Member Role Status Dates No Primary Care Physician Family Provider Active No Primary Care Physician Primary Care Provider Active Team Status: Inactive Member Role Status Dates No Primary Care Physician Primary Care Provider Active Dr. Sal Hathaway MD Attending Provider Active Team Status: Inactive Member Role Status Dates No Primary Care Physician Primary Care Provider Active Dr. Sal Hathaway MD Attending Provider, Referring Pr ovider Active Team Status: Inactive Member Role Status Dates No Primary Care Physician Primary Care Provider Active Aislinn Bowman CNM Admit Provider, At tending Provider, Referring Provider Active [facility] Director Relationship Specialty Start Date End Date Reese Tellez MD [address] [place], [place] [id number] PCP - General 11/18/16 Goals (unrecognized section and content) Goals may be documented in a n alternate sectionGoals may be documented in an alternate section Source Comments (unrecognize d section and content) In the event this informatio n is protected by the Federal Confidentiality of Alcohol and Drug Abuse Patient Records regulations: The Federal rules restrict any use of the information to criminally investigate or prosecute any alcohol or drug abuse patient.[facility] the event this information is protected by the Federal Confidentiality of Alcohol and Drug Abuse Patient Records regulations: The Federal rules restrict any use of the information to criminally investigate or prosecute any alcohol or drug abuse patient.[facility] HospitalIn the event this information is protected by the Federal Confidentiality of Alcohol and Drug Abuse Patient Records regulations: The Federal rules restrict any use of the information to criminally investigate or prosecute any alcohol or drug abuse patient.[facility] the event this information is protected by the Federal Confidentiality of Alcohol and Drug Abuse Patient Records regulations: The Federal rules restrict any use of the information to criminally investigate or prosecute any alcohol or drug abuse patient.[facility] the event this information is protected by the Federal Confidentiality of Alcohol and Drug Abuse Patient Records regulations: The Federal rules restrict any use of the information to criminally investigate or prosecute any alcohol or drug abuse patient.[facility]In the event this information is protected by the Federal Confidentiality of Alcohol and Drug Abuse Patient Records regulations: The Federal rules restrict any use of the information to criminally investigate or prosecute any alcohol or drug abuse patient.[facility] HospitalIn the event this information is protected by the Federal Confidentiality of Alcohol and Drug Abuse Patient Records regulations: The Federal rules restrict any use of the information to criminally investigate or prosecute any alcohol or drug abuse patient.[facility] the event this information is protected by the Federal Confidentiality of Alcohol and Drug Abuse Patient Records regulations: The Federal rules restrict any use of the information to criminally investigate or prosecute any alcohol or drug abuse patient.[facility] the event this information is protected by the Federal Confidentiality of Alcohol and Drug Abuse Patient Records regulations: The Federal rules restrict any use of the information to criminally investigate or prosecute any alcohol or drug abuse patient.[facility] HospitalIn the event this information is protected by the Federal Confidentiality of Alcohol and Drug Abuse Patient Records regulations: The Federal rules restrict any use of the information to criminally investigate or prosecute any alcohol or drug abuse patient.[facility] HospitalIn the event this information is protected by the Federal Confidentiality of Alcohol and Drug Abuse Patient Records regulations: The Federal rules restrict any use of the information to criminally investigate or prosecute any alcohol or drug abuse patient.[facility] HospitalIn the event this information is protected by the Federal Confidentiality of Alcohol and Drug Abuse Patient Records regulations: The Federal rules restrict any use of the information to criminally investigate or prosecute any alcohol or drug abuse patient.[facility] HospitalIn the event this information is protected by the Federal Confidentiality of Alcohol and Drug Abuse Patient Records regulations: The Federal rules restrict any use of the information to criminally investigate or prosecute any alcohol or drug abuse patient.[facility] HospitalIn the event this information is protected by the Federal Confidentiality of Alcohol and Drug Abuse Patient Records regulations: The Federal rules restrict any use of the information to criminally investigate or prosecute any alcohol or drug abuse patient.[facility] HospitalIn the event this information is protected by the Federal Confidentiality of Alcohol and Drug Abuse Patient Records regulations: The Federal rules restrict any use of the information to criminally investigate or prosecute any alcohol or drug abuse patient.[facility] HospitalIn the event this information is protected by the Federal Confidentiality of Alcohol and Drug Abuse Patient Records regulations: The Federal rules restrict any use of the information to criminally investigate or prosecute any alcohol or drug abuse patient.[facility] HospitalIn the event this information is protected by the Federal Confidentiality of Alcohol and Drug Abuse Patient Records regulations: The Federal rules restrict any use of the information to criminally investigate or prosecute any alcohol or drug abuse patient.[facility] HospitalIn the event this information is protected by the Federal Confidentiality of Alcohol and Drug Abuse Patient Records regulations: The Federal rules restrict any use of the information to criminally investigate or prosecute any alcohol or drug abuse patient.[facility] HospitalIn the event this information is protected by the Federal Confidentiality of Alcohol and Drug Abuse Patient Records regulations: The Federal rules restrict any use of the information to criminally investigate or prosecute any alcohol or drug abuse patient.[facility] HospitalIn the event this information is protected by the Federal Confidentiality of Alcohol and Drug Abuse Patient Records regulations: The Federal rules restrict any use of the information to criminally investigate or prosecute any alcohol or drug abuse patient.[facility]In the event this information is protected by the Federal Confidentiality of Alcohol and Drug Abuse Patient Records regulations: The Federal rules restrict any use of the information to criminally investigate or prosecute any alcohol or drug abuse patient.[facility] HospitalIn the event this information is protected by the Federal Confidentiality of Alcohol and Drug Abuse Patient Records regulations: The Federal rules restrict any use of the information to criminally investigate or prosecute any alcohol or drug abuse patient.[facility] HospitalIn the event this information is protected by the Federal Confidentiality of Alcohol and Drug Abuse Patient Records regulations: The Federal rules restrict any use of the information to criminally investigate or prosecute any alcohol or drug abuse patient.[facility] HospitalIn the event this information is protected by the Federal Confidentiality of Alcohol and Drug Abuse Patient Records regulations: The Federal rules restrict any use of the information to criminally investigate or prosecute any alcohol or drug abuse patient.[facility] HospitalIn the event this information is protected by the Federal Confidentiality of Alcohol and Drug Abuse Patient Records regulations: The Federal rules restrict any use of the information to criminally investigate or prosecute any alcohol or drug abuse patient.[facility] HospitalIn the event this information is protected by the Federal Confidentiality of Alcohol and Drug Abuse Patient Records regulations: The Federal rules restrict any use of the information to criminally investigate or prosecute any alcohol or drug abuse patient.[facility] HospitalIn the event this information is protected by the Federal Confidentiality of Alcohol and Drug Abuse Patient Records regulations: The Federal rules restrict any use of the information to criminally investigate or prosecute any alcohol or drug abuse patient.[facility] HospitalIn the event this information is protected by the Federal Confidentiality of Alcohol and Drug Abuse Patient Records regulations: The Federal rules restrict any use of the information to criminally investigate or prosecute any alcohol or drug abuse patient.[facility] HospitalIn the event this information is protected by the Federal Confidentiality of Alcohol and Drug Abuse Patient Records regulations: The Federal rules restrict any use of the information to criminally investigate or prosecute any alcohol or drug abuse patient.[facility] HospitalIn the event this information is protected by the Federal Confidentiality of Alcohol and Drug Abuse Patient Records regulations: The Federal rules restrict any use of the information to criminally investigate or prosecute any alcohol or drug abuse patient.[facility] FOR RECORDS PERTAINING TO PATIENTS WHO ARE OR HAVE BEEN ENROLLED IN A CHEMICAL DEPENDENCY/SUBSTANCEABUSE PROGRAM, SOME INFORMATION MAY BE OMITTED. This clinical summary was aggregated from multiple sources. Caution should be exercised in using it in the provision of clinical care. This summary normalizes information from multiple sources, and as a consequence, information in this document may materially change the coding, format and clinical context of patient data. In addition, data may be omitted in some cases. CLINICAL DECISIONS SHOULD BE BASED ON THE PRIMARY CLINICAL RECORDS. [facility]. provides no warranty or guarantee of the accuracy or completeness of information in this document.
--- OUTSIDE RECORDS SUMMARY | 2025-05-11 21:39 | XMS RPT_ITS | CCD ---
Author Organization [facility] Inform ion Partnership [facility] Care Team Providers Care Process Maintenance Technician Name Role Phone Reese Tellez MD Primary Care Provider [phone] Unavailable Primary Care Provider Unavailabl e Unavailable Primary Care Provider UnavailReese Degroot MD Primary Care Provider Marcelo France Attending Unavailable Care Physician, No [...] Translations: [ALBUTEROL SULFATE] Drug Allergy 09-26-2023 Yajaira [facility] Work Phone: (1 source) Albuterol Drug Allergy 11-05-2023 Yajaira [facility] (1 source) Albuterol Drug Allergy 12-06-2024 [facility] Repository Medications Current Medications Medication Drug Class(es) Dates Sig (Normalized) Sig (Original) Acetaminophen (20 sources) acetaminophen (T YLENOL ORAL) Take by mouth. Active acetaminophen (T YLENOL ORAL) Take by mouth. 0 Active Comment on above: Take by mouth. Floweree (Nk) (2 sources) Start: 9 Floweree (Nk) Active September 17, 2019 1:00am Pnv Cmb#95-Ferrous Fumarate-Fa () 28 mg iron- 800 mcg tablet (1 source) Start: 3 take 1 tablet by mouth once daily Pnv Cmb#95-Ferrous Fumarate-Fa () 28 mg iron- 800 mcg tablet Active 1 TABLET PO DAILY November 05, 2023 12:00am Lixzbdhu-Bs-Eqa-Fe-FA tab (20 sources) Start: 4 take 1 tablet by mouth once daily Entynuix-Kt-Zam-Fe-F A tab Take 1 tablet by mouth [...] Drug Class(es) Dates Sig (Normalized) Sig (Original) [id number] 200 actuat albuterol 0.09 mg/actuat metered dose [...] of ; Translations: [35 weeks gestation of ([facility])] Onset: 04-05-2025 Episodic Residual codes; unclassified (1 source) 33 weeks gestation of ; Translations: [33 weeks gestation of ([facility])] Onset: 03-21-2025 Episodic Residual codes; unclassified (1 source) 30 weeks gestation of ; Translations: [30 weeks gestation of ([facility])] Onset: 03-07-2025 Episodic Residual codes; unclassified (1 [...] Translations: [HSV-2 infection complicating , third trimester ([facility])] Onset: 04-05-2025 Episodic Past or Other Problems [...] 5 Glucose Ql (U) Negative Neg mg/dL [facility] Interpretation and review of laboratory results Normal [facility] Protein.monoclonal (U) [Mass/Vol] Negative Neg mg/dL [facility] URINE OB DIP B/Oon 5 Glucose Ql (U) Negative Neg mg/dL [facility] Interpretation and review of laboratory results Normal [facility] Protein.monoclonal (U) [Mass/Vol] Negative Neg mg/dL [facility] URINE OB DIP B/Oon 5 Glucose Ql (U) Negative Neg mg/dL [facility] Interpretation and review of laboratory results Normal [facility] Protein.monoclonal (U) [Mass/Vol] Negative Neg mg/dL [facility] CBC W Auto Differential pane l (Bld)on 04-18-2025 Basophils (Bld) [#/Vol] 10*3/uL Normal <0.11 [facility] Comment on above: Order Comment: Speci men Type: BLOOD SPECIMEN Ordering Facility: [facility] Address: [address] [place] [address] Performed By: #### 7 3752-8 #### [facility] CLIA [id number] [address] [place] [address] [place] Basophils/100 WBC (Bld) 0.2 % Normal [facility] Comment on above: Order Comment: Speci men Type: BLOOD SPECIMEN Ordering Facility: [facility] Address: [address] [place] [address] Performed By: #### 7 3752-8 #### [facility] CLIA [id number] [address] [place] [address] [place] Differential cell count method Nom (Bld) Auto Normal [facility] Comment on above: Order Comment: Speci men Type: BLOOD SPECIMEN Ordering Facility: [facility] Address: [address] [place] [address] Performed By: #### 7 3752-8 #### [facility] CLIA [id number] [address] [place] [address] [place] Eosinophils (Bld) [#/Vol] 0.10 10*3/uL Normal <0.46 [facility] Comment on above: Order Comment: Speci men Type: BLOOD SPECIMEN Ordering Facility: [facility] Address: [address] [place] [address] Performed By: #### 7 3752-8 #### [facility] CLIA [id number] [address] [place] [address] [place] Eosinophils/100 WBC (Bld) 0.8 % Normal [facility] Comment on above: Order Comment: Speci men Type: BLOOD SPECIMEN Ordering Facility: [facility] Address: [address] [place] [address] Performed By: #### 7 3752-8 #### [facility] CLIA [id number] [address] [place] [address] [place] Erythrocyte distribution width (RBC) [Ratio] 13.4 % Normal 11.5-15.0 [facility] Comment on above: Order Comment: Speci men Type: BLOOD SPECIMEN Ordering Facility: [facility] Address: [address] [place] [address] Performed By: #### 7 3752-8 #### [facility] CLIA [id number] [address] [place] [address] [place] Hematocrit (Bld) [Volume fraction] 35.8 % Low 36.0-46.0 [facility] Comment on above: Order Comment: Speci men Type: BLOOD SPECIMEN Ordering Facility: [facility] Address: [address] [place] [address] Performed By: #### 7 3752-8 #### [facility] CLIA [id number] [address] [place] [address] [place] Hemoglobin (Bld) [Mass/Vol] 11.9 g/dL Normal 11.5-15.5 [facility] Comment on above: Order Comment: Speci men Type: BLOOD SPECIMEN Ordering Facility: [facility] Address: [address] [place] [address] Performed By: #### 7 3752-8 #### [facility] CLIA [id number] [address] [place] [address] [place] Immature granulocytes (Bld) [#/Vol] 0.11 10*3/uL High <0.10 [facility] Comment on above: Order Comment: Speci men Type: BLOOD SPECIMEN Ordering Facility: [facility] Address: [address] [place] [address] Performed By: #### 7 3752-8 #### [facility] CLIA [id number] [address] [place] [address] [place] Immature granulocytes/100 WBC (Bld) 0.9 % Normal [facility] Comment on above: Order Comment: Speci men Type: BLOOD SPECIMEN Ordering Facility: [facility] Address: [address] [place] [address] Performed By: #### 7 3752-8 #### [facility] CLIA [id number] [address] [place] [address] [place] Lymphocytes (Bld) [#/Vol] 1.98 10*3/uL Normal 1.00-4.00 [facility] Comment on above: Order Comment: Speci men Type: BLOOD SPECIMEN Ordering Facility: [facility] Address: [address] [place] [address] Performed By: #### 7 3752-8 #### [facility] CLIA [id number] [address] [place] [address] [place] Lymphocytes/100 WBC (Bld) 15.5 % Normal [facility] Comment on above: Order Comment: Speci men Type: BLOOD SPECIMEN Ordering Facility: [facility] Address: [address] [place] [address] Performed By: #### 7 3752-8 #### [facility] CLIA [id number] [address] [place] [address] [place] MCH (RBC) [Entitic mass] 29.0 pg Normal 26.0-34.0 [facility] Comment on above: Order Comment: Speci men Type: BLOOD SPECIMEN Ordering Facility: [facility] Address: [address] [place] [address] Performed By: #### 7 3752-8 #### [facility] CLIA [id number] [address] [id number] [address] [place] MCHC (RBC) [Mass/Vol] 33.2 g/dL Normal 30.5-36.0 [facility] Comment on above: Order Comment: Speci men Type: BLOOD SPECIMEN Ordering Facility: [facility] Address: [address] [place] [address] Performed By: #### 7 3752-8 #### [facility] CLIA [id number] [address] [place] [address] [place] MCV (RBC) [Entitic vol] 87.1 fL Normal 80.0-100.0 [facility] Comment on above: Order Comment: Speci men Type: BLOOD SPECIMEN Ordering Facility: [facility] Address: [address] [place] [address] Performed By: #### 7 3752-8 #### [facility] CLIA [id number] [address] [place] [address] [place] Monocytes (Bld) [#/Vol] 0.76 10*3/uL Normal <0.87 [facility] Comment on above: Order Comment: Speci men Type: BLOOD SPECIMEN Ordering Facility: [facility] Address: [address] [place] [address] Performed By: #### 7 3752-8 #### [facility] CLIA [id number] [address] [place] [address] [place] Monocytes/100 WBC (Bld) 6.0 % Normal [facility] Comment on above: Order Comment: Speci men Type: BLOOD SPECIMEN Ordering Facility: [facility] Address: [address] [place] [address] Performed By: #### 7 3752-8 #### [facility] CLIA [id number] [address] [place] [address] [place] Neutrophils (Bld) [#/Vol] 9.78 10*3/uL High 1.45-7.50 [facility] Comment on above: Order Comment: Speci men Type: BLOOD SPECIMEN Ordering Facility: [facility] Address: [address] [place] [address] Performed By: #### 7 3752-8 #### [facility] CLIA [id number] [address] [place] [address] [place] Neutrophils/100 WBC (Bld) 76.6 % Normal [facility] Comment on above: Order Comment: Speci men Type: BLOOD SPECIMEN Ordering Facility: [facility] Address: [address] [place] [address] Performed By: #### 7 3752-8 #### [facility] CLIA [id number] [address] [place] [address] [place] Nucleated RBC (Bld) [#/Vol] 10*3/uL Normal <0.01 [facility] Comment on above: Order Comment: Speci men Type: BLOOD SPECIMEN Ordering Facility: [facility] Address: [address] [place] [address] Performed By: #### 7 3752-8 #### [facility] CLIA [id number] [address] [place] [address] [place] Nucleated RBC/100 WBC (Bld) [Ratio] 0.0 /100 WBC Normal [facility] Comment on above: Order Comment: Speci men Type: BLOOD SPECIMEN Ordering Facility: [facility] Address: [address] [place] [address] Performed By: #### 7 3752-8 #### [facility] CLIA [id number] [address] [place] [address] [place] Platelet mean volume (Bld) [Entitic vol] 9.2 fL Normal 9.0-12.7 [facility] Comment on above: Order Comment: Speci men Type: BLOOD SPECIMEN Ordering Facility: [facility] Address: [address] [place] [address] Performed By: #### 7 3752-8 #### [facility] CLIA [id number] [address] [place] [address] [place] Platelets (Bld) [#/Vol] 181 10*3/uL Normal 150-400 [facility] Comment on above: Order Comment: Speci men Type: BLOOD SPECIMEN Ordering Facility: [facility] Address: [address] [place] [address] Performed By: #### 7 3752-8 #### [facility] CLIA [id number] [address] [place] [address] [place] RBC (Bld) [#/Vol] 4.11 10*6/uL Normal 3.90-5.20 [facility] Comment on above: Order Comment: Speci men Type: BLOOD SPECIMEN Ordering Facility: [facility] Address: [address] [place] [address] Performed By: #### 7 3752-8 #### [facility] CLIA [id number] [address] [place] [address] [place] WBC (Bld) [#/Vol] 12.75 10*3/uL High 3.70-11.00 [facility] Comment on above: Order Comment: Speci men Type: BLOOD SPECIMEN Ordering Facility: [facility] Address: [address] [place] [address] Performed By: #### 7 3752-8 #### [facility] CLIA [id number] [address] [place] [address] [place] ROUTINE, GROUP B ST REPTOCOCCUS BY PCRon 04-18-2025 ROUTINE, GROUP B STREPTOCOCCUS BY PCR Not detected Normal [facility] Comment on above: Performed By: #### 3 6902-5, TRVAMP #### [facility] CLIA [id number] [address] [place] [address] [place] URINE OB DIP B/Oon Glucose Ql (U) Negative Neg mg/dL [facility] Protein.monoclonal (U) [Mass/Vol] Negative Neg mg/dL [facility] URINE OB DIP B/Oon Glucose Ql (U) Negative Neg mg/dL [facility] Protein.monoclonal (U) [Mass/Vol] Negative Neg mg/dL [facility] UA DIP, URINE (POC)on 2024 BILIRUBIN UA (POCT) Negative Negative [facility] CLARITY UA (POCT) Clear [facility] COLOR UA (POCT) Other [facility] GLUCOSE UA (POCT) Negative Negative mg/dL [facility] Hemoglobin Ql (U) Negative Negative [facility] KETONE UA (POCT) Negative Negative mg/dL [facility] LEUKOCYTES UA (POCT) Negative Negative [facility] NITRITE UA (POCT) Negative Negative [facility] PH UA (POCT) 6.5 4.5 - 8.0 [facility] Protein Ql (U) Negative Negative mg/dL [facility] SPECIFIC GRAVITY UA (POCT) >=1.030 1.005 - 1.030 [facility] UROBILINOGEN UA (POCT) 0.2 Normal E.U./dL [facility] Location:[facility], [address] [place], [address] [facility] POINT OF CARE [facility] CBC panel Auto (Bld)on 03-07 Erythrocyte distribution width (RBC) [Ratio] 13.2 % Normal 11.5-15.0 [facility] Comment on above: Order Comment: Speci men Type: SWAB Ordering Facility: [facility] Address: [address] [place] [address] Performed By: #### 3 6902-5, TRVAMP #### [facility] CLIA [id number] [address] [place] [address] [place] Hematocrit (Bld) [Volume fraction] 35.1 % Low 36.0-46.0 [facility] Comment on above: Order Comment: Speci men Type: SWAB Ordering Facility: [facility] Address: [address] [place] [address] Performed By: #### 3 6902-5, TRVAMP #### [facility] CLIA [id number] [address] [place] [address] [place] Hemoglobin (Bld) [Mass/Vol] 11.8 g/dL Normal 11.5-15.5 [facility] Comment on above: Order Comment: Speci men Type: SWAB Ordering Facility: [facility] Address: [address] [place] [address] Performed By: #### 3 6902-5, TRVAMP #### [facility] CLIA [id number] [address] [place] [address] [place] MCH (RBC) [Entitic mass] 29.7 pg Normal 26.0-34.0 [facility] Comment on above: Order Comment: Speci men Type: SWAB Ordering Facility: [facility] Address: [address] [place] [address] Performed By: #### 3 6902-5, TRVAMP #### [facility] CLIA [id number] [address] [place] [address] [place] MCHC (RBC) [Mass/Vol] 33.6 g/dL Normal 30.5-36.0 [facility] Comment on above: Order Comment: Speci men Type: SWAB Ordering Facility: [facility] Address: [address] [place] [address] Performed By: #### 3 6902-5, TRVAMP #### [facility] CLIA [id number] [address] [place] [address] [place] MCV (RBC) [Entitic vol] 88.4 fL Normal 80.0-100.0 [facility] Comment on above: Order Comment: Speci men Type: SWAB Ordering Facility: [facility] Address: [address] [place] [address] Performed By: #### 3 6902-5, TRVAMP #### [facility] CLIA [id number] [address] [place] [address] [place] Nucleated RBC (Bld) [#/Vol] 10*3/uL Normal <0.01 [facility] Comment on above: Order Comment: Speci men Type: SWAB Ordering Facility: [facility] Address: [address] [place] [address] Performed By: #### 3 6902-5, TRVAMP #### [facility] CLIA [id number] [address] [place] [address] [place] Platelet mean volume (Bld) [Entitic vol] 9.1 fL Normal 9.0-12.7 [facility] Comment on above: Order Comment: Speci men Type: SWAB Ordering Facility: [facility] Address: [address] [place] [address] Performed By: #### 3 6902-5, TRVAMP #### [facility] CLIA [id number] [address] [place] [address] [place] Platelets (Bld) [#/Vol] 150 10*3/uL Normal 150-400 [facility] Comment on above: Order Comment: Speci men Type: SWAB Ordering Facility: [facility] Address: [address] [place] [address] Performed By: #### 3 6902-5, TRVAMP #### [facility] CLIA [id number] [address] [place] [address] [place] RBC (Bld) [#/Vol] 3.97 10*6/uL Normal 3.90-5.20 [facility] Comment on above: Order Comment: Speci men Type: SWAB Ordering Facility: [facility] Address: [address] [place] [address] Performed By: #### 3 6902-5, TRVAMP #### [facility] CLIA [id number] [address] [place] [address] [place] WBC (Bld) [#/Vol] 10.64 10*3/uL Normal 3.70-11.00 [facility] Comment on above: Order Comment: Speci men Type: SWAB Ordering Facility: [facility] Address: [address] [place] [address] Performed By: #### 3 6902-5, DOMENICA #### [facility] CLIA [id number] [address] [place] [id number] [facility] Laura 02-22-2025 CNPN Telephone ([id number]) GUERDA CARDONA ([id number]) 89 F Date Time Provider Department 02/22/25 ESTEFANÍA BRADSHAW [id number] During your visit today, we recorded the following information about you: Estefanía Bradshaw RN 02/22/2025 9:31 AM Signed 3rd risk assessment form submitted 02/22/2025. 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 [3602] Cmt: PRAF Prescriptions as of 02/22/2025 - Lporasjo-Wo-Qrq-Fe-F A tab Take 1 tablet by mouth [...] Status:Closed by ESTEFANÍA BRADSHAW on 02/22/25 Normal [facility] CBC W Auto Differential pane l (Bld)on 02-07-2025 Basophils (Bld) [#/Vol] 10*3/uL Normal <0.11 [facility] Comment on above: Order Comment: Speci men Type: BLOOD SPECIMEN Ordering Facility: [facility] Address: [address] [place] [address] Performed By: #### 5 7021-8 #### [facility] CLIA [id number] [address] [place] [address] [place] Basophils/100 WBC (Bld) 0.2 % Normal [facility] Comment on above: Order Comment: Speci men Type: BLOOD SPECIMEN Ordering Facility: [facility] Address: [address] [place] [address] Performed By: #### 5 7021-8 #### [facility] CLIA [id number] [address] [place] [address] [place] Differential cell count method Nom (Bld) Auto Normal [facility] Comment on above: Order Comment: Speci men Type: BLOOD SPECIMEN Ordering Facility: [facility] Address: [address] [place] [address] Performed By: #### 5 7021-8 #### [facility] CLIA [id number] [address] [place] [address] [place] Eosinophils (Bld) [#/Vol] 0.12 10*3/uL Normal <0.46 [facility] Comment on above: Order Comment: Speci men Type: BLOOD SPECIMEN Ordering Facility: [facility] Address: [address] [place] [address] Performed By: #### 5 7021-8 #### [facility] CLIA [id number] [address] [place] [address] [place] Eosinophils/100 WBC (Bld) 1.4 % Normal [facility] Comment on above: Order Comment: Speci men Type: BLOOD SPECIMEN Ordering Facility: [facility] Address: [address] [place] [address] Performed By: #### 5 7021-8 #### [facility] CLIA [id number] [address] [place] [address] [place] Erythrocyte distribution width (RBC) [Ratio] 13.2 % Normal 11.5-15.0 [facility] Comment on above: Order Comment: Speci men Type: BLOOD SPECIMEN Ordering Facility: [facility] Address: [address] [place] [address] Performed By: #### 5 7021-8 #### [facility] CLIA [id number] [address] [place] [address] [place] Hematocrit (Bld) [Volume fraction] 34.6 % Low 36.0-46.0 [facility] Comment on above: Order Comment: Speci men Type: BLOOD SPECIMEN Ordering Facility: [facility] Address: [address] [place] [address] Performed By: #### 5 7021-8 #### [facility] CLIA [id number] [address] [place] [address] [place] Hemoglobin (Bld) [Mass/Vol] 11.6 g/dL Normal 11.5-15.5 [facility] Comment on above: Order Comment: Speci men Type: BLOOD SPECIMEN Ordering Facility: [facility] Address: [address] [place] [address] Performed By: #### 5 7021-8 #### [facility] [id number] [address] [place] [address] [place] Immature granulocytes (Bld) [#/Vol] 0.04 10*3/uL Normal <0.10 [facility] Comment on above: Order Comment: Speci men Type: BLOOD SPECIMEN Ordering Facility: [facility] Address: [address] [place] [address] Performed By: #### 5 7021-8 #### [facility] CLIA [id number] [address] [place] [address] [place] Immature granulocytes/100 WBC (Bld) 0.5 % Normal [facility] Comment on above: Order Comment: Speci men Type: BLOOD SPECIMEN Ordering Facility: [facility] Address: [address] [place] [address] Performed By: #### 5 7021-8 #### [facility] CLIA [id number] [address] [place] [address] [place] Lymphocytes (Bld) [#/Vol] 1.50 10*3/uL Normal 1.00-4.00 [facility] Comment on above: Order Comment: Speci men Type: BLOOD SPECIMEN Ordering Facility: [facility] Address: [address] [place] [address] Performed By: #### 5 7021-8 #### [facility] CLIA [id number] [address] [place] [address] STATES [facility] Lymphocytes/100 WBC (Bld) 17.2 % Normal [facility] Comment on above: Order Comment: Speci men Type: BLOOD SPECIMEN Ordering Facility: [facility] Address: [address] [place] [address] Performed By: #### 5 7021-8 #### [facility] CLIA [id number] [address] [place] [address] [place] MCH (RBC) [Entitic mass] 29.8 pg Normal 26.0-34.0 [facility] Comment on above: Order Comment: Speci men Type: BLOOD SPECIMEN Ordering Facility: [facility] Address: [address] [place] [address] Performed By: #### 5 7021-8 #### [facility] CLIA [id number] [address] [place] [address] [place] MCHC (RBC) [Mass/Vol] 33.5 g/dL Normal 30.5-36.0 [facility] Comment on above: Order Comment: Speci men Type: BLOOD SPECIMEN Ordering Facility: [facility] Address: [address] [place] [address] Performed By: #### 5 7021-8 #### [facility] CLIA [id number] [address] [place] [address] [place] MCV (RBC) [Entitic vol] 88.9 fL Normal 80.0-100.0 [facility] Comment on above: Order Comment: Speci men Type: BLOOD SPECIMEN Ordering Facility: [facility] Address: [address] [place] [address] Performed By: #### 5 7021-8 #### [facility] CLIA [id number] [address] [place] [address] [place] Monocytes (Bld) [#/Vol] 0.46 10*3/uL Normal <0.87 [facility] Comment on above: Order Comment: Speci men Type: BLOOD SPECIMEN Ordering Facility: [facility] Address: [address] [place] [address] Performed By: #### 5 7021-8 #### [facility] CLIA [id number] [address] [place] [address] [place] Monocytes/100 WBC (Bld) 5.3 % Normal [facility] Comment on above: Order Comment: Speci men Type: BLOOD SPECIMEN Ordering Facility: [facility] Address: [address] [place] [address] Performed By: #### 5 7021-8 #### [facility] CLIA [id number] [address] [place] [address] [place] Neutrophils (Bld) [#/Vol] 6.59 10*3/uL Normal 1.45-7.50 [facility] Comment on above: Order Comment: Speci men Type: BLOOD SPECIMEN Ordering Facility: [facility] Address: [address] [place] [address] Performed By: #### 5 7021-8 #### [facility] CLIA [id number] [address] [place] [address] [place] Neutrophils/100 WBC (Bld) 75.4 % Normal [facility] Comment on above: Order Comment: Speci men Type: BLOOD SPECIMEN Ordering Facility: [facility] Address: [address] [place] [address] Performed By: #### 5 7021-8 #### [facility] CLIA [id number] [address] [place] [address] [place] Nucleated RBC (Bld) [#/Vol] 10*3/uL Normal <0.01 [facility] Comment on above: Order Comment: Speci men Type: BLOOD SPECIMEN Ordering Facility: [facility] Address: [address] [place] [address] Performed By: #### 5 7021-8 #### [facility] CLIA [id number] [address] [place] [address] [place] Nucleated RBC/100 WBC (Bld) [Ratio] 0.0 /100 WBC Normal [facility] Comment on above: Order Comment: Speci men Type: BLOOD SPECIMEN Ordering Facility: [facility] Address: [address] [place], [place] [address] Performed By: #### 5 7021-8 #### [facility] CLIA [id number] [address] [place] [address] [place] Platelet mean volume (Bld) [Entitic vol] 8.7 fL Low 9.0-12.7 [facility] Comment on above: Order Comment: Speci men Type: BLOOD SPECIMEN Ordering Facility: [facility] Address: [address] [place], [place] [address] Performed By: #### 5 7021-8 #### [facility] CLIA [id number] [address] [place] [address] [place] Platelets (Bld) [#/Vol] 138 10*3/uL Low 150-400 [facility] Comment on above: Order Comment: Speci men Type: BLOOD SPECIMEN Ordering Facility: [facility] Address: [address] [place] [address] Performed By: #### 5 7021-8 #### [facility] CLIA [id number] [address] [place] [address] [place] RBC (Bld) [#/Vol] 3.89 10*6/uL Low 3.90-5.20 [facility] Comment on above: Order Comment: Speci men Type: BLOOD SPECIMEN Ordering Facility: [facility] Address: [address] [place] [address] Performed By: #### 5 7021-8 #### [facility] CLIA [id number] [address] [place] [address] [place] WBC (Bld) [#/Vol] 8.73 10*3/uL Normal 3.70-11.00 [facility] Comment on above: Order Comment: Speci men Type: BLOOD SPECIMEN Ordering Facility: [facility] Address: [address] [place] [address] Performed By: #### 5 7021-8 #### [facility] CLIA [id number] [address] [place] [address] [place] GESTATIONAL GLUCOSE SCREEN, 1-HOUR, 50 GRAM, NON-FASTINGon 02-07-2025 Glucose [Mass/Vol] 108 mg/dL Normal 74-134 [facility] Comment on above: Order Comment: Speci men Type: BLOOD SPECIMEN Ordering Facility: [facility] Address: [address] [place] [address] Result Comment: [facility] Congress of Obstetricians and Gynecologists (Damaris/Nory) guidelines state a gestational diabetes mellitus positive screen is made, in women not previously diagnosed with overt diabetes, when the 1 hr plasma glucose level is equal to or above 140 mg/dL. [facility] Electrical Controls Technician and [employer] recommends a 135 mg/dL cutoff. Performed By: #### 7 3752-8 #### [facility] CLIA [id number] [address] [place], [place] [address] [place] [address] [place] Reagin and Treponema pallidu m IgG and IgM [Interp]on 02-07-2025 T. pallidum IgG+IgM IA Ql (S) Non-Reactive Normal Nonreactive [facility] Comment on above: Order Comment: Speci men Type: BLOOD SPECIMEN Ordering Facility: [facility] Address: [address] [place] [address] Performed By: #### 7 3752-8 #### [facility] CLIA [id number] [address] [place], [place] [address]K [id number] [place] [address] OF [facility] Reagin+T pallidum IgG+IgM Se rPl-Impon 02-07-2025 Reagin and Treponema pallidum IgG and IgM [Interp] Cannot exclude recent Treponemal infection if specimen collected within 7-10 days after appearance of suspect lesions or 2-3 weeks after an exposure. Clinical correlation is required. Normal [facility] Comment on above: Order Comment: Speci men Type: BLOOD SPECIMEN Ordering Facility: [facility] Address: [address] [place] [address] Performed By: #### 7 3752-8 #### [facility] CLIA [id number] [address] [place] [address] OF [facility] CNPHetal 01-14-2025 CNPN Telephone ([id number]) GUERDA CARDONA ([id number]) 89 F Date Time Provider Department 01/14/25 ESTEFANÍA BRADSHAW [id number] During your visit today, we recorded the following information about you: Estefanía Bradshaw RN 01/14/2025 11:26 AM Signed 2nd risk assessment form submitted 01/14/2025. 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 - Xhaiocwh-Ws-Skv-Fe-F A tab Take 1 tablet by mouth [...] Status:Closed by ESTEFANÍA BRADSHAW on 01/14/25 Normal [facility] Examination level ultrasound on 01-10-2025 Indication [...] 7 oz EFW by: Hadlock (HC-AC-FL) Extended Concrete Fence Builder 5.5 mm CM 3.7 mm 4% Nicolaides [...] normal LVOT view: normal 3-vessel view: normal 5-qpnqha-fdkxsuv view: normal Heart / Thorax Situs: situs [...] Read By: Claudia Gonzales M.D. MATERNAL MEDICINE [facility] Radiology Study observation (narrative) [facility] Urgent Care Visit Reporton 0 12-06-2024 Urgent Care Visit Report [facility] [address] , [address] [place] [id number] OFFICE VISIT Date of Service: 12/06/24 MR#: [id number] Acct: [id number] Name: GUERDA CARDONA Rep #: [id number] : 2000 Provider: JAVIER Aviles Age/Sex: 23/F Location: [facility] Status: Signed Intake Vital Signs 08/03/24 10:19 [...] had a positive home COVID-19 test. No ryrb-lyh-ilgzzft product taken to assist. Non-smoker. No other associated symptoms and no other alleviating/aggravat ing factors. ROS Const Constitutional: No other (As above) Exam Const General: cooperative, healthy appearing and no acute distress Orientation: alert, awake and oriented x3 HENTN Head: normal to inspection Ears: hearing grossly [...] CARVAJAL Today (more content not included)... Normal [facility] nuchal translucency me asured by on 10-30-2024 Indication First trimester anatomic survey Impression REMOTE READ The patient is referred for a first trimester anatomy scan including nuchal translucency measurement as clinically indicated. - Single, live, intrauterine . - Medill rump length measurement is consistent with the [...] view: visualized 4-chamber view with color: visualized 9-rvglgk-qpktuqi view: visualized Abdominal cord insertion: normal Stomach: [...] Read By: Claudia Gonzales M.D. MATERNAL MEDICINE [facility] CBC W Auto Differential pane l (Bld)on 10-29-2024 Basophils (Bld) [#/Vol] 10*3/uL Normal <0.11 [facility] Comment on above: Order Comment: Speci men Type: SWAB Ordering Facility: [facility] Address: [address] [place] [address] Performed By: #### 3 6902-5, TRVAMP #### [facility] CLIA [id number] [address] [place] [address] [place] Basophils/100 WBC (Bld) 0.3 % Normal [facility] Comment on above: Order Comment: Speci men Type: SWAB Ordering Facility: [facility] Address: [address] [place] [address] Performed By: #### 3 6902-5, TRVAMP #### [facility] CLIA [id number] [address] [place] [address] [place] Differential cell count method Nom (Bld) Auto Normal [facility] Comment on above: Order Comment: Speci men Type: SWAB Ordering Facility: [facility] Address: [address] [place] [address] Performed By: #### 3 6902-5, TRVAMP #### [facility] CLIA [id number] [address] [place] [address] [place] Eosinophils (Bld) [#/Vol] 0.10 10*3/uL Normal <0.46 [facility] Comment on above: Order Comment: Speci men Type: SWAB Ordering Facility: [facility] Address: [address] [place] [address] Performed By: #### 3 6902-5, TRVAMP #### [facility] CLIA [id number] [address] [place] [address] [place] Eosinophils/100 WBC (Bld) 1.4 % Normal [facility] Comment on above: Order Comment: Speci men Type: SWAB Ordering Facility: [facility] Address: [address] [place] [address] Performed By: #### 3 6902-5, TRVAMP #### [facility] CLIA [id number] [address] [place] [address] [place] Erythrocyte distribution width (RBC) [Ratio] 13.2 % Normal 11.5-15.0 [facility] Comment on above: Order Comment: Speci men Type: SWAB Ordering Facility: [facility] Address: [address] [place] [address] Performed By: #### 3 6902-5, TRVAMP #### [facility] CLIA [id number] [address] [place] [address] [place] Hematocrit (Bld) [Volume fraction] 39.7 % Normal 36.0-46.0 [facility] Comment on above: Order Comment: Speci men Type: SWAB Ordering Facility: [facility] Address: [address] [place] [address] Performed By: #### 3 6902-5, TRVAMP #### [facility] CLIA [id number] [address] [place] [address] [place] Hemoglobin (Bld) [Mass/Vol] 13.7 g/dL Normal 11.5-15.5 [facility] Comment on above: Order Comment: Speci men Type: SWAB Ordering Facility: [facility] Address: [address] [place] [address] Performed By: #### 3 6902-5, TRVAMP #### [facility] CLIA [id number] [address] [place] [address] [place] Immature granulocytes (Bld) [#/Vol] 10*3/uL Normal <0.10 [facility] Comment on above: Order Comment: Speci men Type: SWAB Ordering Facility: [facility] Address: [address] [place] [address] Performed By: #### 3 6902-5, TRVAMP #### [facility] CLIA [id number] [address] [place] [address] [place] Immature granulocytes/100 WBC (Bld) 0.1 % Normal [facility] Comment on above: Order Comment: Speci men Type: SWAB Ordering Facility: [facility] Address: [address] [place] [address] Performed By: #### 3 6902-5, TRVAMP #### [facility] CLIA [id number] [address] [place] [address] [place] Lymphocytes (Bld) [#/Vol] 1.31 10*3/uL Normal 1.00-4.00 [facility] Comment on above: Order Comment: Speci men Type: SWAB Ordering Facility: [facility] Address: [address] [place] [address] Performed By: #### 3 6902-5, TRVAMP #### [facility] CLIA [id number] [address] [place] [address] [place] Lymphocytes/100 WBC (Bld) 18.1 % Normal [facility] Comment on above: Order Comment: Speci men Type: SWAB Ordering Facility: [facility] Address: [address] [place] [address] Performed By: #### 3 6902-5, TRVAMP #### [facility] CLIA [id number] [address] [place] [address] [place] MCH (RBC) [Entitic mass] 30.1 pg Normal 26.0-34.0 [facility] Comment on above: Order Comment: Speci men Type: SWAB Ordering Facility: [facility] Address: [address] [place] [address] Performed By: #### 3 6902-5, TRVAMP #### [facility] CLIA [id number] [address] [place] [address] [place] MCHC (RBC) [Mass/Vol] 34.5 g/dL Normal 30.5-36.0 [facility] Comment on above: Order Comment: Speci men Type: SWAB Ordering Facility: [facility] Address: [address] [place] [address] Performed By: #### 3 6902-5, TRVAANNETTE #### [facility] CLIA [id number] [address] [place] [address] [place] MCV (RBC) [Entitic vol] 87.3 fL Normal 80.0-100.0 [facility] Comment on above: Order Comment: Speci men Type: SWAB Ordering Facility: [facility] Address: [address] [place] [address] Performed By: #### 3 6902-5, TRVAMP #### [facility] CLIA [id number] [address] [place] [address] [place] Monocytes (Bld) [#/Vol] 0.30 10*3/uL Normal <0.87 [facility] Comment on above: Order Comment: Speci men Type: SWAB Ordering Facility: [facility] Address: [address] [place] [address] Performed By: #### 3 6902-5, TRVAMP #### [facility] CLIA [id number] [address] [place] [address] [place] Monocytes/100 WBC (Bld) 4.2 % Normal [facility] Comment on above: Order Comment: Speci men Type: SWAB Ordering Facility: [facility] Address: [address] [place] [address] Performed By: #### 3 6902-5, TRVAMP #### [facility] CLIA [id number] [address] [place] [address] [place] Neutrophils (Bld) [#/Vol] 5.48 10*3/uL Normal 1.45-7.50 [facility] Comment on above: Order Comment: Speci men Type: SWAB Ordering Facility: [facility] Address: [address] [place] [address] Performed By: #### 3 6902-5, TRVAMP #### [facility] CLIA [id number] [address] [place] [address] [place] Neutrophils/100 WBC (Bld) 75.9 % Normal [facility] Comment on above: Order Comment: Speci men Type: SWAB Ordering Facility: [facility] Address: [address] [place] [address] Performed By: #### 3 6902-5, TRVAMP #### [facility] CLIA [id number] [address] [place] [address] [place] Nucleated RBC (Bld) [#/Vol] 10*3/uL Normal <0.01 [facility] Comment on above: Order Comment: Speci men Type: SWAB Ordering Facility: [facility] Address: [address] [place] [address] Performed By: #### 3 6902-5, TRVAMP #### [facility] CLIA [id number] [address] [place] [address] [place] Nucleated RBC/100 WBC (Bld) [Ratio] 0.0 /100 WBC Normal [facility] Comment on above: Order Comment: Speci men Type: SWAB Ordering Facility: [facility] Address: [address] [place] [address] Performed By: #### 3 6902-5, TRVAMP #### [facility] CLIA [id number] [address] [place] [address] [place] Platelet mean volume (Bld) [Entitic vol] 9.2 fL Normal 9.0-12.7 [facility] Comment on above: Order Comment: Speci men Type: SWAB Ordering Facility: [facility] Address: [address] [place] [address] Performed By: #### 3 6902-5, TRVAMP #### [facility] CLIA [id number] [address] [place] [address] [place] Platelets (Bld) [#/Vol] 168 10*3/uL Normal 150-400 [facility] Comment on above: Order Comment: Speci men Type: SWAB Ordering Facility: [facility] Address: [address] [place] [address] Performed By: #### 3 6902-5, TRVAMP #### [facility] CLIA [id number] [address] [place] [address] [place] RBC (Bld) [#/Vol] 4.55 10*6/uL Normal 3.90-5.20 [facility] Comment on above: Order Comment: Speci men Type: SWAB Ordering Facility: [facility] Address: [address] [place] [address] Performed By: #### 3 6902-5, TRVAMP #### [facility] CLIA [id number] [address] [place] [address] [place] WBC (Bld) [#/Vol] 7.22 10*3/uL Normal 3.70-11.00 [facility] Comment on above: Order Comment: Speci men Type: SWAB Ordering Facility: [facility] Address: [address] [place] [address] Performed By: #### 3 6902-5, DOMENICA #### [facility] CLIA [id number] [address] [place] [address] [place] nuchal translucency me asured by USon 10-29-2024 Radiology Study observation (narrative) [facility] HBV surface Ag Ser Qlon 10-11 HBV surface Ag Ql (S) Negative Normal Negative [facility] Comment on above: Order Comment: Speci men Type: SWAB Ordering Facility: [facility] Address: [address] [place] [address] Performed By: #### 3 6902-5, DOMENICA #### [facility] CLIA [id number] [address] [place] [address] [place] HCV Ab Ser Qlon 10-29-2024 HCV Ab Ql (S) Negative Normal Negative [facility] Comment on above: Order Comment: Speci men Type: BLOOD SPECIMEN Ordering Facility: [facility] Address: [address] [place] [address] Result Comment: The result suggests no evidence of active infection with Hepatitis C virus. Should recent infection be suspected, repeat testing may be considered 4-6 weeks after this draw. Performed By: #### 7 3752-8 #### [facility] CLIA [id number] [address] [place] [address] [place] HGB ELECTROPHORESIS FOR EVAL (LAB ORDER)on 10-29-2024 Hemoglobin A (Bld) [Mass fraction] 97.2 % Normal 96.2-98.0 [facility] Comment on above: Order Comment: Lucreciai peter Type: BLOOD SPECIMEN Ordering Facility: [facility] Address: [address] [place] [address] Performed By: #### 7 3752-8 #### [facility] CLIA [id number] [address] [place] [address] [place] Hemoglobin A2 (Bld) [Mass fraction] 2.8 % Normal 2.0-3.1 [facility] Comment on above: Order Comment: Speci men Type: BLOOD SPECIMEN Ordering Facility: [facility] Address: [address] [place] [address] Performed By: #### 7 3752-8 #### [facility] CLIA [id number] [address] [place] [address] [place] Hemoglobin Unsp Elph (Bld) [Mass fraction] No abnormal hemoglobin identified. Normal No abnormal hemoglobin identified. [facility] Comment on above: Order Comment: Speci men Type: BLOOD SPECIMEN Ordering Facility: [facility] Address: [address] [place] [address] Performed By: #### 7 3752-8 #### [facility] CLIA [id number] [address] [place] [address] [place] HGB EVALUATION CASCADE INTER Dmitriy 10-29-2024 Hemoglobin pattern (Bld) [Interp] Reviewed by Nat Burkett MD, PhD Normal [facility] Comment on above: Order Comment: Speci men Type: BLOOD SPECIMEN Ordering Facility: [facility] Address: [address] [place] [address] Performed By: #### 7 3752-8 #### [facility] CLIA [id number] [address] [place] [address] [place] INTERPRETATION (HGB EVAL) Normal [facility] Comment on above: Order Comment: Speci men Type: BLOOD SPECIMEN Ordering Facility: [facility] Address: [address] [place] [address] Result Comment: Hemo globins were analyzed by capillary electrophoresis and CBC red cell parameters were reviewed. No abnormal hemoglobin is identified. There is a normal hemoglobin capillary electrophoresis pattern. Performed By: #### 7 3752-8 #### [facility] CLIA [id number] [address] [place] [address] [place] HIV 1+2 Ab IA Qlon 4 HIV 1 and 2 Ab IA.rapid Nom (S/P/Bld) Normal [facility] Comment on above: Order Comment: Speci men Type: BLOOD SPECIMEN Ordering Facility: [facility] Address: [address] [place] [address] Result Comment: Test not indicated. Performed By: #### 7 3752-8 #### [facility] CLIA [id number] [address] [place] [address] [place] HIV 1+2 Ab+HIV1 p24 Ag IA Ql Non-Reactive Normal Nonreactive [facility] Comment on above: Order Comment: Speci men Type: BLOOD SPECIMEN Ordering Facility: [facility] Address: [address] [place] [address] Performed By: #### 7 3752-8 #### [facility] CLIA [id number] [address] [place] [address] [place] HIV immunoassay testing algorithm interpretation (S/P/Bld) [Interp] Normal [facility] Comment on above: Order Comment: Speci men Type: BLOOD SPECIMEN Ordering Facility: [facility] Address: [address] [place] [address] Result Comment: No e vidence of HIV-1 or HIV-2 infection. Should recent infection be suspected, repeat testing may be considered 2-3 weeks after this draw. [place] Rev. Code 3701.243(E): This information has been [...] diagnoses. Performed By: #### 7 3752-8 #### [facility] CLIA [id number] [address] [place] [address] [place] HbA1c (Bld)on 10-29-2024 Average glucose Estimated from glycated hemoglobin (Bld) [Mass/Vol] 77 mg/dL Normal [facility] Comment on above: Order Comment: Speci men Type: BLOOD SPECIMEN Ordering Facility: [facility] Address: [address] [place] [address] Result Comment: eAG: (Estimated average glucose) is a calculated value from HgbA1c and is industrial relations representative of the average blood glucose level in the last 2-3 month period. Performed By: #### 5 5454-3 #### [facility] CLIA [id number] [address] [place] [address] [place] HbA1c (Bld) [Mass fraction] 4.3 % Normal 4.3-5.6 [facility] Comment on above: Order Comment: Speci men Type: BLOOD SPECIMEN Ordering Facility: [facility] Address: [address] [place] [address] Result Comment: Amer ican Diabetes Association guidelines indicate that patients with HgbA1c in the range 5.7-6.4% are at increased risk for development of diabetes, and intervention by lifestyle modification may be beneficial. HgbA1c greater or equal to 6.5% is considered diagnostic of diabetes. Performed By: #### 5 5454-3 #### [facility] CLIA [id number] [address] [place] [address] [place] [id number] PLUSon 10-29-2024 Cell-free DNA./Cell-free DNA.total Dosage of chromosome-specific cfDNA (cfDNA) [Molar fraction] 29% Normal [facility] Comment on above: Order Comment: Speci men Type: SWAB Ordering Facility: [facility] Address: [address] [place] [address] Performed By: #### 3 6902-5, TRVAMP #### [facility] CLIA [id number] [address] [place] [address] [place] Chr 13+18+21+X+Y aneuploidy Dosage of chromosome-specific cfDNA Ql (cfDNA) Negative Normal [facility] Comment on above: Order Comment: Speci men Type: SWAB Ordering Facility: [facility] Address: [address] [place] [address] Performed By: #### 3 6902-5, TRVAMP #### [facility] CLIA [id number] [address] [place] [address] [place] Chr 21 trisomy Dosage of chromosome-specific cfDNA Ql (cfDNA) Negative Normal [facility] Comment on above: Order Comment: Speci men Type: SWAB Ordering Facility: [facility] Address: [address] [place] [address] Performed By: #### 3 6902-5, TRVAMP #### [facility] CLIA [id number] [address] [place] [address] [place] Chr X and Y aneuploidy risk Sequencing Ql (cfDNA) [Interp] Not detected Normal [facility] Comment on above: Order Comment: Speci men Type: SWAB Ordering Facility: [facility] Address: [address] [place] [address] Result Comment: Not Detected Not Detected Performed By: #### 3 6902-5, TRVAMP #### [facility] CLIA [id number] [address] [place] [address] [place] Citation Uche (Reference lab test) Comment Normal [facility] Comment on above: Order Comment: Speci men Type: SWAB Ordering Facility: [facility] Address: [address] [place] [address] Result Comment: 1. P juan carlos FARR, et al. Cris Med. 2012;14(3):296-305. 2. Pebbles DAHL, et al. Prenat Diag. 2013;33(6):591-597. 3. Kishor C, et al. Clin Chem. 2015 Apr;61(4):608-616. 4. Stella FARR, et al. Cris Med. 2011;13(11):913-920. 5. ACOG/SMFM Practice Bulletin No. 226, Aug 2020. Performed By: #### 3 6902-5, TRVAMP #### [facility] CLIA [id number] [address] [place] [address] [place] Gestational age Estimated from conception date Pike Normal [facility] Comment on above: Order Comment: Speci men Type: SWAB Ordering Facility: [facility] Address: [address] [place] [address] Performed By: #### 3 6902-5, DOMENICA #### [facility] CLIA [id number] [address] [place] [address] [place] GESTATIONALAGE AGE > OR = 9W Yes Normal [facility] Comment on above: Order Comment: Speci men Type: SWAB Ordering Facility: [facility] Address: [address] [place] [address] Performed By: #### 3 6902-5, SHELBIEVAANNETTE #### [facility] CLIA [id number] [address] [place] [address] [place] Laboratory comment Uche (Report) Comment Normal [facility] Comment on above: Order Comment: Speci men Type: SWAB Ordering Facility: [facility] Address: [address] [place] [address] Result Comment: The MaterniT(R) 21 PLUS laboratory-developed [...] Performed By: #### 3 6902-5, DOMENICA #### [facility] CLIA [id number] [address] [place] [address] OF [facility] assistant news director name Nom (Provider) Comment Normal [facility] Comment on above: Order Comment: Speci men Type: SWAB Ordering Facility: [facility] Address: [address] [place] [address] Result Comment: This specimen showed an expected representation of chromosome 21, 18 and 13 material. Clinical correlation is suggested. Comment Brian Michaud MD, PhD, Director, [employer] Performed By: #### 3 6902-5, DOMENICA #### [facility] CLIA [id number] [address] [place] [address] [id number] [place] LIMITATIONS OF THE TEST Comment Normal [facility] Comment on above: Order Comment: Speci men Type: SWAB Ordering Facility: [facility] Address: [address] [place] [address] [place] [address] Result Comment: Tresa zhao the results of [...] Performed By: #### 3 6902-5, DOMENICA #### [facility] CLIA [id number] [address] [place] [address] OF [facility] Monosomy X risk Dosage of chromosome-specific cfDNA Ql (Plasma cell-free+WBC DNA) [Interp] Not detected Normal [facility] Comment on above: Order Comment: Speci men Type: SWAB Ordering Facility: [facility] Address: [address] [place] [address] Performed By: #### 3 6902-5, DOMENICA #### [facility] CLIA [id number] [address] [place] [address] NEGATIVE PREDICTIVE VALUE Note Normal [facility] Comment on above: Order Comment: Speci men Type: SWAB Ordering Facility: [facility] Address: [address] [place] [address] Result Comment: The Negative Predictive Value (NPV) for trisomy 21, 18, and 13 is greater than 99%. The NPV for SCA and ESS cannot be calculated as SCA and ESS are only reported when an abnormality is detected. Performed By: #### 3 6902-5, DOMENICA #### [facility] CLIA [id number] [address] [place] [address] [place] NOTE Comment Normal [facility] Comment on above: Order Comment: Speci men Type: SWAB Ordering Facility: [facility] Address: [address] [place] [address] Result Comment: See Notes [employer] is a subsidiary of [employer], using the brand [employer]. This test was developed and its performance characteristics determined by [employer]. It has not been cleared or approved by the Food and Drug Administration. This laboratory is certified under the Clinical Laboratory Improvement Amendments (CLIA) as qualified to perform high complexity clinical laboratory testing and accredited by the [employer] (CAP). If there is future clinical need for adding MaterniT GENOME testing, this specimen will be available until term. [facility] samples will not be retained beyond 60 days. [facility] patients will have to send a new sample for re-sequencing ([facility] Test Code: [id number]). Performed By: #### 3 6902-5, DOMENICA #### [facility] CLIA [id number] [address] [place] [address] PERFORMANCE CHARACTERISTICS Note Normal [facility] Comment on above: Order Comment: Lucreciai peter Type: SWAB Ordering Facility: [facility] Address: [address] [place] [address] Result Comment: ! Sex ! Accuracy: 99.4% [...] ! ! ! * As reported in [facility] nstd37 [https://www.ncbi.nlm.nih.gov/dbvar/studies/nstd37/ ] # Estimated Sensitivity. Sensitivity estimated across the observed size distribution of each syndrome [per [facility] nstd37] and across the range of fractions observed in routine clinical NIPT. Actual sensitivity can also be influenced by other factors such as the size of the event, total sequence counts, amplification bias, or sequence bias. ## Pike gestation only. Performed By: #### 3 6902-5, DOMENICA #### [facility] CLIA [id number] [address] [place] [address] [place] POSITIVE PREDICTIVE VALUE N/A Normal [facility] Comment on above: Order Comment: Speci men Type: SWAB Ordering Facility: [facility] Address: [address] [place] [address] Performed By: #### 3 6902-5, DOMENICA #### [facility] CLIA [id number] [address] [place] [address] [place] Reference Lab Test Method Comment Normal [facility] Comment on above: Order Comment: Speci men Type: SWAB Ordering Facility: [facility] Address: [address], [place] [address] Result Comment: See Notes Circulating cell-free DNA [...] Performed By: #### 3 6902-5, TREVERT #### [facility] CLIA [id number] [address] [place] [address] STATES OF [facility] Sex Dosage of chromosome-specific cfDNA Nom (cfDNA) Comment Normal [facility] Comment on above: Order Comment: Speci men Type: SWAB Ordering Facility: [facility] Address: [address] [place] [address] Result Comment: Cons istent with Female Performed By: #### 3 6902-5, TRVAMP #### [facility] CLIA [id number] [address] [place] [address] [place] [facility] Test performance information Uche (Unsp spec) Comment Normal [facility] Comment on above: Order Comment: Speci men Type: SWAB Ordering Facility: [facility] Address: [address] [place] [address] Result Comment: The performance characteristics of the MaterniT(R) 21 PLUS laboratory-developed test (LDT) have been determined in a clinical validation study with women at increased risk for chromosomal aneuploidy.[1-4] Performed By: #### 3 6902-5, TRVAANNETTE #### [facility] CLIA [id number] [address] [place] [address] [place] Trisomy 13 risk Dosage of chromosome-specific cfDNA Ql (cfDNA) [Interp] Negative Normal [facility] Comment on above: Order Comment: Speci men Type: SWAB Ordering Facility: [facility] Address: [address] [place] [address] Performed By: #### 3 6902-5, TRVAANNETTE #### [facility] CLIA [id number] [address] [place] [address] [place] Trisomy 18 risk Dosage of chromosome-specific cfDNA Ql (Plasma cell-free+WBC DNA) [Interp] Negative Normal [facility] Comment on above: Order Comment: Speci men Type: SWAB Ordering Facility: [facility] Address: [address] [place] [address] Performed By: #### 3 6902-5, SHELBIEVAANNETTE #### [facility] CLIA [id number] [address] [place] [address] [place] RBC PARAMETERS FOR HB IDon 1 12-30-2023 Erythrocyte distribution width (RBC) [Ratio] 13.1 % Normal 11.5-15.0 [facility] Comment on above: Order Comment: Speci men Type: BLOOD SPECIMEN Ordering Facility: [facility] Address: [address] [place] [address] Performed By: #### 7 3752-8 #### [facility] CLIA [id number] [address] [place] [address] [place] Hematocrit (Bld) [Volume fraction] 41.2 % Normal 36.0-46.0 [facility] Comment on above: Order Comment: Speci men Type: BLOOD SPECIMEN Ordering Facility: [facility] Address: [address] [place] [address] Performed By: #### 7 3752-8 #### [facility] CLIA [id number] [address] [place] [address] [place] Hemoglobin (Bld) [Mass/Vol] 13.8 g/dL Normal 11.5-15.5 [facility] Comment on above: Order Comment: Speci men Type: BLOOD SPECIMEN Ordering Facility: [facility] Address: [address] [place] [address] Performed By: #### 7 3752-8 #### [facility] CLIA [id number] [address] [place] [address] [place] MCH (RBC) [Entitic mass] 30.2 pg Normal 26.0-34.0 [facility] Comment on above: Order Comment: Speci men Type: BLOOD SPECIMEN Ordering Facility: [facility] Address: [address] [place] [address] Performed By: #### 7 3752-8 #### [facility] CLIA [id number] [address] [place] [address] [place] MCHC (RBC) [Mass/Vol] 33.5 g/dL Normal 30.5-36.0 [facility] Comment on above: Order Comment: Speci men Type: BLOOD SPECIMEN Ordering Facility: [facility] Address: [address] [place] [address] Performed By: #### 7 3752-8 #### [facility] CLIA [id number] [address] [place] [address] [place] MCV (RBC) [Entitic vol] 90.2 fL Normal 80.0-100.0 [facility] Comment on above: Order Comment: Speci men Type: BLOOD SPECIMEN Ordering Facility: [facility] Address: [address] [place] [address] Performed By: #### 7 3752-8 #### [facility] CLIA [id number] [address] [place] [address] [place] RBC (Bld) [#/Vol] 4.57 10*6/uL Normal 3.90-5.20 [facility] Comment on above: Order Comment: Speci men Type: BLOOD SPECIMEN Ordering Facility: [facility] Address: [address] [place] [address] Performed By: #### 7 3752-8 #### [facility] CLIA [id number] [address] [place] [address] [place] RUBELLA IGG ANTIBODYon 10-29 RUBELLA IGG AB, QUAL Positive Normal Positive [facility] Comment on above: Order Comment: Liborio green Type: SWAB Ordering Facility: [facility] Address: [address] [place] [address] Result Comment: The result suggests recent or past exposure to Rubella virus or history of Rubella vaccination. Positive result may also be seen due to presence of passively-transferred antibodies. Please correlate with patient's history. Performed By: #### 3 6902-5, TRVAMP #### [facility] CLIA [id number] [address] [place] [address] [place] Reagin and Treponema pallidu m IgG and IgM [Interp]on 10-29-2024 T. pallidum IgG+IgM IA Ql (S) Non-Reactive Normal Nonreactive [facility] Comment on above: Order Comment: Speci men Type: BLOOD SPECIMEN Ordering Facility: [facility] Address: [address] [place] [address] Performed By: #### 7 3752-8 #### [facility] CLIA [id number] [address] [place] [address] [place] Reagin+T pallidum IgG+IgM Se rPl-Impon 10-29-2024 Reagin and Treponema pallidum IgG and IgM [Interp] Cannot exclude recent Treponemal infection if specimen collected within 7-10 days after appearance of suspect lesions or 2-3 weeks after an exposure. Clinical correlation is required. Normal [facility] Comment on above: Order Comment: Lucreciai peter Type: BLOOD SPECIMEN Ordering Facility: [facility] Address: [address] [place] [address] Performed By: #### 7 3752-8 #### [facility] CLIA [id number] [address] [place] [address] [place] TYPE + SCREEN PRENATALon ABO O Normal [facility] Comment on above: Order Comment: Speci men Type: BLOOD SPECIMEN Ordering Facility: [facility] Address: [address] [place] [address] Performed By: #### T SPN #### [facility] CLIA [id number] [address] [place] [address] [place] Rh Nom (Bld) Positive Normal [facility] Comment on above: Order Comment: Speci men Type: BLOOD SPECIMEN Ordering Facility: [facility] Address: [address] [place] [address] Performed By: #### T SPN #### [facility] CLIA [id number] [address] [place] [address] OF [place] TYPE AND SCREEN EXPIRATION 11/01/2024 23:59 Normal [facility] Comment on above: Order Comment: Speci men Type: BLOOD SPECIMEN Ordering Facility: [facility] Address: [address] [place] [address] Performed By: #### T SPN #### [facility] CLIA [id number] [address] [place] [address] OF [place] CNPHetal 09-16-2024 CNPN Telephone (OBGYBD) GUERDA CARDONA ([id number]) 89 F Date Time Provider Department 09/16/24 [...] Date Reviewed: 09/13/2024 Reviewed by: Huan Campo APRN.DIRECTOR OF CARDIAC REHABILITATION - Fully Assessed 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 trachomatis+N. gonorrhoea e DNA BRIDGER+probe Ql (Unsp spec)on 09-13-2024 C. trachomatis rRNA BRIDGER+probe Ql (Unsp spec) Negative Normal Negative for Chlamydia trachomatis by amplificaton [facility] Comment on above: Order Comment: Speci men Type: SWAB Ordering Facility: [facility] Address: [address] [place] [address] Performed By: #### 3 6902-5, TRVAMP #### [facility] CLIA [id number] [address] [place] [address] [place] N. gonorrhoeae rRNA BRIDGER+probe Ql (Unsp spec) Negative Normal Negative for Neisseria gonorrhoeae by amplification [facility] Comment on above: Order Comment: Speci men Type: SWAB Ordering Facility: [facility] Address: [address] [place] [address] Performed By: #### 3 6902-5, TRVAMP #### [facility] CLIA [id number] [address] [place] [address] [place] POC COMBINE MECHANIC ULTRASOUNDon 09-13-20 24 Indication Viability; confirm cardiac [...] Read By: Huan Campo NP MATERNAL MEDICINE [facility] Radiology Study observation (narrative) [facility] TRICHOMONAS VAGINALIS NAATon 09-13-2024 T. vaginalis DNA BRIDGER+probe Ql (Unsp spec) Negative Normal Negative for Trichomonas vaginalis by amplification [facility] Comment on above: Order Comment: Speci men Type: SWAB Ordering Facility: [facility] Address: [address] [place] [address] Performed By: #### 3 6902-5, TRVAANNETTE #### [facility] CLIA [id number] [address] [place] [address] [place] Laura 09-01-2024 BELKISN Telephone (OBGYWM) GUERDA CARDONA ([id number]) 89 F Date Time Provider Department 09/01/24 [...] Status:Closed by ESTEFANÍA BENITEZ on 09/01/24 Normal [facility] Urgent Care Visit Reporton 0 08-03-2024 Urgent Care Visit Report [facility] [address] , [address] [place] [id number] OFFICE VISIT Date of Service: 08/03/24 MR#: [id number] Acct: [id number] Name: GUERDA CARDONA Rep #: [id number] : 2000 Provider: JAVIER Aviles Age/Sex: 23/F Location: [facility] Status: Signed Intake Vital Signs 11/13/23 11:54 [...] Reasons: TOOTH PAIN Chief Complaint: TOOTH PAIN 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 [...] no acute distress Orientation: alert and awake [facility] Head: normal to inspection Ears: hearing [...] the above. This note was generated with [employer] dictation software. It may contain incorrect words, spelling, and punctuation that were not noted in checking the note before signing. Medications: New amoxicillin 500 mg PO TID 30 tabs 0RF 08/03/24 1232 Date Marcelo HERRERA Cosigner Signature: Date (if applicable) CC: Normal [facility] GINA/TRICHOMONAS NAATon 0 - C. glabrata RNA BRIDGER+probe Ql (Vag fld) Negative Negative for Gina glabrata [facility] Gina sp DNA BRIDGER+probe Ql (Vag fld) Positive Abnormal Negative for Gina species [facility] T. vaginalis DNA BRIDGER+probe Ql (Unsp spec) Negative Negative for Trichomonas vaginalis by amplification [facility] Absolute lymphocyte countOrd ered By: Aislinn Bowman on 11-05-2023 Lymphocytes Auto (Unsp spec) [#/Vol] 1.22 10*3/uL 0.83-4.51 [facility] Basophil percentageOrdered B y: Aislinn Bowman on 11-05-2023 Basophils/100 WBC (Bld) 0.3 % 0-1 [facility] Eosinophils/100 WBC (Bld) 0.1 % 0-5 [facility] Neutrophils (Bld) [#/Vol] 11.9 10*3/uL 2.0-7.7 [facility] Neutrophils/100 WBC (Bld) 85.6 % 47-70 [facility] WBC (Bld) [#/Vol] 13.9 10*3/uL 4.4-11.0 [facility] Blood erythrocytes count (nu mber/volume)Ordered By: Aislinn Bowman on 11-05-2023 RBC (Bld) [#/Vol] 4.47 10*6/uL 4.2-5.4 [facility] Blood hemoglobin measurement (mass/volume)Ordered By: Aislinn Bowman on 11-05-2023 Hemoglobin (Bld) [Mass/Vol] 13.0 g/dL 12.0-15.0 [facility] Blood lymphocytes/100 leukoc ytesOrdered By: Aislinn Bowman on 11-05-2023 Lymphocytes/100 WBC (Bld) 8.8 % 19-41 [facility] Blood monocytes/100 leukocyt esOrdered By: Aislinn Bowman on 11-05-2023 Monocytes/100 WBC (Bld) 4.3 % 0-10 [facility] Blood platelet mean volumeOr dered By: Aislinn Bowman on 11-05-2023 Platelet mean volume (Bld) [Entitic vol] 9.9 fL 6.2-12.0 [facility] Determination of erythrocyte mean corpuscular volume (MCV)Ordered By: Aislinn Bowman on 11-05-2023 MCV (RBC) [Entitic vol] 90.2 fL 81-99 [facility] Hematocrit Auto (Bld) [Volum e fraction]Ordered By: Aislinn Bowman on 11-05-2023 Hematocrit (Bld) [Volume fraction] 40.3 % 37-47 [facility] Laboratory - Hematology and Cell countsOrdered By: Aislinn Bowman on 11-05-2023 Erythrocyte distribution width (RBC) [Entitic vol] 42.0 fL 35.1-43.9 [facility] Erythrocyte distribution width (RBC) [Ratio] 12.9 % 11.6-14.6 [facility] Immature granulocytes/100 WBC (Bld) 0.900 % 0.0-0.9 [facility] Comment on above: IG% - Immature Granu locytes (promyelocytes, myelocytes and metamyelocytes) > 1% indicates that a LEFT SHIFT is Present. MCH (RBC) [Entitic mass] 29.1 pg 27.0-32.0 [facility] Nucleated RBC/100 WBC (Bld) [Ratio] 0 % 0-5 [facility] MCHC Auto (RBC) [Mass/Vol]Or dered By: Aislinn Bowman on 11-05-2023 MCHC (RBC) [Mass/Vol] 32.3 g/dL 32-36 [facility] Platelets bldOrdered By: Lupe Bowman on 11-05-2023 Platelets (Bld) [#/Vol] 151 10*3/uL 150-450 [facility] Serum Treponema species anti body detectionOrdered By: Aislinn Bowman on 11-05-2023 Treponema sp Ab Ql (S) Non-Reactive [facility] OBSTETRIC ULTRASOUND WHIon 1 12-14-2022 [facility] Basophil percentageOrdered B y: Sal Hathaway on 07-25-2023 WBC (Bld) [#/Vol] 9.7 10*3/uL 4.4-11.0 [facility] Blood erythrocytes count (nu mber/volume)Ordered By: Sal Hathaway on 07-25-2023 RBC (Bld) [#/Vol] 4.07 10*6/uL 4.2-5.4 [facility] Blood hemoglobin measurement (mass/volume)Ordered By: Sal Hathaway on 07-25-2023 Hemoglobin (Bld) [Mass/Vol] 12.5 g/dL 12.0-15.0 [facility] Blood platelet mean volumeOr dered By: Sal Hathaway on 07-25-2023 Platelet mean volume (Bld) [Entitic vol] 9.7 fL 6.2-12.0 [facility] Determination of erythrocyte mean corpuscular volume (MCV)Ordered By: Sal Hathaway on 07-25-2023 MCV (RBC) [Entitic vol] 93.9 fL 81-99 [facility] Gestational diabetes screen 1-hour screen with 50g oral glucose loadOrdered By: Sal Hathaway on 07-25-2023 Glucose 1 Hr post 50 g glucose PO [Mass/Vol] 88 mg/dL 70-140 [facility] Hematocrit Auto (Bld) [Volum e fraction]Ordered By: Sal Hathaway on 07-25-2023 Hematocrit (Bld) [Volume fraction] 38.2 % 37-47 [facility] Laboratory - Hematology and Cell countsOrdered By: Sal Hathaway on 07-25-2023 Erythrocyte distribution width (RBC) [Entitic vol] 44.9 fL 35.1-43.9 [facility] Erythrocyte distribution width (RBC) [Ratio] 13.1 % 11.6-14.6 [facility] MCH (RBC) [Entitic mass] 30.7 pg 27.0-32.0 [facility] MCHC Auto (RBC) [Mass/Vol]Or dered By: Sal Hathaway on 07-25-2023 MCHC (RBC) [Mass/Vol] 32.7 g/dL 32-36 [facility] Platelets bldOrdered By: Leo Hathaway on 07-25-2023 Platelets (Bld) [#/Vol] 166 10*3/uL 150-450 [facility] Serum Treponema species anti body detectionOrdered By: Sal Hathaway on 07-25-2023 Treponema sp Ab Ql (S) Non-Reactive [facility] Culture, urineOrdered By: Dr Denise Hathaway on 04-10-2023 Bacteria identified Cx Nom (U) Positive [facility] Absolute lymphocyte countOrd ered By: Dr. Hathaway on 04-08-2023 Lymphocytes Auto (Unsp spec) [#/Vol] 1.34 10*3/uL 0.83-4.51 [facility] Basophil percentageOrdered B y: Dr. Hathaway on 04-08-2023 Basophils/100 WBC (Bld) 0.3 % 0-1 [facility] Eosinophils/100 WBC (Bld) 0.9 % 0-5 [facility] Neutrophils (Bld) [#/Vol] 5.8 10*3/uL 2.0-7.7 [facility] Neutrophils/100 WBC (Bld) 75.1 % 47-70 [facility] WBC (Bld) [#/Vol] 7.7 10*3/uL 4.4-11.0 [facility] Blood erythrocytes count (nu mber/volume)Ordered By: Dr. Hathaway on 04-08-2023 RBC (Bld) [#/Vol] 4.39 10*6/uL 4.2-5.4 [facility] Blood hemoglobin measurement (mass/volume)Ordered By: Dr. Hathaway on 04-08-2023 Hemoglobin (Bld) [Mass/Vol] 13.4 g/dL 12.0-15.0 [facility] Blood lymphocytes/100 leukoc ytesOrdered By: Dr. Hathaway on 04-08-2023 Lymphocytes/100 WBC (Bld) 17.4 % 19-41 [facility] Blood monocytes/100 leukocyt esOrdered By: Dr. Hathaway on 04-08-2023 Monocytes/100 WBC (Bld) 5.9 % 0-10 [facility] Blood platelet mean volumeOr dered By: Dr. Hathaway on 04-08-2023 Platelet mean volume (Bld) [Entitic vol] 10.3 fL 6.2-12.0 [facility] Cervical or vagninal specime n microscopic examination by cytology stain (reported asOrdered By: Sal Hathaway on 04-08-2023 Cytology report Cyto stain Doc (Cvx/Vag) Comment . [facility] Comment on above: The Pap smear is a s creening test designed to aid in thedetection of premalignant and malignant conditions of theuterine cervix. It is not a diagnostic procedure andshould not be used as the sole means of detecting cervicalcancer. Both false-positive and false-negative reports dooccur. Culture, urineOrdered By: Angelito Hathaway on 04-08-2023 Bacteria identified Cx Nom (U) Positive [facility] Determination of erythrocyte mean corpuscular volume (MCV)Ordered By: Dr. Hathaway on 04-08-2023 MCV (RBC) [Entitic vol] 90.0 fL 81-99 [facility] HIV 1 and HIV-2 antibody ass ay with HIV-1 p24 antigen detectionOrdered By: Dr. Hathaway on 04-08-2023 HIV 1+2 Ab+HIV1 p24 Ag IA Ql Non-Reactive Nonreactive [facility] Hematocrit Auto (Bld) [Volum e fraction]Ordered By: Dr. Hathaway on 04-08-2023 Hematocrit (Bld) [Volume fraction] 39.5 % 37-47 [facility] Laboratory - CytologyOrdered By: Sal Hathaway on 04-08-2023 Funeral Planning Counselor Cyto stain Nom (Cvx/Vag) [ID] Comment . [facility] Comment on above: Martina Ellington, [employer] hnologist (ASCP) Pathologist Cyto stain Nom (Cvx/Vag) [ID] Comment . [facility] Comment on above: Quin Magana MD, [place] thologist Recommended follow-up Cyto stain Nom (Cvx/Vag) Comment . [facility] Comment on above: Suggest follow up as clinically appropriate. Laboratory - Hematology and Cell countsOrdered By: Dr. Hathaway on 04-08-2023 Erythrocyte distribution width (RBC) [Entitic vol] 46.2 fL 35.1-43.9 [facility] Erythrocyte distribution width (RBC) [Ratio] 14.1 % 11.6-14.6 [facility] Immature granulocytes/100 WBC (Bld) 0.400 % 0.0-0.9 [facility] Comment on above: IG% - Immature Granu locytes (promyelocytes, myelocytes and metamyelocytes) > 1% indicates that a LEFT SHIFT is Present. MCH (RBC) [Entitic mass] 30.5 pg 27.0-32.0 [facility] Nucleated RBC/100 WBC (Bld) [Ratio] 0 % 0-5 [facility] Laboratory - Miscellaneous t estsOrdered By: Sal Hathaway on 04-08-2023 Service comment (Unsp spec) [Interp] Comment . [facility] Comment on above: This liquid based Th inPrep(R) pap test was screened withthe use of an image guided system. Service comment (Unsp spec) [Interp] . . [facility] Auto (RBC) [Mass/Vol]Or dered By: Dr. Hathaway on 04-08-2023 MCHC (RBC) [Mass/Vol] 33.9 g/dL 32-36 [facility] No Panel InformationOrdered By: Dr. Hathaway on 04-08-2023 Hepatitis B Surface Antigen Non-Reactive Nonreactive [facility] Hepatitis C Antibody Non-Reactive Nonreactive [facility] Comment on above: Non Reactive: < 0.8 Equivocal: >/= 0.8 to < 1.0 Reactive: >/= 1.0The CDC recommends that a reactive/equivocal HCV antibody result be followed up by the HCV Nucleic Acid Amplificationtest (609741) Rubella IgG Antibody Reactive Nonreactive [facility] Comment on above: Antibody Results Int erpretation of Immune Status Non Reactive Presumed Non-Immune Equivocal Equivocal Reactive Presumed Immune No Panel InformationOrdered By: Sal Hathaway on 04-08-2023 Human Papillomavirus Screen Comment . [facility] Comment on above: See below for HPV te sting results. Pathology report final diagnosis Narrative Comment . [facility] Comment on above: EPITHELIAL CELL ABNO RMALITY.ATYPICAL SQUAMOUS CELLS OF UNDETERMINED SIGNIFICANCE (ASC-US). R87.610 Platelets bldOrdered By: Dr. Hathaway on 04-08-2023 Platelets (Bld) [#/Vol] 189 10*3/uL 150-450 [facility] Serum Treponema species anti body detectionOrdered By: Dr. Hathaway on 04-08-2023 Treponema sp Ab Ql (S) Non-Reactive [facility] Serum Varicella zoster virus IgG antibody assay by immunoassay (units/volume)Ordered By: Dr. Hathaway on 04-08-2023 VZV IgG IA Qn (S) 2388 index Immune >165 [facility] Comment on above: Negative <135 Equivo luna 135 - 165 Positive >165A positive result generally indicates exposure to thepathogen or administration of specific immunoglobulins,but it is not indication of active infection or stageof disease.Performed at: [facility], [place] [id number] Director: Nima Cornejo PhD, Phone: [phone] 36on 10-09-2022 36 Form sent online to be seen for cavities. Left vm with dental clinic phone number to call to schedule. [facility] CR Foot Complete 3+ Views Ri charly 05-01-2022 CR Foot Complete 3+ Views Right Patient Name: GUERDA CARDONA Diagnostic Radiology ACCESSION EXAM DATE/TIME PROCEDURE ORDERING PROVIDER [id number] 05/01/2022 16:30 EDT CR Foot Complete 3+ MD LLAMAS VIJAY Views Right CPT code 21365 Reason For Exam (CR Foot Complete 3+ [...] Transcribed Date and Time: 05/01/2022 4:59 Normal [facility] EKG 12 Lead - Chest Painon 0 05-01-2022 [facility] Test Date: 2022-05-01 Pat Name: GUERDA CARDONA Department: 2BED Room: 03 Gender: F Huller Operator: AARON : 2000 Requested By: GIUSEPPE LLAMAS Order Number: [id number] Reading MD: Giuseppe Llamas Measurements Intervals [place] Rate: 106 P: 62 VT: 144 QRS: 76 QRSD: 92 T: 9 QT: 324 QTc: 431 Interpretive Statements SINUS TACHYCARDIA rate 106 normal axis PROBABLE LEFT ATRIAL ABNORMALITY RSR' IN V1 OR V2, RIGHT VCD OR RVH No previous ECG available for comparison Electronically Signed On 05-01-2022 17:34:05 EDT by Giuseppe Llamas [facility] CARDIOLOGY Giuseppe Llamas MD - 05/01/2022 [facility] Test Date: 2022-05-01 Pat Name: GUERDA CARDONA Department: 2BED Room: 03 Gender: F Huller Operator: AARON : 2000 Requested By: GIUSEPPE LLAMAS Order Number: [id number] Reading MD: Giuseppe Llamas Measurements Intervals [place] Rate: 106 P: 62 VT: 144 QRS: 76 QRSD: 92 T: 9 QT: 324 QTc: 431 Interpretive Statements SINUS TACHYCARDIA rate 106 normal axis PROBABLE LEFT ATRIAL ABNORMALITY RSR' IN V1 OR V2, RIGHT VCD OR RVH No previous ECG available for comparison Electronically Signed On 05-01-2022 17:34:05 EDT by Giuseppe LINARES Work Phone: [facility] Work Phone: XR FOOT RIGHT (MIN 3 VIEWS)o n 05-01-2022 Patient Name: GUERDA CARDONA Diagnostic Radiology ACCESSION EXAM DATE/TIME PROCEDURE ORDERING PROVIDER [id number] 05/01/2022 16:30 EDT CR Foot Complete 3+ MD LLAMAS VIJAY Views Right CPT code 45758 Reason For Exam (CR Foot Complete 3+ [...] JEFFREY Transcribed Date and Time: 05/01/2022 4:59 [facility] Sam Henriquez MD - 05/01/2022 Patient Name: GUERDA CARDONA Diagnostic Radiology ACCESSION EXAM DATE/TIME PROCEDURE ORDERING PROVIDER [id number] 05/01/2022 16:30 EDT CR Foot Complete 3+ MD FARHAD, GIUSEPPE Views Right CPT code 62324 Reason For Exam (CR Foot Complete 3+ [...] JEFFREY Transcribed Date and Time: 05/01/2022 4:59 [employer] Work Phone: Radiology Study observation (narrative) [employer] Work Phone: XR FOOT RIGHT (MIN 3 VIEWS)O rdered By: Sam Henriquez on 05-01-2022 [employer] Work Phone: Progress Noteon 12-12-2020 [employer] Aut[employer] Interface Message Text Chief Complaint Patient [...] Past Medical History: Diagnosis Date Anxiety Depression Headache(449.0) Uncomplicated asthma Past Surgical History: Procedure Laterality Date EYE MUSCLE SURGERY Left 01/16/2017 EYE RECESSION - UNILATERAL - INITIAL performed by Lance Ramirez MD at [facility] OR EYE MUSCLE SURGERY Left 10/30/2017 left eye superior oblique tenectomy, lateral rectus recess performed by Lance Ramirez MD at [facility] OR EYE SURGERY EYE SURGERY Bilateral 10/07/2016 Bilateral inferior oblique myectomies and left medial rectus resection performed by Snehal Massey MD at [facility] OR STRABISMUS SURGERY 02/2014 Right medial rectus [...] taking: Reported on 12/12/2020) 1 Inhaler 0 Cxkcotwv-Wnt-Op-FA (PRE-QUIQUE PO) Take by mouth valACYclovir (VALTREX) [...] Rx FU 1 year or PRN Normal [facility] Vital Signs Date Time Vital Sign Value Performing Clinician Facility 05-09-2025 10:12-0400 Body mass index (BMI) [Ratio] 31.02 kg/m2 Lary David RAIL FLAW DETECTOR OPERATOR.CNM Work Phone: [facility] 05-09-2025 10:12-0400 Body weight 92.53 kg Lary David RAIL FLAW DETECTOR OPERATOR.CNM Work Phone: [facility] 05-09-2025 10:12-0400 Diastolic blood pressure 70 mm[Hg] Lary David RAIL FLAW DETECTOR OPERATOR.CNM Work Phone: [facility] 05-09-2025 10:12-0400 Systolic blood pressure 122 mm[Hg] Larytisha Hernandez RAIL FLAW DETECTOR OPERATOR.CNM Work Phone: [facility] 05-02-2025 10:21-0400 Body mass index (BMI) [Ratio] 30.56 kg/m2 Trista Mackey MD Work Phone: [facility] 05-02-2025 10:21-0400 Body weight 91.17 kg Trista Mackey MD Work Phone: [facility] 05-02-2025 10:21-0400 Diastolic blood pressure 78 mm[Hg] Trista Mackey MD Work Phone: [facility] 05-02-2025 10:21-0400 Systolic blood pressure 122 mm[Hg] Trista Mackey MD Work Phone: [facility] 04-25-2025 10:01-0400 Body mass index (BMI) [Ratio] 30.81 kg/m2 Trista Mackey MD Work Phone: [facility] 04-25-2025 10:01-0400 Body weight 91.9 kg Trista Mackey MD Work Phone: [facility] 04-25-2025 10:01-0400 Diastolic blood pressure 70 mm[Hg] Trista Mackey MD Work Phone: [facility] 04-25-2025 10:01-0400 Systolic blood pressure 120 mm[Hg] Trista Mackey MD Work Phone: [facility] 04-18-2025 09:56-0400 Body mass index (BMI) [Ratio] 30.26 kg/m2 Sallie Gomez MD Work Phone: [facility] 04-18-2025 09:56-0400 Body weight 90.27 kg Sallie Gomez MD Work Phone: [facility] 04-18-2025 09:56-0400 Diastolic blood pressure 62 mm[Hg] Sallie Gomez MD Work Phone: [facility] 04-18-2025 09:56-0400 Systolic blood pressure 108 mm[Hg] Sallie Gomez MD Work Phone: [facility] 04-05-2025 10:01-0400 Body mass index (BMI) [Ratio] 29.8 kg/m2 Estefanía Clark MD Work Phone: [facility] 04-05-2025 10:01-0400 Body weight 88.91 kg Estefanía Clark MD Work Phone: [facility] 04-05-2025 10:01-0400 Diastolic blood pressure 60 mm[Hg] Estefanía Clark MD Work Phone: [facility] 04-05-2025 10:01-0400 Systolic blood pressure 110 mm[Hg] Estefanía Clark MD Work Phone: [facility] 03-21-2025 10:32-0400 Body mass index (BMI) [Ratio] 29.95 kg/m2 Aislinn Bowman RAIL FLAW DETECTOR OPERATOR.CNM Work Phone: [facility] 03-21-2025 10:32-0400 Body weight 89.36 kg Aislinn Bowman RAIL FLAW DETECTOR OPERATOR.CNM Work Phone: [facility] 03-21-2025 10:32-0400 Diastolic blood pressure 72 mm[Hg] Aislinn Bowman RAIL FLAW DETECTOR OPERATOR.CNM Work Phone: [facility] 03-21-2025 10:32-0400 Systolic blood pressure 118 mm[Hg] Aislinn Bowman RAIL FLAW DETECTOR OPERATOR.CNM Work Phone: [facility] 02-21-2025 10:28-0400 Body mass index (BMI) [Ratio] 28.89 kg/m2 Aislinn Plotts RAIL FLAW DETECTOR OPERATOR.CNM Work Phone: [facility] 02-21-2025 10:28-0400 Body weight 86.18 kg Aislinn Huitronts RAIL FLAW DETECTOR OPERATOR.CNM Work Phone: [facility] 02-21-2025 10:28-0400 Diastolic blood pressure 70 mm[Hg] Aislinn Plotts RAIL FLAW DETECTOR OPERATOR.CNM Work Phone: [facility] 02-21-2025 10:28-0400 Systolic blood pressure 126 mm[Hg] Aislinn Plotjustin RAIL FLAW DETECTOR OPERATOR.CNM Work Phone: [facility] 02-07-2025 09:14-0400 Body mass index (BMI) [Ratio] 29.28 kg/m2 Deo Veliz MD Work Phone: [facility] 02-07-2025 09:14-0400 Body weight 87.36 kg Deo Veliz MD Work Phone: [facility] 02-07-2025 09:14-0400 Diastolic blood pressure 64 mm[Hg] Deo Veliz MD Work Phone: [facility] 02-07-2025 09:14-0400 Systolic blood pressure 102 mm[Hg] Deo Veliz MD Work Phone: [facility] 01-10-2025 11:11-0500 Body mass index (BMI) [Ratio] 28.13 kg/m2 Lary Hernandez APRN.CNM Work Phone: [facility] 01-10-2025 11:11-0500 Body weight 83.92 kg Lary Hernandez APRN.CNM Work Phone: [facility] 01-10-2025 11:11-0500 Diastolic blood pressure 62 mm[Hg] Lary Hernandez RAIL FLAW DETECTOR OPERATOR.CNM Work Phone: [facility] 01-10-2025 11:11-0500 Systolic blood pressure 112 mm[Hg] Lary Hernandez APRN.CNM Work Phone: [facility] 11-23-2024 09:46-0500 Body mass index (BMI) [Ratio] 26.82 kg/m2 Trista Mackey MD Work Phone: [facility] 11-23-2024 09:46-0500 Body weight 80.02 kg Trista Mackey MD Work Phone: [facility] 11-23-2024 09:46-0500 Diastolic blood pressure 64 mm[Hg] Trista Mackey MD Work Phone: [facility] 11-23-2024 09:46-0500 Systolic blood pressure 118 mm[Hg] Trista Mackey MD Work Phone: [facility] 10-29-2024 11:21-0500 Body mass index (BMI) [Ratio] 26.46 kg/m2 Trista Mackey MD Work Phone: [facility] 10-29-2024 11:21-0500 Body weight 78.93 kg Trista Mackey MD Work Phone: [facility] 10-29-2024 11:21-0500 Diastolic blood pressure 60 mm[Hg] rTista Mackey MD Work Phone: [facility] 10-29-2024 11:21-0500 Systolic blood pressure 118 mm[Hg] Trista Mackey MD Work Phone: [facility] 10-12-2024 10:41-0500 Body mass index (BMI) [Ratio] 26.61 kg/m2 Trista Mackey MD Work Phone: [facility] 10-12-2024 10:41-0500 Body weight 79.38 kg Trista Mackey MD Work Phone: [facility] 10-12-2024 10:41-0500 Diastolic blood pressure 62 mm[Hg] Trista Mackey MD Work Phone: [facility] 10-12-2024 10:41-0500 Systolic blood pressure 110 mm[Hg] Trista Mackey MD Work Phone: [facility] 09-13-2024 10:57-0500 Body height 172.7 cm Huanlandy Rubinciera RAIL FLAW DETECTOR OPERATOR.DIRECTOR OF CARDIAC REHABILITATION Work Phone: [facility] 09-13-2024 10:57-0500 Body mass index (BMI) [Ratio] 25.76 kg/m2 Huan Alber RAIL FLAW DETECTOR OPERATOR.DIRECTOR OF CARDIAC REHABILITATION Work Phone: [facility] 09-13-2024 10:57-0500 Body weight 76.84 kg Huan Rubinciera RAIL FLAW DETECTOR OPERATOR.DIRECTOR OF CARDIAC REHABILITATION Work Phone: [facility] 09-13-2024 10:57-0500 Diastolic blood pressure 60 mm[Hg] Huanlandy Rubinciera RAIL FLAW DETECTOR OPERATOR.DIRECTOR OF CARDIAC REHABILITATION Work Phone: [facility] 09-13-2024 10:57-0500 Systolic blood pressure 110 mm[Hg] Huan Alber RAIL FLAW DETECTOR OPERATOR.DIRECTOR OF CARDIAC REHABILITATION Work Phone: [facility] 12-25-2023 10:46-0500 Body weight 90.17 kg Aislinn Gracie RAIL FLAW DETECTOR OPERATOR.CNM Work Phone: [facility] 12-25-2023 10:46-0500 Diastolic blood pressure 70 mm[Hg] Aislinn Plotts RAIL FLAW DETECTOR OPERATOR.CNM Work Phone: [facility] 12-25-2023 10:46-0500 Systolic blood pressure 106 mm[Hg] Aislinn Plotts RAIL FLAW DETECTOR OPERATOR.CNM Work Phone: [facility] 11-07-2023 11:33-0500 Body temperature 97.5 [degF] [facility] 11-07-2023 11:33-0500 Diastolic blood pressure 52 mm[Hg] [facility] 11-07-2023 11:33-0500 Heart rate 69 /min [facility] 11-07-2023 11:33-0500 Respiratory rate 16 /min [facility] 11-07-2023 11:33-0500 SaO2% (BldA) [Mass fraction] 97 % [facility] 11-07-2023 11:33-0500 Systolic blood pressure 102 mm[Hg] [facility] 11-05-2023 14:57-0500 Body height 172.72 cm [facility] 11-05-2023 14:57-0500 Body mass index (BMI) [Ratio] 33 kg/m2 [facility] 11-05-2023 14:57-0500 Body weight 98.6 kg [facility] 09-26-2023 10:06-0500 Body height 172.7 cm Huan Campo APRN.DIRECTOR OF CARDIAC REHABILITATION Work Phone: [facility] 09-26-2023 10:06-0500 Body weight 91.44 kg Huan Rubinciera DELATORREN.DIRECTOR OF CARDIAC REHABILITATION Work Phone: [facility] 09-26-2023 10:06-0500 Diastolic blood pressure 60 mm[Hg] Huan Scottieciera RAIL FLAW DETECTOR OPERATOR.DIRECTOR OF CARDIAC REHABILITATION Work Phone: [facility] 09-26-2023 10:06-0500 Systolic blood pressure 108 mm[Hg] Huan Campo APRN.DIRECTOR OF CARDIAC REHABILITATION Work Phone: [facility] 05-01-2022 17:32-0400 Diastolic blood pressure 92 mm[Hg] Giuseppe Llamas MD Work Phone: [facility] 05-01-2022 17:32-0400 Heart rate 108 /min Giuseppe Llamas MD Work Phone: [facility] 05-01-2022 17:32-0400 Respiratory rate 16 /min Giuseppe Llamas MD Work Phone: [facility] 05-01-2022 17:32-0400 SaO2% (BldA) [Mass fraction] 100 % Giuseppe Llamas MD Work Phone: [facility] 05-01-2022 17:32-0400 Systolic blood pressure 142 mm[Hg] Giuseppe Llamas MD Work Phone: [facility] 05-01-2022 15:35-0400 Body height 172.7 cm Giuseppe Llamas MD Work Phone: [facility] 05-01-2022 15:35-0400 Body mass index (BMI) [Ratio] 25.09 kg/m2 Giuseppe Llamas MD Work Phone: [facility] 05-01-2022 15:35-0400 Body temperature 98.29 [degF] Giuseppe Llamas MD Work Phone: [facility] 05-01-2022 15:35-0400 Body weight 74.84 kg Giuseppe Llamas MD Work Phone: [facility] Encounters Encounter Date Encounter Type Care Provider Facility Start: 05-09-2025 End: 05-09-2025 ambulatory LARY HERNANDEZ Facility:[facility] Start: 05-09-2025 End: 05-09-2025 Patient encounter procedure Lary Hernandez APRN.CNM Work Phone: OB/Gynecology Comment on above: Supervision of high risk in third trimester (HCC) (Primary Dx); 40 weeks gestation of (HCC); Benign gestational thrombocytopenia in third trimester (HCC); History of herpes genitalis; Marijuana use during ([facility]); Short interval between pregnancies affecting in first trimester, antepartum (HCC) Start: 05-02-2025 End: 05-02-2025 Patient encounter procedure Trista Mackey MD Work Phone: OB/Gynecology Comment on above: Supervision of high risk in third trimester (HCC) (Primary Dx); Benign gestational thrombocytopenia in third trimester (HCC); 39 weeks gestation of (HCC) Start: 05-02-2025 End: 05-02-2025 ambulatory TRISTA MACKEY Facility:[facility] Start: 04-25-2025 End: 04-25-2025 Patient encounter procedure Trista Mackey MD Work Phone: OB/Gynecology Comment on above: 38 weeks gestation o f (HCC) (Primary Dx); Supervision of high risk in third trimester (HCC); Benign gestational thrombocytopenia in third trimester (HCC) Start: 04-25-2025 End: 04-25-2025 ambulatory TRISTA MACKEY Facility:[facility] Start: 04-18-2025 End: 04-18-2025 Patient encounter procedure [...] Start: 04-05-2025 End: 04-05-2025 ambulatory ESTEFANÍA CLARK Facility:[facility] Start: 03-21-2025 End: 03-21-2025 Patient encounter procedure Aislinn Bowman APRN.CNM Work Phone: OB/Gynecology Comment on above: Benign gestational t hrombocytopenia in third trimester (HCC) (Primary Dx); 33 weeks gestation of (HCC); Bad odor of urine Start: 03-21-2025 End: 03-21-2025 ambulatory AISLINN BOWMAN Facility:[facility] Start: 03-09-2025 End: 05-09-2025 Follow-up encounter Aislinn Bowman RAIL FLAW DETECTOR OPERATORDeniseCNM Work Phone: OB/Gynecology Start: 03-07-2025 End: 03-07-2025 ambulatory AISLINN BOWMAN Facility:[facility] Start: 02-22-2025 End: 02-22-2025 Telephone encounter Estefanía Bradshaw RN Maternal Medicine Comment on above: Regulatory Intern - O ther (PRAF) Start: 02-21-2025 End: 02-21-2025 ambulatory AISLINN BOWMAN Facility:[facility] Start: 02-21-2025 End: 02-21-2025 Patient encounter procedure Aislinn Bowman APRN.CNM Work Phone: OB/Gynecology Comment on above: 29 weeks gestation o f (HCC) (Primary Dx); Benign gestational thrombocytopenia in third trimester (HCC); Supervision of high risk in second trimester (HCC); Adjustment disorder with anxiety; Thrombocytopenia affecting (HCC) Start: 02-10-2025 End: 04-12-2025 Follow-up encounter Huan Campo APRN.DIRECTOR OF CARDIAC REHABILITATION Work Phone: OB/Gynecology Start: 02-08-2025 End: 02-08-2025 ambulatory Aislinn Bowman APRN.CNM Work Phone: OB/Gynecology Comment on above: Fall Start: 02-07-2025 End: 02-07-2025 Patient encounter procedure Deo Veliz MD Work Phone: OB/Gynecology Comment on above: Supervision of high risk in second trimester (Primary Dx); Current every day nicotine vaping; 27 weeks gestation of ; Need for vaccination Start: 02-07-2025 End: 02-07-2025 ambulatory DEO VELIZ Facility:[facility] Start: 01-14-2025 End: 01-14-2025 Telephone encounter Estefanía Bradshaw RN Maternal Medicine Comment on above: Regulatory Intern - O ther (PRAF) Start: 01-10-2025 End: 03-12-2025 Follow-up encounter Trista Mackey MD Work Phone: OB/Gynecology Start: 01-10-2025 End: 01-10-2025 ambulatory HUAN CAMPO Facility:[facility] Start: 01-10-2025 End: 01-10-2025 Patient encounter procedure [...] End: 12-06-2024 ambulatory No Primary Care Physician Facility:[facility] Start: 11-23-2024 End: 11-23-2024 ambulatory LISETTE TEJEDA Facility:[facility] Start: 11-23-2024 End: 11-23-2024 Patient encounter procedure Trista Mackey MD Work Phone: OB/Gynecology Comment on above: 16 weeks gestation o f (Primary Dx); Encounter for supervision of high risk in first trimester, antepartum; Short interval between pregnancies affecting in first trimester, antepartum Start: 10-29-2024 End: 10-29-2024 ambulatory TRISTA MACKEY Facility:[facility] Start: 10-29-2024 End: 10-29-2024 Patient encounter procedure Trista Mackey MD Work Phone: OB/Gynecology Comment on above: Short interval betwe en pregnancies affecting in first trimester, antepartum (Primary Dx); Encounter for supervision of high risk in first trimester, antepartum; 12 weeks gestation of Start: 10-29-2024 End: 10-29-2024 ambulatory HUAN CAMPO Facility:[facility] Start: 10-29-2024 End: 10-29-2024 ambulatory HUAN [facility] Facility:[facility] Start: 10-29-2024 End: 10-29-2024 Patient encounter procedure Whi Tech 1 Field Technical Specialist Mfm Wstr Mob Maternal Medicine Comment on [...] Estefanía Bradshaw RN OB/Gynecology Comment on above: Regulatory Intern - O ther (PRAF) Start: 09-13-2024 End: 09-13-2024 ambulatory HUANLANDY CAMPO Facility:[facility] Start: 09-13-2024 End: 09-13-2024 Patient encounter procedure Huan Campo DIRECTOR OF CARDIAC REHABILITATION Work Phone: OB/Gynecology Comment on above: Encounter [...] Start: 08-03-2024 End: 08-03-2024 ambulatory Marcelo HERRERA Facility:[facility] Start: 12-25-2023 End: 12-25-2023 Patient encounter procedure Aislinn Bowman APRN.CNDavid Work Phone: OB/Gynecology Comment on above: care and examination (Primary Dx); Atypical squamous cells of undetermined significance (ASCUS) on Papanicolaou smear of cervix Start: 11-05-2023 End: 11-07-2023 [facility] Work Phone: Start: 10-13-2023 End: 10-13-2023 Patient encounter procedure Field Technical Specialist [place] [facility] Work Phone: OB/Gynecology Comment on above: Encounter for ultras ound to check growth (Primary Dx); with care elsewhere, antepartum; 35 weeks gestation of ; Encounter for anatomic survey Start: 09-30-2023 Telephone encounter Regulatory Intern BUBBA Maternal Medicine Comment on above: Regulatory Intern - O ther (PRAF) Start: 09-26-2023 End: 09-26-2023 Patient encounter procedure Huan Campo DIRECTOR OF CARDIAC REHABILITATION Work Phone: OB/Gynecology Comment on above: 33 [...] pump Start: 08-01-2023 Telephone encounter Clementine zhao APRN.DIRECTOR OF CARDIAC REHABILITATION Work Phone: OB/Gynecology Comment on above: Received Outside [facility] Records Start: 07-25-2023 End: 07-25-2023 ambulatory [facility] Work Phone: Start: 07-25-2023 End: 07-25-2023 Patient encounter procedure [facility]-Laboratory Work Phone: Start: 04-08-2023 End: 04-08-2023 ambulatory [facility] Work Phone: Start: 04-08-2023 End: 04-08-2023 Patient encounter procedure [facility]-Laboratory, [place] physician neonatology Off Start: 10-09-2022 Telephone encounter Tremayne hernandez DDS Work Phone: [facility] Clinical Communication Comment on above: Appointment Request Start: 05-01-2022 End: 05-01-2022 Emergency department patient visit Giuseppe Llamas MD Work Phone: [facility] ED Comment on above: Contusion of [...] after 1st trimest / gestation Huan Campo APRN.DIRECTOR OF CARDIAC REHABILITATION Work Phone: Start: 10-29-2024 Antibody screen VINCE BOWMAN Comment on above: Order Comment: Speci men Type: BLOOD SPECIMEN Ordering Facility: [facility] Address: [address] [place] [address] Performed By: #### T SPN #### CC MAIN BLOOD BANK [facility] [id number] [address] [place] [address] [place] Start: 10-29-2024 Us nuchal translucency 1st gestation Huan Campo APRN.DIRECTOR OF CARDIAC REHABILITATION Work Phone: Start: 09-13-2024 Us uterus l imited 1/> fetuses Huan Campo APRN.DIRECTOR OF CARDIAC REHABILITATION Work Phone: Start: 09-13-2024 Adult depression scr eening assessment Trista Mackey MD Work Phone: Start: 12-25-2023 Iadna trichomonas vaginalis amplified probe tech Aislinn Bowman APRN.CNM Work Phone: Start: 10-13-2023 Us preg uterus after 1st trimest 11/10 gestation Huan Campo LEONID.DIRECTOR OF CARDIAC REHABILITATION Work Phone: Start: 09-26-2023 Adult depression scr [...] 2) Zoster Vacc nerissa (1 of 2) [facility] Start: 02-07-2035 Urine microalbumin profile DTaP,Tdap,Td Vaccine (10 - Td or Tdap) [facility] Start: 10-10-2033 Urine microalbumin profile DTaP,Tdap,Td Vaccine (9 - Td or Tdap) [facility] Start: 09-26-2033 Urine microalbumin profile DTaP,Tdap,Td Vaccine (8 - Td or Tdap) [facility] Start: 01-07-2029 DTaP/Tdap/Td vaccine (8 - Td or Tdap) DTaP/Tdap/Td vaccine (8 - Td or Tdap) [facility] Start: 12-25-2026 Screening for malign ant neoplasm of cervix Cervical Cancer Screening [facility] Start: 10-12-2025 Covid-19 Vaccine ( season) Covid-19 Vaccine ( season) [facility] Comment on above: Postponed from 07/11 (Declined at this time) Start: 09-13-2025 Depression Screening Depression Scre ening [facility] Start: 07-11-2025 Influenza vaccination C [facility] Start: 05-09-2025 Influenza vaccination Influenza Vacc ine (#1) [facility] Comment on above: Postponed from 07/11 (Declined at this time) Start: 05-09-2025 End: 05-09-2025 Patient encounter procedure 05/09/2025 10:00 AM EDT Routine Office Visit OB/Gynecology [address] [place] [address] Lary Hernandez APRN.CN [address] [place] [address] OB OB/Gynecology Comment on above: OB Start: 05-02-2025 End: 05-02-2025 Patient encounter procedure 05/02/2025 10:10 AM EDT Routine Office Visit OB/Gynecology [address] [place] [address] Trista Mackey MD [address] [place] [address] OB OB/Gynecology Comment on above: OB Start: 04-25-2025 End: 04-25-2025 Patient encounter procedure 04/25/2025 10:00 AM EDT Routine Office Visit OB/Gynecology [address] [place] [address] Deo Veliz MD [address] [place] [address] OB OB/Gynecology Comment on above: OB Start: 04-19-2025 End: 07-19-2025 CBC W Auto Differential panel - Blood COMPLETE BLOOD COUNT AND DIFFERENTIAL Lab Routine Benign gestational thrombocytopenia in third trimester (HCC) Expected: 04/19/2025, Expires: 07/19/2025 [facility] Work Phone: Comment on above: Expected: 04/19/2025 , Expires: 07/19/2025 Start: 04-19-2025 End: 04-19-2025 ambulatory 04/19/2025 10:00 AM EDT Results Only [place] [facility] [address] [place] [address] Windy Flores [facility] Start: 04-18-2025 End: 04-18-2025 Patient encounter procedure 04/18/2025 10:00 AM EDT Routine Office Visit OB/Gynecology [address] [place] [address] Sallie Wise MD [address] [place] [address] OB OB/Gynecology Comment on above: OB Start: 04-05-2025 End: 04-05-2025 Patient encounter procedure 04/05/2025 10:00 AM EDT Routine Office Visit OB/Gynecology [address] [place] [address] Estefanía Clark MD [address] [place] [address] OB OB/Gynecology Comment on above: OB Start: 03-21-2025 End: 03-21-2025 Patient encounter procedure 03/21/2025 10:30 AM EDT Routine Office Visit OB/Gynecology [address] [place] [address] Aislinn Bowman APRN.[facility] [address] [place] [address] OB OB/Gynecology Comment on above: OB Start: 03-07-2025 End: 03-07-2025 ambulatory 03/07/2025 10:45 AM EDT Results Only [place] [facility] [address] [place] [address] Kimbertonsondra Núñezwn [facility] Start: 03-07-2025 End: 03-07-2025 Patient encounter procedure 03/07/2025 10:00 AM EDT Routine Office Visit OB/Gynecology [address] [place] [address] Estefanía Clark MD [address] [place] [address] OB OB/Gynecology Comment on above: OB Start: 02-21-2025 End: 05-23-2025 CBC panel - Blood by Automated count COMPLETE BLOOD COUNT Lab Routine Thrombocytopenia affecting (HCC) Expected: 02/21/2025, Expires: 05/23/2025 [facility] Work Phone: Comment on above: Expected: 02/21/2025 , Expires: 05/23/2025 Start: 02-21-2025 End: 02-21-2025 Patient encounter procedure 02/21/2025 10:30 AM EDT Routine Office Visit OB/Gynecology [address] [place] [address] Aislinn Bowman APRN.CN [address] [place] [address] OB OB/Gynecology Comment on above: OB Start: 02-07-2025 End: 02-07-2025 Patient encounter procedure 02/07/2025 9:10 AM EDT Routine Office Visit OB/Gynecology [address] [place] [address] Deo Veliz MD [address] [place] [address] OB OB/Gynecology Comment on above: OB Start: 02-07-2025 End: 02-07-2025 ambulatory 02/07/2025 9:00 AM EDT Results Only [place] [facility] [address] [place] [address] Glucose Test [facility] Laboratory Comment on above: Glucose Test Start: 01-10-2025 End: 04-11-2025 ANEMIA REFLEX PANEL ANEMIA REFLEX PANEL Lab Routine Marijuana use during Adjustment disorder with anxiety Posttraumatic stress disorder Current every day nicotine vaping Supervision of high risk in second trimester 23 weeks gestation of Expected: 01/10/2025, Expires: 04/11/2025 [facility] Comment on above: Expected: 01/10/2025 , Expires: 04/11/2025 Start: 01-10-2025 End: 01-10-2026 GESTATIONAL GLUCOSE SCREEN, 1-HOUR, 50 GRAM, NON-FASTING GESTATIONAL GLUCOSE SCREEN, 1-HOUR, 50 GRAM, NON-FASTING Lab Routine Screening for diabetes mellitus Marijuana use during Adjustment disorder with anxiety Posttraumatic stress disorder Current every day nicotine vaping Supervision of high risk in second trimester 23 weeks gestation of Expected: 01/10/2025, Expires: 01/10/2026 [facility] Work Phone: Comment on above: Expected: 01/10/2025 , Expires: 01/10/2026 Start: 01-10-2025 End: 01-10-2026 SYPHILIS TREPONEMAL W/REFLEX SYPHILIS TREPONEMAL W/REFLEX Lab Routine Marijuana use during Adjustment disorder with anxiety Posttraumatic stress disorder Current every day nicotine vaping Supervision of high risk in second trimester 23 weeks gestation of Expected: 01/10/2025, Expires: 01/10/2026 [facility] Comment on above: Expected: 01/10/2025 , Expires: 01/10/2026 Start: 12-27-2024 End: 12-27-2024 Patient encounter procedure 12/27/2024 10:45 AM EST Office Visit OB/Gynecology [address] [place] [address] Aislinn Bowman APRN.[facility] [address] [place] [address] annual OB/Gynecology Comment on above: annual Start: 12-21-2024 End: 12-21-2024 Patient encounter procedure Maternal Medicine Comment on above: Anatomy Scan OB Routine Start: 11-23-2024 End: 11-23-2024 Patient encounter procedure 11/23/2024 9:40 AM EST Routine Office Visit OB/Gynecology [address] [place] [address] Lisette Tejeda MD [address] [place] [address] OB Routine OB/Gynecology Comment on above: OB Routine Start: 10-29-2024 End: 10-29-2024 Patient encounter procedure 10/29/2024 1:30 PM EST Routine Office Visit OB/Gynecology [address] [place] [address] Trista Mackey MD [address] [place] [address] OB Routine OB/Gynecology Comment on above: OB Routine Start: 10-29-2024 End: 10-29-2024 Patient encounter procedure 10/29/2024 10:30 AM EST Routine Office Visit Maternal Medicine [address] [place] [address] Nuchal Maternal Medicine Comment on above: Nuchal Start: 10-12-2024 End: 01-11-2025 Chromosome 21 trisomy [Presence] in Blood or Tissue by Cytogenetics [id number] PLUS Lab Routine Short interval between pregnancies affecting in first trimester, antepartum Encounter for supervision of high risk in first trimester, antepartum 10 weeks gestation of Expected: 10/12/2024, Expires: 01/11/2025 [facility] Work Phone: Comment on above: Expected: 10/12/2024 , Expires: 01/11/2025 Start: 10-12-2024 End: 10-12-2024 Patient encounter procedure 10/12/2024 10:20 AM EST Routine Office Visit OB/Gynecology [address] [place] [address] Trista Mackey MD [address] [place] [address] 2nd OB OB/Gynecology Comment on above: 2nd OB Start: 09-26-2024 Depression Screening Depression Scre ening [facility] Start: 09-13-2024 End: 12-13-2024 ANEMIA REFLEX PANEL ANEMIA REFLEX PANEL Lab Routine with uncertain dates in first trimester Expected: 09/13/2024, Expires: 12/13/2024 [facility] Work Phone: Comment on above: Expected: 09/13/2024 , Expires: 12/13/2024 Start: 09-13-2024 End: 12-13-2024 Hemoglobin A1c in Blood HEMOGLOBIN A1C Lab Routine with uncertain dates in first trimester Expected: 09/13/2024, Expires: 12/13/2024 [facility] Comment on above: Expected: 09/13/2024 , Expires: 12/13/2024 Start: 09-13-2024 End: 12-13-2024 HEMOGLOBIN EVALUATION CASCADE HEMOGLOBIN EVALUATION CASCADE Lab Routine Encounter for supervision of high risk in first trimester, antepartum 6 weeks gestation of Expected: 09/13/2024, Expires: 12/13/2024 [facility] Comment on above: Expected: 09/13/2024 , Expires: 12/13/2024 Start: 09-13-2024 End: 12-13-2024 Hepatitis B virus surface Ag [Presence] in Serum HEPATITIS B SURFACE ANTIGEN Lab Routine with uncertain dates in first trimester Expected: 09/13/2024, Expires: 12/13/2024 [facility] Comment on above: Expected: 09/13/2024 , Expires: 12/13/2024 Start: 09-13-2024 End: 12-13-2024 Hepatitis C virus Ab [Presence] in Serum HEPATITIS C ANTIBODY IA WITH CONFIRMATION Lab Routine with uncertain dates in first trimester Expected: 09/13/2024, Expires: 12/13/2024 [facility] Comment on above: Expected: 09/13/2024 , Expires: 12/13/2024 Start: 09-13-2024 End: 12-13-2024 HIV 1+2 Ab [Presence] in Serum or Plasma by Immunoassay HIV 1/2 COMBO WITH REFLEX TO DIFFERENTIATION Lab Routine with uncertain dates in first trimester Expected: 09/13/2024, Expires: 12/13/2024 [facility] Comment on above: Expected: 09/13/2024 , Expires: 12/13/2024 Start: 09-13-2024 End: 09-13-2025 NUCHAL TRANSLUCENCY WHI NUCHAL TRANSLUCENCY WHI Anc Imaging Routine with uncertain dates in first trimester Expected: 09/13/2024, Expires: 09/13/2025 [facility] Comment on above: Expected: 09/13/2024 , Expires: 09/13/2025 Start: 09-13-2024 End: 09-13-2025 OBSTETRIC ULTRASOUND WHI OBSTETRIC ULTRASOUND WHI Anc Imaging Routine with uncertain dates in first trimester Expected: 09/13/2024, Expires: 09/13/2025 [facility] Comment on above: Expected: 09/13/2024 , Expires: 09/13/2025 Start: 09-13-2024 End: 12-13-2024 RUBELLA IGG ANTIBODY RUBELLA IGG ANTIBODY Lab Routine with uncertain dates in first trimester Expected: 09/13/2024, Expires: 12/13/2024 [facility] Comment on above: Expected: 09/13/2024 , Expires: 12/13/2024 Start: 09-13-2024 End: 12-13-2024 SYPHILIS TREPONEMAL W/REFLEX SYPHILIS TREPONEMAL W/REFLEX Lab Routine with uncertain dates in first trimester Expected: 09/13/2024, Expires: 12/13/2024 [facility] Comment on above: Expected: 09/13/2024 , Expires: 12/13/2024 Start: 09-13-2024 End: 12-13-2024 TYPE + SCREEN TYPE + SCREEN Blood Bank Routine with uncertain dates in first trimester Expected: 09/13/2024, Expires: 12/13/2024 [facility] Comment on above: Expected: 09/13/2024 , Expires: 12/13/2024 Start: 09-07-2024 End: 09-07-2024 Patient encounter procedure 09/07/2024 8:45 AM EDT Initial Office Visit OB/Gynecology [address] [place], [place] [id number] Aislinn Bowman APRN.[facility] [address] [place] [address] 1st OB OB/Gynecology Comment on above: 1st OB Start: 07-11-2024 Covid-19 Vaccine ( season) Covid-19 Vaccine ( season) [facility] Start: 07-11-2024 Influenza vaccination Influenza Vacc ine (#1) [facility] Start: 04-08-2024 Chlamydia Screening (18-24) Chlamydia Screening (18-24) [facility] Start: 05-30-2024 GC (Gonorrhea) Scree laurel (18-24) GC (Gonorrhea) Screening (18-) [facility] Start: 04-08-2024 Screening for Chlamy jayro trachomatis Chlamydia Screening () [facility] Start: 11-10-2023 [facility] Start: 11-07-2023 Patient discharge [facility] Start: 11-05-2023 Administration of medication [facility] Start: 11-05-2023 Application of ice collar, cap or bag [facility] Start: 11-05-2023 Catheterization of vein [facility] Start: 11-05-2023 Introduction of urin sumeet catheter [facility] Start: 11-05-2023 Measuring intake and output [facility] Start: 11-05-2023 Notification of physician [facility] Start: 11-05-2023 Procedure discontinued [facility] Start: 11-05-2023 Provision of activit y privileges [facility] Start: 11-05-2023 Vital signs measurements [facility] Start: 11-05-2023 [facility] Start: 11-05-2023 Admission procedure [facility] Start: 11-05-2023 Consultation [facility] Start: 09-26-2023 End: 09-26-2024 OBSTETRIC ULTRASOUND WHI OBSTETRIC ULTRASOUND I Anc Imaging Routine 33 weeks gestation of Expected: 09/26/2023, Expires: 09/26/2024 [facility] Work Phone: Comment on above: Expected: 09/26/2023 , Expires: 09/26/2024 Start: 07-11-2023 Covid-19 Vaccine ( season) Covid-19 Vaccine ( season) [facility] Start: 07-11-2023 Influenza vaccination Influenza Vacc ine (#1) [facility] Start: 11-10-2022 Depression Assessment Depression Ass essment [facility] Start: 07-11-2022 Influenza vaccination S [facility] Start: 04-25-2021 Urine microalbumin profile DTaP,Tdap,Td Vaccine (7 - Td or Tdap) [facility] Start: 2020 Pap Testing Pap Testing [facility] Start: 2020 Screening for malign ant neoplasm of cervix [facility] Start: 07-11-2019 Screening for Chlamy jayro trachomatis Chlamydia screen [facility] Start: 2018 DTaP/Tdap/Td Vaccine s (1 - Tdap) DTaP/Tdap/Td Vaccines (1 - Tdap) [facility] Start: 2018 Urine microalbumin profile DTaP,Tdap,Td Vaccine (1 - Tdap) [facility] Start: 2017 Annual PCP Team Dinkey Engineer alejandro Disease Visit Annual PCP Team Chronic Disease Visit [facility] Start: 2017 Chlamydia Screening (18-24) Chlamydia Screening (18-24) [facility] Start: 2017 Depression Screening Depression Scre ening [facility] Start: 2017 GC (Gonorrhea) Scree laurel (18-24) GC (Gonorrhea) Screening (18-24) [facility] Start: 2017 Hepatitis C screening S [facility] Start: 2017 Hepatitis C Screening Hepatitis C Sc reening [facility] Start: 2017 HIV Screening HIV Screening [facility] Start: 2017 Spirometry Spirometry [facility] Start: 2015 Meningococcal B Vacc ine: Consider Based On Risk (1 of 2 - Patient Seeks Protection) Meningococcal B Vaccine: Consider Based On Risk (1 of 2 - Patient Seeks Protection) [facility] Start: 2014 HIV screening HIV screen [facility] Start: 2013 Peds To Adult Transi tion Annual Assessment Peds To Adult Transition Annual Assessment [facility] Start: 2011 Depression Screen Depression Screen [facility] Start: 2011 Peds To Adult Transi tion Initial Discussion Peds To Adult Transition Initial Discussion [facility] Start: 2010 HPV Vaccines (1 - 2- dose series) HPV Vaccines (1 - 2-dose series) [facility] Start: 2008 HPV Vaccine (1 - 2-d ose series) HPV Vaccine (1 - 2-dose series) [facility] Start: 2005 Pneumococcal vaccination Pneum ococcal Vaccine (1 - PCV) [facility] Start: 2005 Pneumococcal Vaccine : Pediatrics (0 to 5 Years) and At-Risk Patients (6 to 64 Years) (1 - PCV) Pneumococcal Vaccine: Pediatrics (0 to 5 Years) and At-Risk Patients (6 to 64 Years) (1 - PCV) [facility] Start: 2004 COVID-19 Vaccine (1) COVID-19 Vaccin e (1) [facility] Start: 2000 MMR Vaccines (1 of 1 - Standard series) MMR Vaccines (1 of 1 - Standard series) [facility] Start: 2000 Varicella vaccination Varicell a Vaccines (1 of 2 - 2-dose childhood series) [facility] Start: 06-15-2000 Covid-19 Vaccine (#1) Covid-19 Vacci ne (#1) [facility] Start: 05-09-2000 Hepatitis B vaccine (2 of 3 - 3-dose primary series) Hepatitis B vaccine (2 of 3 - 3-dose primary series) [facility] Start: 1999 Hepatitis B Vaccine (1 of 3 - 3-dose series) Hepatitis B Vaccine (1 of 3 - 3-dose series) [facility] Start: 1999 Hepatitis B Vaccines (1 of 3 - 3-dose series) Hepatitis B Vaccines (1 of 3 - 3-dose series) [facility] Start: 1999 HIV screening HIV Screening [facility] Start: 1999 Lipid panel Lipid Panel [facility] Bacteria identified in Urine by Culture URINE CULTURE Microbiology Routine with uncertain dates in first trimester 09/13/2024 11:34 AM [facility] BACTERIAL VAGINOSIS NAAT BACTERI AL VAGINOSIS NAAT Lab Routine care and examination 12/25/2023 11:11 AM [facility] Work Phone: Chlamydia trachomatis+Neisseria gonorrhoeae DNA [Presence] in Unspecified specimen by BRIDGER with probe detection GONORRHEA/CHLAMYDIA NAAT Lab Routine care and examination 12/25/2023 11:11 AM [facility] Work Phone: Chlamydia trachomatis+Neisseria gonorrhoeae DNA [Presence] in Unspecified specimen by BRIDGER with probe detection GONORRHEA/CHLAMYDIA NAAT Lab Routine with uncertain dates in first trimester 09/13/2024 11:34 AM [facility] PAP TEST PAP TEST Lab [facility] care and examination 12/25/2023 11:11 AM [facility] Work Phone: Path report.final Dx Spec [facility] Patient Education After a Vaginal [facility] Work Phone: Patient referral [facility] Work Phone: ROUTINE, GR OUP B STREPTOCOCCUS BY PCR ROUTINE, GROUP B STREPTOCOCCUS BY PCR Microbiology Routine Supervision of high risk in third trimester (HCC) 37 weeks gestation of (HCC) 04/18/2025 10:09 AM EDT [facility] Work Phone: TRICHOMONAS VAGINALI S NAAT TRICHOMONAS VAGINALIS NAAT Lab Routine Encounter for supervision of high risk in first trimester, antepartum 09/13/2024 11:34 AM EST [facility] URINE OB DIP B/O URINE OB DIP B/ O Lab Routine 33 weeks gestation of Ordered: 09/26/2023 [facility] Work Phone: Comment on above: Ordered: 09/26/2023 [facility] Immunizations Immunization Date Immunization Notes Care Provider [facility] 02-07-2025 tetanus toxoid, redu sedrick diphtheria toxoid, and acellular pertussis vaccine, adsorbed Deo Veliz MD Work Phone: [facility] 10-13-2023 respiratory syncytia l virus (RSV) vaccine, bivalent (ABRYSVO) Ob Ultrasound Work Phone: [facility] 10-10-2023 tetanus toxoid, redu sedrick diphtheria toxoid, and acellular pertussis vaccine, adsorbed [facility] 09-26-2023 tetanus toxoid, redu sedrick diphtheria toxoid, and acellular pertussis vaccine, adsorbed Huan Campo APRN.DIRECTOR OF CARDIAC REHABILITATION Work Phone: [facility] 10-23-2021 COVID-19 original vaccine, age 12+ yr, monovalent (PFIZER-BIONTECH - PURPLE TOP) Trista Mackey MD Work Phone: [facility] 10-02-2021 COVID-19 original vaccine, age 12+ yr, monovalent (PFIZER-BIONTECH - PURPLE TOP) Trista Mackey MD Work Phone: [facility] 06-27-2017 hepatitis A vaccine, pediatric/adolescent dosage, 2 dose schedule Huan Haury RAIL FLAW DETECTOR OPERATOR.DIRECTOR OF CARDIAC REHABILITATION Work Phone: [facility] 06-27-2017 meningococcal polysaccharide (groups A, C, Y and W-135) diphtheria toxoid conjugate vaccine (MCV4P) Trista Mackey MD Work Phone: [facility] 01-11-2015 hepatitis A vaccine, pediatric/adolescent dosage, 2 dose schedule Huan Haury RAIL FLAW DETECTOR OPERATOR.DIRECTOR OF CARDIAC REHABILITATION Work Phone: [facility] 01-11-2015 human papilloma viru s vaccine, quadrivalent Huan Haury RAIL FLAW DETECTOR OPERATOR.DIRECTOR OF CARDIAC REHABILITATION Work Phone: [facility] 08-21-2012 human papilloma viru s vaccine, quadrivalent Huan Haury RAIL FLAW DETECTOR OPERATOR.DIRECTOR OF CARDIAC REHABILITATION Work Phone: [facility] 06-01-2012 human papilloma viru s vaccine, quadrivalent Huan Haury RAIL FLAW DETECTOR OPERATOR.DIRECTOR OF CARDIAC REHABILITATION Work Phone: [facility] 04-25-2011 meningococcal polysaccharide (groups A, C, Y and W-135) diphtheria toxoid conjugate vaccine (MCV4P) Trista Mackey MD Work Phone: [facility] 04-25-2011 tetanus toxoid, redu sedrick diphtheria toxoid, and acellular pertussis vaccine, adsorbed Huan Haury RAIL FLAW DETECTOR OPERATOR.DIRECTOR OF CARDIAC REHABILITATION Work Phone: [facility] 04-25-2011 varicella virus vaccine Cooper y Haury RAIL FLAW DETECTOR OPERATOR.DIRECTOR OF CARDIAC REHABILITATION Work Phone: [facility] 07-18-2004 diphtheria, tetanus toxoids and acellular pertussis vaccine, unspecified formulation Huan Haury RAIL FLAW DETECTOR OPERATOR.DIRECTOR OF CARDIAC REHABILITATION Work Phone: [facility] 07-18-2004 measles, mumps and rubella virus vaccine Huan Haury RAIL FLAW DETECTOR OPERATOR.DIRECTOR OF CARDIAC REHABILITATION Work Phone: [facility] 07-18-2004 poliovirus vaccine, inactivated Huan Haury RAIL FLAW DETECTOR OPERATOR.DIRECTOR OF CARDIAC REHABILITATION Work Phone: [facility] 09-20-2003 influenza, seasonal, injectable Huan Haury RAIL FLAW DETECTOR OPERATOR.DIRECTOR OF CARDIAC REHABILITATION Work Phone: [facility] 09-20-2003 influenza virus vaccine, unspecified formulation Huan Haury RAIL FLAW DETECTOR OPERATOR.DIRECTOR OF CARDIAC REHABILITATION Work Phone: [facility] 10-14-2002 influenza virus vaccine, whole virus Huan Haury RAIL FLAW DETECTOR OPERATOR.DIRECTOR OF CARDIAC REHABILITATION Work Phone: [facility] 09-14-2002 influenza virus vaccine, whole virus Huan Haciera RAIL FLAW DETECTOR OPERATOR.DIRECTOR OF CARDIAC REHABILITATION Work Phone: [facility] 07-03-2001 pneumococcal conjuga te vaccine, 7 valent Huan Haury RAIL FLAW DETECTOR OPERATOR.DIRECTOR OF CARDIAC REHABILITATION Work Phone: [facility] 04-15-2001 diphtheria, tetanus toxoids and acellular pertussis vaccine, unspecified formulation Huan Haury RAIL FLAW DETECTOR OPERATOR.DIRECTOR OF CARDIAC REHABILITATION Work Phone: [facility] 04-15-2001 haemophilus influenz ae type b vaccine, PRP-T conjugate Huan Haciera RAIL FLAW DETECTOR OPERATOR.DIRECTOR OF CARDIAC REHABILITATION Work Phone: [facility] 04-15-2001 pneumococcal conjuga te vaccine, 7 valent Huan Haury RAIL FLAW DETECTOR OPERATOR.DIRECTOR OF CARDIAC REHABILITATION Work Phone: [facility] 01-02-2001 measles, mumps and rubella virus vaccine Huan Haury RAIL FLAW DETECTOR OPERATOR.DIRECTOR OF CARDIAC REHABILITATION Work Phone: [facility] 01-02-2001 varicella virus vaccine Cooper y Alber RAIL FLAW DETECTOR OPERATOR.DIRECTOR OF CARDIAC REHABILITATION Work Phone: [facility] 12-18-2000 hepatitis B vaccine, pediatric or pediatric/adolescent dosage Huan Haciera RAIL FLAW DETECTOR OPERATOR.DIRECTOR OF CARDIAC REHABILITATION Work Phone: [facility] 07-07-2000 poliovirus vaccine, inactivated Huan Haciera RAIL FLAW DETECTOR OPERATOR.DIRECTOR OF CARDIAC REHABILITATION Work Phone: [facility] 06-09-2000 diphtheria, tetanus toxoids and acellular pertussis vaccine, unspecified formulation Huan Haury RAIL FLAW DETECTOR OPERATOR.DIRECTOR OF CARDIAC REHABILITATION Work Phone: [facility] 06-09-2000 haemophilus influenz ae type b vaccine, PRP-T conjugate Huan Haciera RAIL FLAW DETECTOR OPERATOR.DIRECTOR OF CARDIAC REHABILITATION Work Phone: [facility] 04-11-2000 diphtheria, tetanus toxoids and acellular pertussis vaccine, unspecified formulation Huan Haury RAIL FLAW DETECTOR OPERATOR.DIRECTOR OF CARDIAC REHABILITATION Work Phone: [facility] 04-11-2000 haemophilus influenz ae type b conjugate and Hepatitis B vaccine Huan Rubinury RAIL FLAW DETECTOR OPERATOR.DIRECTOR OF CARDIAC REHABILITATION Work Phone: [facility] 04-11-2000 poliovirus vaccine, inactivated Huanlandy Rubinury RAIL FLAW DETECTOR OPERATOR.DIRECTOR OF CARDIAC REHABILITATION Work Phone: [facility] 03-11-2000 hepatitis B vaccine, pediatric or pediatric/adolescent dosage Huan Haury RAIL FLAW DETECTOR OPERATOR.DIRECTOR OF CARDIAC REHABILITATION Work Phone: [facility] 02-08-2000 diphtheria, tetanus toxoids and acellular pertussis vaccine, unspecified formulation Huanlandy Rubinury RAIL FLAW DETECTOR OPERATOR.DIRECTOR OF CARDIAC REHABILITATION Work Phone: [facility] 02-08-2000 haemophilus influenz ae type b vaccine, PRP-T conjugate Huan Rubinury RAIL FLAW DETECTOR OPERATOR.DIRECTOR OF CARDIAC REHABILITATION Work Phone: [facility] 02-08-2000 poliovirus vaccine, inactivated Huanlandy Rubinury RAIL FLAW DETECTOR OPERATOR.DIRECTOR OF CARDIAC REHABILITATION Work Phone: [facility] NEGATED: Highlighted row has not occurred!03-18-2019 tetanus toxoid, reduced diphtheria toxoid, and acellular pertussis vaccine, adsorbed Giuseppe Llamas MD Work Phone: [facility] Comment on above: Deferred: - pt state s she already recieved on 01/07/2019 Payers Date Payer Category Payer Self-pay [id number] 2022 Medicaid [id number] 2022 Unknown [id number] 2015 Unknown [id number] Unknown [facility] D *DO NOT USE* [id number] Unknown [id number] Unknown [id number] Social History Date Type Detail Facility Start: 05-01-2022 End: 07-11-2018 Tobacco smoking status NHIS Occasional tobacco smoker [facility] End: 07-11-2018 History of tobacco use Cigarette Smoker [employer] Work Phone: Start: 05-01-2022 End: 09-13-2024 Tobacco use and exposure Smokeless tobacco non-user [employer] Work Phone: Start: 05-01-2022 Alcohol intake Current non-dr hims coder of alcohol (finding) [employer] Work Phone: Start: 05-01-2022 End: 12-25-2023 Alcohol intake [employer] Work Phone: Start: 1999 Sex Assigned At Not on file S [employer] Work Phone: Start: 04-21-2022 End: 05-01-2022 Exposure to SARS-CoV-2 (event) Not sure [facility] [employer] Phone: Start: 08-21-2021 End: 11-06-2023 Tobacco smoking status MEIS Unknown if ever smoked [facility] Start: 1999 Sex Assigned At Female [facility] Start: 11-23-2020 End: 12-25-2023 Area Deprivation Index [facility] National Score (1-10 0), lower number is lower risk Not on file [facility] Start: 09-26-2023 End: 09-13-2024 Tobacco smoking status NHIS Never smoked tobacco [facility] Start: 09-26-2023 End: 12-25-2023 Alcohol intake Lifetime non-drinker (finding) [facility] Start: 02-21-2023 [facility] Start: 09-13-2024 End: 05-09-2025 Alcoholic beverage intake Ex-drinker (finding) [facility] Start: 09-02-2024 Education 14 [facility] Start: 09-02-2024 Alcohol Comment occasionally [facility] Goals Date Patient Goal Desired Activity [...] PP Labor instructions reviewed Lary Hernandez APRN.CNM [facility] 05-09-2025 Miscellaneous Notes MCKENZIE-S: Guerda Cardona [...] Lary Hernandez APRN.CNM documented in this encounter [facility] 05-09-2025 Instructions Carlos Womack MA - 05/09/2025 10:08 AM EDT SEQUENTIAL SCREENINGS The [facility] offers sequential screenings for women who [...] It will require an appointment with our emergency medical technician. This is not an ultrasound performed [...] the above symptoms, contact our office at [phone] and ask to speak with a nurse. After hours, you can call doctors registry at [phone] OR call [facility] at [phone] and ask to have the doctor manager operations research paged. If you consider this an emergency, dial 9--7 or go to your nearest emergency department. NEED HELP? Are you dealing with a violent or abusive relationship? Are you a victim of rape or sexual assult? Call [facility] ([place]) 24 hour Crisis Hotline: 174.529.4435 or 665-998-6458. MANUAL Your Guide to a Healthy manual is now on-line. Visit [email or web address] ncyGuide to download your free copy documented in this encounter [facility] 05-02-2025 Progress note Formatting of t his note might be different from the original. RR- VB No. LOF No. CTXS some BH past 5 days. Movement: present. Other c/o: some pressure Medication list reviewed. SENSITIVE EXAM: The sensitive examination was discussed with the Patient or Patient's Authorized Customs Patrol Officer. As applicable, any other physician, advance practice provider, medical student, or other health professional student that will be observing or involved in the sensitive examination for educational or training purposes was discussed with the Patient or Authorized Customs Patrol Officer. The Patient or Authorized Customs Patrol Officer has agreed to proceed with the sensitive [...] 1 week or prn Trista Mackey M.D. [facility] 05-02-2025 Miscellaneous Notes RR- VB No. LOF No. CTXS some BH past 5 days. Movement: present. Other c/o: some pressure Medication list reviewed. SENSITIVE EXAM: The sensitive examination was discussed with the Patient or Patient's Authorized Customs Patrol Officer. As applicable, any other physician, advance practice provider, medical student, or other health professional student that will be observing or involved in the sensitive examination for educational or training purposes was discussed with the Patient or Authorized Customs Patrol Officer. The Patient or Authorized Customs Patrol Officer has agreed to proceed with the sensitive [...] Trista Mackey M.D. documented in this encounter [facility] 05-02-2025 Instructions Loretta Odom MA - 05/02/2025 10:24 AM EDT SEQUENTIAL SCREENINGS The [facility] offers sequential screenings for women who [...] It will require an appointment with our emergency medical technician. This is not an ultrasound performed [...] the above symptoms, contact our office at [phone] and ask to speak with a nurse. After hours, you can call doctors registry at [phone] OR call [facility] at [phone] and ask to have the doctor manager operations research paged. If you consider this an emergency, dial 0-5-0 or go to your nearest emergency department. NEED HELP? Are you dealing with a violent or abusive relationship? Are you a victim of rape or sexual assult? Call [facility] ([place]) 24 hour Crisis Hotline: 817.121.5325 or 124-940-9050. MANUAL Your Guide to a Healthy manual is now on-line. Visit [email or web address] ncyGuide to download your free copy documented in this encounter [facility] 04-25-2025 Progress note Formatting of t his note might be different from the original. RR- VB No. LOF No. CTXS few BH. Movement: present. Other c/o: denies RUBIN or visual changes, some pelvic pressure Medication list reviewed. SENSITIVE EXAM: The sensitive examination was discussed with the Patient or Patient's Authorized Customs Patrol Officer. As applicable, any other physician, advance practice provider, medical student, or other health professional student that will be observing or involved in the sensitive examination for educational or training purposes was discussed with the Patient or Authorized Customs Patrol Officer. The Patient or Authorized Customs Patrol Officer has agreed to proceed with the sensitive [...] displayed as plain text. Trista Mackey M.D. [facility] 04-25-2025 Miscellaneous Notes RR- VB No. LOF No. CTXS few BH. Movement: present. Other c/o: denies RUBIN or visual changes, some pelvic pressure Medication list reviewed. SENSITIVE EXAM: The sensitive examination was discussed with the Patient or Patient's Authorized Customs Patrol Officer. As applicable, any other physician, advance practice provider, medical student, or other health professional student that will be observing or involved in the sensitive examination for educational or training purposes was discussed with the Patient or Authorized Customs Patrol Officer. The Patient or Authorized Customs Patrol Officer has agreed to proceed with the sensitive [...] Trista Mackey M.D. documented in this encounter [facility] 04-25-2025 Instructions Neha Leiva MA - 04/25/2025 9:55 AM EDT SEQUENTIAL SCREENINGS The [facility] offers sequential screenings for women who [...] It will require an appointment with our emergency medical technician. This is not an ultrasound performed [...] the above symptoms, contact our office at [phone] and ask to speak with a nurse. After hours, you can call doctors registry at [phone] OR call [facility] at [phone] and ask to have the doctor manager operations research paged. If you consider this an emergency, dial 2-0-8 or go to your nearest emergency department. NEED HELP? Are you dealing with a violent or abusive relationship? Are you a victim of rape or sexual assult? Call [facility] ([place]) 24 hour Crisis Hotline: 670.653.2153 or 247-639-9814. MANUAL Your Guide to a Healthy manual is now on-line. Visit [email or web address] ncyGuide to download your free copy documented in this encounter [facility] 04-18-2025 Progress note Formatting of t [...] was discussed with the patient or authorized industrial relations representative. The patient or authorized industrial relations representative has agreed to proceed with the sensitive examination. @ 37.1 weeks Assessment & Plan Supervision of high risk in third trimester (HCC) Orders: URINE OB DIP B/O ROUTINE, GROUP B STREPTOCOCCUS BY PCR Benign gestational thrombocytopenia in third trimester (HCC) Last plts 138-->150 repeat cbc today Orders: URINE OB DIP B/O HSV-2 infection complicating , third trimester ([facility]) Currently taking valtrex Orders: URINE OB DIP B/O 37 weeks gestation of ([facility]) Kick counts and labor reviewed Rto weekly Vertex confirmed on bedside us Orders: URINE OB DIP B/O ROUTINE, GROUP B STREPTOCOCCUS BY PCR Sallie Chou MD [facility] 04-18-2025 Miscellaneous Notes DM-Pt doing well. Denies vaginal Bleeding, Leaking fluid, or regular Contractions. Pt reports good movement Physical Exam: Gen: female in no apparent distress Abd: soft, Gravid. Non tender to palpation. See flow sheet Participation of a fellow, resident, medical student, or advanced practice provider student in performing the sensitive examination was discussed with the patient or authorized industrial relations representative. The patient or authorized industrial relations representative has agreed to proceed with the sensitive examination. @ 37.1 weeks Assessment & Plan Supervision of high risk in third trimester (HCC) Orders: URINE OB DIP B/O ROUTINE, GROUP B STREPTOCOCCUS BY PCR Benign gestational thrombocytopenia in third trimester ([facility]) Last plts 138-->150 repeat cbc today Orders: URINE OB DIP B/O HSV-2 infection complicating , third trimester ([facility]) Currently taking valtrex Orders: URINE OB DIP B/O 37 weeks gestation of ([facility]) Kick counts and labor reviewed Rto weekly Vertex confirmed on bedside us Orders: URINE OB DIP B/O ROUTINE, GROUP B STREPTOCOCCUS BY PCR Sallie Chou MD documented in this encounter [facility] 04-18-2025 Instructions Edita Dinero MA - 04/18/2025 9:49 AM EDT SEQUENTIAL SCREENINGS The [facility] offers sequential screenings for women who [...] It will require an appointment with our emergency medical technician. This is not an ultrasound performed [...] the above symptoms, contact our office at [phone] and ask to speak with a nurse. After hours, you can call doctors registry at [phone] OR call [facility] at [phone] and ask to have the doctor manager operations research paged. If you consider this an emergency, dial 9-1-1 or go to your nearest emergency department. NEED HELP? Are you dealing with a violent or abusive relationship? Are you a victim of rape or sexual assult? Call [facility] ([place]) 24 hour Crisis Hotline: 484.460.4820 or 692-713-5888. MANUAL Your Guide to a Healthy manual is now on-line. Visit the [email or web address] ncyGuide to download your free copy documented in this encounter [facility] 04-05-2025 Progress note Formatting of t [...] 1. Benign gestational thrombocytopenia in third trimester ([facility]) - ICD9: 649.33, 287.5, ICD10: O99.113, D69.6 (primary diagnosis) Repeat CBC next visit - COMPLETE BLOOD COUNT AND DIFFERENTIAL - URINE OB DIP B/O 2. HSV-2 infection complicating , third trimester ([facility]) - ICD9: 647.63, 054.9, ICD10: O98.513, B00.9 Valtrex sent 3. 35 weeks gestation of ([facility]) - ICD9: V22.2, ICD10: Z3A.35 PTL precautions 4. Supervision of high risk in third trimester ([facility]) - ICD9: V23.9, ICD10: O09.93 Estefanía Clark MD T [facility] 04-05-2025 Miscellaneous Notes S: Guerda Cardona [...] 1. Benign gestational thrombocytopenia in third trimester ([facility]) - ICD9: 649.33, 287.5, ICD10: O99.113, D69.6 (primary diagnosis) Repeat CBC next visit - COMPLETE BLOOD COUNT AND DIFFERENTIAL - URINE OB DIP B/O 2. HSV-2 infection complicating , third trimester ([facility]) - ICD9: 647.63, 054.9, ICD10: O98.513, B00.9 Valtrex sent 3. 35 weeks gestation of ([facility]) - ICD9: V22.2, ICD10: Z3A.35 PTL precautions 4. Supervision of high risk in third trimester ([facility]) - ICD9: V23.9, ICD10: O09.93 Estefanía Clark MD documented in this encounter [facility] 03-21-2025 Progress note Formatting of t [...] - RTO 2 weeks Aislinn Bowman APRN.CNM [facility] 03-21-2025 Miscellaneous Notes S: Guerda Cardona [...] Aislinn Bowman APRN.CNM documented in this encounter [facility] 03-21-2025 Instructions Blas Sol MA - 03/21/2025 10:31 AM EDT SEQUENTIAL SCREENINGS The [facility] offers sequential screenings for women who [...] It will require an appointment with our emergency medical technician. This is not an ultrasound performed [...] the above symptoms, contact our office at [phone] and ask to speak with a nurse. After hours, you can call doctors registry at [phone] OR call [facility] at [phone] and ask to have the doctor manager operations research paged. If you consider this an emergency, dial 9-7- or go to your nearest emergency department. NEED HELP? Are you dealing with a violent or abusive relationship? Are you a victim of rape or sexual assult? Call [facility] ([place]) 24 hour Crisis Hotline: 981.533.1574 or 005-635-4253. MANUAL Your Guide to a Healthy manual is now on-line. Visit the [email or web address] ncyGuide to download your free copy documented in this encounter [facility] 02-22-2025 Telephone encounter Note 3rd risk assessment form submitted 02/22/2025. Estefanía Bradshaw RN [facility] 02-22-2025 Miscellaneous Notes 3rd risk assessment form submitted 02/22/2025. Estefanía Bradshaw RN documented in this encounter [facility] 02-21-2025 Progress note Formatting of t [...] - RTO 2 weeks Aislinn Bowman APRN.CNM [facility] 02-21-2025 Miscellaneous Notes S: Guerda Cardona [...] Aislinn Bowman APRN.CNM documented in this encounter [facility] 02-21-2025 Instructions Tisha Colin MA - 02/21/2025 10:25 AM EDT SEQUENTIAL SCREENINGS The [facility] offers sequential screenings for women who [...] It will require an appointment with our emergency medical technician. This is not an ultrasound performed [...] the above symptoms, contact our office at [phone] and ask to speak with a nurse. After hours, you can call doctors registry at [phone] OR call [facility] at [phone] and ask to have the doctor manager operations research paged. If you consider this an emergency, dial 9-1-6 or go to your nearest emergency department. NEED HELP? Are you dealing with a violent or abusive relationship? Are you a victim of rape or sexual assult? Call [facility] 24 hour Crisis Hotline: 336.365.8685 or 928-005-6654. MANUAL Your Guide to a Healthy manual is now on-line. Visit [facility].org/HealthyPregna ncyGuide to download your free copy documented in this encounter [facility] 02-08-2025 Telephone encounter Note Patient 27w2d, seen in office yesterday and fell last night. Do you want patient brought into office today? Jamaica Murcia RN [facility] 02-08-2025 Miscellaneous Notes Patient 27w2d, seen in office yesterday and fell last night. Do you want patient brought into office today? Jamaica Murcia RN documented in this encounter [facility] 02-07-2025 Progress note Formatting of t [...] - RTO 2 wks Deo Veliz DO [facility] Work Phone: 02-07-2025 Miscellaneous Notes SW- Pt doing well. No pain, vb, lof. Good FM PE: Gen- NAD, well appearing Abd- A/p 27 wk gestation - Tdap today - LARC signed - Marijuana use and nicotine vaping: Quit! - plan sheet given - Reviewed upcoming expectations - 28 wk labs today - RTO 2 wks Deo Veliz DO documented in this encounter [facility] 02-07-2025 Note HNO ID: [id number] Author: NEHA LEIVA MA Service: ? Author Type: Communications Media Professor Type: Progress Notes Filed: 02/07/2025 12:15 Note [...] severely ill: Yes Patient denies history of Guillain-Albany Syndrome (a severe paralytic illness): Yes Tdap Adacel injection was given without incident. See immunizations for details of immunizations administered today. VIS sheet provided: Yes Provider Deo Veliz DO was present in office at time of injection. Neha Leiva MA [facility] 02-07-2025 History of Present illness Narrative [...] severely ill: Yes Patient denies history of Guillain-Albany Syndrome (a severe paralytic illness): Yes Tdap Adacel injection was given without incident. See immunizations for details of immunizations administered today. VIS sheet provided: Yes Provider Deo Veliz DO was present in office at time of injection. Neha Leiva MA documented in this encounter [facility] 02-07-2025 Instructions Neha Leiva MA - 02/07/2025 9:09 AM EDT SEQUENTIAL SCREENINGS The [facility] offers sequential screenings for women who [...] It will require an appointment with our emergency medical technician. This is not an ultrasound performed [...] the above symptoms, contact our office at [phone] and ask to speak with a nurse. After hours, you can call doctors registry at [phone] OR call [facility] at [phone] and ask to have the doctor manager operations research paged. If you consider this an emergency, dial 9-1-0 or go to your nearest emergency department. NEED HELP? Are you dealing with a violent or abusive relationship? Are you a victim of rape or sexual assult? Call [facility] ([place]) 24 hour Crisis Hotline: 750.897.5595 or 227-293-2570. MANUAL Your Guide to a Healthy manual is now on-line. Visit the [facility].org/HealthyPregna ncyGuide to download your free copy documented in this encounter [facility] 01-14-2025 Telephone encounter Note 2nd risk assessment form submitted 01/14/2025. Estefanía Bradshaw RN [facility] 01-14-2025 Miscellaneous Notes 2nd risk assessment form submitted 01/14/2025. Estefanía Bradshaw RN documented in this encounter [facility] 01-10-2025 Progress note Formatting of t his note might be different from the original. Anatomy ultrasound reviewed. No abnormalities identified. Follow up as clinically indicated. Please place copy in ob chart. Trista Mackey MD [facility] 01-10-2025 Miscellaneous Notes Anatomy ultrasound reviewed. No abnormalities identified. Follow up as clinically indicated. Please place copy in ob chart. Trista Mackey MD documented in this encounter [facility] 01-10-2025 Progress note Formatting of t [...] RTO in 4 weeks Lary Hernandez APRN.CNM [facility] 01-10-2025 Miscellaneous Notes MCKENZIE-S: Guerda Cardona [...] Lary Hernandez APRN.CNM documented in this encounter [facility] 01-10-2025 Instructions Lary Hernandez APRN.CNM - [...] the above symptoms, contact our office at [phone] and ask to speak with a nurse. After hours, you can call doctors registry at [phone] OR call [facility] at [phone] and ask to have the doctor manager operations research paged. If you consider this an emergency, dial 9-1-0 or go to your nearest emergency department. NEED HELP? Are you dealing with a violent or abusive relationship? Are you a victim of rape or sexual assult? Call [facility] ([place]) 24 hour Crisis Hotline: 881.410.3256 or 542-662-3886. MANUAL Your Guide to a Healthy manual is now on-line. Visit [facility].org/HealthyPregna ncyGuide to download your free copy documented in this encounter [facility] 11-23-2024 Progress note Formatting of t [...] 4 weeks or prn Trista Mackey M.D. [facility] 11-23-2024 Miscellaneous Notes RR- VB No. [...] Trista Mackey M.D. documented in this encounter [facility] 11-23-2024 Instructions Neha Leiva MA - 11/23/2024 9:43 AM EST SEQUENTIAL SCREENINGS The [facility] offers sequential screenings for women who [...] It will require an appointment with our emergency medical technician. This is not an ultrasound performed [...] the above symptoms, contact our office at [phone] and ask to speak with a nurse. After hours, you can call doctors registry at [phone] OR call [facility] at [phone] and ask to have the doctor manager operations research paged. If you consider this an emergency, dial 9-1-9 or go to your nearest emergency department. NEED HELP? Are you dealing with a violent or abusive relationship? Are you a victim of rape or sexual assult? Call [facility] ([place]) 24 hour Crisis Hotline: 944.830.8782 or 279-015-9744. MANUAL Your Guide to a Healthy manual is now on-line. Visit [facility].org/HealthyPregna ncyGuide to download your free copy documented in this encounter [facility] 10-29-2024 Progress note Formatting of t [...] prn declines flu vaccine Trista Mackey M.D. [facility] 10-29-2024 Miscellaneous Notes RR- VB No. [...] Trista Mackey M.D. documented in this encounter [facility] 10-12-2024 Progress note Formatting of t [...] did not have preeclampsia last prengancies Orders: [id number] PLUS; Future Encounter for supervision of high risk in first trimester, antepartum Orders: [id number] PLUS; Future 10 weeks gestation of d/w her aneuoploidy screening, accept Orders: [id number] PLUS; Future Marijuana use during once a day, encouraged cessation Current every day nicotine vaping quit-encouragement given counseled on flu and covid vaccines, declines today. schedule anatomy and first trimester US Trista Mackey M.D. [facility] 10-12-2024 Miscellaneous Notes RR- VB No. LOF No. CTXS No. Movement: absent. Other c/o: nausea improved Medication list reviewed. Physical Exam See Flow Sheet Gen: no accute distress, well appearing A/P 10w2d Estimated Date of Delivery: 05/08/25 Assessment & Plan Short interval between pregnancies affecting in first trimester, antepartum d/w her asa and pnv, did not have preeclampsia last prengancies Orders: [id number] PLUS; Future Encounter for supervision of high risk in first trimester, antepartum Orders: [id number] PLUS; Future 10 weeks gestation of d/w her aneuoploidy screening, accept Orders: [id number] PLUS; Future Marijuana use during once a day, encouraged cessation Current every day nicotine vaping quit-encouragement given counseled on flu and covid vaccines, declines today. schedule anatomy and first trimester US Trista Mackey M.D. documented in this encounter [facility] 10-12-2024 Instructions Loretta Odom MA - 10/12/2024 10:29 AM EST SEQUENTIAL SCREENINGS The [facility] offers sequential screenings for women who [...] It will require an appointment with our emergency medical technician. This is not an ultrasound performed [...] the above symptoms, contact our office at [phone] and ask to speak with a nurse. After hours, you can call doctors registry at [phone] OR call [facility] at [phone] and ask to have the doctor manager operations research paged. If you consider this an emergency, dial 9--4 or go to your nearest emergency department. NEED HELP? Are you dealing with a violent or abusive relationship? Are you a victim of rape or sexual assult? Call [facility] ([place]) 24 hour Crisis Hotline: 782.909.1761 or 456-449-4834. MANUAL Your Guide to a Healthy manual is now on-line. Visit [facility].org/HealthyPregna ncyGuide to download your free copy documented in this encounter [facility] 09-16-2024 Telephone encounter Note 1st risk assessment form submitted 09/16/2024. Estefanía Bradshaw RN [facility] 09-16-2024 Miscellaneous Notes 1st risk assessment form submitted 09/16/2024. Estefanía Bradshaw RN documented in this encounter [facility] 09-13-2024 Instructions Huan Campo APRN.DIRECTOR OF CARDIAC REHABILITATION - 09/13/2024 10:44 AM EST Images from the original note were not included. Please select the following link to access the [facility] Your Guide to a Healthy . www.Ccf.org/healthypregnancyguide MORNING SICKNESS IN by Jeimy Bridges M.D. for Tactics Cloud As you may already know, morning sickness can often be more appropriately called evening sickness or ffmwk-ixmjhj-gq-the-day sickness. While there are the khai few, [...] medication, Doxylamine, is currently marketed as an kzqv-tii-wmkbqwe sleeping pill. Ask your practitioner if creating a vitamin B6/Doxylamine combination with dknv-ziq-lijdsin medications would be safe for you. Prescription [...] medications such as Phenergan, Compazine, Reglan From [facility]'s Tobacco Cessation website: Our comprehensive smoking cessation [...] help you with your financial plan. Contact [phone] for more information. [place] Tobacco Program Visit https://[place].quitlogix.org/en-US/ or call 7-514-CCLC-NOW How SMOKING Affects Your and Your Baby [...] or smoking cessation program, such as the [facility] Smoking Cessation Program. For more [...] smoke. (This information is provided by the [facility] and is not intended to replace the medical advice of your doctor or health care provider. Please consult your health care provider for advice about a specific medical condition. For additional written health information, please call the Cancer Answer Line at [facility] Friday - Friday 8-4:30 for assistance: [phone]. Or visit www.[facility]/health/) Marijuana (Cannabis) September 10, 2019 This sheet [...] The main active chemical in marijuana is bojrh-7-yitmqnfhwyfnjuciksoh (THC), which is what causes you to [...] smoke. Most professional organizations such as the [place] Academy of Pediatrics, the Academy of Medicine, and the [place] College of Obstetricians and Gynecologists advise that [...] . For more information, please see the MotherSkyJam fact sheet Paternal Exposures and at https://mothertobaby.org/fact-she ets/omkmnwzu-ntaqpgtpg-zhpafevzr/ pdf/. Psychotherapy Services at [facility] Call [facility] Access Line at [phone] to schedule Individual psychotherapy In-person or virtual Wait time for first evaluation may be 12 or more weeks. Wait list spots may be available. Due to the high volume of patients this option is recommended if you are looking for short term acute symptom coping strategies. 4-524-7-LEMH0LBTB - [place] Maternal Mental Health Hotline If you are in suicidal crisis, please call or text 5-222-405-TALK ( ) or visit the National Suicide Prevention Lifeline website. mchb.[facility].gov If you are in crisis, call 911 or go to your nearest Emergency Department Here are some links for wonderful Providers here in the community and surrounding areas. Do not hesitate to contact their offices, many are offering virtual visits during this time. Psychotherapy Services outside of [facility] Support International Online Provider Directory https://MedNews.Millennium Laboratories/ - can assist in finding providers in your area that might be more extensive then the list below. [facility] [place], [place] [address] [place] [address] [facility] [address] [place] [address] [facility] [address] [place] [address] [facility] [address] [place] [address] Sean Masters MD [address] [place] [address] [facility] [address] [facility] [facility], [address] [place] [address] [facility] [address] [place] [address] [facility] Al[place] / [place] [phone]/ [phone] Snehal Downey [address] [facility] [address] [facility] [phone] Aves of Counseling and Mediation Jenelle / Stephany [phone] Behavioral health services of [facility] [address] [place] [address]/ [facility] [phone] ERIC Campos, [facility] Therapy Workshops, telehealth and at home visits. [phone] [facility] counseling [place] 20 locations [place], [place], [place], [place], [place], [place], [place], [facility], [place], [place], [place], [place], [place], [place], [facility], [place], [place] ,[facility], [place], [place],[facility], [facility] [place], [place], [facility], [place], [place], [place] www.[facility].co [phone] Psychotherapy resources outside of [facility] are listed below [facility] Punchd Psychotherapy Web: https://www.Motribe/ Support International Online Provider Directory https://Overdog/ [facility] https://The Interest Network/ Savelli for Behavioral Health and Wellness Web: https://FluoroPharma/ Silicon Navigator Corporation for Effective Living Web: https://F3 FoodslivingUnlimited Concepts/ LifeStance Web: https://Thucy.Millennium Laboratories/location/s rodriguez/[place]/ [facility] Web: https://www.CCTV Wirelessnew mexico rehabilitation center.or / [facility] Web: https://Cazoodle.org/ Recovery Resources Mental health and substance abuse help Web: https://www.CodersClans.Happy Metrix & RESOURCES Support International Direct peer support and connection to professional resources Non-Emergency Helpline Phone: / Text: [phone] Web: https://www..net/ Online Provider Directory: https://Overdog/ Online Support Meetings: https://www..net/get-he lp/sdx-rbdopm-yqrbdht-meetings/ RD Baby and Mobile Home Laborer Services Web: https://www.Member Savings Program/ MotherToBaby Expert information on medication use during and Text: [phone] Web: https://JoMaJa/ NATIONAL REGISTRY FOR PSYCHIATRIC MEDICATIONS Currently studying the safety of antidepressants, ADHD medications and atypical antipsychotics taken during TO PARTICIPATE CALL TOLL-FREE: Web: https://[facility].org/re search/pregnancyregistry/ Support Groups: [facility]- Follow on facebook Baby Bistro support group led by [facility] department Resilient Mamas - Support Group [facility].org The POEM support group [phone] Www.poemonline.org Follow on facebook - LARISA valadez Online support meetings PSI https://www..net/get-he lp/iru-hczroz-czzcust-meetings/ [facility] mommy and me virtual support group 11:30-1pm Support for mothers and new babies and toddlers [place] childbirth education: Childbirth @cc.org or call [phone] CRISIS: CRISIS HOTLINE [phone], 911 or go to the nearest . [facility] [phone] / [facility] [phone] https://www.[facility].org Crisis text line text the word HOME to 563072 [facility] Counseling [address] [place] [address] [facility] [address] www.Cellca Melva Dumont clinical counseling [address] [address] www.Cadec Global [phone] Holding space psychotherapy Doreen Duagn CLOTH STOCK SORTER STAFF REPORTER-S [address] [facility] www.Candid io [phone]/ Meg [phone] They all offer virtual. All work with trauma Support groups Online support meetings PSI https://www..net/get-he lp/aig-zdgbmp-qmphaga-meetings/ Here are the support groups they offer: Support of parents of 1 to 4 years old children POEM ( Outreach and Encouragement for Moms) offers free support for mothers experiencing depression, anxiety, and other mood and anxiety disorders. Masks are recommended but not required. No pre-registration required. Babies in arms welcome. meetings now take place on the and Friday of each month Location: [facility] [address] [place] [address] Room 122 (library room) 7-8:00 p.m. When you enter the christian parking lot off of [address] the entrance door closest to our meeting room is on the front of the building toward the right. For those who are more comfortable with a virtual platform, POEM offers online support group options several days of the week. To register for an online group or to find out more about PO, website at: https://Forbes Travel Guideaohio.org/get-help/st. lawrence psychiatric centerwidc-vzbymu-gmqybl/posamantha-services/ offer a confidential helpline: private Facebook group is called LARISA Valadez Here are the groups they offer: Traumatic childbirth resources: Http://pattch.org/ https://www.Ultherawagner500pxlucianaConcard.Millennium Laboratories/ Name Location (s) Phone # (s) Services Website [facility] Psychotherapy [address] [place], [place] - [phone]; [address] [phone] In-Person GROUPS INDIVIDUAL THERAPY MATERNAL-INFANT MENTAL HEALTH MEDICATION MANAGEMENT PLAY AND ART THERAPY TELETHERAPY https://www.Motribe/s ervices/ Susan of Becca PERES? [address] [place], [place] [address] ? [address], [address] [place], [place] [address] ? [address] [address]? Grief Support Groups Individual Grief Counseling Spiritual Care Memorial Events https://shreyas.[facility].org/grief-services [facility] [address] [place], [place] [address]; ; Email: lidia@[email or web address] Women's Mental Health; Couples Counseling; Trauma (EMDR); Stress Management; Mood and Anxiety Related Disorders- and much more https://www.xiao qu wu you/ LifeStance Numerous as they have contract providers: access website to find specific providers near you Counseling including CBT and EMDR as well as many more modalities; Medication Management; Telehealth and In-Person https://ForeSee/ Interlude [facility] [address] [place] [address]; [phone] Personal, Family and Group Therapy; Psychological Testing and Diagnosis; Medication Management; Life and Career Coaching; Psychoanalysis; Literacy Testing; Yoga and Meditation https://FluoroPharma/ KosherSwitch Technologies [facility] [address] [facility] [address], [place] [address] [address] ; [address] [place] [address]; Office # for both sites: Individual and Couples Counseling https://www.TerraX Minerals/ paymentinsurance.html OCD & Anxiety [facility] [address] [facility], [place] [address]; Specialize in Cognitive-Behavioral Therapy (CBT) for the treatment of anxiety disorders across the lifespan. TELEHEALTH ONLY. https://ocdandanxietycenteroSnowflake Youth Foundationv bettermarks/faqs [facility] [address] [place], [address] [place] [address] [facility] [place], [address] [place] [address] [facility] [place], [address] [place] [address] [address]. [place], [place], [id number] [address], 77[address]77 [place] [address] [facility] [place], [address] [place] [address] [place], [address] Transportation Services To minimize patient barriers, [facility] provides transportation services to patients [...] assistance Substance abuse treatment Medication assisted treatment https://www.[facility].or g/mental-health/ [facility] OFFICE AT [facility] [address] [place] [address] [facility] OFFICE [address] [place] [address] [facility] OFFICE [address] [place] [address] TO OFFICE (at [facility]) [address] [place] [address] [facility] SYRINGE EXCHANGE PROGRAM & HIV SCREENING [address] [place] [address] V[place] EXCHANGE PROGRAM [address] [place] [address] Behavioral Health Urgent Care: [facility] Sites Counseling Indvidual and Group Medication Management Case Management benefits applications housing assistance Substance abuse treatment Medication assisted treatment Employment Services/ Job Training https://theAvidbank Holdings.org/ Recovery Resources [address] [place], [place] [address]: P: [phone] [address] [facility], [address], [place], [place] [address] P: [phone] Our services include: Addiction Mental Health Treatment Assessment Psychiatry Medical Care Employment Housing Drug and Alcohol Prevention HIV/AIDS Prevention https://www.recres.org/ [facility] [place] [address] [place] [address] [place] [address] [place], [place] [address] [place] [address] [place] [address] Levels [address] [facility] [address] [place] [address] [place] [address] [place] [address] TMS Therapy/ Counseling Psychocological Testing for ADHD Medication Management In-Person/ Telemedicine https://www.arcproviders.com/suha ents-depression Memory & Psychological services [address], [place] [address] Neuropsychological Testing For ADHD https://www.memoryandpsych.com/ [facility] - Main Office [address] [place] [address] [address] Providing bftx-bt-ibxu and telehealth services. Adult Case Management Community Education and Prevention Employment Outpatient Treatment - Counseling & Psychotherapy Psychiatric Services [email or web address] [facility] [place] [address] [place] [address] Formerly [facility] [address] [place] [address] Virtual Appointments! Now offering safe and convenient virtual client appointments to anyone in [place]! Individual Therapy Couples/Relationship Therapy Trauma/EMDR Therapy Art Therapy Play Therapy Aprn Support: Parenting Skills, Parent Child Interaction Therapy, Parent Infant Interaction Therapy Meditation Dietitian/Graphics Programmer Services Group Therapy Yoga [email or web address] [phone] Private Practice: Telehealth Only Specializes in EMDR for Trauma None documented in this encounter [facility] 09-13-2024 Note HNO ID: [id number] Author: HUAN CAMPO APRN.CNP Service: ? Author Type: Nurse Practitioner Type: Progress Notes Filed: 09/13/2024 11:40 Note Text: Software Product Specialist offered: Patient declines. INITIAL OB ASSESSMENT HPI: [...] Status:Partnering Partner: Name: Jairo Age: 34 Occupation: [employer] Gender: Male PAST MEDICAL HISTORY Diagnosis Date [...] swelling NEUROLOGIC/PSYCHIATRIC: Nega (more content not included)... [facility] 09-13-2024 History of Present illness Narrative Images from the original note were not included. Software Product Specialist offered: Patient declines. INITIAL OB ASSESSMENT HPI: [...] Status:Partnering Partner: Name: Jairo Age: 34 Occupation: [employer] Gender: Male PAST MEDICAL HISTORY Diagnosis Date [...] discussed with the Patient or Patient's Authorized Customs Patrol Officer. As applicable, any other physician, advance practice provider, medical student, or other health professional student that will be observing or involved in the sensitive examination for educational or training purposes was discussed with the Patient or Authorized Customs Patrol Officer. The Patient or Authorized Customs Patrol Officer has agreed to proceed with the sensitive [...] plus performing a brief intervention. Huan Campo APRN.DIRECTOR OF CARDIAC REHABILITATION ASSESSMENT: 23 year old at 6w1d wks gestational age PLAN: 1) Patient oriented to practice. Patient given new OB orientation folder. Discussed nutrition, folic acid supplementation, dietary guidelines, exercise, smoking, alcohol, caffeine, and drug use. Discussed gestational weight gain guidelines. Discussed routine OB labs including STD/HIV. Discussed how to access Your guide to a health and the [place]. Discussed hemoglobin electrophoresis. Patient: Accepts Reviewed midwifery and timber treating tank operator services that are available. 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 Huan Campo APRN.DIRECTOR OF CARDIAC REHABILITATION ASCUS and HPV + 2022 Needs pap [...] resources provided. Update throughout . Huan Campo APRN.DIRECTOR OF CARDIAC REHABILITATION Follow up in 4 weeks or sooner prn. Plan for NT scan between 12w0d and 13w6d gestation. Huan Campo APRN.DIRECTOR OF CARDIAC REHABILITATION documented in this encounter [facility] 09-02-2024 Note HNO ID: [id number] Author: MIRIAM LOMBARDI RN Service: ? Author [...] OB Risk Screenin (more content not included)... [facility] 09-01-2024 Telephone encounter Note 11:30 on 09/02. Estefanía Benitez RN [facility] 09-01-2024 Miscellaneous Notes 11:30 on 09/02. Estefanía Benitez RN Left message for patient to return phone call to complete nurse intake questions for her upcoming appointment. Patient has an appointment with Aislinn Bowman for NOB appointment next week. Please schedule her for intake questions 09/02 with me or transfer to Melva Brownlee documented in this encounter [facility] 09-01-2024 Telephone encounter Note Left message for patient to return phone call to complete nurse intake questions for her upcoming appointment. Patient has an appointment with Aislinn Bowman for NOB appointment next week. Please schedule her for intake questions 09/02 with me or transfer to Melva Kem [facility] 12-25-2023 History of Present illness Narrative VISIT Guerda Cardona is a 23 year old year old here for visit. Delivery Summary: on 11/05/2023 by LEN ROS/ Recovery: Feeding: Bottle feeding- Breast fed for 4 weeks problems: None Menses since delivery: None Menstrual pattern prior to : Regular periods Economy since delivery: Resumed Depression: denies symptoms of [...] external genitalia normal, normal Bartholin's glands, urethra, [place]'s glands, no vulvar lesions, no cervical lesions, [...] Aislinn Bowman APRN.CNM documented in this encounter [facility] 11-07-2023 Discharge summary Note Date/Time November 07, 2023 8:23am [facility] Medical Records Department [address] [place] [address] Instructions for Home/Discharge Instructions 11/07/23 0822 MR#: [id number] Acct: [id number] Name: GUERDA CARDONA Rep #:[id number] : 2000 22 From: Deo Veliz DO [...] Follow Up Care Please Follow Up With: Aislnin Bowman CNM When: 1-2 weeks early 6 [...] CC: No Primary Care Physician ~ Signed [facility] Work Phone: 1(173) 810-319912-29-2023 Progress note Author Deo Veliz [facility] November 07, 2023 7:26am Note Date/Time November 07, 2023 7:26am [facility] Medical Records Department [address] [place] [address] Progress Note - OBGYN 11/07/23 0725 MR#: [id number] Acct: [id number] Name: GUERDA CARDONA Rep #:[id number] : 2000 22 From: Deo Veliz DO PCP: Care Physician,No Primary Status :ADM IN Location: [place] [address] Subjective Subjective The patient is doing well [...] Cosigner Signature (if applicable): CC: ~ Signed [facility] Work Phone: 1(766) 641-965212-28-2023 Progress note Author Aislinn Bowman [facility] November 06, 2023 7:15am Note Date/Time November 06, 2023 7:15am [facility] Medical Records Department [address] [place] [address] Progress Note 11/06/237[address] MR#: [id number] Acct: [id number] Name: GUERDA CARDONA Rep #:[id number] : 2000 22 From: Aislinn Bowman [facility] PCP: Care Physician,No Primary Status :ADM IN Location: [place] [address] Progress Note Patient seen at bedside. Denies [...] Cosigner Signature (if applicable): CC: ~ Signed [facility] Work Phone: 1(402) 547-160312-27-[address] 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 Estefanía Bradshaw RN [facility] History of Present illness Narrative* Huan Campo APRN.DIRECTOR OF CARDIAC REHABILITATION - 09/26/2023 10:07 AM EST Images from the original note were not included. INITIAL OB ASSESSMENT OB Provider: Dr. 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 Discussed aneuploidy and carrier screening. Regarding aneuploidy [...] May consider in future. Reviewed midwifery and timber treating tank operator services that are available. Assessment/Plan 28-30 weeks [...] severely ill: Yes Patient denies history of Guillain-Albany Syndrome (a severe paralytic illness): Yes Tdap [...] Level: 4 - Moderate [facility] Instructions* Patient Instructions* Neha Leiva MA - 09/26/2023 10:07 AM EST Please select the following link to access the [facility] Your Guide to a Healthy . [email or web address] documented in [facility] Miscellaneous Notes* Telephone Encounter - Jeannine Chacon RN - 09/10/2023 9:44 AM EDT Order signed and faxed. Jeannine Chacon RN * Telephone Encounter - Karon Mendez RN - 09/10/2023 8:10 AM EDT [facility] in AG box to sign. Karon Mendez RN documented in this encounterC[facility] Miscellaneous Notes* Telephone Encounter - Ruth Cleary LPN - 08/01/2023 10:23 AM EDT Medical records received from [facility]. Patient scheduled for new ob on 08/27/2023. [facility] with chart prep documented in this encounterC[facility]23 NotePap Smear Specimen AdequacyMay 2022 10:49amComment.Satisfactory for evaluation. Endocervical and/or squamous metaplasticcells (endocervical component)are present.[facility] INTERFACED A#[id number] SouthComment on above:Satisfactory for evaluation. Endocervical and/or squamous metaplasticcells (endocervical component)are present.10-09-2022 Telephone encounter Note* Telephone Encounter - Amanuel Gamez - 10/09/2022 8:55 AM EST Form sent online to be seen for cavities. Left with dental clinic phone number to call to schedule. [phone] Miscellaneous Notes* Telephone Encounter - Amanuel Gamez - 10/09/2022 8:55 AM EST Form sent online to be seen for cavities. Left with dental clinic phone number to call to schedule. documented in this [facility]06-22-2022 Hospital Discharge instructions* Instructions* Giuseppe Llamas MD - 05/01/2022 Rest and ice affected areas * Attachments The following attachments cannot be sent through Care Everywhere. * Bruises (Nigerien) * Arm Pain (Nigerien) documented in this [facility] Work Phone: Evaluation note* Diagnosis Contusion of right foot, initial encounter- Primary Bilateral arm pain Pain in limb documented in this encounter [facility] Work Phone: Evaluation noteNo assessment information available [facility] Work Phone: Evaluation note* Diagnosis 33 weeks [...] antepartum, unspecified trimester [facility]* Diagnosis Encounter for ultrasound to check growth- Primary Encounter for routine screening for malformation using ultrasonics with care elsewhere, antepartum 35 weeks gestation of state, incidental Encounter for anatomic survey documented in this encounter [facility]* Diagnosis Onset Date Resolution Status 38 weeks gestation of acute Care and examination of lactating mother acute Genital herpes acute History of anxiety acute History of asthma acute History of depression acute Positive GBS test acute PTSD (post-traumatic stress disorder) acute Spontaneous onset of labor a cute (spontaneous vaginal delivery) acute [facility] Work Phone: Evaluation note* Diagnosis care and examination- Primary Routine follow-up Atypical squamous cells of undetermined significance (ASCUS) on Papanicolaou smear of cervix documented [facility] this encounter [facility]* Diagnosis Encounter for supervision of high [...] History of homeless documented in this encounter [facility] note* Diagnosis Short interval between pregnancies affecting [...] did not have preeclampsia last prengancies Orders: [id number] PLUS; Future * Assessment & Plan Note - Trista Mackey MD - 10/12/2024 11:03 AM EST Associated Problem(s): Encounter for supervision of high risk in first trimester, antepartum Orders: [id number] PLUS; Future * Assessment & Plan Note - Trista Mackey MD - 10/12/2024 11:03 AM EST Associated Problem(s): Marijuana use during once a day, encouraged cessation * Assessment & Plan Note - Trista Mackey MD - 10/12/2024 11:03 AM EST Associated Problem(s): Current every day nicotine vaping quit-encouragement given documented in this encounter [facility] note* Diagnosis Short interval between pregnancies affecting [...] of state, incidental documented in this encounter [facility] note* Diagnosis Short interval between pregnancies affecting in first trimester, antepartum- Primary Encounter for supervision of high risk in first trimester, antepartum 10 weeks gestation of state, incidental Marijuana use during Current every day nicotine vaping Encounter for screening for malformation using ultrasound- Primary 12 weeks gestation of state, incidental documented in this encounter [facility] note* Diagnosis Short interval between pregnancies affecting [...] weeks or prn documented in this encounter [facility] note* Diagnosis Short interval between pregnancies affecting [...] for diabetes mellitus documented in this encounter [facility] note* Diagnosis Short interval between pregnancies affecting in first trimester, antepartum- Primary Encounter for supervision of high risk in first trimester, antepartum 10 weeks gestation of state, incidental Marijuana use during Current every day nicotine vaping Encounter for anatomic survey- Primary 23 weeks gestation of state, incidental documented in this encounter [facility]* Diagnosis Short interval between pregnancies affecting in first trimester, antepartum ([facility])- Primary Encounter for supervision of high risk in first trimester, antepartum ([facility]) 10 weeks gestation of ([facility]) state, incidental Marijuana use during ([facility]) Current every day nicotine vaping Supervision of high risk in second trimester ([facility])- Primary Unspecified high-risk Current every day nicotine vaping 27 weeks gestation of ([facility]) state, incidental Need for vaccination Need for prophylactic vaccination and inoculation against unspecified single disease documented in this encounter [facility]* Diagnosis Short interval between pregnancies affecting in first trimester, antepartum ([facility])- Primary Encounter for supervision of high risk in first trimester, antepartum ([facility]) 10 weeks gestation of ([facility]) state, incidental Marijuana use during ([facility]) Current every day nicotine vaping 29 weeks gestation of ([facility])- Primary state, incidental Benign gestational thrombocytopenia in third trimester ([facility]) Supervision of high risk in second trimester ([facility]) Unspecified high-risk Adjustment disorder with anxiety Thrombocytopenia affecting ([facility]) documented in this encounter [facility]* Diagnosis Short interval between pregnancies affecting in first trimester, antepartum ([facility])- Primary Encounter for supervision of high risk in first trimester, antepartum ([facility]) 10 weeks gestation of ([facility]) state, incidental Marijuana use during ([facility]) Current every day nicotine vaping Benign gestational thrombocytopenia in third trimester ([facility])- Primary 33 weeks gestation of ([facility]) state, incidental Bad odor of urine Other nonspecific finding on examination of urine documented in this encounter [facility]* Diagnosis Short interval between pregnancies affecting in first trimester, antepartum ([facility])- Primary Encounter for supervision of high risk in first trimester, antepartum ([facility]) 10 weeks gestation of ([facility]) state, incidental Marijuana use during ([facility]) Current every day nicotine vaping Benign gestational thrombocytopenia in third trimester ([facility])- Primary HSV-2 infection complicating , third trimester ([facility]) 35 weeks gestation of ([facility]) state, incidental Supervision of high risk in third trimester ([facility]) Unspecified high-risk documented in this encounter [facility] note* Diagnosis Short interval between pregnancies affecting in first trimester, antepartum ([facility])- Primary Encounter for supervision of high risk in first trimester, antepartum ([facility]) 10 weeks gestation of ([facility]) state, incidental Marijuana use during ([facility]) Current every day nicotine vaping Benign gestational thrombocytopenia in third trimester ([facility])- Primary documented in this encounter [facility] note* Diagnosis Short interval between pregnancies affecting [...] OB DIP B/O documented in this encounter [facility] note* Diagnosis Short interval between pregnancies affecting [...] OB DIP B/O documented in this encounter [facility] note* Diagnosis Short interval between pregnancies affecting [...] OB DIP B/O documented in this encounter [facility] note* Diagnosis Short interval between pregnancies affecting [...] (H[facility]) state, incidental documented in [facility] encounter [facility]* Diagnosis Short interval between pregnancies affecting in first trimester, antepartum ([facility])- Primary Encounter for supervision of high risk in first trimester, antepartum ([facility]) 10 weeks gestation of ([facility]) state, incidental Marijuana use during ([facility]) Current every day nicotine vaping Supervision of high risk in third trimester ([facility])- Primary Unspecified high-risk Benign gestational thrombocytopenia in third trimester ([facility]) HSV-2 infection complicating , third trimester ([facility]) 37 weeks gestation of ([facility]) state, incidental 38 weeks gestation of ([facility])- Primary state, incidental Supervision of high risk in third trimester (HCC) Unspecified high-risk Benign gestational thrombocytopenia in third trimester (HCC) Supervision of high risk in third trimester (HCC)- Primary Unspecified high-risk Benign gestational thrombocytopenia in third trimester (HCC) 39 weeks gestation of ([facility]) state, incidental Supervision of high risk in third trimester ([facility])- Primary Unspecified high-risk 40 weeks gestation of ([facility]) state, incidental Benign gestational thrombocytopenia in third trimester ([facility]) History of herpes genitalis Personal history of other infectious and parasitic disease Marijuana use during ([facility]) Short interval between pregnancies affecting in first trimester, antepartum ([facility]) documented in this encounter [facility] (narrative)* Diagnostic Procedure Only (Routine) - Authorized Specialty Diagnoses / Procedures Referred By Mima de los santos Referred To Contact [facility] Diagnoses 33 weeks gestation of Procedures OBSTETRIC ULTRASOUND WHI US PREG UTERUS AFTER 1ST TRIMEST 1 GESTATION Huan Campo, LEONID.DIRECTOR OF CARDIAC REHABILITATION [address] [place] [address] [address] [place] [address] Referral ID Status Reason Start Date Expiration Date Visits Requested Visits Authorized [id number] Authorized Auto-Generat ed Referral 09/25/2024 1 1 [facility] (narrative)* Diagnostic Procedure Only (Routine) - Closed Specialty Diagnoses / Procedures Referred By Contac t Referred To Contact [facility] Diagnoses with uncertain dates in first trimester Procedures NUCHAL TRANSLUCENCY WHI US NUCHAL TRANSLUCENCY 1ST GESTATION Huan Campo APRN.CNP [address] [place] [address] [address] [place] [address] Referral ID Status Reason Start Date Expiration Date V isits Requested Visits Authorized [id number] Closed Auto-Generate d Referral 09/13/2024 11/09/2024 1 1 * Diagnostic Procedure Only (Routine) - New Request Specialty Diagnoses / Procedures Referred By Contac t Referred To Contact [facility] Diagnoses with uncertain dates in first trimester Procedures OBSTETRIC ULTRASOUND WHI US PREG UTERUS AFTER 1ST TRIMEST 1/ GESTATION Huan Campo APRN.CNP [address] 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 ACP-Advance Directive ACP-Power of Mercerizing Range Controller Latest Code Status on File Code Status Date Activated Date Inactivated Comments Full Code 03/16/2019 8:21 AM 03/18/2019 2:17 PM Full Code 03/15/2019 9:21 PM 03/16/2019 8:21 AM Advance Directive Response Recorded Date/ Time Living Will No August 21 5:50pm Power of Mercerizing Range Controller No August 21, 2021 5:50pm Advance Directive Response Recorded Date/ Time Living Will No November 05 023 9:04pm Power of Mercerizing Range Controller No November 05, 2023 9:04pm Chief Complaint [...] Date Diagnosed Date [facility] Education - [facility] 09/26/2023 Education - [place] 09/26/2023 Problem Noted Date Diagnosed Date [facility] Education - [facility] 09/26/2023 Education - [place] 09/26/2023 Problem Noted Date Diagnosed Date [facility] Education - [facility] 09/26/2023 Education - [place] 09/26/2023 Problem Noted Date Diagnosed Date [facility] Education - [facility] 09/26/2023 Education - [place] 09/26/2023 Additional Source Comments INFORMATION SOURCE (unrecogn ized section and content) DATE CREATED AUTHOR 12/12/2020 [facility] DATE CREATED AUTHOR AUTHOR'S ORGANIZ ATION 05/02/2022 [facility] DATE CREATED AUTHOR AUTHOR'S ORGANIZ ATION 10/09/2022 [facility] DATE CREATED AUTHOR AUTHOR'S ORGANIZ ATION 12/07/2024 [facility] DATE CREATED AUTHOR AUTHOR'S ORGANIZ ATION 05/09/2025 [facility] Reason for Visit (unrecogniz ed section and content) Reason Comments Arm Pain Foot Pain Reason Comments Received Outside Medical Records Reason Comments breast pump Reason Comments Initial OB Visit Transfer from [facility] Reason Comments Regulatory Intern - Other PRAF Reason Comments US Specialty Diagnoses / Procedures Referred By Contac t Referred [facility] Diagnoses 33 weeks gestation of Procedures OBSTETRIC ULTRASOUND WHI US PREG UTERUS AFTER 1ST TRIMEST GESTATION Huan Campo APRN.CNP [address] [place] [address] [address] Referral ID Status Reason Start Date Expiration Date V isits Requested Visits Authorized [id number] Closed Auto-Generate d Referral 09/26/2023 09/25/2024 1 1 Reason Comments Routine Reason Comments Appointment Reason Comments Initial OB Visit Specialty Diagnoses / Procedures Referred By Contac t Referred To Contact [facility] Diagnoses with uncertain dates in first trimester Procedures NUCHAL TRANSLUCENCY WHI US NUCHAL TRANSLUCENCY 1ST GESTATION Huan Campo APRN.BELKIS [address] [place] [address] [address] Referral ID Status Reason Start Date Expiration Date V isits Requested Visits Authorized [id number] Closed Auto-Generate d Referral 09/13/2024 11/09/2024 1 1 Reason Onset Date Comments Care 10/12/2024 Reason Onset Date Comments Appointment Request 10/09/2022 Specialty Diagnoses / Procedures Referred By Contac t Referred To Contact [facility] Diagnoses with uncertain dates in first trimester Procedures NUCHAL TRANSLUCENCY WHI US NUCHAL TRANSLUCENCY 1ST GESTATION Huan Campo APRN.CNP [address] [place] [address] [address] Reason Onset Date Comments Care 11/23/2024 Reason Onset Date Comments Care 01/10/2025 Specialty Diagnoses / Procedures Referred By Contac t Referred To Contact [facility] Diagnoses with uncertain dates in first trimester Procedures OBSTETRIC ULTRASOUND WHI US PREG UTERUS AFTER 1ST TRIMEST GESTATION Huan Campo APRN.CNP [address] [place] [address] Phone: tel: fax: [facility] [address] [place] [address] Referral ID Status Reason Start Date Expiration Date V isits Requested Visits Authorized [id number] Closed Auto-Generate d Referral 09/13/2024 09/13/2025 1 [...] Care Teams (unrecognized sec tion and content) Process Maintenance Technician Relationship Specialty Start Date End Date Reese Tellez MD [address] [place] [address] PCP - General 11/18/16 Team Status: Active [...] Provider, At tending Provider, Referring Provider Active Process Maintenance Technician Relationship Specialty Start Date End Date Reese Tellez MD [address], [place] [id number] PCP - General 11/18/16 Goals (unrecognized section [...] or prosecute any alcohol or drug abuse patient.[facility] the event this information is protected by the Federal Confidentiality of Alcohol and Drug Abuse Patient Records regulations: The Federal rules restrict any use of the information to criminally investigate or prosecute any alcohol or drug abuse patient.[facility] Hospital[facility] the event this information is protected by the Federal Confidentiality of Alcohol and Drug Abuse Patient Records regulations: The Federal rules restrict any use of the information to criminally investigate or prosecute any alcohol or drug abuse patient.[facility] the event this information is protected by the Federal Confidentiality of Alcohol and Drug Abuse Patient Records regulations: The Federal rules restrict any use of the information to criminally investigate or prosecute any alcohol or drug abuse patient.[facility] Hospital[facility] the event this information is protected by the Federal Confidentiality of Alcohol and Drug Abuse Patient Records regulations: The Federal rules restrict any use of the information to criminally investigate or prosecute any alcohol or drug abuse patient.[facility] Hospital[facility] the event this information is protected by the Federal Confidentiality of Alcohol and Drug Abuse Patient Records regulations: The Federal rules restrict any use of the information to criminally investigate or prosecute any alcohol or drug abuse patient.[facility] Hospital[facility] the event this information is protected by the Federal Confidentiality of Alcohol and Drug Abuse Patient Records regulations: The Federal rules restrict any use of the information to criminally investigate or prosecute any alcohol or drug abuse patient.[facility] Hospital[facility] the event this information is protected by the Federal Confidentiality of Alcohol and Drug Abuse Patient Records regulations: The Federal rules restrict any use of the information to criminally investigate or prosecute any alcohol or drug abuse patient.[facility] Hospital[facility] the event this information is protected by the Federal Confidentiality of Alcohol and Drug Abuse Patient Records regulations: The Federal rules restrict any use of the information to criminally investigate or prosecute any alcohol or drug abuse patient.[facility] Hospital[facility] the event this information is protected by the Federal Confidentiality of Alcohol and Drug Abuse Patient Records regulations: The Federal rules restrict any use of the information to criminally investigate or prosecute any alcohol or drug abuse patient.[facility] Hospital[facility] the event this information is protected by the Federal Confidentiality of Alcohol and Drug Abuse Patient Records regulations: The Federal rules restrict any use of the information to criminally investigate or prosecute any alcohol or drug abuse patient.[facility] HospitalIn the event this information is protected by the Federal Confidentiality of Alcohol and Drug Abuse Patient Records regulations: The Federal rules restrict any use of the information to criminally investigate or prosecute any alcohol or drug abuse patient.[facility] HospitalIn the event this information is protected by the Federal Confidentiality of Alcohol and Drug Abuse Patient Records regulations: The Federal rules restrict any use of the information to criminally investigate or prosecute any alcohol or drug abuse patient.[facility] HospitalIn the event this information is protected by the Federal Confidentiality of Alcohol and Drug Abuse Patient Records regulations: The Federal rules restrict any use of the information to criminally investigate or prosecute any alcohol or drug abuse patient.[facility] HospitalIn the event this information is protected by the Federal Confidentiality of Alcohol and Drug Abuse Patient Records regulations: The Federal rules restrict any use of the information to criminally investigate or prosecute any alcohol or drug abuse patient.[facility] HospitalIn the event this information is protected by the Federal Confidentiality of Alcohol and Drug Abuse Patient Records regulations: The Federal rules restrict any use of the information to criminally investigate or prosecute any alcohol or drug abuse patient.[facility] HospitalIn the event this information is protected by the Federal Confidentiality of Alcohol and Drug Abuse Patient Records regulations: The Federal rules restrict any use of the information to criminally investigate or prosecute any alcohol or drug abuse patient.[facility] HospitalIn the event this information is protected by the Federal Confidentiality of Alcohol and Drug Abuse Patient Records regulations: The Federal rules restrict any use of the information to criminally investigate or prosecute any alcohol or drug abuse patient.[facility] HospitalIn the event this information is protected by the Federal Confidentiality of Alcohol and Drug Abuse Patient Records regulations: The Federal rules restrict any use of the information to criminally investigate or prosecute any alcohol or drug abuse patient.[facility] HospitalIn the event this information is protected by the Federal Confidentiality of Alcohol and Drug Abuse Patient Records regulations: The Federal rules restrict any use of the information to criminally investigate or prosecute any alcohol or drug abuse patient.[facility] HospitalIn the event this information is protected by the Federal Confidentiality of Alcohol and Drug Abuse Patient Records regulations: The Federal rules restrict any use of the information to criminally investigate or prosecute any alcohol or drug abuse patient.[facility] HospitalIn the event this information is protected by the Federal Confidentiality of Alcohol and Drug Abuse Patient Records regulations: The Federal rules restrict any use of the information to criminally investigate or prosecute any alcohol or drug abuse patient.[facility] HospitalIn the event this information is protected by the Federal Confidentiality of Alcohol and Drug Abuse Patient Records regulations: The Federal rules restrict any use of the information to criminally investigate or prosecute any alcohol or drug abuse patient.[facility] HospitalIn the event this information is protected by the Federal Confidentiality of Alcohol and Drug Abuse Patient Records regulations: The Federal rules restrict any use of the information to criminally investigate or prosecute any alcohol or drug abuse patient.[facility] HospitalIn the event this information is protected by the Federal Confidentiality of Alcohol and Drug Abuse Patient Records regulations: The Federal rules restrict any use of the information to criminally investigate or prosecute any alcohol or drug abuse patient.[facility] HospitalIn the event this information is protected by the Federal Confidentiality of Alcohol and Drug Abuse Patient Records regulations: The Federal rules restrict any use of the information to criminally investigate or prosecute any alcohol or drug abuse patient.[facility] HospitalIn the event this information is protected by the Federal Confidentiality of Alcohol and Drug Abuse Patient Records regulations: The Federal rules restrict any use of the information to criminally investigate or prosecute any alcohol or drug abuse patient.[facility] HospitalIn the event this information is protected by the Federal Confidentiality of Alcohol and Drug Abuse Patient Records regulations: The Federal rules restrict any use of the information to criminally investigate or prosecute any alcohol or drug abuse patient.[facility] HospitalIn the event this information is protected by the Federal Confidentiality of Alcohol and Drug Abuse Patient Records regulations: The Federal rules restrict any use of the information to criminally investigate or prosecute any alcohol or drug abuse patient.[facility] HospitalIn the event this information is protected by the Federal Confidentiality of Alcohol and Drug Abuse Patient Records regulations: The Federal rules restrict any use of the information to criminally investigate or prosecute any alcohol or drug abuse patient.[facility] FOR RECORDS PERTAINING TO PATIENTS WHO [...] BE BASED ON THE PRIMARY CLINICAL RECORDS. [facility] [employer] [facility]. provides no warranty or guarantee of the accuracy or completeness of information in this document.
[2025-05-12 00:15] VITALS: BP 110/73; PULSE 71; RESP 14; TEMP 36.3; O2SAT 100
[2025-05-12 04:35] VITALS: BP 102/64; PULSE 78; RESP 15; TEMP 36.4; O2SAT 98
[2025-05-12 07:35] VITALS: BP 109/66; PULSE 76; RESP 16; TEMP 36.1
--- NOTE | 2025-05-12 07:35 | DS.PCM_ITS ---
Providers Date of Admission: 05/11/25 Primary Care Physician: Luz Marina Primary Care Phys Reason For Visit: VAGINAL DELIVERY Diagnosis Discharge Diagnosis (1) History of depression: Status: Inactive Code(s): Z86.59 - Personal history of other mental and behavioral disorders (2) History of asthma: Status: Inactive Code(s): Z87.09 - Personal history of other diseases of the respiratory system (3) History of anxiety: Status: Inactive Code(s): Z86.59 - Personal history of other mental and behavioral disorders (4) Spontaneous rupture of amniotic membranes: Status: Acute (5) (spontaneous vaginal delivery): Status: Acute Code(s): O80 - Encounter for full-term uncomplicated delivery (6) Asthma: Status: Acute Code(s): J45.909 - Unspecified asthma, uncomplicated Plan PPD 1 Formula feeding Pain control D/C home with follow up in office Medications at Discharge Home Medications acetaminophen 500 mg tablet 500 - 1,000 mg (1 - 2 x 500 mg) PO Q6H PRN PRN Pain Score 1-3 #0 tabs 05/12/25 Hospital Course Operations None Procedures None Summary of Care Provided Minutes Spent on Discharge: 15 Hospital Course: Patient had vaginal delivery. Hospital course was uneventful. Physical Exam Narrative Patient seen at bedside. Denies pain. Ambulating and voiding without difficulty. Lochia decreased. Desires discharge home today. Const alert and oriented x3 General Appearance: Negative for in distress HEENT normocephalic Eyes General Eye: normal appearance of both eyes Neck General: normal visual inspection Chest Chest: symmetrical chest wall rise Resp normal respiratory effort and normal air movement Effort and Inspection: symmetric chest movement; Negative for tachypneic Auscultation: clear to auscultation bilaterally Cardio regular rate and regular rhythm Peripheral Pulses: pulses 2+ throughout GI normal to inspection, nondistended, normoactive bowel sounds Narrative: Ice to perineum OB / External & Speculum: vaginal bleeding and other Lochia decreasing Uterus Palpation: uterus fundus firm (Below U) Extremity normal to inspection, full ROM and normal capillary refill Skin no rashes or lesions noted Neuro oriented x3, CN's II-XII intact bilaterally and gait normal Psych mental status grossly normal, thought process normal and activity/motor behavior normal Weight / BMI Weight Weight: 202 lb 13.204 oz Body Mass Index (BMI) 30.8 ABG / Lab / Microbiology Data 05/11/25 10:30 Laboratory: Laboratory Results - last 24 hr 05/11/25 10:30: WBC 14.3 H, RBC 4.60, Hgb 13.1, Hct 39.2, MCV 85.2, MCH 28.5, MCHC 33.4, RDW Std Deviation 43.3, RDW Coeff of Rick 14.0, Plt Count 172, MPV 9.3, Immature Gran % (Auto) 0.600, Neut % (Auto) 82.2 H, Lymph % (Auto) 12.4 L, Smyth % (Auto) 4.4, Eos % (Auto) 0.3, Baso % (Auto) 0.1, Absolute Neuts (auto) 11.8 H, Absolute Lymphs (auto) 1.78, Nucleated RBC % 0, Syphilis Total Ab Nonreactive, Blood Type O POSITIVE, Antibody Screen NEGATIVE 05/11/25 16:45: Urine Opiates Screen NEGATIVE, U Buprenorphine Qual NEGATIVE, Ur Oxycodone Screen NEGATIVE, Urine Methadone Screen NEGATIVE, Urine Fentanyl Screen PRESUMPTIVE POSITIVE, Ur Barbiturates Screen NEGATIVE, Ur Phencyclidine Scrn NEGATIVE, Ur Amphetamines Screen NEGATIVE, U Benzodiazepines Scrn NEGATIVE, Urine Cocaine Screen NEGATIVE, U Cannabinoids Screen PRESUMPTIVE POSITIVE D/C Instructions Discharge Diet: No restrictions Discharge Activity: Return to Normal Activity, No Restrictions, May Drive, May Shower and May Take a Tub Bath (Warm water only. No bath salts, soaps, bubbles) May resume sexual activity in: 6-8 weeks Weight Bearing Status: Weight bearing as tolerated Call your doctor if you observe: Fever of 101 or Higher, Inability to urinate, Using more than 1 pad per hour, Shortness of breath, Dizziness, Chest pain, Calf discomfort and Uncontrolled pain DC O2, CPAP, BIPAP Needs Home O2 Discharge instructions: No Please Follow Up With: [facility] Windy KLEIN When: 2 weeks in office or virtual Meaningful Use Info Meaningful Use Meaningful Use Diagnoses (Choose all that apply): None applicable Ischemic Stroke Statin Dosing Therapy Reference: STATIN DOSE THERAPY REFERENCE: * Patients > 75 years receive moderate or high dose statin therapy. * Patients 75 years or YOUNGER should receive HIGH intensity statin dose unless contraindicated. You will be required to document reason for non-treatment if statin daily dose does not meet guidelines. HIGH DOSE STATIN THERAPY DAILY Atorvastatin > than or = to 40 mg Rosuvastatin > than or = to 20 mg Amlodipine + Atorvastatin > than or = to 2.5/40 mg Ezetimibe + Simvastatin 10/80 mg Simvastatin 80mg Discharge Plan Admission Admit Date/Time: 05/11/25 10:10 Primary Reason for Your Visit: Labor and Delivery Attending Provider: Aislinn Bowman Primary Care Provider: Care Physician,No Primary Discharge Orders/Prescriptions Prescriptions: New acetaminophen 500 mg Tablet 500 - 1,000 mg PO Q6H PRN PRN (Reason: Pain Score 1-3) Qty: 0 0RF Discontinued methylprednisolone [Medrol (Kishor)] 4 mg tablets,dose pack See Rx Instructions PO PER PKG DIR Qty: 21 0RF Rx Instructions: PO PER PKG DIR Referrals / Follow Up: Aislinn Bowman CNM [Med Staff - Adv Practice Prof] - Care Physician,No Primary [Primary Care Provider] - Disposition Disposition (needs filled in before D/C Order can be placed): Home, Self Care
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
--- NOTE | 2025-05-18 09:32 | NURSING ---
Follow up phone call made, no answer, message states no voicemail set up. Unable to leave voicemail
--- NOTE | 2025-05-18 09:32 | NURSING ---
Follow up phone call made, no answer, message states no voicemail set up. Unable to leave voicemail
== END 2025-05-12 14:45 | disposition home or self-care (01) | DRG 560 ==
LOC: WPOUT 10:40 → WP 13:03
PROVIDERS: Nurse Anesthetist, Certified Registered; Admitting Provider Advanced Practice Midwife; Referring Provider Advanced Practice Midwife; Visit Provider Advanced Practice Midwife
DX: O42.02 Full-term premature rupture of membranes, onset of labor within 24 hours of rupture (principal); Z37.0 Single live birth; O99.12 Other diseases of the blood and blood-forming organs and certain disorders involving the immune mechanism complicating childbirth; D69.59 Other secondary thrombocytopenia; O69.81X0 Labor and delivery complicated by cord around neck, without compression, not applicable or unspecified; Z3A.40 40 weeks gestation of pregnancy; Z86.19 Personal history of other infectious and parasitic diseases; Z87.891 Personal history of nicotine dependence
CPT/HCPCS: 59050; 80307; 85025; 86780; 86850; 86900; 86901; 99221; G0378; J2405